=== PATIENT | male | born 1965 | race Caucasian/White ===

== ENCOUNTER 2020-03-10 11:42 | Inpatient (IN) | payer OTHER ==
[2020-03-10] MEDS ORDERED: SODIUM CHLORIDE 0.9% 500 ML 500 ML IV STA (11:45)
[2020-03-10] MEDS ORDERED: DILTIAZEM DRIP BOLUS FROM BAG 1 MG SOLN IV ONE (11:49)
[2020-03-10] MEDS ORDERED: DILTIAZEM 125 MG in SODIUM CHLORIDE 0.9% 100 ML IV SCH (12:00)
[2020-03-10 12:03] LABS: Basophils # (A) 0.1 k/uL (0-0.2); Basophils % (A) 1 %; Eosinophils # (A) 0.2 k/uL (0-0.7); Eosinophils % (A) 3 %; HCT 48.5 % (39.0-53.0); HGB 16.5 gm/dL (13.0-17.5); Lymphocytes # (A) 1.4 k/uL (1.0-4.8); Lymphocytes % (A) 22 %; MCH 33.9 pg (25.0-35.0); MCV 99.9 fL (80.0-100.0); Macrocytosis Slight; Mean Platelet Volume 7.4; Monocytes # (A) 0.5 k/uL (0-1.0); Monocytes % (A) 7 %; Neutrophils % (A) 64 %; Platelet Count 163 k/uL (150-450); RBC 4.85 m/uL (4.30-5.90); RDW 14.1 % (11.5-15.5); WBC 6.3 k/uL (3.8-10.6)
[2020-03-10 12:11] LABS: ALT 93 U/L (4-49); AST 151 U/L (17-59); African American GFR (CKD) >90 (>60 ml/min/1.73 sqM); Albumin 4.1 g/dL (3.5-5.0); Alkaline Phosphatase 85 U/L (38-126); Anion Gap 12 mmol/L; Blood Urea Nitrogen 12 mg/dL (9-20); Calcium 8.6 mg/dL (8.4-10.2); Carbon Dioxide 21 mmol/L (22-30); Chloride 107 mmol/L (98-107); Glucose 98 mg/dL (74-99); Magnesium 1.8 mg/dL (1.6-2.3); Non-African American GFR(CKD) 90 (>60 ml/min/1.73 sqM); Potassium 4.3 mmol/L (3.5-5.1); Sodium 140 mmol/L (137-145)
--- NOTE | 2020-03-10 12:14 | ED ---
Chest Pain HPI - General Chief Complaint: Chest Pain Stated Complaint: AFIB Time Seen by Provider: 03/10/20 11:44 Source: patient, EMS, RN notes reviewed Mode of arrival: EMS Limitations: no limitations - History of Present Illness Initial Comments: This a 54 show male presents emergency Department chief complaint chest pain or shortness of breath. Patient is brought to emergency from via EMS. Patient found to be in A. fib RVR he has meant that he was diagnosed with A. fib approximate 2 months ago in which he is on Eliquis and Procardia. Patient states he's had on and off symptoms over this last week but states today he is having increasing pain and dyspnea. Patient has no leg swelling denies any fevers or chills denies any abdominal pain including nausea vomiting diarrhea constipation patient states he did not take his Procardia today. - Related Data Allergies Allergy/AdvReac Type Severity Reaction Status Date / Time Penicillins Allergy Unknown Verified 03/10/20 11:49 Childhood Review of Systems ROS Statement: Those systems with pertinent positive or pertinent negative responses have been documented in the HPI. ROS Other: All systems not noted in ROS Statement are negative. EKG Findings - EKG Comments: EKG Findings:: EKG performed at 11:46 A. fib RVR rate of 148 QRS 82 QT/QTc to 74/4:30 Past Medical History Past Medical History: Atrial Fibrillation, Hypertension Additional Past Medical History / Comment(s): anxiety History of Any Multi-Drug Resistant Organisms: None Reported Past Surgical History: No Surgical Hx Reported Past Psychological History: Anxiety Smoking Status: Never smoker Past Alcohol Use History: Daily Past Drug Use History: None Reported General Exam Limitations: no limitations General appearance: alert, in no apparent distress Head exam: Present: atraumatic, normocephalic, normal inspection Eye exam: Present: normal appearance, PERRL, EOMI. Absent: scleral icterus, conjunctival injection, periorbital swelling ENT exam: Present: normal exam, normal oropharynx, mucous membranes moist, TM's normal bilaterally Neck exam: Present: normal inspection, full ROM. Absent: tenderness, meningismus, lymphadenopathy Respiratory exam: Present: normal lung sounds bilaterally. Absent: respiratory distress, wheezes, rales, rhonchi, stridor Cardiovascular Exam: Present: tachycardia, irregular rhythm, normal heart sounds. Absent: regular rate, normal rhythm, systolic murmur, diastolic murmur, rubs, gallop, clicks GI/Abdominal exam: Present: soft, normal bowel sounds. Absent: distended, tenderness, guarding, rebound, rigid Neurological exam: Present: alert, oriented X3 Skin exam: Present: warm, dry, intact, normal color. Absent: rash Course Vital Signs 03/10/20 03/10/20 03/10/20 11:44 12:02 12:04 Temperature 98.7 F Pulse Rate 152 H 115 H Respiratory 18 18 18 Rate Blood Pressure 139/100 112/72 O2 Sat by Pulse 94 L 95 Oximetry 03/10/20 12:45 Temperature Pulse Rate 102 H Respiratory 16 Rate Blood Pressure 112/88 O2 Sat by Pulse 97 Oximetry Chest Pain MDM - MDM 54-year-old male presents emergency from for chest pain shortness of breath. Patient underwent A. fib RVR patient was started on Cardizem heart rate is improving mild elevation of his troponin at this time patient will be admitted for repeat serial enzymes, cardiology evaluation. Patient is currently anticoagulant will be continued on anticoagulant. Disposition Clinical Impression: Atrial fibrillation with RVR Disposition: ADMITTED IP TO THIS HOSP Condition: Fair Referrals: Nonstaff,Physician [Primary Care Provider] - 1-2 days
[2020-03-10 12:17] LABS: Partial Thromboplastin Time 22.9 sec (22.0-30.0); Prothrombin Time 10.4 sec (9.0-12.0)
--- NOTE | 2020-03-10 12:30 | XR ---
EXAMINATION TYPE: XR chest 2V DATE OF EXAM: 03/10/2020 COMPARISON: None HISTORY: 54-year-old male with chest pain TECHNIQUE: AP and lateral views FINDINGS: Heart mildly enlarged. Mild interstitial prominence has a chronic appearance. No consolidation, pneum othorax, or pleural effusion. IMPRESSION: Mild cardiomegaly. No acute process seen.
[2020-03-10] MEDS ORDERED: NITROGLYCERIN SL TABS 0.4 MG TAB SUBLINGUAL PRN (13:03)
[2020-03-10] MEDS ORDERED: ASPIRIN 81 MG PO STA (13:03)
[2020-03-10] MEDS ORDERED: APIXABAN 5 MG TAB PO STA (13:40)
[2020-03-10] MEDS ORDERED: THIAMINE 100 MG/ML 2 ML VIAL IM STA (14:15)
[2020-03-10] MEDS ORDERED: LORazepam 2 MG/ML INJ IV PRN ×2 (14:15)
[2020-03-10] MEDS ORDERED: AMIODARONE 360 MG in DEXTROSE 5% IN WATER 200 ML IV ONE ×2 (15:04)
[2020-03-10] MEDS ORDERED: DEXTROSE 5% IN WATER 100 ML with AMIODARONE 150 MG IV ONE (15:04)
--- NOTE | 2020-03-10 16:09 | P.HPIM ---
History of Present Illness Patient is a 54-year-old male came in with the chief complaint of shortness of breath generalized tiredness weakness and the chest pressure radiating to the left arm. Patient was diagnosed with atrial fibrillation because of which patient is on Eliquis, diltiazem, metoprolol. But as per the patient patient also has heart failure because of which patient is on diuretic therapy. Patient's Eliquis was recently discontinued by his gyroscope technician as he was not in A. fib anymore. Patient is also on aspirin. Patient denied any history of carotid disease does have history of alcohol is under is still drinks one fifth of alcohol everyday his last alcohol was last night. Patient will have withdrawals without alcohol. Patient chest pain is pressure-like sensation constant moderate severity associated with the lightheadedness generalized weakness not associated with food nonpleuritic. Patient denied any smoking history. Patient does have sleep apnea and doesn't use any CPAP machine. Patient is found to be in atrial fibrillation and is being admitted for atrial fibrillation. Review of Systems REVIEW OF SYSTEMS: CONSTITUTIONAL: As mentioned in HPI HEENT: No recent visual problems or hearing problems. Denied any sore throat. CARDIOVASCULAR: orthopnea, PND, no palpitations, no syncope. PULMONARYno cough, no hemoptysis. GASTROINTESTINAL: No diarrhea, no nausea, no vomiting, no abdominal pain. NEUROLOGICAL: No headaches, no weakness, no numbness. HEMATOLOGICAL: Denies any bleeding or petechiae. GENITOURINARY: Denies any burning micturition, frequency, or urgency. MUSCULOSKELETAL/RHEUMATOLOGICAL: Denies any joint pain, swelling, or any muscle pain. ENDOCRINE: Denies any polyuria or polydipsia. The rest of the 14-point review of systems is negative. Past Medical History Past Medical History: Atrial Fibrillation, CVA/TIA, Hypertension, Osteoarthritis (OA), Pneumonia, Seizure Disorder Additional Past Medical History / Comment(s): Afib recently diagnosed, lower extremity edema, ETOH abuse with past withdrawal/seizure in 12/2018, chronic generalized pain, pt states he had a TIA in 2019 while in [place] and was intubated. History of Any Multi-Drug Resistant Organisms: None Reported Past Surgical History: Heart Catheterization, Orthopedic Surgery Additional Past Surgical History / Comment(s): R thumb fracture with surgery. Past Anesthesia/Blood Transfusion Reactions: No Reported Reaction Smoking Status: Never smoker - Past Family History Father Family Medical History: Myocardial Infarction ([place]) Additional Family Medical History / Comment(s): Father of a [place] at the age of 57 yrs. Mother Family Medical History: Hyperlipidemia, Hypertension Additional Family Medical History / Comment(s): Mother at the age of 89yrs. Medications and Allergies Home Medications Medication Instructions Recorded Confirmed Type Aspirin 81 mg PO DAILY 03/10/20 03/10/20 History Diltiazem HCl [Cardizem CD] 240 mg PO DAILY 03/10/20 03/10/20 History Folic Acid 1 mg PO DAILY 03/10/20 03/10/20 History Furosemide [Lasix] 40 mg PO DAILY 03/10/20 03/10/20 History Metoprolol Succinate [Toprol XL] 25 mg PO DAILY 03/10/20 03/10/20 History Sertraline [Zoloft] 100 mg PO DAILY 03/10/20 03/10/20 History Spironolactone [Aldactone] 25 mg PO BID 03/10/20 03/10/20 History Allergies Allergy/AdvReac Type Severity Reaction Status Date / Time Penicillins Allergy Unknown Verified 03/10/20 13:09 Childhood Physical Exam Vitals: Vital Signs Temp Pulse Resp BP Pulse Ox 03/10/20 15:35 97.9 F 105 H 18 107/88 96 03/10/20 14:56 101 H 18 100/64 96 03/10/20 14:08 120 H 18 121/81 96 03/10/20 12:45 102 H 16 112/88 97 03/10/20 12:04 18 03/10/20 12:02 115 H 18 112/72 95 03/10/20 11:44 98.7 F 152 H 18 139/100 94 L Intake and Output 03/10/20 03/10/20 03/10/20 06:59 14:59 22:59 Other: Weight 113.398 kg PHYSICAL EXAMINATION: GENERAL: The patient is alert and oriented x3, appears to be in distress because of tightness. Obese is to be really tired HEENT: Pupils are round and equally reacting to light. EOMI. No scleral icterus. No conjunctival pallor. Normocephalic, atraumatic. No pharyngeal erythema. No thyromegaly. CARDIOVASCULAR: S1 and S2 present. No murmurs, rubs, or gallops. Regular rate and regular rhythm no JVD PULMONARY: Chest is clear to auscultation, no wheezing or crackles. ABDOMEN: Soft, nontender, nondistended, normoactive bowel sounds. No palpable organomegaly. MUSCULOSKELETAL: No joint swelling or deformity. EXTREMITIES: No cyanosis, clubbing, mild nonpitting pedal edema most probably secondary to venous stasis NEUROLOGICAL: Gross neurological examination did not reveal any focal deficits. SKIN: No rashes. Results CBC & Chem 7: 03/10/20 11:54 03/10/20 11:54 Labs: Abnormal Lab Results - Last 24 Hours (Table) 03/10/20 03/10/20 Range/Units 11:54 11:54 Carbon Dioxide 21 L (22-30) mmol/L AST 151 H (17-59) U/L ALT 93 H (4-49) U/L Troponin I 0.059 H* (0.000-0.034) ng/mL Thrombosis Risk Factor Assmnt - Choose All That Apply Any of the Below Risk Factors Present?: Yes Each Factor Represents 1 point: Age 41-60 years, Obesity (BMI >25), Swollen legs (current) Other Risk Factors: No Other congenital or acquired thrombophilia - If yes, enter type in comment: No Thrombosis Risk Factor Assessment Total Risk Factor Score: 3 Thrombosis Risk Factor Assessment Level: Moderate Risk Assessment and Plan Plan: -Atrial fibrillation with rapid and regular rate: Patient appears to have paroxysmal A. fib there is a possibility that patient has a decreased ejection fraction LV dysfunction which Cardizem will be discussed in patient will be started back on metoprolol and patient was started on amiodarone cardiology will be consulted patient will be resumed on anticoagulation with Eliquis echocardiogram will be obtained -Congestive heart failure possibly of chronic systolic dysfunction although ejection fraction is not available at this time as per the patient patient last year physical on 40%, patient appears to be fairly euvolemic not in heart failure exacerbation patient will be resumed on his home regimen of Lasix and Aldactone. -Chest pain chest pressure with mildly elevated troponin elevation of troponin and chest pressure is probably secondary to atrial fibrillation, cardiology will evaluate the patient -Alcohol abuse counseling was provided -Alcohol withdrawal patient will be started on Ativan CIWA protocol -Acute alcoholic hepatitis will repeat liver enzymes tomorrow again Generalized tiredness and weakness secondary to alcoholism -Obesity, obstructive sleep apnea possibility of pulmonary hypertension echocardiogram will be obtained counseling regarding use of CPAP machine was provided -Hypertension -History of seizure disorder not in any antiseizure medications at this time -Depression
[2020-03-10] MEDS: LORazepam 2 MG/ML INJ IV PRN ×5 (17:02→23:47)
[2020-03-10] MEDS: SPIRONOLACTONE 25 MG TAB PO SCH (19:52)
[2020-03-10] MEDS: APIXABAN 5 MG TAB PO SCH (19:52)
[2020-03-10] MEDS: AMIODARONE 300 MG in DEXTROSE 5% IN WATER 250 ML IV SCH ×2 (22:47)
[2020-03-11] MEDS: LORazepam 2 MG/ML INJ IV PRN ×10 (00:40→23:36)
[2020-03-11] MEDS: THIAMINE 100 MG TAB PO SCH ×2 (06:12→17:56)
[2020-03-11 06:53] LABS: HCT 48.8 % (39.0-53.0); MCH 33.7 pg (25.0-35.0); MCHC 32.8 g/dL (31.0-37.0); MCV 102.7 fL (80.0-100.0); Macrocytosis Slight; Mean Platelet Volume 7.5; Platelet Count 138 k/uL (150-450); RBC 4.76 m/uL (4.30-5.90)
[2020-03-11 07:02] LABS: ALT 85 U/L (4-49); AST 119 U/L (17-59); African American GFR (CKD) >90 (>60 ml/min/1.73 sqM); Albumin 3.8 g/dL (3.5-5.0); Alkaline Phosphatase 76 U/L (38-126); Anion Gap 8 mmol/L; Blood Urea Nitrogen 11 mg/dL (9-20); Calcium 8.5 mg/dL (8.4-10.2); Carbon Dioxide 23 mmol/L (22-30); Chloride 106 mmol/L (98-107); Cholesterol 155 mg/dL (<200); Glucose 91 mg/dL (74-99); HDL Cholesterol 82 mg/dL (40-60); LDL Cholesterol,Calculated 58 mg/dL (0-99); Non-African American GFR(CKD) >90 (>60 ml/min/1.73 sqM); Potassium 4.7 mmol/L (3.5-5.1); Sodium 137 mmol/L (137-145); Total Bilirubin 2.6 mg/dL (0.2-1.3); Total Protein 6.7 g/dL (6.3-8.2); Triglycerides 75 mg/dL (<150)
[2020-03-11] MEDS: SPIRONOLACTONE 25 MG TAB PO SCH ×2 (08:41→20:38)
[2020-03-11] MEDS: ASPIRIN 325 MG TAB PO SCH (08:42)
[2020-03-11] MEDS: FUROSEMIDE 40 MG TAB PO SCH (08:42)
[2020-03-11] MEDS: SERTRALINE 100 MG TAB PO SCH (08:42)
[2020-03-11] MEDS: APIXABAN 5 MG TAB PO SCH ×2 (08:42→20:39)
[2020-03-11] MEDS: FOLIC ACID 1 MG TAB PO SCH (08:42)
[2020-03-11] MEDS ORDERED: METOPROLOL SUCCINATE (ER) 50 MG TAB.ER.24H PO SCH (09:00)
--- NOTE | 2020-03-11 12:27 | P.PN ---
Subjective Progress Note Date: 03/11/20 This is a 54-year-old male with history of paroxysmal and persistent atrial fibrillation. Patient was treated with anticoagulation therapy, diltiazem and also metoprolol in the past. Apparently he was taken off the anticoagulation therapy recently by his receptionist scheduler. Patient is from out of town. Patient also has history of alcohol abuse. This patient is admitted now with left-sided chest pain and evidence of recurrence of atrial fibrillation with rapid ventricular response. Patient is also having having some withdrawal symptoms. His chest pain is located on the left side of the chest which is well circumscribed and appears to be typical. His cardiac enzymes are mildly elevated but the pattern is not consistent with acute coronary syndrome or non- STEMI. His liver enzymes are mildly elevated. His proBNP is about 1140. His BUN/creatinine are within normal limits. Patient is on IV diltiazem and also on oral anticoagulation therapy. I'm going to increase the dose of beta ramses. Echocardiogram was done and that will be reviewed. Patient is also being treated for alcohol withdrawal. He patient continues to be in atrial fibrillation, may be considered for CHRISTINE cardioversion. Objective - Vital Signs Vital signs: Vital Signs Temp 97.5 F L 03/11/20 11:42 Pulse 129 H 03/11/20 11:42 Resp 22 03/11/20 11:42 BP 161/112 03/11/20 11:42 Pulse Ox 94 L 03/11/20 11:42 Intake & Output 03/10/20 03/11/20 03/11/20 18:59 06:59 18:59 Intake Total 120 Output Total 400 100 Balance -280 -100 Weight 113.398 kg 134.6 kg Intake: Oral 120 Output: Urine 400 100 Other: Voiding Method Urinal # Bowel Movements 1 - Exam GENERAL EXAM: Patient is alert and appears to be anxious and sweaty HEENT: Normocephalic. Normal reaction of pupils, equal size, normal range of extraocular motion. No erythema or exudates in the throat. NECK: No masses, no nuchal rigidity. CHEST: No chest wall deformity. LUNGS: Equal air entry with no crackles or wheeze. HEART: S1 and S2 normal, tachycardic with irregular rhythm ABDOMEN: No hepatosplenomegaly, normal bowel sounds, no guarding or rigidity. SKIN: No rashes CENTRAL NERVOUS SYSTEM: No focal deficits. EXTREMITIES: No cyanosis, clubbing or edema. - Labs CBC & Chem 7: 03/11/20 06:08 03/11/20 06:08 Labs: Abnormal Lab Results - Last 24 Hours (Table) 03/10/20 03/10/20 03/10/20 Range/Units 11:54 14:43 17:21 MCV (80.0-100.0) fL Plt Count (150-450) k/uL Total Bilirubin (0.2-1.3) mg/dL AST (17-59) U/L ALT (4-49) U/L Troponin I 0.059 H* 0.063 H* 0.059 H* (0.000-0.034) ng/mL HDL Cholesterol (40-60) mg/dL 03/11/20 03/11/20 Range/Units 06:08 06:08 MCV 102.7 H (80.0-100.0) fL Plt Count 138 L (150-450) k/uL Total Bilirubin 2.6 H (0.2-1.3) mg/dL AST 119 H (17-59) U/L ALT 85 H (4-49) U/L Troponin I (0.000-0.034) ng/mL HDL Cholesterol 82 H (40-60) mg/dL Assessment and Plan (1) Essential hypertension Current Visit: Yes Status: Acute Code(s): I10 - ESSENTIAL (PRIMARY) HYPERTENSION SNOMED Code(s): 35366520 (2) Atrial fibrillation with RVR Current Visit: Yes Status: Acute Code(s): I48.91 - UNSPECIFIED ATRIAL FIBRILLATION SNOMED Code(s): 706376159788651 (3) Alcohol withdrawal Current Visit: Yes Status: Acute Code(s): F10.239 - ALCOHOL DEPENDENCE WITH WITHDRAWAL, UNSPECIFIED SNOMED Code(s): 201185188 (4) Elevated troponin Current Visit: Yes Status: Acute Code(s): R79.89 - OTHER SPECIFIED ABNORMAL FINDINGS OF BLOOD CHEMISTRY SNOMED Code(s): 136266048 Plan: Continue with anticoagulation, beta ramses and IV Cardizem. If patient doesn't convert spontaneously, may consider CHRISTINE cardioversion. We'll also get an echocardiogram
[2020-03-11] MEDS: LISINOPRIL 5 MG TAB PO SCH (12:49)
[2020-03-11] MEDS: AMIODARONE 300 MG in DEXTROSE 5% IN WATER 250 ML IV SCH ×2 (13:49)
[2020-03-11] MEDS ORDERED: DIGOXIN 125 MCG TAB PO ONE ×2 (15:00→21:00)
[2020-03-11] MEDS ORDERED: DIGOXIN 250 MCG TAB PO ONE (15:00)
[2020-03-11] MEDS ORDERED: HYDROmorphone 0.5 MG/0.5 ML SYRINGE IVP PRN (15:54)
[2020-03-11 16:29] LABS: ALT 73 U/L (4-49); AST 106 U/L (17-59); African American GFR (CKD) >90 (>60 ml/min/1.73 sqM); Albumin 3.9 g/dL (3.5-5.0); Alkaline Phosphatase 77 U/L (38-126); Anion Gap 7 mmol/L; Blood Urea Nitrogen 11 mg/dL (9-20); Calcium 8.8 mg/dL (8.4-10.2); Carbon Dioxide 27 mmol/L (22-30); Chloride 100 mmol/L (98-107); Glucose 97 mg/dL (74-99); Non-African American GFR(CKD) >90 (>60 ml/min/1.73 sqM); Potassium 4.3 mmol/L (3.5-5.1); Sodium 134 mmol/L (137-145); Total Bilirubin 2.7 mg/dL (0.2-1.3); Total Protein 6.7 g/dL (6.3-8.2)
--- NOTE | 2020-03-11 17:15 | PN ---
PROGRESS NOTE DATE OF SERVICE: 03/11/2020 This 54-year-old gentleman was admitted with shortness of breath, also had generalized weakness and tiredness, significant history of noncompliance. Patient was not taking any medications for the last 4 or 5 months. Patient taking alcohol abuse. The patient has left-sided chest pain. The patient had recurrent cardiology following the patient closely with multiple consultants. troponins elevated, indicating acute non ST elevation myocardial infarction with troponin up to 0.063. Past medical history reviewed. REVIEW OF SYSTEMS: Cardiovascular system: As mentioned earlier. Respiratory: As mentioned earlier. GI: As mentioned earlier. : No dysuria or retention. NERVOUS SYSTEM: No numbness or weakness. MEDICATIONS: Reviewed and include: 1. Eliquis 5 mg b.i.d. 2. Aspirin 320. 3. Lanoxin. 4. Folic acid. 5. Lasix. 6. Ativan. 7. Toprol-XL. 8. Nitrostat. 9. Zoloft. 10.Aldactone. 11.Vitamin B1. PHYSICAL EXAM: Patient is alert, oriented x3. Pulse is 120, irregular. Blood pressure ntd. Respirations 20, temperature 97.2, pulse ox 98% on 2 L. HEENT: Conjunctivae normal. NECK: No JVD. CARDIOVASCULAR: S1, S2. RESPIRATIONS: Breath sounds diminished in the bases. A few scattered rhonchi and crackles. ABDOMEN: Soft, nontender. LEGS are no edema, no swelling. NERVOUS SYSTEM: No focal deficits. LABS: MCV 102.7. Troponins are noted. Total bilirubin is 2.6, AST, ALT noted. Strickland negative. ASSESSMENT: 1. Atrial fibrillation with fast ventricular rate, paroxysmal. 2. Change in mental status acute metabolic encephalopathy. 3. Shortness of breath possibly congestive heart failure acute exacerbation with acute on chronic systolic dysfunction. 4. Chest pain and pressure. 5. Alcohol abuse and withdrawal. 6. Acute delirium tremens. 7. Change in mental status, metabolic encephalopathy, secondary to alcohol withdrawal. 8. Mild thrombocytopenia. 9. Troponin 0.059 indeterminate. 10.History of cerebrovascular accident, transient ischemic attack. 11.Hypertension. 12.History of degenerative joint disease. 13.History of pneumonia. 14.Seizure disorder. 15.History of withdrawal seizures. 16.History of transient ischemic attack and intubation in [place]. 17.History of anxiety/depression. 18.History of ETOH. 19.Obesity with body mass index of 46.5. RECOMMENDATIONS AND DISCUSSION: This 54-year-old gentleman who presented with multiple complex medical issues, we will monitor the patient closely, continue the current medications and symptomatic treatment. Otherwise, at this time, I recommend continue with Eliquis. Digoxin has been given. Otherwise Cardizem. Resume the home medications. Prognosis guarded because of multiple complex medical issues. Further recommendations to follow. Seizure precautions and CIWA protocol, alcohol withdrawal precautions. Recommend the patient follow up with primary physician closely after discharge. HILARIA / CHERYL: [id number] / GOLDEND
[2020-03-11 17:41] LABS: Appearance,Urine Clear (Clear); Bilirubin,Urine Negative (Negative); Blood,Urine Negative (Negative); Color,Urine Light Yellow; Glucose,Urine (UA) Negative (Negative); Ketones,Urine Negative (Negative); Leukocyte Esterase,Urine Negative (Negative); Nitrite,Urine Negative (Negative); Protein,Urine Negative (Negative); Specific Gravity,Urine 1.006 (1.001-1.035); Urobilinogen,Urine <2.0 mg/dL (<2.0)
[2020-03-11] MEDS: HYDROcodone/APAP 5-325MG 1 EACH TAB PO PRN (21:35)
[2020-03-12] MEDS: TEMAZEPAM 15 MG CAP PO PRN ×2 (01:52→19:38)
[2020-03-12] MEDS: LORazepam 2 MG/ML INJ IV PRN ×4 (01:52→17:29)
[2020-03-12 06:22] LABS: Basophils % (A) 1 %; Eosinophils # (A) 0.2 k/uL (0-0.7); Eosinophils % (A) 4 %; HCT 46.3 % (39.0-53.0); HGB 15.6 gm/dL (13.0-17.5); Lymphocytes # (A) 0.9 k/uL (1.0-4.8); Lymphocytes % (A) 15 %; MCHC 33.7 g/dL (31.0-37.0); MCV 100.9 fL (80.0-100.0); Macrocytosis Slight; Mean Platelet Volume 7.5; Monocytes # (A) 0.5 k/uL (0-1.0); Monocytes % (A) 9 %; Neutrophils # (A) 3.8 k/uL (1.3-7.7); Neutrophils % (A) 69 %; Platelet Count 139 k/uL (150-450); RBC 4.59 m/uL (4.30-5.90); RDW 14.1 % (11.5-15.5); WBC 5.6 k/uL (3.8-10.6)
[2020-03-12] MEDS: THIAMINE 100 MG TAB PO SCH ×2 (06:29→17:19)
[2020-03-12] MEDS: FOLIC ACID 1 MG TAB PO SCH (09:50)
[2020-03-12] MEDS: METOPROLOL SUCCINATE (ER) 100 MG TAB.ER.24H PO SCH (09:50)
[2020-03-12] MEDS: SPIRONOLACTONE 25 MG TAB PO SCH ×2 (09:51→19:38)
[2020-03-12] MEDS: FUROSEMIDE 40 MG TAB PO SCH (09:51)
[2020-03-12] MEDS: ASPIRIN 325 MG TAB PO SCH (09:51)
[2020-03-12] MEDS: APIXABAN 5 MG TAB PO SCH ×2 (09:51→19:37)
[2020-03-12] MEDS: LISINOPRIL 5 MG TAB PO SCH (09:51)
[2020-03-12] MEDS: SERTRALINE 100 MG TAB PO SCH (09:51)
[2020-03-12] MEDS: DIGOXIN 125 MCG TAB PO SCH (10:27)
--- NOTE | 2020-03-12 11:46 | P.PN ---
Subjective Progress Note Date: 03/12/20 This is a 54-year-old male with history of paroxysmal and persistent atrial fibrillation. Patient was treated with anticoagulation therapy, diltiazem and also metoprolol in the past. Apparently he was taken off the anticoagulation therapy recently by his conduit helper. Patient is from out of town. Patient also has history of alcohol abuse. This patient is admitted now with left-sided chest pain and evidence of recurrence of atrial fibrillation with rapid ventricular response. Patient is also having having some withdrawal symptoms. His chest pain is located on the left side of the chest which is well circumscribed and appears to be typical. His cardiac enzymes are mildly elevated but the pattern is not consistent with acute coronary syndrome or non- STEMI. His liver enzymes are mildly elevated. His proBNP is about 1140. His BUN/creatinine are within normal limits. Patient is on IV diltiazem and also on oral anticoagulation therapy. I'm going to increase the dose of beta ramses. Echocardiogram was done and that will be reviewed. Patient is also being treated for alcohol withdrawal. He patient continues to be in atrial fibrillation, may be considered for CHRISTINE cardioversion. 03/12/2020: This patient is admitted with atypical fibrillation with rapid and corresponds. Patient also had evidence of cardiomyopathy with poor ejection fraction. Patient is a also having symptoms of alcohol withdrawal. 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 His heart rate is well controlled with combination of beta ramses and Lanoxin. Patient is off amiodarone. We'll continue his current medical therapy. I will also add dose diuretics and PANKAJ inhibitor. Further recommendations will depend upon clinical course Objective - Vital Signs Vital signs: Vital Signs Temp 98.1 F 03/12/20 08:45 Pulse 74 03/12/20 08:45 Resp 18 03/12/20 08:45 BP 131/73 03/12/20 08:45 Pulse Ox 94 L 03/12/20 08:45 Intake & Output 03/11/20 03/12/20 03/12/20 18:59 06:59 18:59 Intake Total 287.083 Output Total 1725 Balance -1437.917 Weight 127.4 kg Intake: Intake, IV Titration 287.083 Amount Amiodarone 300 mg In 287.083 Dextrose 5% in Water 250 ml @ 0.5 MG/MIN 25 mls/hr IV .Q10H FOR[facility], 1928–1983 Rx#: [id number] Output: Urine 1725 Other: Voiding Method Urinal Urinal # Voids 2 2 # Bowel Movements 1 - Exam GENERAL EXAM: Patient is alert and appears to be anxious and sweaty HEENT: Normocephalic. Normal reaction of pupils, equal size, normal range of extraocular motion. No erythema or exudates in the throat. NECK: No masses, no nuchal rigidity. CHEST: No chest wall deformity. LUNGS: Equal air entry with no crackles or wheeze. HEART: S1 and S2 normal, tachycardic with irregular rhythm ABDOMEN: No hepatosplenomegaly, normal bowel sounds, no guarding or rigidity. SKIN: No rashes CENTRAL NERVOUS SYSTEM: No focal deficits. EXTREMITIES: No cyanosis, clubbing or edema. - Labs CBC & Chem 7: 03/12/20 05:34 03/11/20 16:04 Labs: Abnormal Lab Results - Last 24 Hours (Table) 03/11/20 03/12/20 Range/Units 16:04 05:34 MCV 100.9 H (80.0-100.0) fL Plt Count 139 L (150-450) k/uL Lymphocytes # 0.9 L (1.0-4.8) k/uL Sodium 134 L (137-145) mmol/L Total Bilirubin 2.7 H (0.2-1.3) mg/dL AST 106 H (17-59) U/L ALT 73 H (4-49) U/L Assessment and Plan (1) Essential hypertension Current Visit: Yes Status: Acute Code(s): I10 - ESSENTIAL (PRIMARY) HYPE RTENSION SNOMED Code(s): 88995810 (2) Atrial fibrillation with RVR Current Visit: Yes Status: Acute Code(s): I48.91 - UNSPECIFIED ATRIAL FIBRILLATION SNOMED Code(s): 127486094314593 (3) Alcohol withdrawal Current Visit: Yes Status: Acute Code(s): F10.239 - ALCOHOL DEPENDENCE WITH WITHDRAWAL, UNSPECIFIED SNOMED Code(s): 873105120 (4) Elevated troponin Current Visit: Yes Status: Acute Code(s): R79.89 - OTHER SPECIFIED ABNORMAL FINDINGS OF BLOOD CHEMISTRY SNOMED Code(s): 597480277 (5) Cardiomyopathy Current Visit: Yes Status: Acute Code(s): I42.9 - CARDIOMYOPATHY, UNSPECIFIED SNOMED Code(s): 29540227 Plan: Patient heart rate is better controlled. We'll continue current medical therapy. We will also add diuretics and PANKAJ inhibitor. Further recommendations depend upon clinical course
[2020-03-12] MEDS: ONDANSETRON 4 MG/2 ML VIAL IVP PRN (13:53)
[2020-03-12] MEDS: PANTOPRAZOLE 40 MG TABLET PO SCH (17:19)
[2020-03-12] MEDS: HYDROcodone/APAP 5-325MG 1 EACH TAB PO PRN (19:38)
--- NOTE | 2020-03-12 23:57 | PN ---
PROGRESS NOTE DATE OF SERVICE: 03/12/2020 This 54-year-old gentleman admitted with shortness of breath also had generalized weakness. Patient also atrial fibrillation with a fast ventricular rate. Patient also had ETOH withdrawals. The patient is slightly confused at this time. Patient being closely monitored. Past medical history reviewed. REVIEW OF SYSTEMS: Cardiovascular as mentioned. RESPIRATORY: As mentioned earlier. GI: As mentioned earlier. : No dysuria or retention. NERVOUS SYSTEM: No numbness or weakness. CURRENT MEDICATIONS: Reviewed and include: [place] 5 mg, Eliquis, aspirin, Lanoxin, folic acid, Lasix, Dilaudid, Zestril, Ativan. Toprol-XL, Nitrostat, Zofran, Protonix, Zoloft, Aldactone, Restoril and vitamin B1. Doses are reviewed. PHYSICAL EXAMINATION: Alert and oriented times three. Pulse 120 and irregular. Blood pressure is 147/81, respirations 18, temperature 98.2, pulse ox 94% on room air. HEENT: Conjunctivae normal. NECK: No JVD. CARDIOVASCULAR: S1, S2 muffled. RESPIRATORY: Breath sounds diminished in the bases. A few scattered rhonchi and crackles. ABDOMEN: Soft, nontender. LEGS are no edema. No swelling. LABS: At this time shows WBC 5.2, hemoglobin 15.2, sodium 134, total bilirubin is 2.7, AST, ALT noted. ASSESSMENT: 1. Atrial fibrillation with fast ventricular rate present, paroxysmal, present on admission. 2. Change in mental status acute metabolic encephalopathy. 3. Shortness of breath, with possible congestive heart failure acute exacerbation, acute on chronic systolic dysfunction. 4. Chest pain and pressure. 5. Alcohol abuse and withdrawal. 6. Acute delirium tremens. 7. Change in mental status, metabolic encephalopathy, secondary to alcohol withdrawal. 8. Mild thrombocytopenia. 9. Troponin 0.05 indeterminate. 10.History of cerebrovascular accident/transient ischemic attack. 11.Hypertension. 12.History of degenerative joint disease. 13.History pneumonia. 14.Seizure disorder. 15.History of withdrawal seizures. 16.History of transient ischemic attack and intubation in [place]. 17.History of anxiety, depression. 18.History of EtOH. 19.Obesity with body mass index 46.5. RECOMMENDATIONS AND DISCUSSION: This 54-year-old gentleman who was admitted to the hospital with multiple complex medical issues, we will monitor the patient closely. Continue with CIWA protocol. Continue with digoxin and beta blockers. Closely with Cardiology. Otherwise, there are no signs of any infection at this time. The chest x-ray done at the time of admission did not show acute abnormality. We will continue to monitor. Guarded prognosis. Further recommendations to follow. Repeat labs will be ordered. MMODL / IJN: [id number] /
[2020-03-13] MEDS: PANTOPRAZOLE 40 MG TABLET PO SCH ×2 (06:29→15:54)
[2020-03-13] MEDS: THIAMINE 100 MG TAB PO SCH ×3 (06:29→20:52)
[2020-03-13 06:33] LABS: Basophils # (A) 0.1 k/uL (0-0.2); Basophils % (A) 1 %; Eosinophils # (A) 0.3 k/uL (0-0.7); Eosinophils % (A) 5 %; HCT 48.4 % (39.0-53.0); HGB 16.3 gm/dL (13.0-17.5); Lymphocytes % (A) 20 %; MCH 33.4 pg (25.0-35.0); MCHC 33.6 g/dL (31.0-37.0); MCV 99.4 fL (80.0-100.0); Mean Platelet Volume 7.5; Monocytes # (A) 0.4 k/uL (0-1.0); Monocytes % (A) 8 %; Neutrophils # (A) 3.3 k/uL (1.3-7.7); Neutrophils % (A) 63 %; Platelet Count 162 k/uL (150-450); RBC 4.87 m/uL (4.30-5.90); RDW 13.8 % (11.5-15.5); WBC 5.2 k/uL (3.8-10.6)
[2020-03-13] MEDS: DIGOXIN 125 MCG TAB PO SCH (08:02)
[2020-03-13] MEDS: FOLIC ACID 1 MG TAB PO SCH (08:02)
[2020-03-13] MEDS: APIXABAN 5 MG TAB PO SCH ×2 (08:02→20:52)
[2020-03-13] MEDS: FUROSEMIDE 40 MG TAB PO SCH (08:02)
[2020-03-13] MEDS: SPIRONOLACTONE 25 MG TAB PO SCH ×2 (08:02→20:52)
[2020-03-13] MEDS: SERTRALINE 100 MG TAB PO SCH (08:02)
[2020-03-13] MEDS: METOPROLOL SUCCINATE (ER) 100 MG TAB.ER.24H PO SCH (08:02)
[2020-03-13] MEDS: LISINOPRIL 5 MG TAB PO SCH (08:02)
[2020-03-13] MEDS: ASPIRIN 325 MG TAB PO SCH (08:02)
[2020-03-13] MEDS: LORazepam 2 MG/ML INJ IV PRN ×2 (08:10→23:05)
--- NOTE | 2020-03-13 11:54 | P.PN ---
Subjective Progress Note Date: 03/13/20 This is a 54-year-old male with history of paroxysmal and persistent atrial fibrillation. Patient was treated with anticoagulation therapy, diltiazem and also metoprolol in the past. Apparently he was taken off the anticoagulation therapy recently by his access clinician. Patient is from out of town. Patient also has history of alcohol abuse. This patient is admitted now with left-sided chest pain and evidence of recurrence of atrial fibrillation with rapid ventricular response. Patient is also having having some withdrawal symptoms. His chest pain is located on the left side of the chest which is well circumscribed and appears to be typical. His cardiac enzymes are mildly elevated but the pattern is not consistent with acute coronary syndrome or non- STEMI. His liver enzymes are mildly elevated. His proBNP is about 1140. His BUN/creatinine are within normal limits. Patient is on IV diltiazem and also on oral anticoagulation therapy. I'm going to increase the dose of beta ramses. Echocardiogram was done and that will be reviewed. Patient is also being treated for alcohol withdrawal. He patient continues to be in atrial fibrillation, may be considered for CHRISTINE cardioversion. 03/12/2020: This patient is admitted with atypical fibrillation with rapid and corresponds. Patient also had evidence of cardiomyopathy with poor ejection fraction. Patient is a also having symptoms of alcohol withdrawal. 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 His heart rate is well controlled with combination of beta ramses and Lanoxin. Patient is off amiodarone. We'll continue his current medical therapy. I will also add dose diuretics and PANKAJ inhibitor. Further recommendations will depend upon clinical course. 03/13/2020: This patient is a still complaining of shortness of breath and not feeling well. His urine output is excellent. His lungs appeared to be clear. Heart is irregular. Still mildly tachycardic is also being treated for alcohol withdrawal. We'll continue with current medical therapy and follow his vital signs are urinary output Objective - Vital Signs Vital signs: Vital Signs Temp 98.1 F 03/13/20 08:00 Pulse 130 H 03/13/20 08:00 Resp 18 03/13/20 08:00 BP 156/85 03/13/20 08:00 Pulse Ox 92 L 03/13/20 08:00 Intake & Output 03/12/20 03/13/20 03/13/20 18:59 06:59 18:59 Intake Total 522 Output Total 2650 300 Balance -2127 -300 Weight 127.732 kg Intake: Oral 522 Output: Urine 2650 300 Other: Voiding Method Urinal Urinal # Voids 1 - Exam GENERAL EXAM: Patient is alert and appears to be anxious and sweaty HEENT: Normocephalic. Normal reaction of pupils, equal size, normal range of extraocular motion. No erythema or exudates in the throat. NECK: No masses, no nuchal rigidity. CHEST: No chest wall deformity. LUNGS: Equal air entry with no crackles or wheeze. HEART: S1 and S2 normal, tachycardic with irregular rhythm ABDOMEN: No hepatosplenomegaly, normal bowel sounds, no guarding or rigidity. SKIN: No rashes CENTRAL NERVOUS SYSTEM: No focal deficits. EXTREMITIES: No cyanosis, clubbing . Mild edema - Labs CBC & Chem 7: 03/13/20 05:55 03/11/20 16:04 Assessment and Plan (1) Essential hypertension Current Visit: Yes Status: Acute Code(s): I10 - ESSENTIAL (PRIMARY) HYPERTENSION SNOMED Code(s): 81909020 (2) Atrial fibrillation with RVR Current Visit: Yes Status: Acute Code(s): I48.91 - UNSPECIFIED ATRIAL FIBRILLATION SNOMED Code(s): 687401737854749 (3) Alcohol withdrawal Current Visit: Yes Status: Acute Code(s): F10.239 - ALCOHOL DEPENDENCE WITH WITHDRAWAL, UNSPECIFIED SNOMED Code(s): 328924832 (4) Elevated troponin Current Visit: Yes Status: Acute Code(s): R79.89 - OTHER SPECIFIED ABNORMAL FINDINGS OF BLOOD CHEMISTRY SNOMED Code(s): 101663386 (5) Cardiomyopathy Current Visit: Yes Status: Acute Code(s): I42.9 - CARDIOMYOPATHY, UNSPECIFIED SNOMED Code(s): 58292810 Plan: Continue current medical therapy. Follow elect lites closely. Increase activity as tolerated
[2020-03-13] MEDS: TEMAZEPAM 15 MG CAP PO PRN (20:51)
[2020-03-13] MEDS: HYDROcodone/APAP 5-325MG 1 EACH TAB PO PRN (20:52)
--- NOTE | 2020-03-14 05:30 | PN ---
PROGRESS NOTE DATE OF SERVICE: 03/13/2020 This 54-year-old gentleman who was admitted with shortness of breath also had atrial fibrillation. The patient also had significant EtOH withdrawal also. No chest pain. No palpitations. No fever. PHYSICAL EXAMINATION: On exam, alert and oriented x3. Pulse is 80, blood pressure 128/92, respirations 16, temperature 98.3, pulse ox 92% on room air. HEENT: Conjunctivae normal. NECK: No jugular venous distention. CARDIOVASCULAR: S1, S2 muffled. RESPIRATORY: Breath sounds diminished at the bases. A few scattered rhonchi. ABDOMEN: Soft. NERVOUS SYSTEM: No focal deficits. LABS: CBC within normal limits. CMP noted. AST, ALT still elevated. ASSESSMENT: 1. Atrial fibrillation with fast ventricular rate, paroxysmal, present on admission. 2. Change in mental status, acute metabolic encephalopathy. 3. Shortness of breath, possible congestive heart failure acute exacerbation, acute on chronic systolic dysfunction. 4. Chest pain and pressure, improved. 5. Alcohol abuse and withdrawal. 6. Acute delirium tremens. 7. Acute alcoholic hepatitis. 8. Change in mental status acute metabolic encephalopathy secondary to alcohol withdrawal. 9. Mild thrombocytopenia. 10.Troponin 0.05 indeterminate. 11.History of cerebrovascular accident, transient ischemic attack. 12.Hypertension. 13.History of degenerative joint disease. 14.History of pneumonia. 15.History of seizure disorder. 16.History of withdrawal seizures. 17.History of transient ischemic attack and intubation in [place]. 18.History of anxiety, depression. 19.History EtOH. 20.Obesity with body mass index of 46.5. RECOMMENDATIONS AND DISCUSSION: This 54-year-old gentleman who presented with multiple complex medical issues, will monitor the patient closely. Continue the CIWA protocol. Continue the rest of medications. Continue the digoxin. Closely follow with Cardiology. Guarded prognosis. Further recommendations to follow. MMODL / IJN: [id number] /
[2020-03-14] MEDS: PANTOPRAZOLE 40 MG TABLET PO SCH ×2 (06:25→17:54)
[2020-03-14 07:13] LABS: Basophils # (A) 0.1 k/uL (0-0.2); Basophils % (A) 1 %; Eosinophils # (A) 0.4 k/uL (0-0.7); Eosinophils % (A) 6 %; HCT 49.6 % (39.0-53.0); HGB 17.3 gm/dL (13.0-17.5); Lymphocytes # (A) 1.3 k/uL (1.0-4.8); Lymphocytes % (A) 21 %; MCH 34.7 pg (25.0-35.0); MCHC 34.9 g/dL (31.0-37.0); MCV 99.3 fL (80.0-100.0); Mean Platelet Volume 7.5; Monocytes # (A) 0.7 k/uL (0-1.0); Monocytes % (A) 12 %; Neutrophils # (A) 3.5 k/uL (1.3-7.7); Neutrophils % (A) 57 %; Platelet Count 169 k/uL (150-450); WBC 6.1 k/uL (3.8-10.6)
[2020-03-14] MEDS: LORazepam 2 MG/ML INJ IV PRN ×3 (09:25→21:17)
[2020-03-14] MEDS: DIGOXIN 125 MCG TAB PO SCH (09:25)
[2020-03-14] MEDS: FUROSEMIDE 40 MG TAB PO SCH (09:26)
[2020-03-14] MEDS: SERTRALINE 100 MG TAB PO SCH (09:26)
[2020-03-14] MEDS: ASPIRIN 325 MG TAB PO SCH (09:26)
[2020-03-14] MEDS: APIXABAN 5 MG TAB PO SCH ×2 (09:26→21:17)
[2020-03-14] MEDS: SPIRONOLACTONE 25 MG TAB PO SCH ×2 (09:26→21:17)
[2020-03-14] MEDS: LISINOPRIL 5 MG TAB PO SCH (09:26)
[2020-03-14] MEDS: METOPROLOL SUCCINATE (ER) 100 MG TAB.ER.24H PO SCH (09:26)
[2020-03-14] MEDS: FOLIC ACID 1 MG TAB PO SCH (09:26)
[2020-03-14 15:52] LABS: ALT 55 U/L (4-49); AST 80 U/L (17-59); African American GFR (CKD) >90 (>60 ml/min/1.73 sqM); Albumin 3.6 g/dL (3.5-5.0); Alkaline Phosphatase 69 U/L (38-126); Anion Gap 9 mmol/L; Blood Urea Nitrogen 16 mg/dL (9-20); Calcium 8.9 mg/dL (8.4-10.2); Carbon Dioxide 26 mmol/L (22-30); Chloride 98 mmol/L (98-107); Glucose 78 mg/dL (74-99); Non-African American GFR(CKD) >90 (>60 ml/min/1.73 sqM); Potassium 4.1 mmol/L (3.5-5.1); Sodium 133 mmol/L (137-145); Total Bilirubin 1.3 mg/dL (0.2-1.3); Total Protein 6.3 g/dL (6.3-8.2)
--- NOTE | 2020-03-14 17:01 | P.PN ---
Subjective Progress Note Date: 03/14/20 This is a 54-year-old male with history of paroxysmal and persistent atrial fibrillation. Patient was treated with anticoagulation therapy, diltiazem and also metoprolol in the past. Apparently he was taken off the anticoagulation therapy recently by his director child abuse therapy. Patient is from out of town. Patient also has history of alcohol abuse. This patient is admitted now with left-sided chest pain and evidence of recurrence of atrial fibrillation with rapid ventricular response. Patient is also having having some withdrawal symptoms. His chest pain is located on the left side of the chest which is well circumscribed and appears to be typical. His cardiac enzymes are mildly elevated but the pattern is not consistent with acute coronary syndrome or non- STEMI. His liver enzymes are mildly elevated. His proBNP is about 1140. His BUN/creatinine are within normal limits. Patient is on IV diltiazem and also on oral anticoagulation therapy. I'm going to increase the dose of beta ramses. Echocardiogram was done and that will be reviewed. Patient is also being treated for alcohol withdrawal. He patient continues to be in atrial fibrillation, may be considered for CHRISTINE cardioversion. 03/12/2020: This patient is admitted with atypical fibrillation with rapid and corresponds. Patient also had evidence of cardiomyopathy with poor ejection fraction. Patient is a also having symptoms of alcohol withdrawal. 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 His heart rate is well controlled with combination of beta ramses and Lanoxin. Patient is off amiodarone. We'll continue his current medical therapy. I will also add dose diuretics and PANKAJ inhibitor. Further recommendations will depend upon clinical course. 03/13/2020: This patient is a still complaining of shortness of breath and not feeling well. His urine output is excellent. His lungs appeared to be clear. Heart is irregular. Still mildly tachycardic is also being treated for alcohol withdrawal. We'll continue with current medical therapy and follow his vital signs are urinary output. 03/14/2020: This patient is admitted with persistent atrial fibrillation and evidence of cardiomyopathy and congestive heart failure. His heart rate is well controlled. His blood pressure is well controlled. He still complaining some weakness and shortness of breath. He is also being treated for alcohol wi thdrawal. However increase the patient's activities to be increased. Continue current medical therapy. Hopefully his LV function will improve with time and also if he stays off alcohol. Objective - Vital Signs Vital signs: Vital Signs Temp 97.8 F 03/14/20 08:00 Pulse 97 03/14/20 12:00 Resp 20 03/14/20 12:00 BP 147/86 03/14/20 12:00 Pulse Ox 96 03/14/20 12:00 Intake & Output 03/13/20 03/14/20 03/14/20 18:59 06:59 18:59 Intake Total 222 240 Output Total 1350 495 120 Balance -1128 -495 120 Weight 129.6 kg Intake: Oral 222 240 Output: Urine 1350 495 120 Other: Voiding Method Urinal Urinal Urinal # Voids 1 1 0 - Exam GENERAL EXAM: Patient is alert and appears to be anxious and sweaty HEENT: Normocephalic. Normal reaction of pupils, equal size, normal range of extraocular motion. No erythema or exudates in the throat. NECK: No masses, no nuchal rigidity. CHEST: No chest wall deformity. LUNGS: Equal air entry with no crackles or wheeze. HEART: S1 and S2 normal, tachycardic with irregular rhythm ABDOMEN: No hepatosplenomegaly, normal bowel sounds, no guarding or rigidity. SKIN: No rashes CENTRAL NERVOUS SYSTEM: No focal deficits. EXTREMITIES: No cyanosis, clubbing . Mild edema - Labs CBC & Chem 7: 03/14/20 06:14 03/14/20 06:14 Labs: Abnormal Lab Results - Last 24 Hours (Table) 03/14/20 Range/Units 06:14 Sodium 133 L (137-145) mmol/L AST 80 H (17-59) U/L ALT 55 H (4-49) U/L Assessment and Plan (1) Essential hypertension Current Visit: Yes Status: Acute Code(s): I10 - ESSENTIAL (PRIMARY) HYPERTENSION SNOMED Code(s): 06529863 (2) Atrial fibrillation with RVR Current Visit: Yes Status: Acute Code(s): I48.91 - UNSPECIFIED ATRIAL FIBRILLATION SNOMED Code(s): 466559311341744 (3) Alcohol withdrawal Current Visit: Yes Status: Acute Code(s): F10.239 - ALCOHOL DEPENDENCE WITH WITHDRAWAL, UNSPECIFIED SNOMED Code(s): 451056270 (4) Elevated troponin Current Visit: Yes Status: Acute Code(s): R79.89 - OTHER SPECIFIED ABNORMAL FINDINGS OF BLOOD CHEMISTRY SNOMED Code(s): 150068295 (5) Cardiomyopathy Current Visit: Yes Status: Acute Code(s): I42.9 - CARDIOMYOPATHY, UNSPECIFIED SNOMED Code(s): 63996486 Plan: Continue current medical therapy. Bedside physical therapy. Increase activity as tolerated
[2020-03-14] MEDS: THIAMINE 100 MG TAB PO SCH (17:54)
--- NOTE | 2020-03-14 18:25 | PN ---
PROGRESS NOTE DATE OF SERVICE: 03/14/2020 This 54-year-old gentleman who was admitted with shortness of breath also had atrial fibrillation. Patient was also going through delirium tremens. No chest pain. No palpitations. No fever. PHYSICAL EXAMINATION: Alert and oriented x3. Pulse 97, blood pressure 147/83, respiration 20, temperature 97.8, pulse ox 96% on room air. HEENT: Conjunctivae normal. NAUSEA NECK: No jugular venous distention. CARDIOVASCULAR SYSTEM: S1, S2 muffled. RESPIRATORY SYSTEM: Breath sounds diminished at the bases. No rhonchi. No crackles. ABDOMEN: Soft, non-tender. NERVOUS SYSTEM: No focal deficit. LABS: CBC within normal limits. Other labs are noted. ASSESSMENT: 1. Atrial fibrillation with fast ventricular rate, paroxysmal, present on admission. 2. Change in mental status, acute metabolic encephalopathy. 3. Shortness of breath, possible congestive heart failure, acute exacerbation, with acute on chronic systolic dysfunction. 4. Chest pain and pressure, improved. 5. Alcohol abuse and withdrawal. 6. Acute delirium tremens. 7. Acute alcoholic hepatitis. 8. Change in mental status with acute metabolic encephalopathy secondary to alcohol withdrawal. 9. Mild thrombocytopenia. 10.Troponin 0.05, indeterminate. 11.History of cerebrovascular accident, transient ischemic attack. 12.Hypertension. 13.History of degenerative joint disease. 14.History of pneumonia. 15.History of seizure disorder. 16.History of withdrawal seizures. 17.History of transient ischemic attack and intubation in [place]. 18.History of anxiety, depression. 19.History of EtOH. 20.Obesity with body mass index of 46.5. RECOMMENDATIONS AND DISCUSSION: I recommend to continue current medications, continue with the monitoring, symptomatic treatment. Will repeat the labs and continue the rest of the medications. Closely follow with Cardiology. Increase ambulation. [facility]. Guarded prognosis. Further recommendations to follow. MMODL / IJN: [id number] /
[2020-03-14] MEDS: HYDROcodone/APAP 5-325MG 1 EACH TAB PO PRN (21:17)
[2020-03-14] MEDS: TEMAZEPAM 15 MG CAP PO PRN (21:17)
[2020-03-15 06:17] LABS: Basophils # (A) 0.1 k/uL (0-0.2); Basophils % (A) 1 %; Eosinophils # (A) 0.3 k/uL (0-0.7); Eosinophils % (A) 5 %; HCT 53.5 % (39.0-53.0); HGB 17.8 gm/dL (13.0-17.5); Lymphocytes # (A) 1.5 k/uL (1.0-4.8); Lymphocytes % (A) 23 %; MCH 33.2 pg (25.0-35.0); MCHC 33.3 g/dL (31.0-37.0); MCV 99.5 fL (80.0-100.0); Mean Platelet Volume 7.3; Monocytes # (A) 0.7 k/uL (0-1.0); Monocytes % (A) 11 %; Neutrophils # (A) 3.7 k/uL (1.3-7.7); Neutrophils % (A) 56 %; Platelet Count 189 k/uL (150-450); RBC 5.38 m/uL (4.30-5.90); WBC 6.5 k/uL (3.8-10.6)
[2020-03-15] MEDS: THIAMINE 100 MG TAB PO SCH ×2 (06:26→15:29)
[2020-03-15] MEDS: PANTOPRAZOLE 40 MG TABLET PO SCH ×2 (06:27→15:29)
[2020-03-15] MEDS: SERTRALINE 100 MG TAB PO SCH (08:06)
[2020-03-15] MEDS: SPIRONOLACTONE 25 MG TAB PO SCH (08:06)
[2020-03-15] MEDS: FOLIC ACID 1 MG TAB PO SCH (08:06)
[2020-03-15] MEDS: METOPROLOL SUCCINATE (ER) 100 MG TAB.ER.24H PO SCH (08:06)
[2020-03-15] MEDS: DIGOXIN 125 MCG TAB PO SCH (08:06)
[2020-03-15] MEDS: APIXABAN 5 MG TAB PO SCH (08:06)
[2020-03-15] MEDS: FUROSEMIDE 40 MG TAB PO SCH (08:06)
[2020-03-15] MEDS: LISINOPRIL 5 MG TAB PO SCH (08:07)
[2020-03-15] MEDS: LORazepam 2 MG/ML INJ IV PRN ×2 (08:07→12:56)
[2020-03-15] MEDS: ASPIRIN 325 MG TAB PO SCH (08:07)
[2020-03-15 12:47] VITALS: BP 136/86; PULSE 63; RESP 18; TEMP 97.7
[2020-03-15] MEDS: ONDANSETRON 4 MG/2 ML VIAL IVP PRN (12:55)
--- NOTE | 2020-03-15 16:23 | P.PN ---
Subjective Progress Note Date: 03/15/20 This is a 54-year-old gentleman with history of paroxysmal atrial fibrillation, treated with anticoagulation therapy, he was taken recently off anticoagulation by his chief medical physicist because of his alcohol abuse. Patient presented to the hospital initially with symptoms of chest discomfort and evidence of atrial fibrillation with rapid ventricular response, he was also going through some withdrawal symptoms from his alcohol. His cardiac enzymes are mildly elevated but the pattern was not consistent with acute coronary syndrome and STEMI. The patient has not been up out of the bed much, he walked to the bathroom and goes back to bed. Dr. Doyle recommended the patient to be up ambulating more. Physical therapy consultation has been requested as well. Blood pressure today 136/80 with a heart rate in the 60s, 94% on room air. Objective - Vital Signs Vital signs: Vital Signs Temp 97.7 F 03/15/20 12:00 Pulse 63 03/15/20 12:00 Resp 18 03/15/20 12:00 BP 136/86 03/15/20 12:00 Pulse Ox 94 L 03/15/20 12:00 Intake & Output 03/14/20 03/15/20 03/15/20 18:59 06:59 18:59 Intake Total 360 Output Total 120 560 Balance 240 -560 Weight 130.1 kg Intake: Oral 360 Output: Urine 120 560 Other: Voiding Method Urinal Urinal Urinal # Voids 0 1 - Exam GENERAL EXAM: Patient is alert, in no acute distress HEENT: Normocephalic. Normal reaction of pupils, equal size, normal range of extraocular motion. No erythema or exudates in the throat. NECK: No masses, no nuchal rigidity. CHEST: No chest wall deformity. LUNGS: Equal air entry with no crackles or wheeze. HEART: S1 and S2 normal, tachycardic with irregular rhythm ABDOMEN: No hepatosplenomegaly, normal bowel sounds, no guarding or rigidity. SKIN: No rashes CENTRAL NERVOUS SYSTEM: No focal deficits. EXTREMITIES: No cyanosis, clubbing or edema. - Labs CBC & Chem 7: 03/15/20 05:28 03/14/20 06:14 Labs: Abnormal Lab Results - Last 24 Hours (Table) 03/15/20 Range/Units 05:28 Hgb 17.8 H (13.0-17.5) gm/dL Hct 53.5 H (39.0-53.0) % Assessment and Plan Plan: Assessment and plan #1 atrial fibrillation with RVR, history of paroxysmal A. fib #2 alcohol withdrawal #3 abnormal troponin, not consistent with acute coronary syndrome #4 essential hypertension #5 nonischemic cardiomyopathy Plan From cardiology's perspective, we will continue current therapy. Physical therapy has been requested to see the patient. DNP note has been reviewed, I agree with a documented findings and plan of care. Patient was seen and examined.
--- NOTE | 2020-03-15 16:26 | P.DS ---
Providers Date of admission: 03/10/20 12:58 Attending physician: Dl Dunaway MD Consults: 03/10/20 13:03 Consult Physician Urgent Consulting Provider: Elie Davis Consult Reason/Comments: afib rvr Do you want consulting provider notified?: Yes Primary care physician: Physician Nonstaff Hospital Course: patient is a 54-year-old male admitted foratrial fibrillation with rapid ventricular rate patient patient is presently rate controlled patient appears to paroxysmal A. fib patient had cardiomyopathy poor ejection fraction endocrine cannot see any echocardiogram available patient appears to alcohol cardiomyopathy. Patient was also treated for alcohol withdrawals presently doesn't have any withdrawals. tail board worker evaluated the patient because of his homeless numbness situation appropriate information was provided to the patient and patient is being discharged today. PHYSICAL EXAMINATION: GENERAL: The patient is alert and oriented x3, not in any acute distress. Well developed, well nourished. minimal tremor HEENT: Pupils are round and equally reacting to light. EOMI. No scleral icterus. No conjunctival pallor. Normocephalic, atraumatic. No pharyngeal erythema. No thyromegaly. CARDIOVASCULAR: S1 and S2 present. No murmurs, rubs, or gallops. PULMONARY: Chest is clear to auscultation, no wheezing or crackles. ABDOMEN: Soft, nontender, nondistended, normoactive bowel sounds. No palpable organomegaly. MUSCULOSKELETAL: No joint swelling or deformity. EXTREMITIES: No cyanosis, clubbing, or pedal edema. NEUROLOGICAL: Gross neurological examination did not reveal any focal deficits. SKIN: No rashes. for other medical problems hospital physician course please refer to documentation in progress note from Dr. Mejias from yesterday Patient Condition at Discharge: Fair Plan - Discharge Summary Discharge Rx Participant: No New Discharge Prescriptions: New Apixaban [Eliquis] 5 mg PO BID #60 tab Digoxin [Lanoxin] 125 mcg PO DAILY #30 tab Nitroglycerin Sl Tabs [Nitrostat] 0.4 mg SUBLINGUAL Q5M PRN #30 tab PRN Reason: Chest Pain Metoprolol Succinate (ER) [Toprol XL] 100 mg PO DAILY #30 tab.er.24h Lisinopril [Zestril] 5 mg PO DAILY #30 tab Continue Sertraline [Zoloft] 100 mg PO DAILY Folic Acid 1 mg PO DAILY Aspirin 81 mg PO DAILY Spironolactone [Aldactone] 25 mg PO BID #0 Furosemide [Lasix] 40 mg PO DAILY #0 Discontinued Metoprolol Succinate [Toprol XL] 25 mg PO DAILY Diltiazem HCl [Cardizem CD] 240 mg PO DAILY Discharge Medication List Aspirin 81 mg PO DAILY 03/10/20 [History] Folic Acid 1 mg PO DAILY 03/10/20 [History] Sertraline [Zoloft] 100 mg PO DAILY 03/10/20 [History] Apixaban [Eliquis] 5 mg PO BID #60 tab 03/15/20 [Rx] Digoxin [Lanoxin] 125 mcg PO DAILY #30 tab 03/15/20 [Rx] Furosemide [Lasix] 40 mg PO DAILY #0 03/15/20 [Rx] Lisinopril [Zestril] 5 mg PO DAILY #30 tab 03/15/20 [Rx] Metoprolol Succinate (ER) [Toprol XL] 100 mg PO DAILY #30 tab.er.24h 03/15/20 [Rx] Nitroglycerin Sl Tabs [Nitrostat] 0.4 mg SUBLINGUAL Q5M PRN #30 tab 03/15/20 [Rx] Spironolactone [Aldactone] 25 mg PO BID #0 03/15/20 [Rx] Follow up Appointment(s)/Referral(s): [facility] [NON-STAFF] - 1 Week (Please make a follow up appointment with a PCP.) Helen Doyle MD [STAFF PHYSICIAN] - 1 Week (Please call to make a follow up appointment when availalbe.) Patient Instructions/Handouts: Atrial Flutter (DC), Alcohol Withdrawal (DC) Discharge Disposition: HOME SELF-CARE
--- NOTE | 2020-03-16 16:01 | ECHOF ---
Referral Reason:afib MEASUREMENTS -------- HEIGHT: 170.2 cm WEIGHT: 113.4 kg BP: 148/78 RVIDd: 3.5 cm (< 3.3) IVSd: 1.4 cm (0.6 - 1.1) LVIDd: 5.2 cm (3.9 - 5.3) LVPWd: 1.4 cm (0.6 - 1.1) IVSs: 1.7 cm LVIDs: 4.5 cm LVPWs: 1.5 cm LA Diam: 4.2 cm (2.7 - 3.8) LAESV Index (A-L): 37.68 ml/m Ao Diam: 3.1 cm (2.0 - 3.7) AV Cusp: 2.1 cm (1.5 - 2.6) MV EXCURSION: 16.399 mm (> 18.000) MV EF SLOPE: 148 mm/s (70 - 150) EPSS: 2.4 cm AR PHT: 665 ms RAP: 15.00 mmHg RVSP: 42.38 mmHg FINDINGS -------- Atrial fibrillation. This was a technically difficult study with suboptimal views. The left ventricular size is normal. There is moderate concentric left ventricular hypertrophy. O verall left ventricular systolic function is severely impaired with, an EF between 25 - 30 %. The right ventricle is mildly enlarged. LA is moderately dilated 34-39 ml/m2 The right atrium is normal in size. 4 ml of Lumason was utilized for enhancement of images. The aortic valve was not well visualized. Mild mitral regurgitation is present. Mild tricuspid regurgitation present. There is mild pulmonary hypertension. The right ventricular systolic pressure, as measured by Doppler, is 42.38mmHg. Trace/mild (physiologic) pulmonic regurgitation. The aortic root size is normal. The inferior vena cava is dilated with poor inspiratory collapse which is consistent with estimated r ight atrial pressure of 15 mmHg. There is no pericardial effusion. CONCLUSIONS -------- 1. Atrial fibrillation. 2. This was a technically difficult study with suboptimal views. 3. The left ventricular size is normal. 4. There is moderate concentric left ventricular hypertrophy. 5. Overall left ventricular systolic function is severely impaired with, an EF between 25 - 30 %. 6. The right ventricle is mildly enlarged. 7. LA is moderately dilated 34-39 ml/m2 8. The right atrium is normal in size. 9. 4 ml of Lumason was utilized for enhancement of images. 10. The aortic valve was not well visualized. 11. Mild mitral regurgitation is present. 12. Mild tricuspid regurgitation present. 13. There is mild pulmonary hypertension. 14. The right ventricular systolic pressure, as measured by Doppler, is 42.38mmHg. 15. Trace/mild (physiologic) pulmonic regurgitation. 16. The aortic root size is normal. 17. The inferior vena cava is dilated with poor inspiratory collapse which is consistent with estimat ed right atrial pressure of 15 mmHg. 18. There is no pericardial effusion. LENS DOTTER: Oumou Campoverde RDCS
--- NOTE | 2020-03-17 12:19 | CDI ---
Documentation Clarification Form Date: 03/17/20 From: Lexis Pina Phone: If you have a question about this query, please contact Rosa Lemus, Food Service Associate at [phone] between 8am and 5pm. Admit Date: 03/10/20 Discharge Date:03/15/20 Patient Name: Evaristo Matthews Visit Number: [id number] ATTENTION: The Clinical Documentation Specialists (CDI) and [facility] Coding Staff appreciate your assistance in clarifying documentation. Please respond to the clarification below the line at the bottom and electronically sign. The CDI & [facility] Coding staff will review the response and follow-up if needed. Please note: Queries are made part of the Legal Health Record. If you have any questions, please contact the author of this message via ITS. Dear Dr. Andujar Alcohol abuse and withdrawal is documented in Dr. Mejias's progress notes. Acute delirium tremens is also documented in Dr. Mejias's progress notes. History/Risk Factors: History of alcohol abuse, alcohol cardiomyopathy, acute alcoholic hepatitis, a-fib, systolic CHF exacerbation. Clinical Indicators: Acute delirium tremens Labs: Alcohol level not tested, platelets - 138 on 03/11 and 139 on 03/12, AST 141, ALT 93 Treatment: IV Ativan, CIWA protocol In your professional opinion, can you please clarify what the above clinical indicators and treatment signify? Alcohol Abuse Alcohol dependence Other, please specify Unable to determine Alcohol dependence MTDD
== END 2020-03-15 17:34 | disposition home or self-care (01) | DRG 308 ==
LOC: EC 11:42 → 3SCARD 12:58
PROVIDERS: ADMIT Internal Medicine; ATTEND Internal Medicine
DX: I48.0 Paroxysmal atrial fibrillation (principal); G93.41 Metabolic encephalopathy; I50.23 Acute on chronic systolic (congestive) heart failure; Z68.42 Body mass index [BMI] 45.0-49.9, adult; F10.231 Alcohol dependence with withdrawal delirium; D69.6 Thrombocytopenia, unspecified; I27.20 Pulmonary hypertension, unspecified; I42.6 Alcoholic cardiomyopathy; I11.0 Hypertensive heart disease with heart failure; K70.10 Alcoholic hepatitis without ascites; G40.909 Epilepsy, unspecified, not intractable, without status epilepticus; Z20.828 Contact with and (suspected) exposure to other viral communicable diseases; E66.9 Obesity, unspecified; F32.9 Major depressive disorder, single episode, unspecified; G47.33 Obstructive sleep apnea (adult) (pediatric); F41.9 Anxiety disorder, unspecified; G89.29 Other chronic pain; M19.90 Unspecified osteoarthritis, unspecified site; R79.89 Other specified abnormal findings of blood chemistry; Z59.0 Homelessness; Z79.82 Long term (current) use of aspirin; Z79.899 Other long term (current) drug therapy; Z86.73 Personal history of transient ischemic attack (TIA), and cerebral infarction without residual deficits; Z87.01 Personal history of pneumonia (recurrent); Z91.19 Patient's noncompliance with other medical treatment and regimen; Z88.0 Allergy status to penicillin; Z71.41 Alcohol abuse counseling and surveillance of alcoholic; Z82.49 Family history of ischemic heart disease and other diseases of the circulatory system
CPT/HCPCS: 36415; 71046; 80053; 80061; 81003; 83690; 83735; 83880; 84484; 85025; 85027; 85610; 85730; 87324; 93005; 93306; 96365; 96366; 96372; 96376; 99285

== ENCOUNTER 2020-03-22 20:05 | Emergency (ER) | payer OTHER ==
[2020-03-22] MEDS ORDERED: predniSONE 20 MG TAB PO STA (20:30)
[2020-03-22] MEDS ORDERED: HYDROcodone/APAP 5-325MG 1 EACH TAB PO STA (20:30)
--- NOTE | 2020-03-22 20:33 | ED ---
General Adult HPI - General Chief complaint: Arrhythmia/Palpitations Stated complaint: Dizziness Time Seen by Provider: 03/22/20 20:10 Source: EMS Mode of arrival: EMS Limitations: no limitations - History of Present Illness Initial comments: Dictation was produced using [employer] dictation software. please excuse any grammatical, word or spelling errors. This patient was cared for during a federal and state declared state of emergency secondary to Covid 19 Chief Complaint: 54-year-old male presents with dizziness and right MTP pain History of Present Illness: She is 54-year-old male who has past medical history fibrillation. Patient takes multiple cardiac medications. Patient was recently admitted and discharged for A. fib. Patient states that he was drinking last night. He was on his way back to the homeless long term when he felt dizzy. Patient reports she fell catching himself with his bilateral hands. Patient's not sure if he lost consciousness. He does not complain of any headache at this point. No neck pain. Patient states that since this morning he's been having left MTP pain. Patient has any history of gout but he was drinking alcohol last night. Tonsils warm and painful with movement. The ROS documented in this emergency department record has been reviewed and confirmed by me. Those systems with pertinent positive or negative responses have been documented in the HPI. All other systems are other negative and/or noncontributory. PHYSICAL EXAM: General Impression: Alert and oriented x3, not in acute distress HEENT: Normocephalic atraumatic, extra-ocular movements intact, pupils equal and reactive to light bilaterally, mucous membranes moist. Cardiovascular: Heart regular rate and rhythm Chest: Able to complete full sentences, no retractions, no tachypnea Abdomen: abdomen soft, non-tender, non-distended, no organomegaly Musculoskeletal: Pulses present and equal in all extremities, no peripheral edema Motor: no focal deficits noted Neurological: CN II-XII grossly intact, no focal motor or sensory deficits noted Skin: Intact with no visualized rashes Psych: Normal affect and mood Left foot: Tenderness and warmth to the left MTP joint ED course: 54-year-old male with multiple comorbidities presents with dizziness, fall and left MTP pain. Vital signs upon arrival shows heart rate of 111, rest of vital signs within acceptable limits. Patient's left foot pain appears to be secondary to gout. Patient given a Crocker and given a dose of prednisone.Laboratory evaluation obtained. CBC, coag panel unremarkable. Metabolic panel is negative. No anion gap acidosis. There is mild acidosis. Initial lactic acid 2.2. Urinalysis labs unremarkable. Patient given fluids with repeat lactic stable at 2.1. Patient reevaluated bedside he is resting comfortably. His vital signs are stable and improved. Patient is homeless. He is given homeless long term resources. Patient clear for discharge. He is advised follow-up with his primary care physician. Prescription for for Medrol Dosepak. EKG interpretation: Ventricular rate 110, A. fib, QRS 82, QTc 443. No [place] prolongation, no QTC prolongation, no ST or T-wave changes noted. EKG compared to 03/10/2020 showing no changes. Overall, this EKG is unremarkable - Related Data Home Medications Medication Instructions Recorded Confirmed Aspirin 81 mg PO DAILY 03/10/20 03/22/20 Folic Acid 1 mg PO DAILY 03/10/20 03/22/20 Sertraline [Zoloft] 100 mg PO DAILY 03/10/20 03/22/20 Rivaroxaban [Xarelto] 20 mg PO DAILY 03/22/20 03/22/20 Previous Rx's Medication Instructions Recorded Apixaban [Eliquis] 5 mg PO BID #60 tab 03/15/20 Digoxin [Lanoxin] 125 mcg PO DAILY #30 tab 03/15/20 Furosemide [Lasix] 40 mg PO DAILY #0 03/15/20 Lisinopril [Zestril] 5 mg PO DAILY #30 tab 03/15/20 Metoprolol Succinate (ER) [Toprol 100 mg PO DAILY #30 tab.er.24h 03/15/20 XL] Nitroglycerin Sl Tabs [Nitrostat] 0.4 mg SUBLINGUAL Q5M PRN #30 tab 03/15/20 Spironolactone [Aldactone] 25 mg PO BID #0 03/15/20 methylPREDNISolone [Medrol Dose 4 mg PO DIRECTED #1 pack 03/22/20 Pack] Allergies Allergy/AdvReac Type Severity Reaction Status Date / Time Penicillins Allergy Unknown Verified 03/22/20 20:14 Childhood Review of Systems ROS Statement: Those systems with pertinent positive or pertinent negative responses have been documented in the HPI. ROS Other: All systems not noted in ROS Statement are negative. Past Medical History Past Medical History: Atrial Fibrillation, CVA/TIA, Hypertension, Osteoarthritis (OA), Pneumonia, Seizure Disorder Additional Past Medical History / Comment(s): Afib recently diagnosed, lower extremity edema, ETOH abuse with past withdrawal/seizure in 12/2018, chronic generalized pain, pt states he had a TIA in 2019 while in [place] and was intubated. History of Any Multi-Drug Resistant Organisms: None Reported Past Surgical History: Heart Catheterization, Orthopedic Surgery Additional Past Surgical History / Comment(s): R thumb fracture with surgery. Past Anesthesia/Blood Transfusion Reactions: No Reported Reaction Past Psychological History: Anxiety, Depression Smoking Status: Former smoker Past Alcohol Use History: Daily Past Drug Use History: None Reported - Past Family History Father Family Medical History: Myocardial Infarction ([place]) Additional Family Medical History / Comment(s): Father of a [place] at the age of 57 yrs. Mother Family Medical History: Hyperlipidemia, Hypertension Additional Family Medical History / Comment(s): Mother at the age of 89yrs. General Exam Limitations: no limitations Course Vital Signs 03/22/20 03/22/20 03/22/20 20:12 20:59 21:34 Temperature 98.2 F Pulse Rate 111 H 102 H 92 Respiratory 22 20 18 Rate Blood Pressure 106/64 102/63 110/64 O2 Sat by Pulse 95 96 96 Oximetry Medical Decision Making - Lab Data Result diagrams: 03/22/20 20:27 03/22/20 20:27 Lab Results 03/22/20 03/22/20 03/22/20 Range/Units 20:27 20:27 20:27 WBC 10.0 (3.8-10.6) k/uL RBC 4.99 (4.30-5.90) m/uL Hgb 16.9 (13.0-17.5) gm/dL Hct 49.8 (39.0-53.0) % MCV 99.9 (80.0-100.0) fL MCH 34.0 (25.0-35.0) pg MCHC 34.0 (31.0-37.0) g/dL RDW 13.7 (11.5-15.5) % Plt Count 309 (150-450) k/uL Neutrophils % 64 % Lymphocytes % 20 % Monocytes % 10 % Eosinophils % 2 % Basophils % 1 % Neutrophils # 6.4 (1.3-7.7) k/uL Lymphocytes # 2.0 (1.0-4.8) k/uL Monocytes # 1.0 (0-1.0) k/uL Eosinophils # 0.2 (0-0.7) k/uL Basophils # 0.1 (0-0.2) k/uL PT 10.5 (9.0-12.0) sec INR 1.0 (<1.2) APTT 23.9 (22.0-30.0) sec Sodium 135 L (137-145) mmol/L Potassium 4.7 (3.5-5.1) mmol/L Chloride 103 (98-107) mmol/L Carbon Dioxide 21 L (22-30) mmol/L Anion Gap 11 mmol/L BUN 18 (9-20) mg/dL Creatinine 1.16 (0.66-1.25) mg/dL Est GFR (CKD-EPI)AfAm 82 (>60 ml/min/1.73 sqM) Est GFR (CKD-EPI)NonAf 71 (>60 ml/min/1.73 sqM) Glucose 90 (74-99) mg/dL POC Glucose (mg/dL) (75-99) mg/dL POC Glu [place] Layup Line Core Layer ID Plasma Lactic Acid Dick (0.7-2.0) mmol/L Calcium 9.9 (8.4-10.2) mg/dL Magnesium 1.8 (1.6-2.3) mg/dL Troponin I (0.000-0.034) ng/mL 03/22/20 03/22/20 03/22/20 Range/Units 20:27 20:27 20:53 WBC (3.8-10.6) k/uL RBC (4.30-5.90) m/uL Hgb (13.0-17.5) gm/dL Hct (39.0-53.0) % MCV (80.0-100.0) fL MCH (25.0-35.0) pg MCHC (31.0-37.0) g/dL RDW (11.5-15.5) % Plt Count (150-450) k/uL Neutrophils % % Lymphocytes % % Monocytes % % Eosinophils % % Basophils % % Neutrophils # (1.3-7.7) k/uL Lymphocytes # (1.0-4.8) k/uL Monocytes # (0-1.0) k/uL Eosinophils # (0-0.7) k/uL Basophils # (0-0.2) k/uL PT (9.0-12.0) sec INR (<1.2) APTT (22.0-30.0) sec Sodium (137-145) mmol/L Potassium (3.5-5.1) mmol/L Chloride (98-107) mmol/L Carbon Dioxide (22-30) mmol/L Anion Gap mmol/L BUN (9-20) mg/dL Creatinine (0.66-1.25) mg/dL Est GFR (CKD-EPI)AfAm (>60 ml/min/1.73 sqM) Est GFR (CKD-EPI)NonAf (>60 ml/min/1.73 sqM) Glucose (74-99) mg/dL POC Glucose (mg/dL) 83 (75-99) mg/dL POC Glu [place] Layup Line Core Layer ID Sana Singh Plasma Lactic Acid Dick 2.2 H* (0.7-2.0) mmol/L Calcium (8.4-10.2) mg/dL Magnesium (1.6-2.3) mg/dL Troponin I <0.012 (0.000-0.034) ng/mL 03/22/20 Range/Units 22:20 WBC (3.8-10.6) k/uL RBC (4.30-5.90) m/uL Hgb (13.0-17.5) gm/dL Hct (39.0-53.0) % MCV (80.0-100.0) fL MCH (25.0-35.0) pg MCHC (31.0-37.0) g/dL RDW (11.5-15.5) % Plt Count (150-450) k/uL Neutrophils % % Lymphocytes % % Monocytes % % Eosinophils % % Basophils % % Neutrophils # (1.3-7.7) k/uL Lymphocytes # (1.0-4.8) k/uL Monocytes # (0-1.0) k/uL Eosinophils # (0-0.7) k/uL Basophils # (0-0.2) k/uL PT (9.0-12.0) sec INR (<1.2) APTT (22.0-30.0) sec Sodium (137-145) mmol/L Potassium (3.5-5.1) mmol/L Chloride (98-107) mmol/L Carbon Dioxide (22-30) mmol/L Anion Gap mmol/L BUN (9-20) mg/dL Creatinine (0.66-1.25) mg/dL Est GFR (CKD-EPI)AfAm (>60 ml/min/1.73 sqM) Est GFR (CKD-EPI)NonAf (>60 ml/min/1.73 sqM) Glucose (74-99) mg/dL POC Glucose (mg/dL) (75-99) mg/dL POC Glu [place] Layup Line Core Layer ID Plasma Lactic Acid Dick 2.1 H* (0.7-2.0) mmol/L Calcium (8.4-10.2) mg/dL Magnesium (1.6-2.3) mg/dL Troponin I (0.000-0.034) ng/mL Disposition Clinical Impression: Gout, Dizziness Disposition: HOME SELF-CARE Condition: Good Instructions (If sedation given, give patient instructions): Gout (ED) Prescriptions: methylPREDNISolone [Medrol Dose Pack] 4 mg PO DIRECTED #1 pack Is patient prescribed a controlled substance at d/c from ED?: No Referrals: None,Stated [Primary Care Provider] - 1-2 days Time of Disposition: 22:57
[2020-03-22] MEDS ORDERED: METOCLOPRAMIDE 5 MG/ML 2 ML VIAL IVP STA (20:36)
[2020-03-22 20:41] LABS: Basophils # (A) 0.1 k/uL (0-0.2); Basophils % (A) 1 %; Eosinophils # (A) 0.2 k/uL (0-0.7); Eosinophils % (A) 2 %; HCT 49.8 % (39.0-53.0); HGB 16.9 gm/dL (13.0-17.5); Lymphocytes % (A) 20 %; MCV 99.9 fL (80.0-100.0); Mean Platelet Volume 7.8; Monocytes % (A) 10 %; Neutrophils # (A) 6.4 k/uL (1.3-7.7); Neutrophils % (A) 64 %; Platelet Count 309 k/uL (150-450); RBC 4.99 m/uL (4.30-5.90); RDW 13.7 % (11.5-15.5)
[2020-03-22 20:48] LABS: Partial Thromboplastin Time 23.9 sec (22.0-30.0); Prothrombin Time 10.5 sec (9.0-12.0)
[2020-03-22 20:53] LABS: Calcium 9.9 mg/dL (8.4-10.2); Magnesium 1.8 mg/dL (1.6-2.3); Potassium 4.7 mmol/L (3.5-5.1)
[2020-03-22 20:56] LABS: Glucose,Whole Blood 83 mg/dL (75-99)
--- NOTE | 2020-03-22 20:56 | XR ---
EXAMINATION TYPE: XR chest 1V portable DATE OF EXAM: 03/22/2020 COMPARISON: 03/10/2020 INDICATION: A. Fib TECHNIQUE: Single frontal view of the chest is obtained. FINDINGS: The heart size is normal. The pulmonary vasculature is normal. The lungs are clear. IMPRESSION: 1. No acute pulmonary process.
--- NOTE | 2020-03-22 21:10 | CT ---
EXAMINATION TYPE: CT brain [place] wo con DATE OF EXAM: 03/22/2020 COMPARISON: None HISTORY: Fall. CT DLP: 1835.8 mGycm, Automated exposure control for dose reduction was used. CONTRAST: Patient injected with 0 mL of Isovue 370. CT of the brain is performed utilizing 3 mm thick sections through the posterior fossa and 3 mm thick sections through the remaining calvarium. Study is performed within 24 hours of arrival to the hospital. No abnormal hyperdensity is present to suggest an acute intracranial hemorrhage. No mass lesion is evident. No acute infarcts are evident. Ventricles and sulci are appropriate for the patient age. Paranasal sinuses and mastoid air cells within the [id number] are clear. IMPRESSIONS: 1. Normal CT brain. CT cervical spine. COMPARISON: None CT of the cervical spine is performed in the axial plane at 2 mm thick sections. Reconstructed image s in the coronal, and sagittal plane are reviewed on the computer. No acute fractures are evident. There is exaggeration of cervical kyphosis. This could be related to patient positioning or muscle sp asm. There is loss of disc height throughout the cervical spine greater in the lower cervical spine. Vertebral body heights are preserved. No spinal canal stenosis is evident. No neural foraminal stenosis is evident. IMPRESSIONS: 1. No acute osseous abnormality. 2. Cervical kyphosis. 3. Degenerative disc changes
[2020-03-22] MEDS ORDERED: SODIUM CHLORIDE 0.9% 500 ML 500 ML IV STA (21:17)
[2020-03-22 21:35] VITALS: RESP 18
[2020-03-22 23:54] VITALS: BP 101/72; PULSE 90; TEMP 98.1
== END 2020-03-22 23:58 | disposition home or self-care (01) ==
LOC: EC 20:05
DX: M10.9 Gout, unspecified (principal); R42 Dizziness and giddiness; I48.91 Unspecified atrial fibrillation; I10 Essential (primary) hypertension; F41.9 Anxiety disorder, unspecified; F32.9 Major depressive disorder, single episode, unspecified; Z79.82 Long term (current) use of aspirin; Z79.01 Long term (current) use of anticoagulants; Z79.899 Other long term (current) drug therapy; Z88.0 Allergy status to penicillin; Z86.73 Personal history of transient ischemic attack (TIA), and cerebral infarction without residual deficits; Z87.891 Personal history of nicotine dependence; Z59.0 Homelessness
CPT/HCPCS: 36415; 93005; 80048; 83605; 83735; 84484; 85025; 85610; 85730; 71045; 72125; 70450; 99285; 96374; J2765; J7512

== ENCOUNTER 2020-03-25 15:41 | Inpatient (IN) | payer OTHER ==
[2020-03-25] MEDS ORDERED: SODIUM CHLORIDE 0.9% 1,000 ML IV STA ×2 (15:53→17:12)
--- NOTE | 2020-03-25 16:12 | ED ---
General Adult HPI - General Chief complaint: Arrhythmia/Palpitations Stated complaint: chest pain Time Seen by Provider: 03/25/20 15:44 Source: EMS Mode of arrival: EMS Limitations: no limitations - History of Present Illness Initial comments: Dictation was produced using [employer] dictation software. please excuse any grammatical, word or spelling errors. This patient was cared for during a federal and state declared state of emergency secondary to Covid 19 Chief Complaint: 54-year-old homeless male presents with atrial fibrillation and suicidal ideation History of Present Illness: 54-year-old male he presents today via EMS. Patient is homeless. He was picked up at one of the nearby [place]. Patient has still has medical history of atrial fibrillation. Reports that he is on multiple medications for rate control. He states that he also has some chest pain to the left anterior chest. He reports that it feels like a squeezing pain. Denies any radiation. No associated diaphoresis. Patient is also suicidal. He does not have a plan. Patient reports that everyone in his family . He states that he moved here from [place] to go camping and fishing. He reports her when his family is except for once on the living [place] that he does not talk to. Patient reports that he's been taking his medications like he should. EMS reports that patient was in A. fib with rapid ventricular rate ranging anywhere between 110s to the 170s. The ROS documented in this emergency department record has been reviewed and confirmed by me. Those systems with pertinent positive or negative responses have been documented in the HPI. All other systems are other negative and/or noncontributory. PHYSICAL EXAM: General Impression: Alert and oriented x3, not in acute distress HEENT: Normocephalic atraumatic, extra-ocular movements intact, pupils equal and reactive to light bilaterally, mucous membranes moist. Cardiovascular: Irregular, tachycardic Chest: Able to complete full sentences, no retractions, no tachypnea Abdomen: abdomen soft, non-tender, non-distended, no organomegaly Musculoskeletal: Pulses present and equal in all extremities, no peripheral edema Motor: no focal deficits noted Neurological: CN II-XII grossly intact, no focal motor or sensory deficits noted Skin: Intact with no visualized rashes Psych: Normal affect and mood ED course: 54-year-old male presents with A. fib RVR and suicidal ideation. She also reports having some chest pain. Patient is well-known to me I saw him 3 days ago for A. fib. Patient was recently admitted to the hospital for A. fib as well. Patient is homeless Laboratory evaluation obtained. CBC, coag panel unremarkable. Metabolic panel shows mild anion gap acidosis. Alcohol level is 233. Rest of labs are grossly unremarkable. Patient likely in some degree of alcoholic ketoacidosis. Patient given intravenous fluids with improvement of heart rate. The patient's A. fib RVR is secondary to medication noncompliance and acute EtOH intoxication. Discussed patient case with Dr. Carver who is willing to accept patients care on behalf of of [facility] hospitalist group. Psychiatry consultation for suicidal ideation. EKG interpretation: Ventricular rate 133, A. fib with RVR, QRS 80, QTC 479. No [place] prolongation, no QTC prolongation, no ST or T-wave changes noted. EKG compared to 03/22/2020 showing no changes. Overall, this EKG is unremarkable - Related Data Home Medications Medication Instructions Recorded Confirmed Aspirin 81 mg PO DAILY 03/10/20 03/25/20 Folic Acid 1 mg PO DAILY 03/10/20 03/25/20 Sertraline [Zoloft] 100 mg PO DAILY 03/10/20 03/25/20 Rivaroxaban [Xarelto] 20 mg PO DAILY 03/22/20 03/25/20 methylPREDNISolone [Medrol Dose See Taper PO DIRECTED 03/25/20 03/25/20 Pack] Previous Rx's Medication Instructions Recorded Digoxin [Lanoxin] 125 mcg PO DAILY #30 tab 03/15/20 Furosemide [Lasix] 40 mg PO DAILY #0 03/15/20 Lisinopril [Zestril] 5 mg PO DAILY #30 tab 03/15/20 Metoprolol Succinate (ER) [Toprol 100 mg PO DAILY #30 tab.er.24h 03/15/20 XL] Nitroglycerin Sl Tabs [Nitrostat] 0.4 mg SUBLINGUAL Q5M PRN #30 tab 03/15/20 Spironolactone [Aldactone] 25 mg PO BID #0 03/15/20 Allergies Allergy/AdvReac Type Severity Reaction Status Date / Time Penicillins Allergy Rash/Hives Verified 03/25/20 16:32 Review of Systems ROS Statement: Those systems with pertinent positive or pertinent negative responses have been documented in the HPI. ROS Other: All systems not noted in ROS Statement are negative. Past Medical History Past Medical History: Atrial Fibrillation, CVA/TIA, Hypertension, Osteoarthritis (OA), Pneumonia, Seizure Disorder Additional Past Medical History / Comment(s): Afib recently diagnosed, lower extremity edema, ETOH abuse with past withdrawal/seizure in 12/2018, chronic generalized pain, pt states he had a TIA in 2019 while in [place] and was intubated. History of Any Multi-Drug Resistant Organisms: None Reported Past Surgical History: Orthopedic Surgery Additional Past Surgical History / Comment(s): R thumb fracture with surgery. Past Anesthesia/Blood Transfusion Reactions: No Reported Reaction Past Psychological History: Anxiety, Depression Smoking Status: Former smoker Past Alcohol Use History: Daily Past Drug Use History: None Reported - Past Family History Father Family Medical History: Myocardial Infarction ([place]) Additional Family Medical History / Comment(s): Father of a [place] at the age of 57 yrs. Mother Family Medical History: Hyperlipidemia, Hypertension Additional Family Medical History / Comment(s): Mother at the age of 89yrs. General Exam Limitations: no limitations Course Vital Signs 03/25/20 03/25/20 03/25/20 15:44 15:56 16:00 Temperature 98.5 F Pulse Rate 125 H 148 H 120 H Respiratory 20 17 Rate Blood Pressure 86/70 97/71 97/71 O2 Sat by Pulse 98 98 Oximetry 03/25/20 03/25/20 16:30 17:00 Temperature Pulse Rate 117 H 112 H Respiratory 18 21 Rate Blood Pressure 104/52 97/87 O2 Sat by Pulse 97 96 Oximetry Medical Decision Making - Lab Data Result diagrams: 03/25/20 15:54 03/25/20 15:54 Lab Results 03/25/20 03/25/20 03/25/20 Range/Units 15:54 15:54 15:54 WBC 8.7 (3.8-10.6) k/uL RBC 5.11 (4.30-5.90) m/uL Hgb 16.4 (13.0-17.5) gm/dL Hct 50.5 (39.0-53.0) % MCV 98.8 (80.0-100.0) fL MCH 32.1 (25.0-35.0) pg MCHC 32.5 (31.0-37.0) g/dL RDW 13.6 (11.5-15.5) % Plt Count 367 (150-450) k/uL Neutrophils % 57 % Lymphocytes % 28 % Monocytes % 8 % Eosinophils % 3 % Basophils % 1 % Neutrophils # 5.0 (1.3-7.7) k/uL Lymphocytes # 2.4 (1.0-4.8) k/uL Monocytes # 0.7 (0-1.0) k/uL Eosinophils # 0.2 (0-0.7) k/uL Basophils # 0.1 (0-0.2) k/uL PT 10.3 (9.0-12.0) sec INR 1.0 (<1.2) APTT 23.6 (22.0-30.0) sec Sodium 138 (137-145) mmol/L Potassium 4.5 (3.5-5.1) mmol/L Chloride 105 (98-107) mmol/L Carbon Dioxide 19 L (22-30) mmol/L Anion Gap 14 mmol/L BUN 13 (9-20) mg/dL Creatinine 0.97 (0.66-1.25) mg/dL Est GFR (CKD-EPI)AfAm >90 (>60 ml/min/1.73 sqM) Est GFR (CKD-EPI)NonAf 88 (>60 ml/min/1.73 sqM) Glucose 80 (74-99) mg/dL Calcium 9.1 (8.4-10.2) mg/dL Magnesium 1.7 (1.6-2.3) mg/dL Total Bilirubin 0.6 (0.2-1.3) mg/dL AST 80 H (17-59) U/L ALT 66 H (4-49) U/L Alkaline Phosphatase 67 (38-126) U/L Troponin I (0.000-0.034) ng/mL Total Protein 6.6 (6.3-8.2) g/dL Albumin 4.0 (3.5-5.0) g/dL Serum Alcohol mg/dL 03/25/20 03/25/20 Range/Units 15:54 15:57 WBC (3.8-10.6) k/uL RBC (4.30-5.90) m/uL Hgb (13.0-17.5) gm/dL Hct (39.0-53.0) % MCV (80.0-100.0) fL MCH (25.0-35.0) pg MCHC (31.0-37.0) g/dL RDW (11.5-15.5) % Plt Count (150-450) k/uL Neutrophils % % Lymphocytes % % Monocytes % % Eosinophils % % Basophils % % Neutrophils # (1.3-7.7) k/uL Lymphocytes # (1.0-4.8) k/uL Monocytes # (0-1.0) k/uL Eosinophils # (0-0.7) k/uL Basophils # (0-0.2) k/uL PT (9.0-12.0) sec INR (<1.2) APTT (22.0-30.0) sec Sodium (137-145) mmol/L Potassium (3.5-5.1) mmol/L Chloride (98-107) mmol/L Carbon Dioxide (22-30) mmol/L Anion Gap mmol/L BUN (9-20) mg/dL Creatinine (0.66-1.25) mg/dL Est GFR (CKD-EPI)AfAm (>60 ml/min/1.73 sqM) Est GFR (CKD-EPI)NonAf (>60 ml/min/1.73 sqM) Glucose (74-99) mg/dL Calcium (8.4-10.2) mg/dL Magnesium (1.6-2.3) mg/dL Total Bilirubin (0.2-1.3) mg/dL AST (17-59) U/L ALT (4-49) U/L Alkaline Phosphatase (38-126) U/L Troponin I <0.012 (0.000-0.034) ng/mL Total Protein (6.3-8.2) g/dL Albumin (3.5-5.0) g/dL Serum Alcohol 233 H* mg/dL Disposition Clinical Impression: Atrial fibrillation, Alcohol intoxication Disposition: ADMITTED IP TO THIS [facility] Condition: Fair Referrals: None,Stated [Primary Care Provider] - 1-2 days Decision Time: 17:21
[2020-03-25 16:29] LABS: Basophils # (A) 0.1 k/uL (0-0.2); Basophils % (A) 1 %; Eosinophils # (A) 0.2 k/uL (0-0.7); Eosinophils % (A) 3 %; HCT 50.5 % (39.0-53.0); HGB 16.4 gm/dL (13.0-17.5); Lymphocytes # (A) 2.4 k/uL (1.0-4.8); Lymphocytes % (A) 28 %; MCH 32.1 pg (25.0-35.0); MCHC 32.5 g/dL (31.0-37.0); MCV 98.8 fL (80.0-100.0); Mean Platelet Volume 7.4; Monocytes # (A) 0.7 k/uL (0-1.0); Monocytes % (A) 8 %; Neutrophils % (A) 57 %; Platelet Count 367 k/uL (150-450); RBC 5.11 m/uL (4.30-5.90); RDW 13.6 % (11.5-15.5); WBC 8.7 k/uL (3.8-10.6)
--- NOTE | 2020-03-25 16:34 | XR ---
EXAMINATION TYPE: XR chest 2V DATE OF EXAM: 03/25/2020 COMPARISON: 03/22/2020 HISTORY: Shortness of breath TECHNIQUE: Frontal and lateral views of the chest are obtained. FINDINGS: Scattered senescent parenchymal changes noted. Hyperinflation compatible with COPD. No evidence for infiltrate. No evidence for atelectasis. Heart size is stable. Mediastinal structures are stable and grossly unremarkable. No evidence for hilar prominence. Degenerative changes dorsal spine. IMPRESSION: 1. No evidence for acute pulmonary disease.
[2020-03-25 16:47] LABS: ALT 66 U/L (4-49); AST 80 U/L (17-59); African American GFR (CKD) >90 (>60 ml/min/1.73 sqM); Alkaline Phosphatase 67 U/L (38-126); Anion Gap 14 mmol/L; Blood Urea Nitrogen 13 mg/dL (9-20); Calcium 9.1 mg/dL (8.4-10.2); Carbon Dioxide 19 mmol/L (22-30); Chloride 105 mmol/L (98-107); Glucose 80 mg/dL (74-99); Magnesium 1.7 mg/dL (1.6-2.3); Non-African American GFR(CKD) 88 (>60 ml/min/1.73 sqM); Potassium 4.5 mmol/L (3.5-5.1); Sodium 138 mmol/L (137-145); Total Bilirubin 0.6 mg/dL (0.2-1.3); Total Protein 6.6 g/dL (6.3-8.2)
[2020-03-25 16:50] LABS: Partial Thromboplastin Time 23.6 sec (22.0-30.0); Prothrombin Time 10.3 sec (9.0-12.0)
[2020-03-25] MEDS ORDERED: ONDANSETRON 4 MG/2 ML VIAL IVP PRN (17:16)
[2020-03-25] MEDS ORDERED: NALOXONE 0.4 MG/ML 1 ML VIAL IV PRN (17:16)
[2020-03-25] MEDS: METOPROLOL SUCCINATE (ER) 100 MG TAB.ER.24H PO SCH (18:00)
[2020-03-25] MEDS: RIVAROXABAN 20 MG TAB PO SCH (19:20)
[2020-03-25] MEDS: SODIUM CHLORIDE 0.9% 1,000 ML IV SCH ×2 (20:50→21:34)
[2020-03-25] MEDS ORDERED: LORazepam 2 MG/ML INJ IV PRN (21:14)
[2020-03-25] MEDS: DILTIAZEM 125 MG in SODIUM CHLORIDE 0.9% 100 ML IV SCH (21:32)
[2020-03-25] MEDS: LORazepam 2 MG/ML INJ IV PRN (21:38)
[2020-03-26] MEDS: LORazepam 2 MG/ML INJ IV PRN ×8 (00:20→23:55)
[2020-03-26] MEDS: DILTIAZEM 125 MG in SODIUM CHLORIDE 0.9% 100 ML IV SCH ×2 (05:11→22:02)
[2020-03-26] MEDS: THIAMINE 100 MG TAB PO SCH ×2 (06:36→17:08)
[2020-03-26] MEDS: SODIUM CHLORIDE 0.9% 1,000 ML IV SCH ×2 (08:37→22:55)
[2020-03-26] MEDS ORDERED: ASPIRIN 81 MG PO SCH (09:00)
[2020-03-26] MEDS: METOPROLOL SUCCINATE (ER) 100 MG TAB.ER.24H PO SCH (09:16)
[2020-03-26] MEDS: RIVAROXABAN 20 MG TAB PO SCH (09:16)
[2020-03-26] MEDS: SERTRALINE 100 MG TAB PO SCH (12:49)
[2020-03-26] MEDS: FOLIC ACID 1 MG TAB PO SCH (12:49)
[2020-03-26] MEDS ORDERED: METOPROLOL TARTRATE 50 MG TAB PO STA (14:12)
--- NOTE | 2020-03-26 14:36 | CONS ---
CONSULTATION Evaristo Matthews is a 54-year-old gentleman with a known diagnosis that was done recently of atrial fibrillation and also has alcoholism. I am asked to see him regarding his atrial fibrillation with moderately rapid ventricular rate. This patient apparently was recently diagnosed and discharged to home on digoxin, lisinopril metoprolol succinate, aspirin, and Xarelto 20 mg daily. However, he came into the hospital through EMS. He apparently was homeless, was picked up for nearby one of the [employer]. He complained of some squeezing chest pain on arrival but also complained of some suicidal ideation and he now has a sitter watching him. He does not have any pain in the chest. He is resting comfortably without symptoms. He was in atrial fibrillation on arrival with a rapid ventricular rate. The rate has improved significantly. He is resting comfortably without symptoms at the time of my evaluation. The patient has history of alcoholism and apparently recently was discharged from the hospital. MEDICATIONS: At home he was supposed to take aspirin, Xarelto 20 mg daily, digoxin 125 mcg daily, Lasix 40 mg daily, Zestril 5 mg daily and metoprolol succinate 100 mg daily. ALLERGIES: PENICILLIN. PHYSICAL EXAMINATION: On examination, blood pressure is 120/70, pulse rate is about 100, irregular. HEENT unremarkable. Fundus was not examined by me. NECK: Supple. I cannot appreciate JVD. There is no carotid bruit. HEART: Reveals S1, S2 with tachycardia, short systolic murmur, irregular rhythm noted. LUNGS: Reveal diminished air entry. ABDOMEN: Distended. LOWER EXTREMITIES: Reveal diminished pulses. CENTRAL NERVOUS SYSTEM: Normal. EKG revealed atrial fib, rapid rate, nonspecific ST and T-wave changes. Recent echocardiogram from 03/11/2020 revealed LV to be of normal size with ejection fraction of 25-30% with moderate pulmonary hypertension. IMPRESSION: 1. Atrial fibrillation, rapid rate, improved at this time with some Cardizem. 2. History of alcoholism. 3. Cardiomyopathy. RECOMMENDATIONS: I am recommending that we continue to hydrate him cautiously at 75 mL/hour normal saline. I will leave him on metoprolol succinate 100 mg daily and also Xarelto 20 mg daily. We will try to see if he can achieve a decent rate control with this. Hopefully we can discontinue IV Cardizem and control the rate with oral agents. I will add digoxin if necessary. It is quite possible patient was not taking any medications when he left the hospital two weeks ago. Prognosis remains poor with his noncompliance. HILARIA / AVRILN: [id number] /
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
[2020-03-26] MEDS: METOPROLOL TARTRATE 50 MG TAB PO SCH (21:03)
--- NOTE | 2020-03-26 23:53 | P.PN ---
Subjective Progress Note Date: 03/26/20 Principal diagnosis: Acute alcohol intoxication Atrial fibrillation with rapid regular rate. Patient is a 54-year-old male with a known history of atrial fibrillation, hypertension, seizure disorder and alcohol abuse presents to ER with the complaints of chest pain and dizziness and shortness of breath. Patient says that he developed chest pain mainly anterior retrosternal, squeezing pain associated with dizziness and shortness of breath.. Patient felt like a running a marathon. Patient is currently homeless and was picked up at the nearby [facility]. Patient says that he has been drinking since after noon. He does drink an daily basis. Currently patient is intoxicated. Patient says that everyone in his family . He moved here from [facility] to go camping and fishing. Patient has not been taking his medications as he should. Patient was found have atrial fibrillation with rapid regular rate and when he picked up by EMS. Patient was recently admitted to the hospital. Echocardiogram showed ejection fraction 25-30%. Chest x-ray showed no acute cardiopulmonary disease. EKG showed atrial fibrillation with rapid regular rate. Alcohol level 233 Mildly elevated liver enzymes Troponin 1 negative 03/26/2020 Patient is currently resting in the bed comfortably. No complaints of chest pain or shortness of breath. No dizziness today. Heart rate is better controlled. Cardizem drip has been discontinued and patient was started on metoprolol. Cardiology is following. Patient is also on anticoagulation unremarkable exam. Patient will be continued on alcohol withdrawal protocol. Patient was seen by psychiatry and recommended to continue Zoloft at this time. Continue with bedside sitter and follow-up closely. Follow-up repeat CBC and BMP tomorrow. No fever no chills. No nausea vomiting or abdominal pain or diarrhea. No dysuria or hematuria. Current medications reviewed. Objective - Vital Signs Vital signs: Vital Signs Temp 98.0 F 03/26/20 14:54 Pulse 91 03/26/20 14:54 Resp 16 03/26/20 14:54 BP 112/74 03/26/20 14:54 Pulse Ox 96 03/26/20 14:54 Intake & Output 03/25/20 03/26/20 03/26/20 18:59 06:59 18:59 Intake Total 656.5 1035 Output Total 600 750 Balance 56.5 285 Weight 113.398 kg 134 kg Intake: IV 20 0 Invasive Line 1 10 Invasive Line 2 10 0 Intake, IV Titration 636.5 375 Amount Diltiazem 125 mg In 156.5 Sodium Chloride 0.9% 100 ml @ 10 MG/HR 10 mls/hr IV .[id number] [facility]ACY Rx#: [id number] Sodium Chloride 0.9% 1, 480 000 ml @ 20 mls/hr IV . Q24H [facility]ACY Rx#:[id number] Sodium Chloride 0.9% 1, 375 000 ml @ 75 mls/hr IV . [id number] [facility]ACY Rx#:[id number] Oral 660 Output: Urine 600 750 Other: Voiding Method Urinal # Voids 2 2 - Exam PHYSICAL EXAMINATION: Patient is currently lying in the bed awake alert and oriented. no distress. HEENT: Normocephalic. Neck is supple. Pupils reactive. Nostrils clear. Oral cavity is moist. Ears reveal no drainage. Neck reveals no JVD, carotid bruits, or thyromegaly. CHEST EXAMINATION: Trachea is central. Symmetrical expansion. Bibasilar diminished air entry. Lung zamora clear to auscultation and percussion. CARDIAC: Normal S1, S2 with no gallops. No murmurs . Irregularly irregular rhythm. ABDOMEN: Soft. Bowel sounds normal. No organomegaly. No abdominal bruits. Extremities: reveal no edema. No clubbing or cyanosis Neurologically awake, alert, oriented x3 with well-coordinated movements. No focal deficits noted Skin: No rash or skin lesions. Psychiatric: Coperative. Nonsuicidal Musculoskeletal: No joint swelling or deformity. Normal range of motion. - Labs CBC & Chem 7: 03/25/20 15:54 03/25/20 15:54 Labs: Abnormal Lab Results - Last 24 Hours (Table) 03/25/20 03/25/20 Range/Units 15:54 15:57 Carbon Dioxide 19 L (22-30) mmol/L AST 80 H (17-59) U/L ALT 66 H (4-49) U/L Serum Alcohol 233 H* mg/dL Assessment and Plan Assessment: Acute alcohol intoxication on admission Atrial fibrillation with rapid ventricular rate Paroxysmal atrial fibrillation recently diagnosed currently on AC with xarelto Nonischemic cardiomyopathy Depression with Suicidal ideation on admission. Noncompliance with medications Hypertension History of CVA/TIA Severe alcohol abuse History of EtOH withdrawal seizures Osteoarthritis Morbid obesity BMI 41.2 Plan: Patient will be continued on IV hydration. Was given a dose of metoprolol in the ER. Cardizem drip is off. Patient was started on metoprolol.. Patient is on anticoagulation with xarelto will be continued. Continue with home medications and monitor for alcohol withdrawal symptoms. Cardiology was consulted. Further recommendations based on the clinical course. Alcohol Cessation has been counseled extensively. Time with Patient: Greater than 30
[2020-03-27] MEDS: LORazepam 2 MG/ML INJ IV PRN ×6 (03:18→23:41)
[2020-03-27] MEDS: THIAMINE 100 MG TAB PO SCH ×2 (06:31→16:30)
[2020-03-27 07:42] LABS: Basophils # (A) 0.1 k/uL (0-0.2); Basophils % (A) 1 %; Eosinophils # (A) 0.3 k/uL (0-0.7); Eosinophils % (A) 6 %; HCT 45.2 % (39.0-53.0); Lymphocytes # (A) 1.7 k/uL (1.0-4.8); Lymphocytes % (A) 28 %; MCH 33.1 pg (25.0-35.0); MCHC 33.2 g/dL (31.0-37.0); MCV 99.8 fL (80.0-100.0); Mean Platelet Volume 7.4; Monocytes # (A) 0.6 k/uL (0-1.0); Monocytes % (A) 9 %; Neutrophils # (A) 3.4 k/uL (1.3-7.7); Neutrophils % (A) 55 %; Platelet Count 248 k/uL (150-450); RBC 4.54 m/uL (4.30-5.90); RDW 13.5 % (11.5-15.5); WBC 6.2 k/uL (3.8-10.6)
[2020-03-27 07:51] LABS: ALT 45 U/L (4-49); AST 41 U/L (17-59); African American GFR (CKD) >90 (>60 ml/min/1.73 sqM); Albumin 3.5 g/dL (3.5-5.0); Alkaline Phosphatase 62 U/L (38-126); Anion Gap 6 mmol/L; Blood Urea Nitrogen 13 mg/dL (9-20); Calcium 8.8 mg/dL (8.4-10.2); Carbon Dioxide 25 mmol/L (22-30); Chloride 104 mmol/L (98-107); Glucose 94 mg/dL (74-99); Non-African American GFR(CKD) >90 (>60 ml/min/1.73 sqM); Potassium 4.6 mmol/L (3.5-5.1); Sodium 135 mmol/L (137-145); Total Bilirubin 0.6 mg/dL (0.2-1.3); Total Protein 5.9 g/dL (6.3-8.2)
[2020-03-27] MEDS: RIVAROXABAN 20 MG TAB PO SCH (07:51)
[2020-03-27] MEDS: METOPROLOL TARTRATE 50 MG TAB PO SCH ×2 (07:51→20:14)
[2020-03-27] MEDS: FOLIC ACID 1 MG TAB PO SCH (07:52)
[2020-03-27] MEDS: SERTRALINE 100 MG TAB PO SCH (07:52)
[2020-03-27] MEDS: DILTIAZEM 125 MG in SODIUM CHLORIDE 0.9% 100 ML IV SCH (07:52)
[2020-03-27] MEDS: DIGOXIN 125 MCG TAB PO SCH (11:07)
--- NOTE | 2020-03-27 13:23 | PN ---
PROGRESS NOTE Mr. Matthews is in atrial fib. Rate is much better controlled. I am adding digoxin 0.125 mg daily. He has history of alcoholism, noncompliance with medication, but seems to be doing better. Vital signs stable. JVD is evident. S1-S2 heard normally, regular rhythm noted. Rate is controlled. Lungs reveal improved air entry. Abdomen and lower extremity exam unchanged. Plan are to continue current medical regimen and add digoxin. MMODL / IJN: [id number] /
[2020-03-27] MEDS: SODIUM CHLORIDE 0.9% 1,000 ML IV SCH ×2 (16:31→23:44)
--- NOTE | 2020-03-27 19:30 | P.PN ---
Progress Note - Text Progress Note Date: 03/27/20 Interval history: Patient seen in psychiatric follow-up in [facility] today. He reports feeling tired today. He does describe some ongoing depression and still some thoughts of suicide, relays he feels safe here in the hospital. We again talked about recommendation for inpatient psychiatric hospitalization after medical stabilization which he is agreeable to. We also talked about him looking at the option of inpatient rehab treatment after psychiatric stabilization. Mental status exam: He is alert and cooperative with the interview. Her speech is fluent, not rapid or pressured. His mood is depressed. He admits to some ongoing thoughts of suicide, relays he feels safe here in the hospital. He does not voice any thoughts of harm to others. No evidence of active psychosis or agitation. Plan: We will recommend inpatient psychiatric hospitalization after medical stabilization. He is currently on Zoloft 100 mg daily. We'll monitor for any medication side effects and monitor his ongoing response to treatment. He is also receiving Ativan when necessary for any alcohol withdrawals. Psychiatry can follow up.
[2020-03-28] MEDS: THIAMINE 100 MG TAB PO SCH ×2 (05:59→18:45)
[2020-03-28] MEDS: LORazepam 2 MG/ML INJ IV PRN ×3 (06:40→21:35)
[2020-03-28] MEDS: FOLIC ACID 1 MG TAB PO SCH (08:22)
[2020-03-28] MEDS: SERTRALINE 100 MG TAB PO SCH (08:22)
[2020-03-28] MEDS: DIGOXIN 125 MCG TAB PO SCH (08:22)
[2020-03-28] MEDS: RIVAROXABAN 20 MG TAB PO SCH (08:23)
[2020-03-28] MEDS: METOPROLOL TARTRATE 50 MG TAB PO SCH ×2 (08:23→21:26)
[2020-03-28] MEDS: ACETAMINOPHEN TAB 325 MG TAB PO PRN (13:05)
--- NOTE | 2020-03-28 13:06 | P.PN ---
Subjective Progress Note Date: 03/28/20 This is a 54-year-old gentleman with recent diagnosis of atrial fibrillation, patient also has history of alcohol abuse. Cardiology consultation was initially requested because of atrial fibrillation with a rapid ventricular response. Medication adjustments were made, patient was seen and examined this morning, continues to be in atrial fibrillation but his heart rate is under much better control. Patient had an echocardiogram with Doppler study performed on March 11 which revealed an ejection fraction of 25-30%. We will repeat an echo to reassess the LV function. Overall the patient is going through some DVTs today, denies any chest discomfort. No palpitations. Blood pressure 136/80 with a heart rate in the 80s, 94% on room air. Objective - Vital Signs Vital signs: Vital Signs Temp 97.7 F 03/28/20 08:00 Pulse 85 03/28/20 08:00 Resp 20 03/28/20 08:00 BP 137/85 03/28/20 08:00 Pulse Ox 94 L 03/28/20 08:00 Intake & Output 03/27/20 03/28/20 03/28/20 18:59 06:59 18:59 Intake Total 1080 10 118 Output Total 1300 1550 525 Balance -220 -1540 -407 Weight 136 kg Intake: IV 10 Invasive Line 1 10 Oral 1080 118 Output: Urine 1300 1550 525 Other: Voiding Method Urinal Urinal # Voids 1 1 # Bowel Movements 1 - Exam PHYSICAL EXAMINATION: GENERAL: 54-year-old gentleman in no acute distress at the time of my examination HEENT: Head is atraumatic, normocephalic. Pupils equal, round. Sclera anicteric. Conjunctiva are clear. Mucous membranes of the mouth are moist. Neck is supple. There is no elevated jugular venous pressure. No carotid bruit is heard. HEART EXAMINATION: Heart S1 and S2 irregularly irregular CHEST EXAMINATION: Lungs are clear to auscultation and precussion. No chest wall tenderness is noted on palpation or with deep breathing. ABDOMEN: Soft, nontender. Bowel sounds are heard. No organomegaly noted. EXTREMITIES: 2+ peripheral pulses with no evidence of peripheral edema and no calf tenderness noted. NEUROLOGIC patient is awake, alert and oriented 3 . . - Labs CBC & Chem 7: 03/27/20 07:14 03/27/20 07:14 Labs: Abnormal Lab Results - Last 24 Hours (Table) 07/20/20 Range/Units 07:14 TSH 7.820 H (0.465-4.680) mIU/L Assessment and Plan Plan: Assessment and plan #1 acute alcohol intoxication #2 persistent atrial fibrillation #3 nonischemic cardiomyopathy with documented ejection fraction of 35% #4 depression with suicidal ideation on admission #5 hypertension #6 history of prior CVA/TIA #7 obesity Plan We will repeat a limited echocardiogram with Doppler study to assess the patient's LV function. We will continue with his current medications including the Xarelto, Lanoxin, and metoprolol. From cardiology's perspective, patient may be transferred to the psych unit. DNP note has been reviewed, I agree with a documented findings and plan of care. Patient was seen and examined.
--- NOTE | 2020-03-28 13:08 | P.PN ---
Subjective Progress Note Date: 03/27/20 Principal diagnosis: Acute alcohol intoxication Atrial fibrillation with rapid regular rate. Patient is a 54-year-old male with a known history of atrial fibrillation, hypertension, seizure disorder and alcohol abuse presents to ER with the complaints of chest pain and dizziness and shortness of breath. Patient says that he developed chest pain mainly anterior retrosternal, squeezing pain associated with dizziness and shortness of breath.. Patient felt like a running a marathon. Patient is currently homeless and was picked up at the [place]. Patient says that he has been drinking since after noon. He does drink an daily basis. Currently patient is intoxicated. Patient says that everyone in his family . He moved here from [facility] to go camping and fishing. Patient has not been taking his medications as he should. Patient was found have atrial fibrillation with rapid regular rate and when he picked up by EMS. Patient was recently admitted to the hospital. Echocardiogram showed ejection fraction 25-30%. Chest x-ray showed no acute cardiopulmonary disease. EKG showed atrial fibrillation with rapid regular rate. Alcohol level 233 Mildly elevated liver enzymes Troponin 1 negative 03/26/2020 Patient is currently resting in the bed comfortably. No complaints of chest pain or shortness of breath. No dizziness today. Heart rate is better controlled. Cardizem drip has been discontinued and patient was started on metoprolol. Cardiology is following. Patient is also on anticoagulation unremarkable exam. Patient will be continued on alcohol withdrawal protocol. Patient was seen by psychiatry and recommended to continue Zoloft at this time. Continue with bedside sitter and follow-up closely. Follow-up repeat CBC and BMP tomorrow. No fever no chills. No nausea vomiting or abdominal pain or diarrhea. No dysuria or hematuria. 11/26/2019 Patient is currently resting in the bed comfortably. Still having alcohol withdrawal symptoms and requiring Ativan protocol. Continued on bedside sitter. Patient was seen by psychiatric and recommended inpatient psychiatric unit due to suicidal ideation. Heart rate is better controlled. Continued on metoprolol and digoxin was restarted. Cardiology is following. Patient is tolerating oral diet. No nausea vomiting or diarrhea. No fever no chills. No chest pain or shortness of breath. Current medications reviewed. Objective - Vital Signs Vital signs: Vital Signs Temp 98.2 F 03/27/20 20:00 Pulse 85 03/27/20 20:00 Resp 20 03/27/20 20:00 BP 134/93 03/27/20 20:00 Pulse Ox 97 03/27/20 20:00 Intake & Output 03/27/20 03/27/20 03/28/20 06:59 18:59 06:59 Intake Total 620 1080 Output Total 200 1300 Balance 420 -220 Weight 136 kg Intake: IV 20 Invasive Line 1 20 Intake, IV Titration 600 Amount Sodium Chloride 0.9% 1, 600 000 ml @ 75 mls/hr IV . [id number] [facility] Rx#:[id number] Oral 1080 Output: Urine 200 1300 Other: Voiding Method Urinal Urinal - Exam PHYSICAL EXAMINATION: Patient is currently lying in the bed awake alert and oriented. no distress. HEENT: Normocephalic. Neck is supple. Pupils reactive. Nostrils clear. Oral cavity is moist. Ears reveal no drainage. Neck reveals no JVD, carotid bruits, or thyromegaly. CHEST EXAMINATION: Trachea is central. Symmetrical expansion. Bibasilar diminished air entry. Lung zamora clear to auscultation and percussion. CARDIAC: Normal S1, S2 with no gallops. No murmurs . Irregularly irregular rhythm. ABDOMEN: Soft. Bowel sounds normal. No organomegaly. No abdominal bruits. Extremities: reveal no edema. No clubbing or cyanosis Neurologically awake, alert, oriented x3 with well-coordinated movements. No focal deficits noted Skin: No rash or skin lesions. Psychiatric: Coperative. Nonsuicidal Musculoskeletal: No joint swelling or deformity. Normal range of motion. - Labs CBC & Chem 7: 03/27/20 07:14 03/27/20 07:14 Labs: Abnormal Lab Results - Last 24 Hours (Table) 03/27/20 Range/Units 07:14 Sodium 135 L (137-145) mmol/L Total Protein 5.9 L (6.3-8.2) g/dL Assessment and Plan Assessment: Acute alcohol intoxication on admission Atrial fibrillation with rapid ventricular rate Paroxysmal atrial fibrillation recently diagnosed currently on AC with xarelto Nonischemic cardiomyopathy Depression with Suicidal ideation on admission. Noncompliance with medications Hypertension History of CVA/TIA Severe alcohol abuse History of EtOH withdrawal seizures Osteoarthritis Morbid obesity BMI 41.2 Plan: Patient will be continued on IV hydration. Was given a dose of metoprolol in the ER. Cardizem drip is off. Patient was started on metoprolol. Added his oxygen.. Patient is on anticoagulation with xarelto will be continued. Continue with home medications and monitor for alcohol withdrawal symptoms. Cardiology is following. Further recommendations based on the clinical course. Alcohol Cessation has been counseled extensively. Inpatient psychiatric unit transfer as per psychiatric recommendations. Time with Patient: Greater than 30
[2020-03-28] MEDS: SODIUM CHLORIDE 0.9% 1,000 ML IV SCH (17:11)
--- NOTE | 2020-03-29 01:43 | P.PN ---
Subjective Progress Note Date: 03/28/20 Principal diagnosis: Acute alcohol intoxication Atrial fibrillation with rapid regular rate. Patient is a 54-year-old male with a known history of atrial fibrillation, hypertension, seizure disorder and alcohol abuse presents to ER with the complaints of chest pain and dizziness and shortness of breath. Patient says that he developed chest pain mainly anterior retrosternal, squeezing pain associated with dizziness and shortness of breath.. Patient felt like a running a marathon. Patient is currently homeless and was picked up at the [place]. Patient says that he has been drinking since after noon. He does drink an daily basis. Currently patient is intoxicated. Patient says that everyone in his family . He moved here from [facility] to go camping and fishing. Patient has not been taking his medications as he should. Patient was found have atrial fibrillation with rapid regular rate and when he picked up by EMS. Patient was recently admitted to the hospital. Echocardiogram showed ejection fraction 25-30%. Chest x-ray showed no acute cardiopulmonary disease. EKG showed atrial fibrillation with rapid regular rate. Alcohol level 233 Mildly elevated liver enzymes Troponin 1 negative 03/26/2020 Patient is currently resting in the bed comfortably. No complaints of chest pain or shortness of breath. No dizziness today. Heart rate is better controlled. Cardizem drip has been discontinued and patient was started on metoprolol. Cardiology is following. Patient is also on anticoagulation unremarkable exam. Patient will be continued on alcohol withdrawal protocol. Patient was seen by psychiatry and recommended to continue Zoloft at this time. Continue with bedside sitter and follow-up closely. Follow-up repeat CBC and BMP tomorrow. No fever no chills. No nausea vomiting or abdominal pain or diarrhea. No dysuria or hematuria. 03/27/2020 Patient is currently resting in the bed comfortably. Still having alcohol withdrawal symptoms and requiring Ativan protocol. Continued on bedside sitter. Patient was seen by psychiatric and recommended inpatient psychiatric unit due to suicidal ideation. Heart rate is better controlled. Continued on metoprolol and digoxin was restarted. Cardiology is following. Patient is tolerating oral diet. No nausea vomiting or diarrhea. No fever no chills. No chest pain or shortness of breath. 03/28/2020 Patient is currently lying in bed comfortably. Sleepy and drowsy. Requiring Ativan doses due to alcohol withdrawal. Otherwise patient is hemodynamically stable. Heart rate is better controlled. Continue on metoprolol and Lanoxin. Cardiology is on board. Metoprolol dose was adjusted. No further intervention at this time. Psychiatry recommends inpatient psychiatric unit transfer. Patient is medically stable to be transferred. Current medications reviewed. Objective - Vital Signs Vital signs: Vital Signs Temp 97.7 F 03/28/20 08:00 Pulse 98 03/28/20 21:23 Resp 18 03/28/20 21:23 BP 150/87 03/28/20 21:23 Pulse Ox 94 L 03/28/20 21:23 Intake & Output 03/28/20 03/28/20 03/29/20 06:59 18:59 06:59 Intake Total 10 236 240 Output Total 1550 1150 Balance -1540 -914 240 Weight 136 kg Intake: IV 10 Invasive Line 1 10 Oral 236 240 Output: Urine 1550 1150 Other: Voiding Method Urinal Urinal # Voids 1 2 # Bowel Movements 1 - Exam PHYSICAL EXAMINATION: Patient is currently lying in the bed awake alert and oriented. no distress. HEENT: Normocephalic. Neck is supple. Pupils reactive. Nostrils clear. Oral cavity is moist. Ears reveal no drainage. Neck reveals no JVD, carotid bruits, or thyromegaly. CHEST EXAMINATION: Trachea is central. Symmetrical expansion. Bibasilar diminished air entry. Lung zamora clear to auscultation and percussion. CARDIAC: Normal S1, S2 with no gallops. No murmurs . Irregularly irregular rhythm. ABDOMEN: Soft. Bowel sounds normal. No organomegaly. No abdominal bruits. Extremities: reveal no edema. No clubbing or cyanosis Neurologically awake, alert, oriented x3 with well-coordinated movements. No focal deficits noted Skin: No rash or skin lesions. Psychiatric: Coperative. Nonsuicidal Musculoskeletal: No joint swelling or deformity. Normal range of motion. - Labs CBC & Chem 7: 03/27/20 07:14 03/27/20 07:14 Labs: Abnormal Lab Results - Last 24 Hours (Table) 03/28/20 Range/Units 07:14 TSH 7.820 H (0.465-4.680) mIU/L Assessment and Plan Assessment: Acute alcohol withdrawal symptoms Acute alcohol intoxication on admission Atrial fibrillation with rapid ventricular rate Paroxysmal atrial fibrillation recently diagnosed currently on AC with xarelto Nonischemic cardiomyopathy Depression with Suicidal ideation on admission. Noncompliance with medications Hypertension History of CVA/TIA Severe alcohol abuse History of EtOH withdrawal seizures Osteoarthritis Morbid obesity BMI 41.2 Plan: Patient will be continued on IV hydration. Was given a dose of metoprolol in the ER. Cardizem drip is off. Patient was started on metoprolol. Added his digoxin.. Patient is on anticoagulation with xarelto will be continued. Continue with home medications and monitor for alcohol withdrawal symptoms. Cardiology is following. Further recommendations based on the clinical course. Alcohol Cessation has been counseled extensively. Inpatient psychiatric unit transfer as per psychiatric recommendations. Time with Patient: Greater than 30
[2020-03-29] MEDS: LORazepam 2 MG/ML INJ IV PRN ×4 (02:21→20:36)
[2020-03-29] MEDS: THIAMINE 100 MG TAB PO SCH ×2 (06:59→17:16)
[2020-03-29] MEDS: FOLIC ACID 1 MG TAB PO SCH (09:13)
[2020-03-29] MEDS: RIVAROXABAN 20 MG TAB PO SCH (09:13)
[2020-03-29] MEDS: DIGOXIN 125 MCG TAB PO SCH (09:13)
[2020-03-29] MEDS: SERTRALINE 100 MG TAB PO SCH (09:13)
[2020-03-29] MEDS: METOPROLOL TARTRATE 50 MG TAB PO SCH ×2 (09:13→20:36)
--- NOTE | 2020-03-29 10:00 | ECHOF ---
Referral Reason:afib rvr MEASUREMENTS -------- HEIGHT: 180.3 cm WEIGHT: 135.6 kg BP: 137/85 IVSd: 1.1 cm (0.6 - 1.1) LVIDd: 4.8 cm (3.9 - 5.3) LVPWd: 1.6 cm (0.6 - 1.1) IVSs: 1.5 cm LVIDs: 4.3 cm LVPWs: 2.1 cm IVSd: 1.0 cm (0.6 - 1.1) LVIDd: 6.2 cm (3.9 - 5.3) LVPWd: 1.3 cm (0.6 - 1.1) IVSs: 1.3 cm LVIDs: 5.4 cm LVPWs: 2.0 cm EDV(Teich): 192 ml ESV(Teich): 143 ml EF(Teich): 25 % %FS: 12 % SV(Teich): 49 ml FINDINGS -------- This was a technically difficult study with suboptimal views. Limited Study There is mild concentric left ventricular hypertrophy. There is severe global hypokinesis of LV . Overall left ventricular systolic function is severely impaired with, an EF between 20 - 25 %. 5.0mg of Lumason was utilized for enhancement of images CONCLUSIONS -------- 1. This was a technically difficult study with suboptimal views. 2. There is mild concentric left ventricular hypertrophy. 3. There is severe global hypokinesis of LV . 4. Overall left ventricular systolic function is severely impaired with, an EF between 20 - 25 %. 5. 5.0mg of Lumason was utilized for enhancement of images SOCIAL SERVICES DESIGNEE: Aida Dickson, [facility]
--- NOTE | 2020-03-29 11:01 | P.PN ---
Subjective Progress Note Date: 03/29/20 This is a 54-year-old gentleman with recent diagnosis of atrial fibrillation, patient also has history of alcohol abuse. Cardiology consultation was initially requested because of atrial fibrillation with a rapid ventricular response. Medication adjustments were made, patient was seen and examined this morning, continues to be in atrial fibrillation but his heart rate is under much better control. Patient had an echocardiogram with Doppler study performed on March 11 which revealed an ejection fraction of 25-30%. We will repeat an echo to reassess the LV function. Overall the patient is going through some DVTs today, denies any chest discomfort. No palpitations. Blood pressure 136/80 with a heart rate in the 80s, 94% on room air. 03/29/2020 Patient seen and examined this morning, continues to be in atrial fibrillation with controlled ventricular response. A repeat echo was performed to assess patient's LV function which continues low, 20-25%. We will add a small dose of PANKAJ inhibitor and Aldactone to the patient's medication regime. Discontinue Lanoxin. Objective - Vital Signs Vital signs: Vital Signs Temp 98.0 F 03/29/20 07:00 Pulse 98 03/29/20 08:00 Resp 18 03/29/20 08:00 BP 130/93 03/29/20 07:00 Pulse Ox 94 L 03/29/20 07:00 Intake & Output 03/28/20 03/29/20 03/29/20 18:59 06:59 18:59 Intake Total 236 690 120 Output Total 1150 2525 Balance -914 -1835 120 Intake: Oral 236 690 120 Output: Urine 1150 2525 Other: Voiding Method Urinal Urinal Urinal # Voids 2 # Bowel Movements 1 - Exam PHYSICAL EXAMINATION: GENERAL: 54-year-old gentleman in no acute distress at the time of my examination HEENT: Head is atraumatic, normocephalic. Pupils equal, round. Sclera anicteric. Conjunctiva are clear. Mucous membranes of the mouth are moist. Neck is supple. There is no elevated jugular venous pressure. No carotid bruit is heard. HEART EXAMINATION: Heart S1 and S2 irregularly irregular CHEST EXAMINATION: Lungs are clear to auscultation and precussion. No chest wall tenderness is noted on palpation or with deep breathing. ABDOMEN: Soft, nontender. Bowel sounds are heard. No organomegaly noted. EXTREMITIES: 2+ peripheral pulses with no evidence of peripheral edema and no calf tenderness noted. NEUROLOGIC patient is awake, alert and oriented 3 . . - Labs CBC & Chem 7: 03/27/20 07:14 03/27/20 07:14 Assessment and Plan Plan: Assessment and plan #1 acute alcohol intoxication #2 persistent atrial fibrillation #3 nonischemic cardiomyopathy with documented ejection fraction of 35% #4 depression with suicidal ideation on admission #5 hypertension #6 history of prior CVA/TIA #7 obesity Plan We will add a small dose of PANKAJ inhibitor and Aldactone to the patient's medic ation regime. Continue current dose of beta ramses. Patient may be transferred to medical surgical unit or psychiatry from cardiology's perspective. DNP note has been reviewed, I agree with a documented findings and plan of care. Patient was seen and examined.
[2020-03-29] MEDS: SPIRONOLACTONE 25 MG TAB PO SCH (11:57)
--- NOTE | 2020-03-29 13:13 | XR ---
EXAMINATION TYPE: XR chest 1V DATE OF EXAM: 03/29/2020 COMPARISON: Chest radiograph 03/25/2020 HISTORY: Difficulty in breathing. Shortness of breath. History of A. fib. TECHNIQUE: Single frontal semiupright portable view of the chest is obtained. FINDINGS: There is no focal air space opacity, pleural effusion, or pneumothorax seen. The cardiome diastinal silhouette is unchanged. The osseous structures are intact. IMPRESSION: No acute process.
--- NOTE | 2020-03-29 16:46 | PN ---
PROGRESS NOTE DATE OF SERVICE: 03/29/2020 This 54-year-old gentleman admitted with acute alcohol intoxication also had acute delirium tremens. The patient also had atrial fibrillation with a fast ventricular rate. Patient is on multiple medications. Patient also complains of cough at this time. Cardiology is following the patient closely. A 2D echo showed ejection fraction about 20% to 25%, possibly indicating cardiomyopathy, most likely alcoholic in origin. The chest x-ray which was done today which was evaluated personally by me showed no acute process. Past medical history reviewed. REVIEW OF SYSTEMS: CARDIOVASCULAR SYSTEM: As mentioned earlier. RESPIRATORY SYSTEM: As mentioned earlier. GI: No nausea, vomiting. : No dysuria or retention. NERVOUS SYSTEM: As mentioned earlier. CURRENT MEDICATIONS: Reviewed. They include Tylenol, folic acid, Zestril, Ativan, Lopressor, Narcan, Zofran, Xarelto, Zoloft, aldactone, vitamin B1. PHYSICAL EXAMINATION: Patient is alert, oriented x2. Pulse is 98, blood pressure 130/93, respiration 18, temperature 98 degrees, pulse ox 94% on room air. HEENT: Conjunctivae normal. Oral mucosa moist. NECK: No jugular venous distention. No carotid bruit. No lymph node enlargement. CARDIOVASCULAR SYSTEM: S1, S2 muffled. RESPIRATORY SYSTEM: Breath sounds diminished at the bases. A few scattered rhonchi. No crackles. ABDOMEN: Soft, non-tender. LEGS: No edema. No swelling. NERVOUS SYSTEM: Diffusely weak. Diffuse tremors also present. LABS: CBC within normal limits. Sodium 135. TSH is 7.820 and free T4 is 0.86. Alcohol noted. ASSESSMENT: 1. Atrial fibrillation with a fast ventricular rate, present on admission. 2. Acute alcohol intoxication. 3. Acute alcohol withdrawal and acute delirium tremens. 4. Change in mental status, metabolic encephalopathy, multifactorial. 5. Paroxysmal atrial fibrillation. 6. Nonischemic cardiomyopathy, ejection fraction 20% to 25%, with congestive heart failure with chronic systolic dysfunction. 7. Depression with suicidal ideation on admission. 8. Noncompliance with medication. 9. Hypertension. 10.History of cerebrovascular accident, transient ischemic attack. 11.History of severe alcohol abuse. 12.Degenerative joint disease. 13.Morbid obesity with body mass index of 41.2. 14.Mild hyponatremia. 15.Possible sick euthyroid syndrome. 16.FULL CODE. RECOMMENDATIONS AND DISCUSSION: In this 54-year-old gentleman who presented with multiple complex medical issues, we will monitor the patient closely, continue the current medications, continue with symptomatic treatment. Continue with Xarelto. Continue the rest of the medications. Supplement vitamins. Increase ambulation. Continue with DT precautions. Resume the home medications. Guarded prognosis because of multiple complex medical issues. Further recommendations to follow. MMJHOANA / AVRILN: [id number] /
[2020-03-30] MEDS: LORazepam 2 MG/ML INJ IV PRN ×2 (01:41→09:53)
[2020-03-30] MEDS: THIAMINE 100 MG TAB PO SCH ×2 (06:38→17:07)
[2020-03-30] MEDS: FOLIC ACID 1 MG TAB PO SCH (09:54)
[2020-03-30] MEDS: RIVAROXABAN 20 MG TAB PO SCH (09:54)
[2020-03-30] MEDS: SPIRONOLACTONE 25 MG TAB PO SCH (09:54)
[2020-03-30] MEDS: METOPROLOL TARTRATE 50 MG TAB PO SCH ×2 (09:54→22:09)
[2020-03-30] MEDS: SERTRALINE 100 MG TAB PO SCH (09:54)
[2020-03-30] MEDS: ACETAMINOPHEN TAB 325 MG TAB PO PRN (09:54)
[2020-03-30] MEDS ORDERED: MULTIVITAMINS, THERA 1 EACH TAB PO SCH (12:00)
--- NOTE | 2020-03-30 13:22 | P.DS ---
Providers Date of admission: 03/25/20 17:17 Expected date of discharge: 03/30/20 Attending physician: Easton Carver Consults: 03/25/20 15:53 Consult Physician Routine Consulting Provider: Rogelio Waite Consult Reason/Comments: suicidal Do you want consulting provider notified?: Yes 03/25/20 21:13 Consult Physician Routine Consulting Provider: Lisa Rogers Consult Reason/Comments: afib rvr Do you want consulting provider notified?: Yes, Notify in am Primary care physician: Stated None Hospital Course: Final diagnosis Atrial fibrillation with a fast ventricular rate, present on admission Acute alcohol intoxication Acute alcohol withdrawal and acute delirium tremens Change in mental status, metabolic encephalopathy, multifactorial Paroxysmal atrial fibrillation Nonischemic cardiomyopathy, ejection fraction 20-25% with congestive heart failure with chronic systolic dysfunction Depression with suicidal ideation on admission Noncompliance with medications Hypertension History of CVA, TIA History of severe alcohol abuse degenerative joint disease Morbid obesity with a BMI of 41.2 Mild hyponatremia Possible sick euthyroid syndrome Full code Discharge disposition Patient is being Transferred in a stable condition with guarded prognosis to [facility] psychiatric facility. Total time taken is greater than 35 minutes. History of present illness This is an 54-year-old male who was recently admitted with Acute alcohol intoxication also had acute delirium tremens and was being closely monitored. Patient was maintained on CIWA protocol. Cardiology as well as psychiatry were following the patient closely. Patient had a 2-D echo done showing an EF of 20- 25% possibly indicating cardiomyopathy most likely alcoholic in origin. Medication adjustments have been made. Yesterday patient underwent a chest x-ray showing no acute process with no pleural effusions or pneumothorax seen as he was having some cough. Patient also evaluated by psychiatry recommending inpatient psychiatry once medically stable. Patient is medically stable and able to be transferred to inpatient psychiatric unit once a bed becomes available. Patient states he feels better today and is aware he will be transferred to the psychiatric facility once a bed becomes available. Currently no reports of chest pain, worsening shortness of breath, or palpitations. Pat ient is afebrile. No reports of nausea or vomiting and patient is tolerating diet. Patient will be going to [facility] today. On exam vital signs are stable. Temp is 97.9F, pulse is 90, respirations are 18, blood pressure is 131/92, oxygen saturation is 92-94% on Room air. Cardio S1, S2 are muffled. Respiratory shows diminished breath sounds at the bases with a few scattered rhonchi noted. Abdomen is soft, Obese, and nontender. Nervous system shows No focal deficit. Please refer to medication reconciliation sheet for a list of medications. Patient Condition at Discharge: Fair Plan - Discharge Summary Discharge Rx Participant: No New Discharge Prescriptions: New Metoprolol Tartrate [Lopressor] 100 mg PO DAILY #60 tab Metoprolol Tartrate [Lopressor] 50 mg PO HS #30 tab Thiamine [Vitamin B-1] 100 mg PO BID-W/MEALS #30 tab lisinopriL [Zestril] 2.5 mg PO DAILY #30 tab Spironolactone [Aldactone] 25 mg PO DAILY tab Multivitamins, Thera [Multivitamin (formulary)] 1 each PO DAILY@1200 tab Continue Sertraline [Zoloft] 100 mg PO DAILY Folic Acid 1 mg PO DAILY Aspirin 81 mg PO DAILY Digoxin [Lanoxin] 125 mcg PO DAILY #30 tab Nitroglycerin Sl Tabs [Nitrostat] 0.4 mg SUBLINGUAL Q5M PRN #30 tab PRN Reason: Chest Pain Rivaroxaban [Xarelto] 20 mg PO DAILY Discontinued Metoprolol Succinate (ER) [Toprol XL] 100 mg PO DAILY #30 tab.er.24h lisinopriL [Zestril] 5 mg PO DAILY #30 tab Spironolactone [Aldactone] 25 mg PO BID #0 Furosemide [Lasix] 40 mg PO DAILY #0 methylPREDNISolone [Medrol Dose Pack] See Taper PO DIRECTED Discharge Medication List Aspirin 81 mg PO DAILY 03/10/20 [History] Folic Acid 1 mg PO DAILY 03/10/20 [History] Sertraline [Zoloft] 100 mg PO DAILY 03/10/20 [History] Digoxin [Lanoxin] 125 mcg PO DAILY #30 tab 03/15/20 [Rx] Nitroglycerin Sl Tabs [Nitrostat] 0.4 mg SUBLINGUAL Q5M PRN #30 tab 03/15/20 [Rx] Rivaroxaban [Xarelto] 20 mg PO DAILY 03/22/20 [History] Metoprolol Tartrate [Lopressor] 50 mg PO HS #30 tab 03/28/20 [Rx] Metoprolol Tartrate [Lopressor] 100 mg PO DAILY #60 tab 03/28/20 [Rx] Thiamine [Vitamin B-1] 100 mg PO BID-W/MEALS #30 tab 03/28/20 [Rx] lisinopriL [Zestril] 2.5 mg PO DAILY #30 tab 03/28/20 [Rx] Multivitamins, Thera [Multivitamin (formulary)] 1 each PO DAILY@1200 tab 03/30/20 [Rx] Spironolactone [Aldactone] 25 mg PO DAILY tab 03/30/20 [Rx] Follow up Appointment(s)/Referral(s): None,Stated [Primary Care Provider] - 1-2 days Activity/Diet/Wound Care/Special Instructions: Patient is being transferred to inpatient [facility] psychiatric unit activity as tolerated continue current diet NURSE Patient has warrant and there is a police slip in front of chart that needs to be called when released from hospital Discharge Disposition: TRANSFER TO PSYCH HOSP/UNIT
[2020-03-30 18:58] LABS: Amphetamine Screen,Urine Not Detected (NotDetected); Barbiturate Screen,Urine Not Detected (NotDetected); Benzodiazepines Screen,Urine Detected (NotDetected); Cocaine Screen,Urine Not Detected (NotDetected); Methadone Screen, Urine Not Detected (NotDetected); Opiate Screen,Urine Not Detected (NotDetected); Oxycodone Screen, Urine Not Detected (NotDetected); Phencyclidine Screen,Urine Not Detected (NotDetected); Tricyclic Antidepressant,Urine Not Detected (NotDetected); Urn Cannabinoid Scrn Not Detected (NotDetected)
[2020-03-30 19:53] VITALS: BP 126/89; PULSE 96; TEMP 97.9
[2020-03-30 22:56] VITALS: RESP 18
== END 2020-03-30 22:35 | DRG 308 ==
LOC: EC 15:41 → 3SCARD 17:17 → 4SSUR 03-30 13:00
PROVIDERS: ADMIT Internal Medicine; ATTEND Internal Medicine
DX: I48.0 Paroxysmal atrial fibrillation (principal); G93.41 Metabolic encephalopathy; E87.1 Hypo-osmolality and hyponatremia; E87.2 Acidosis; I50.22 Chronic systolic (congestive) heart failure; R45.851 Suicidal ideations; Z68.41 Body mass index [BMI] 40.0-44.9, adult; F10.231 Alcohol dependence with withdrawal delirium; F10.229 Alcohol dependence with intoxication, unspecified; I42.6 Alcoholic cardiomyopathy; I11.0 Hypertensive heart disease with heart failure; F32.9 Major depressive disorder, single episode, unspecified; E66.01 Morbid (severe) obesity due to excess calories; F41.9 Anxiety disorder, unspecified; G40.909 Epilepsy, unspecified, not intractable, without status epilepticus; Z20.828 Contact with and (suspected) exposure to other viral communicable diseases; M19.90 Unspecified osteoarthritis, unspecified site; G89.29 Other chronic pain; E07.81 Sick-euthyroid syndrome; R07.9 Chest pain, unspecified; T50.916A Underdosing of multiple unspecified drugs, medicaments and biological substances, initial encounter; Z91.128 Patient's intentional underdosing of medication regimen for other reason; Z59.0 Homelessness; Z79.01 Long term (current) use of anticoagulants; Z79.82 Long term (current) use of aspirin; Z79.899 Other long term (current) drug therapy; Z87.891 Personal history of nicotine dependence; Z83.49 Family history of other endocrine, nutritional and metabolic diseases; Z86.73 Personal history of transient ischemic attack (TIA), and cerebral infarction without residual deficits; Z87.01 Personal history of pneumonia (recurrent); Z82.49 Family history of ischemic heart disease and other diseases of the circulatory system; Z88.0 Allergy status to penicillin; Y90.7 Blood alcohol level of 200-239 mg/100 ml
CPT/HCPCS: 36415; 71045; 71046; 80053; 80306; 80320; 83735; 84439; 84443; 84484; 85025; 85610; 85730; 93005; 93308; 96360; 96361; 99285

== ENCOUNTER 2020-04-18 09:03 | Inpatient (IN) | payer OTHER ==
[2020-04-18] MEDS: RIVAROXABAN 20 MG TAB PO SCH (17:52)
[2020-04-18] MEDS: ALPRAZolam 0.5 MG TAB PO PRN (21:40)
[2020-04-18] MEDS: ACETAMINOPHEN TAB 325 MG TAB PO PRN (21:40)
[2020-04-18] MEDS: METOPROLOL TARTRATE 50 MG TAB PO SCH (22:46)
--- NOTE | 2020-04-19 09:30 | XR ---
EXAMINATION TYPE: XR chest 2V DATE OF EXAM: 04/19/2020 COMPARISON: Prior chest x-ray 03/29/2020 and 04/08/2020 HISTORY: Dyspnea TECHNIQUE: Frontal and lateral views of the chest are obtained. FINDINGS: There is no focal air space opacity, pleural effusion, or pneumothorax seen. The cardiac silhouette size is within normal limits. Suspect coronary artery calcifications, possible stent are present. The osseous structures are intact, there is a spinal curvature. IMPRESSION: No acute cardiopulmonary process. Coronary artery disease.
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
[2020-04-19] MEDS: ALPRAZolam 0.5 MG TAB PO PRN ×2 (09:43→23:53)
[2020-04-19] MEDS: SPIRONOLACTONE 25 MG TAB PO SCH (09:43)
[2020-04-19] MEDS: METOPROLOL TARTRATE 50 MG TAB PO SCH ×2 (09:43→23:21)
[2020-04-19] MEDS: SERTRALINE 100 MG TAB PO SCH (09:43)
[2020-04-19] MEDS: lisinopriL 5 MG TAB PO SCH (09:43)
[2020-04-19] MEDS: ACETAMINOPHEN TAB 325 MG TAB PO PRN (09:44)
[2020-04-19] MEDS: ARIPiprazole 2 MG TAB PO SCH (09:44)
[2020-04-19 10:01] LABS: Basophils # (A) 0.1 k/uL (0-0.2); Basophils % (A) 1 %; Eosinophils # (A) 0.5 k/uL (0-0.7); Eosinophils % (A) 5 %; Lymphocytes # (A) 2.2 k/uL (1.0-4.8); Lymphocytes % (A) 24 %; MCH 31.5 pg (25.0-35.0); MCHC 32.9 g/dL (31.0-37.0); MCV 95.8 fL (80.0-100.0); Mean Platelet Volume 7.8; Monocytes # (A) 0.6 k/uL (0-1.0); Monocytes % (A) 7 %; Neutrophils # (A) 5.5 k/uL (1.3-7.7); Neutrophils % (A) 61 %; Platelet Count 251 k/uL (150-450); RBC 5.77 m/uL (4.30-5.90)
[2020-04-19 10:07] LABS: HCT 55.2 % (39.0-53.0)
[2020-04-19 10:08] LABS: HGB 18.2 gm/dL (13.0-17.5)
[2020-04-19 10:16] LABS: ALT 42 U/L (4-49); AST 36 U/L (17-59); African American GFR (CKD) >90 (>60 ml/min/1.73 sqM); Albumin 3.8 g/dL (3.5-5.0); Alkaline Phosphatase 70 U/L (38-126); Anion Gap 7 mmol/L; Blood Urea Nitrogen 19 mg/dL (9-20); Calcium 9.2 mg/dL (8.4-10.2); Carbon Dioxide 27 mmol/L (22-30); Chloride 103 mmol/L (98-107); Glucose 93 mg/dL (74-99); Non-African American GFR(CKD) >90 (>60 ml/min/1.73 sqM); Potassium 4.7 mmol/L (3.5-5.1); Sodium 137 mmol/L (137-145); Total Bilirubin 0.7 mg/dL (0.2-1.3); Total Protein 6.6 g/dL (6.3-8.2)
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
[2020-04-19 11:22] LABS: Appearance,Urine Clear (Clear); Bilirubin,Urine Negative (Negative); Blood,Urine Negative (Negative); Color,Urine Yellow; Glucose,Urine (UA) Negative (Negative); Ketones,Urine Negative (Negative); Leukocyte Esterase,Urine Negative (Negative); Nitrite,Urine Negative (Negative); Protein,Urine Negative (Negative); Specific Gravity,Urine 1.021 (1.001-1.035); Urobilinogen,Urine <2.0 mg/dL (<2.0)
[2020-04-19] MEDS: RIVAROXABAN 20 MG TAB PO SCH (18:10)
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
[2020-04-20 07:05] LABS: Basophils # (A) 0.1 k/uL (0-0.2); Basophils % (A) 1 %; Eosinophils # (A) 0.6 k/uL (0-0.7); Eosinophils % (A) 6 %; HGB 18.4 gm/dL (13.0-17.5); Lymphocytes # (A) 2.3 k/uL (1.0-4.8); Lymphocytes % (A) 24 %; MCH 31.5 pg (25.0-35.0); MCHC 32.9 g/dL (31.0-37.0); MCV 95.6 fL (80.0-100.0); Mean Platelet Volume 7.7; Monocytes # (A) 0.6 k/uL (0-1.0); Monocytes % (A) 7 %; Neutrophils # (A) 5.8 k/uL (1.3-7.7); Neutrophils % (A) 61 %; Platelet Count 234 k/uL (150-450); RBC 5.83 m/uL (4.30-5.90); RDW 12.7 % (11.5-15.5); WBC 9.5 k/uL (3.8-10.6)
[2020-04-20 07:13] LABS: HCT 55.8 % (39.0-53.0)
[2020-04-20 07:28] LABS: ALT 45 U/L (4-49); AST 35 U/L (17-59); African American GFR (CKD) >90 (>60 ml/min/1.73 sqM); Albumin 3.6 g/dL (3.5-5.0); Alkaline Phosphatase 75 U/L (38-126); Anion Gap 8 mmol/L; Blood Urea Nitrogen 19 mg/dL (9-20); Calcium 9.1 mg/dL (8.4-10.2); Carbon Dioxide 23 mmol/L (22-30); Chloride 105 mmol/L (98-107); Glucose 71 mg/dL (74-99); Non-African American GFR(CKD) >90 (>60 ml/min/1.73 sqM); Potassium 4.8 mmol/L (3.5-5.1); Sodium 136 mmol/L (137-145); Total Bilirubin 0.7 mg/dL (0.2-1.3); Total Protein 6.4 g/dL (6.3-8.2)
[2020-04-20] MEDS: ACETAMINOPHEN TAB 325 MG TAB PO PRN (10:16)
[2020-04-20] MEDS: ALPRAZolam 0.5 MG TAB PO PRN (10:16)
[2020-04-20] MEDS: SERTRALINE 100 MG TAB PO SCH (10:16)
[2020-04-20] MEDS: ARIPiprazole 2 MG TAB PO SCH (10:17)
[2020-04-20] MEDS: lisinopriL 5 MG TAB PO SCH (10:17)
[2020-04-20] MEDS: SPIRONOLACTONE 25 MG TAB PO SCH (10:17)
[2020-04-20] MEDS: METOPROLOL TARTRATE 50 MG TAB PO SCH (10:17)
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
[2020-04-20 12:47] VITALS: PULSE 83; RESP 16
[2020-04-20 17:26] VITALS: BP 101/62; TEMP 97.4
[2020-04-20] MEDS: RIVAROXABAN 20 MG TAB PO SCH (17:37)
--- NOTE | 2020-04-20 18:14 | DS ---
DISCHARGE SUMMARY DISCHARGE MEDICINES: 1. Xanax 0.5 t.i.d. 2. Abilify 10 mg daily. 3. Zestril 5 mg daily. 4. Lopressor 100 b.i.d. 5. Xarelto 20 mg daily. 6. Zoloft 100 mg daily. 7. Aldactone 25 mg daily. CONDITION: Stable. PROGNOSIS: Guarded. Ambulate as tolerated. DISCHARGE DIAGNOSIS: 1. Atrial fibrillation. 2. Depression. 3. Suicidal ideations. Seen by Cardiology. He is cleared for discharge. He will follow up with psychiatrist on the psych jolley as he is suicidal. MMODL / IJN: [id number] /
== END 2020-04-20 17:44 | DRG 309 ==
LOC: 3SCARD 14:40
PROVIDERS: ADMIT Family Medicine; ATTEND Family Medicine
DX: I48.11 Longstanding persistent atrial fibrillation (principal); F32.2 Major depressive disorder, single episode, severe without psychotic features; R45.851 Suicidal ideations; I42.9 Cardiomyopathy, unspecified; E78.5 Hyperlipidemia, unspecified; I10 Essential (primary) hypertension; G47.30 Sleep apnea, unspecified; G40.909 Epilepsy, unspecified, not intractable, without status epilepticus; F41.9 Anxiety disorder, unspecified; E66.9 Obesity, unspecified; M19.90 Unspecified osteoarthritis, unspecified site; F10.20 Alcohol dependence, uncomplicated; Z56.0 Unemployment, unspecified; Z59.0 Homelessness; Z79.899 Other long term (current) drug therapy; Z79.01 Long term (current) use of anticoagulants; Z86.73 Personal history of transient ischemic attack (TIA), and cerebral infarction without residual deficits; Z82.49 Family history of ischemic heart disease and other diseases of the circulatory system; Z87.01 Personal history of pneumonia (recurrent); Z98.890 Other specified postprocedural states; Z88.0 Allergy status to penicillin; Z68.36 Body mass index [BMI] 36.0-36.9, adult
CPT/HCPCS: 71046; 80053; 81003; 84484; 85025

== ENCOUNTER 2020-04-20 18:31 | Inpatient (IN) | payer MEDICAID, OTHER ==
[2020-04-20] MEDS ORDERED: MAG HYDROX/AL HYDROX/SIMETH 30 ML CUP PO PRN (18:43)
[2020-04-20] MEDS ORDERED: MAGNESIUM HYDROXIDE 2,400 MG/10 ML CUP PO PRN (18:43)
[2020-04-20] MEDS ORDERED: LORazepam 1 MG TAB PO PRN (18:43)
[2020-04-20] MEDS: METOPROLOL TARTRATE 50 MG TAB PO SCH (22:19)
[2020-04-21] MEDS ORDERED: SERTRALINE 100 MG TAB PO SCH (09:00)
[2020-04-21] MEDS ORDERED: ARIPiprazole 5 MG TAB PO SCH (09:00)
[2020-04-21] MEDS: NICOTINE 14MG/24HR PATCH TRANSDERM SCH (09:07)
[2020-04-21] MEDS: RIVAROXABAN 20 MG TAB PO SCH ×2 (09:07→15:44)
[2020-04-21] MEDS: ACETAMINOPHEN TAB 325 MG TAB PO PRN (12:06)
[2020-04-21] MEDS ORDERED: METOPROLOL TARTRATE 50 MG TAB PO STA (12:15)
[2020-04-21] MEDS: METOPROLOL TARTRATE 50 MG TAB PO SCH ×2 (12:15→21:00)
[2020-04-21] MEDS: SPIRONOLACTONE 25 MG TAB PO SCH (12:19)
[2020-04-21] MEDS: lisinopriL 5 MG TAB PO SCH (12:19)
[2020-04-21 13:32] LABS: Hemoglobin A1C 5.4 % (4.0-6.0)
--- NOTE | 2020-04-21 14:07 | HP ---
HISTORY AND PHYSICAL DATE OF ADMISSION: 04/20/2020 The patient is known to me as I saw him in consultation on the medical floor on April 19, 2020. IDENTIFYING DATA: The patient is 54, , male, unemployed and homeless, who has history of depression and alcoholism. CHIEF C/O:"I do not have reason to live" HISTORY OF PRESENT ILLNESS: The patient endorses high anxiety and depression. He did a rate both 8/10, 10 being the worst. Patient reports feeling hopeless, helpless, overwhelmed with a lot of guilt about "I had lot of bad choice all my life. I lost everything because of my drinking." Patient stated that he was neglecting himself even his medical issue as he was diagnosed with atrial fibrillation 2 years ago, but he was not compliant with his cardiac medication. The patient was recently in [place] and he moved back after 3 years to [place] as he lost his job. He stated that since he moved back to [place], he has been feeling more overwhelmed and has imagination that he would hang himself. He said "I had a couple of friends were drinking with me, they committed suicide by hanging 20 years ago." The patient reported that the drinking has been out of control over the last year since he lost his mother, sister and brother in the same year. Patient denied any psychotic feature, but he did have high anxiety due to his cardiac condition, especially he said "my heart is failing because of my drinking." Regarding past psychiatric history, there is no previous outpatient treatment. [facility] by [facility] and he was sent to [facility] on March 30 for inpatient hospitalization. He stated that after he lost 3 people from his family, his family doctor put him on Prozac, then he changed it to Zoloft as Prozac did not help. SUBSTANCE ABUSE HISTORY: Alcohol, he started drinking at age 16, but it has been out of control according to him over the last year as he was drinking between 1 to 2 fifths a day of hard liquor. He denied any residential treatment or outpatient treatment for substance abuse. MEDICAL HISTORY: Atrial fibrillation, cardiomyopathy, hypertension, hyperlipidemia. ALLERGY: PENICILLIN. CURRENT PSYCHOTROPIC MEDICATION: Zoloft 100 mg daily, Xanax 0.5 three times a day and Abilify 2.5 mg daily. CURRENT MEDICATION: For his medical condition, please refer to the MAR. FAMILY HISTORY PSYCHIATRIC ILLNESS: Patient's father was alcoholic. Also brother and sister were alcoholic. His older son is on Prozac for depression. SOCIAL HISTORY: The patient was born and raised in [place]. He had 1 sister and 1 brother and he lost both of them last year. His parents are . He was in [place] for 6 years, ended by divorce because of his drinking and he has 2 grown-up sons. 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 However, he lost his job due to the pandemic. When he came back to [place], he lost his car and he has been homeless since then. He denied any legal problems. MENTAL STATUS EXAMINATION: Patient presented as an overweight, middle aged, male who is pleasant and cooperative. Speech is spontaneous, normal in rate and volume. Stated mood is anxious and depressed and affect is appropriate to thought content. He stated that he is still feeling suicidal with a plan to hang himself if he is out of the hospital. He denied any hallucination. He denied any idea of reference. He is alert and oriented x3. His memory is grossly intact. Insight and judgment are limited. IMPRESSION: Major depression, severe, without psychotic feature, unspecified anxiety disorder, alcohol use disorder, severe. PLAN: Patient is admitted under voluntary status as he did sign a voluntary admission for stabilization and safety. The patient did sign medication consent. Medication, I will increase the Zoloft to 150 mg daily. I would discontinue the Abilify and we will change Xanax to p.r.n. to avoid cross addiction. I did discuss with the patient to start him on naltrexone. However, he stated that he has been clean for 4 weeks and he is willing to go to residential treatment when he is less depressed. Continue Ativan and Geodon p.r.n. for anxiety and agitation. The patient was informed of the risks, benefits, and side effects of the medication and he verbally consented to take the medication. Internal Medicine to follow up with the patient here. The patient will participate in group therapy. section gang worker onboard for discharge planning and arrange referral to chemical dependency inpatient when the patient is ready to be discharged from here. MMODL / IJN: [id number] / MTDD
[2020-04-22] MEDS: NICOTINE 14MG/24HR PATCH TRANSDERM SCH (08:36)
[2020-04-22] MEDS: SERTRALINE 50 MG TAB PO SCH (08:37)
[2020-04-22] MEDS: lisinopriL 5 MG TAB PO SCH (08:37)
[2020-04-22] MEDS: ACETAMINOPHEN TAB 325 MG TAB PO PRN ×2 (08:38→20:17)
[2020-04-22] MEDS: SPIRONOLACTONE 25 MG TAB PO SCH (08:38)
[2020-04-22] MEDS: METOPROLOL TARTRATE 50 MG TAB PO SCH ×2 (08:38→20:18)
--- NOTE | 2020-04-22 12:53 | P.PN ---
Progress Note - Text Progress Note Date: 04/22/20 I reviewed medical records ,did interview patient and case was discussed in treatment team Today Vitals:Pulse:61,R:16,BP:112/61 Slept 6 hours,participating in groups Interval history:Patient was wearing hospital gown ,was in group and did follow me to office,he stated that he was able to call [facility] for rehab and they will contact SW,he does feel that he is on right track,rates anxiety and depression ,both 5/10,10 being the worst,no interaction with peers ,seems withdrawn, ruminating about his drinking and lot of guilt about this saying "I did spend half of my life drinking ,I made lot of mistakes,I lost everyone because of my drinking" Mental status exam: He was withdrawn but cooperative. He was pleasant on approach and made eye contact. His speech was non spontaneous but coherent ,normal in tone and rythm. he stated that that he is feeling worthless and struggling with lot of guilt He did not express any active suicidal ideation, wishes or homicidal ideation. He denies any hallucinations or delusional thinking . His insight and judgment are improving ASSESSMENT: Major depressive disorder, severe with psychotic features Alcohol use disorder PLAN: continue Zoloft 150 mg daily , Patient continues to meet criteria for inpatient psychiatric admission for symptom stabilization and safety. Monitor for medication compliance and for any psychotropic medication side effects. Will continue to monitor ongoing response to treatment. Continue participation in milieu.
[2020-04-22] MEDS: RIVAROXABAN 20 MG TAB PO SCH (18:07)
[2020-04-23] MEDS: NICOTINE 14MG/24HR PATCH TRANSDERM SCH (08:01)
[2020-04-23] MEDS: SERTRALINE 50 MG TAB PO SCH (08:01)
[2020-04-23] MEDS: METOPROLOL TARTRATE 50 MG TAB PO SCH ×2 (08:01→20:05)
[2020-04-23] MEDS: lisinopriL 5 MG TAB PO SCH (08:01)
[2020-04-23] MEDS: SPIRONOLACTONE 25 MG TAB PO SCH (08:02)
--- NOTE | 2020-04-23 16:40 | PN ---
PROGRESS NOTE DATE OF SERVICE: 04/23/2020 CHIEF COMPLAINT: The patient had high anxiety and depression. He had significant alcohol use issues and stated "I lost everything because of my drinking." INTERVAL HISTORY: Patient has been doing fairly well. He had a quiet evening last night. He comes out in the day area. He will interact with others. He has been attending groups. He said that he slept "good" last night. Today he has been up. He continues to attend groups. He has a better outlook. He says overall he thinks he is a little better. He feels significantly improved anxiety-inman since his cardiac medicines have changed so that he is not having tachycardia. He says that makes him feel quite a bit better. He notes that he has been drinking seriously up until March 15, which was his last use. He notes that since then he was on Xanax for about a week to 10 days. He recognizes that benzodiazepines are essentially the same as alcohol and he is glad to be off that. He states that he still has some thoughts about self-harm though is clear that he does not have any impulse in that direction or any plans. He says he is very focused on the plans he has for the future which includes probably going into [facility] for a 30 day treatment program and from there going to a long-term residential house where he could get more support around staying off alcohol and any other abusive substances. He says he has a much better outlook as he is thinking about his plans for the future. He tolerates his psychotropic medications. MENTAL STATUS: Patient was somewhat restless. He gave good eye contact. He answered questions with direct responses. His thoughts were clear. He was spontaneous and interactive. His affect was somewhat anxious though he had a friendly manner and talked quite openly about his drinking issues and the direction he wants to take. His mood was dysphoric though he had appropriately concerned manner about his life situation. He was somewhat distressed though that seemed to be in an appropriate way. There was no indication of psychotic symptoms. He voiced only some very vague thoughts about self-harm without any intent or plan. He was oriented and alert. ASSESSMENT: I will continue the current diagnosis and treatment plan. I will continue psychotropic medications the same, namely Zoloft 150 mg a day. We discussed his not using Ativan and as such I will discontinue the Ativan. The patient is in agreement with that. I had an extensive discussion with the patient regarding withdrawal issues. He likely is around the three week art in terms of withdrawal from the combination of alcohol plus the added use of Xanax. We discussed that I would anticipate he may not see clear improvement in terms of long-term anxiety and mood issues until he gets into June. I gave the patient my support in regard to his plans towards discharge. We will focus on stabilization and discharge planning. HILARIA / CHERYL: [id number] /
[2020-04-23] MEDS: RIVAROXABAN 20 MG TAB PO SCH (17:33)
[2020-04-23] MEDS: ACETAMINOPHEN TAB 325 MG TAB PO PRN (20:05)
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
[2020-04-24 05:39] LABS: T4, Free (Free Thyroxine) 1.46 ng/dL (0.78-2.19)
[2020-04-24] MEDS: NICOTINE 14MG/24HR PATCH TRANSDERM SCH (08:31)
[2020-04-24] MEDS: SPIRONOLACTONE 25 MG TAB PO SCH (08:32)
[2020-04-24] MEDS: SERTRALINE 50 MG TAB PO SCH (08:32)
[2020-04-24] MEDS: METOPROLOL TARTRATE 50 MG TAB PO SCH ×2 (08:32→20:20)
[2020-04-24] MEDS: lisinopriL 5 MG TAB PO SCH (08:32)
[2020-04-24] MEDS: ACETAMINOPHEN TAB 325 MG TAB PO PRN (12:16)
[2020-04-24] MEDS: RIVAROXABAN 20 MG TAB PO SCH (16:43)
--- NOTE | 2020-04-24 17:43 | PN ---
PROGRESS NOTE DATE OF SERVICE: 04/24/2020. CHIEF COMPLAINT: The patient had high anxiety and depression. He had significant alcohol use issues and stated "I lost everything because of my drinking." INTERVAL HISTORY: The patient has been doing fair. He had a quiet evening last night. He tends to keep to himself. He will spend a fair amount of time in his room. He attended one group yesterday. He will come out in the day area, though does not interact too much with others. He slept well last night. Today he has been up. He has not attended groups today. He said that overall he is feeling better. He notes improvement in his mood and better outlook. He says he has not had any issues with stopping Ativan. He does feel that the Zoloft has probably been helpful for him. He acknowledges the struggles he has had with alcohol complicated by recent use of benzodiazepines. He continues to stay mostly to himself. He seemed to show some better insight into issues he has been struggling with. He tolerates his psychotropic medications. MENTAL STATUS: Patient gave fair eye contact. Psychomotor activity was somewhat slowed. He answered questions with appropriate responses. He did not say a lot. His thoughts were clear. His affect was blunted. His mood was quiet though not clearly down or depressed. He did not appear to be significantly distressed. There was no indication of thought disorder. He voiced no thoughts of harm. Cognition was clear. ASSESSMENT: I will continue the current diagnosis and treatment plan. I will continue psychotropic medications the same, namely that the patient continues on Zoloft 150 mg a day as his only psychotropic medication. Vital signs remained stable with vital signs this morning at 8:39 am, including BP 134/80, pulse 76 and regular, respirations 18, oxygen saturation 98. I again reviewed withdrawal issues with the patient including time course and expectations. We discussed some possible followup options and I encouraged him to discuss further with the family welfare social work professor and Dr. Rogers. We will continue to focus on stabilization and discharge planning. MMODL / IJN: [id number] /
[2020-04-25] MEDS: NICOTINE 14MG/24HR PATCH TRANSDERM SCH (07:39)
[2020-04-25] MEDS: SERTRALINE 50 MG TAB PO SCH (07:42)
[2020-04-25] MEDS: METOPROLOL TARTRATE 50 MG TAB PO SCH ×2 (07:42→20:09)
[2020-04-25] MEDS: SPIRONOLACTONE 25 MG TAB PO SCH (07:42)
[2020-04-25] MEDS: lisinopriL 5 MG TAB PO SCH (07:42)
[2020-04-25] MEDS: ACETAMINOPHEN TAB 325 MG TAB PO PRN ×3 (07:43→20:09)
--- NOTE | 2020-04-25 14:16 | P.PN ---
Progress Note - Text Progress Note Date: 04/25/20 I reviewed medical records ,did interview patient and case was discussed in treatment team Slept 6 hours,participating in groups Interval history:Patient was wearing street clothing ,was in group and did follow me to office,he stated that he was waiting to hear from [facility] rehab in [place] ,he does feel that he is on right track,rates anxiety and depression ,both 4/10,10 being the worst,no interaction with peers ,seems withdrawn, ruminating about effect of his drinking on his heart and how much he did neglect his physical health Mental status exam: He was withdrawn but cooperative. He was pleasant on approach and made eye contact. His speech was non spontaneous but coherent ,normal in tone and rythm. he stated that that he is feeling better ,reports some anxiety regarding discharge plan He did not express any active suicidal ideation, wishes or homicidal ideation. He denies any hallucinations or delusional thinking . His insight and judgment are improving ASSESSMENT: Major depressive disorder, moderate with psychotic features Alcohol use disorder PLAN: continue Zoloft 150 mg daily , Patient continues to meet criteria for inpatient psychiatric admission for symptom stabilization and safety. Monitor for medication compliance and for any psychotropic medication side effects. Will continue to monitor ongoing response to treatment. Continue participation in milieu. waiting to be accepted at rehab facility
[2020-04-25] MEDS: RIVAROXABAN 20 MG TAB PO SCH (17:11)
[2020-04-26] MEDS: NICOTINE 14MG/24HR PATCH TRANSDERM SCH (08:59)
[2020-04-26] MEDS: SERTRALINE 50 MG TAB PO SCH (08:59)
[2020-04-26] MEDS: METOPROLOL TARTRATE 50 MG TAB PO SCH ×2 (08:59→20:15)
[2020-04-26] MEDS: SPIRONOLACTONE 25 MG TAB PO SCH (08:59)
[2020-04-26] MEDS: lisinopriL 5 MG TAB PO SCH (08:59)
[2020-04-26] MEDS: ACETAMINOPHEN TAB 325 MG TAB PO PRN ×2 (09:00→20:14)
--- NOTE | 2020-04-26 09:31 | P.PN ---
Progress Note - Text Progress Note Date: 04/26/20 I reviewed medical records ,did interview patient and case was discussed in treatment team Slept 6 hours,participating in groups Interval history:Patient was wearing street clothing ,was in group and did follow me to office,he stated that he was waiting to hear from [facility] rehab in [place] ,he does feel that he is on right track,rates anxiety and depression ,both 4/10,10 being the worst,no interaction with peers ,seems less depressed ,able to smile at time,still ruminating about effect of his drinking on his heart and how much he did neglect his physical health Mental status exam: He was withdrawn but cooperative. He was pleasant on approach and made eye contact. His speech was non spontaneous but coherent ,normal in tone and rythm. he stated that that he is feeling better ,reports some anxiety regarding discharge plan He did not express any active suicidal ideation, wishes or homicidal ideation. He denies any hallucinations or delusional thinking . His insight and judgment are improving ASSESSMENT: Major depressive disorder, moderate without psychotic features Anxiety disorder unspecified Alcohol use disorder PLAN: continue Zoloft 150 mg daily , Patient continues to meet criteria for inpatient psychiatric admission for symptom stabilization and safety. Monitor for medication compliance and for any psychotropic medication side effects. Will continue to monitor ongoing response to treatment. Continue participation in milieu. waiting to be accepted at rehab facility
[2020-04-26] MEDS: RIVAROXABAN 20 MG TAB PO SCH (16:41)
[2020-04-27] MEDS: METOPROLOL TARTRATE 50 MG TAB PO SCH ×2 (08:16→20:09)
[2020-04-27] MEDS: SERTRALINE 50 MG TAB PO SCH (08:16)
[2020-04-27] MEDS: NICOTINE 14MG/24HR PATCH TRANSDERM SCH (08:16)
[2020-04-27] MEDS: lisinopriL 5 MG TAB PO SCH (08:16)
[2020-04-27] MEDS: SPIRONOLACTONE 25 MG TAB PO SCH (08:17)
[2020-04-27] MEDS: ACETAMINOPHEN TAB 325 MG TAB PO PRN ×2 (08:17→17:24)
--- NOTE | 2020-04-27 09:26 | P.PN ---
Progress Note - Text Progress Note Date: 04/27/20 I reviewed medical records ,did interview patient and case was discussed in treatment team Slept 6 hours,participating in groups TODAY VITALS:Temp:98,P:75,R:16,BP:124/82 Interval history:Patient was wearing street clothing ,was in rodrigez and agreed to follow me to office,he stated that he was waiting to hear from [facility] rehab in [place] ,he does feel that he is on right track,rates anxiety and depression ,both 4/10,10 being the worst,no interaction with peers ,seems less depressed ,able to smile at time,still ruminating about effect of his drinking on his heart and how much he did neglect his physical health Mental status exam: He was withdrawn but cooperative. He was pleasant on appro ach and made eye contact. His speech was non spontaneous but coherent ,normal in tone and rythm. he stated that that he is feeling better ,reports some anxiety regarding discharge plan He did not express any active suicidal ideation, wishes or homicidal ideation. He denies any hallucinations or delusional thinking . His insight and judgment are improving ASSESSMENT: Major depressive disorder, moderate without psychotic features Anxiety disorder unspecified Alcohol use disorder PLAN: continue Zoloft 150 mg daily , Patient continues to meet criteria for inpatient psychiatric admission for symptom stabilization and safety. Monitor for medication compliance and for any psychotropic medication side effects. Will continue to monitor ongoing response to treatment. Continue participation in milieu. waiting to be accepted at rehab facility
[2020-04-27 11:16] VITALS: BMI 37.0
[2020-04-27] MEDS: RIVAROXABAN 20 MG TAB PO SCH (17:24)
[2020-04-28 07:00] VITALS: BP 115/81; PULSE 77; RESP 16; TEMP 97.8
[2020-04-28] MEDS: METOPROLOL TARTRATE 50 MG TAB PO SCH (08:23)
[2020-04-28] MEDS: SERTRALINE 50 MG TAB PO SCH (08:23)
[2020-04-28] MEDS: ACETAMINOPHEN TAB 325 MG TAB PO PRN (08:23)
[2020-04-28] MEDS: NICOTINE 14MG/24HR PATCH TRANSDERM SCH (08:23)
[2020-04-28] MEDS: lisinopriL 5 MG TAB PO SCH (08:23)
[2020-04-28] MEDS: SPIRONOLACTONE 25 MG TAB PO SCH (08:23)
--- NOTE | 2020-04-28 12:56 | DS ---
DISCHARGE SUMMARY He was admitted to our mental health unit on April 21 and discharged April 28. COSTUMER ASSISTANT: Dr. Casey Feliz for H and P and medical management. HISTORY AND PHYSICAL EXAM/REASON FOR HOSPITALIZATION: The patient is a 54 -year-old , male, currently unemployed and homeless. The patient was transferred to our unit from the medical floor as he was on the medical unit for atrial fibrillation. The patient presented with severe anxiety and depression and suicidal ideation with a plan to hang himself. The patient stated that he lost everything in life because of his drinking including his physical health. For complete history and physical examination, please refer to my initial evaluation on April 21. HOSPITAL COURSE: The patient was transferred from the medical unit to our facility and I did continue him on his medical medication for hypertension, hyperlipidemia, atrial fibrillation, also recent echocardiogram showed cardiomyopathy. The patient was on Zoloft 100 mg. I did increase it to 150 mg and gradually discontinued Xanax as I did discuss with him that there is cross addiction between the alcohol and the benzodiazepine and he verbalized understanding. The patient was participating in every group. Very active in the group and he was seen in one-to-one and seems that he started feeling hopeful that "I am so happy that I am on the right track." He stated that he has many goals for his future including living in a residential substance abuse treatment and trying to find a job. During his stay here he did not require any p.r.n. He did not have any behavior issue or aggressive behavior. MENTAL STATUS EXAMINATION: At the time of his discharge, the patient presented as overweight male who is pleasant and cooperative. Speech is spontaneous, normal in rate and rhythm stated mood "much better. Affect is appropriate to thought content. He denied any suicidal ideation. He denied any homicidal ideation. He denied any hallucination. He denied any idea of reference or delusional thinking. He is alert and oriented x3. His memory is grossly intact. His insight and judgment improved. DISCHARGE DIAGNOSIS: 1. Major depression, without psychotic features, in partial remission. 2. Anxiety disorder, unspecified. 3. Alcohol use disorder, severe. PLAN: The patient will be transported today to [facility] for alcohol rehab. The patient will be given one month supply of Zoloft 150 mg daily for mood and depression. The patient to continue on his medication for his medical condition. The patient did verbalize understanding regarding the plan of the discharge and he is willing to pursue long-term chemical dependency. MMLASHONDAL / AVRILN: [id number] /
== END 2020-04-28 13:17 | disposition home or self-care (01) | DRG 885 ==
LOC: 3MHU 18:31
PROVIDERS: ADMIT Psychiatry & Neurology Psychiatry; ATTEND Psychiatry & Neurology Psychiatry
DX: F32.3 Major depressive disorder, single episode, severe with psychotic features (principal); I42.9 Cardiomyopathy, unspecified; R45.851 Suicidal ideations; F10.20 Alcohol dependence, uncomplicated; I48.91 Unspecified atrial fibrillation; E66.3 Overweight; E78.5 Hyperlipidemia, unspecified; F06.4 Anxiety disorder due to known physiological condition; I10 Essential (primary) hypertension; Z56.0 Unemployment, unspecified; Z59.0 Homelessness; Z88.0 Allergy status to penicillin; Z79.899 Other long term (current) drug therapy; Z91.14 Patient's other noncompliance with medication regimen; Z81.1 Family history of alcohol abuse and dependence; Z81.8 Family history of other mental and behavioral disorders
CPT/HCPCS: 80061; 83036; 84439; 84443; 84481; 84550

== ENCOUNTER 2020-05-25 20:07 | Observation (INO) | payer OTHER ==
[2020-05-25] MEDS ORDERED: ASPIRIN 81 MG PO STA (20:39)
--- NOTE | 2020-05-25 20:42 | ED ---
General Adult HPI - General Chief complaint: Chest Pain Stated complaint: Chest Pain,Usp Clearance Time Seen by Provider: 05/25/20 20:17 Source: patient, police, RN notes reviewed Mode of arrival: ambulatory Limitations: no limitations - History of Present Illness Initial comments: Patient is a pleasant 55-year-old male presenting to the emergency department with chest discomfort. Patient was released from mental health unit today and went to a homeless retirement. Patient was not allowed in there and called police. Patient did have multiple arrests warrants and was placed under arrest. Patient then started getting chest discomfort. Patient states he still has some chest discomfort however not severe and is mild at this time. Patient also fe els a little bit short of breath. Patient feels fatigued. Patient does have history of atrial fibrillation and is on anticoagulation for this. No leg pain or leg swelling. - Related Data Home Medications Medication Instructions Recorded Confirmed Rivaroxaban [Xarelto] 20 mg PO AC-SUPPER 05/25/20 05/25/20 Previous Rx's Medication Instructions Recorded Acetaminophen Tab [Tylenol] 650 mg PO Q4HR PRN tab 05/25/20 Metoprolol Tartrate [Lopressor] 100 mg PO BID 30 Days tab 05/25/20 Sertraline [Zoloft] 100 mg PO DAILY 30 Days tab 05/25/20 Spironolactone [Aldactone] 25 mg PO DAILY 30 Days tab 05/25/20 lisinopriL [Zestril] 5 mg PO DAILY 30 Days tab 05/25/20 Allergies Allergy/AdvReac Type Severity Reaction Status Date / Time Penicillins Allergy Rash/Hives Verified 05/25/20 21:54 Review of Systems ROS Statement: Those systems with pertinent positive or pertinent negative responses have been documented in the HPI. ROS Other: All systems not noted in ROS Statement are negative. Constitutional: Denies: fever Eyes: Denies: eye pain ENT: Denies: ear pain Respiratory: Reports: as per HPI, dyspnea. Denies: cough Cardiovascular: Reports: as per HPI, chest pain, palpitations Endocrine: Reports: fatigue Gastrointestinal: Denies: abdominal pain Genitourinary: Denies: dysuria Musculoskeletal: Denies: back pain Skin: Denies: rash Neurological: Denies: weakness Past Medical History Past Medical History: Atrial Fibrillation, CVA/TIA, Hypertension, Osteoarthritis (OA), Pneumonia, Seizure Disorder Additional Past Medical History / Comment(s): Afib recently diagnosed, lower extremity edema, ETOH abuse with past withdrawal/seizure in 12/2018, chronic generalized pain, pt states he had a TIA in 2019 while in [place] and was intubated. History of Any Multi-Drug Resistant Organisms: None Reported Past Surgical History: Orthopedic Surgery Additional Past Surgical History / Comment(s): R thumb fracture with surgery. Past Anesthesia/Blood Transfusion Reactions: No Reported Reaction Past Psychological History: Anxiety, Depression Smoking Status: Never smoker Past Alcohol Use History: Abuse, Daily Past Drug Use History: None Reported - Past Family History Father Family Medical History: Myocardial Infarction ([place]) Additional Family Medical History / Comment(s): Father of a [place] at the age of 57 yrs. Mother Family Medical History: Hyperlipidemia, Hypertension Additional Family Medical History / Comment(s): Mother at the age of 89yrs. General Exam Limitations: no limitations General appearance: alert, in no apparent distress Head exam: Present: normocephalic Eye exam: Present: normal appearance Neck exam: Present: normal inspection Respiratory exam: Present: normal lung sounds bilaterally Cardiovascular Exam: Present: irregular rhythm Expanded Peripheral pulses: 2+: Radial (R), Radial (L), Dorsalis Pedis (R), Dorsalis Pedis (L) GI/Abdominal exam: Present: soft. Absent: distended, tenderness Extremities exam: Present: normal inspection. Absent: pedal edema, calf tenderness Neurological exam: Present: alert Psychiatric exam: Present: normal affect, normal mood Skin exam: Present: normal color Course Vital Signs 05/25/20 05/25/20 05/25/20 20:10 20:38 21:37 Temperature 98.0 F Pulse Rate 60 100 100 Respiratory 20 20 18 Rate Blood Pressure 90/63 106/69 O2 Sat by Pulse 100 95 99 Oximetry EKG Findings - EKG Comments: EKG Findings:: A. fib with rate of 107. QRS 76. QT 352. QTC 469. Normal axis. Normal QRS. No acute ST change. Medical Decision Making - Medical Decision Making Patient reevaluated and resting comfortably in bed, symptom-free now. Patient updated on results and plan. Case was discussed in detail with Dr. Kauffman who will admit his patient for cardiac observation. Patient was also stating he is having suicidal thoughts and mental health will be consult. - Lab Data Result diagrams: 05/25/20 20:55 05/25/20 20:55 Lab Results 05/25/20 05/25/20 05/25/20 Range/Units 20:55 20:55 20:55 WBC 8.7 (3.8-10.6) k/uL RBC 5.12 (4.30-5.90) m/uL Hgb 16.1 (13.0-17.5) gm/dL Hct 47.8 (39.0-53.0) % MCV 93.4 (80.0-100.0) fL MCH 31.5 (25.0-35.0) pg MCHC 33.7 (31.0-37.0) g/dL RDW 13.0 (11.5-15.5) % Plt Count 271 (150-450) k/uL Neutrophils % 59 % Lymphocytes % 30 % Monocytes % 7 % Eosinophils % 2 % Basophils % 1 % Neutrophils # 5.1 (1.3-7.7) k/uL Lymphocytes # 2.6 (1.0-4.8) k/uL Monocytes # 0.6 (0-1.0) k/uL Eosinophils # 0.2 (0-0.7) k/uL Basophils # 0.1 (0-0.2) k/uL PT 9.7 (9.0-12.0) sec INR 0.9 (<1.2) APTT 21.9 L (22.0-30.0) sec Sodium 137 (137-145) mmol/L Potassium 5.4 H (3.5-5.1) mmol/L Chloride 106 (98-107) mmol/L Carbon Dioxide 20 L (22-30) mmol/L Anion Gap 11 mmol/L BUN 22 H (9-20) mg/dL Creatinine 1.47 H (0.66-1.25) mg/dL Est GFR (CKD-EPI)AfAm 61 (>60 ml/min/1.73 sqM) Est GFR (CKD-EPI)NonAf 52 (>60 ml/min/1.73 sqM) Glucose 79 (74-99) mg/dL Calcium 9.3 (8.4-10.2) mg/dL Magnesium 2.3 (1.6-2.3) mg/dL Total Bilirubin 1.1 (0.2-1.3) mg/dL AST 46 (17-59) U/L ALT 25 (4-49) U/L Alkaline Phosphatase 91 (38-126) U/L Troponin I (0.000-0.034) ng/mL NT-Pro-B Natriuret Pep pg/mL Total Protein 7.4 (6.3-8.2) g/dL Albumin 4.4 (3.5-5.0) g/dL 05/25/20 05/25/20 Range/Units 20:55 20:55 WBC (3.8-10.6) k/uL RBC (4.30-5.90) m/uL Hgb (13.0-17.5) gm/dL Hct (39.0-53.0) % MCV (80.0-100.0) fL MCH (25.0-35.0) pg MCHC (31.0-37.0) g/dL RDW (11.5-15.5) % Plt Count (150-450) k/uL Neutrophils % % Lymphocytes % % Monocytes % % Eosinophils % % Basophils % % Neutrophils # (1.3-7.7) k/uL Lymphocytes # (1.0-4.8) k/uL Monocytes # (0-1.0) k/uL Eosinophils # (0-0.7) k/uL Basophils # (0-0.2) k/uL PT (9.0-12.0) sec INR (<1.2) APTT (22.0-30.0) sec Sodium (137-145) mmol/L Potassium (3.5-5.1) mmol/L Chloride (98-107) mmol/L Carbon Dioxide (22-30) mmol/L Anion Gap mmol/L BUN (9-20) mg/dL Creatinine (0.66-1.25) mg/dL Est GFR (CKD-EPI)AfAm (>60 ml/min/1.73 sqM) Est GFR (CKD-EPI)NonAf (>60 ml/min/1.73 sqM) Glucose (74-99) mg/dL Calcium (8.4-10.2) mg/dL Magnesium (1.6-2.3) mg/dL Total Bilirubin (0.2-1.3) mg/dL AST (17-59) U/L ALT (4-49) U/L Alkaline Phosphatase (38-126) U/L Troponin I <0.012 (0.000-0.034) ng/mL NT-Pro-B Natriuret Pep 2430 pg/mL Total Protein (6.3-8.2) g/dL Albumin (3.5-5.0) g/dL Disposition Clinical Impression: Chest pain, Depression Disposition: ADMITTED IP TO THIS HOSP Is patient prescribed a controlled substance at d/c from ED?: No Referrals: Casey Feliz MD [Primary Care Provider] - 1-2 days Decision Time: 22:12
[2020-05-25 21:04] LABS: Basophils # (A) 0.1 k/uL (0-0.2); Basophils % (A) 1 %; Eosinophils # (A) 0.2 k/uL (0-0.7); Eosinophils % (A) 2 %; HCT 47.8 % (39.0-53.0); HGB 16.1 gm/dL (13.0-17.5); Lymphocytes # (A) 2.6 k/uL (1.0-4.8); Lymphocytes % (A) 30 %; MCH 31.5 pg (25.0-35.0); MCHC 33.7 g/dL (31.0-37.0); MCV 93.4 fL (80.0-100.0); Mean Platelet Volume 7.5; Monocytes # (A) 0.6 k/uL (0-1.0); Monocytes % (A) 7 %; Neutrophils # (A) 5.1 k/uL (1.3-7.7); Neutrophils % (A) 59 %; Platelet Count 271 k/uL (150-450); RBC 5.12 m/uL (4.30-5.90); WBC 8.7 k/uL (3.8-10.6)
[2020-05-25 21:12] LABS: Albumin 4.4 g/dL (3.5-5.0); Calcium 9.3 mg/dL (8.4-10.2); Magnesium 2.3 mg/dL (1.6-2.3); Total Bilirubin 1.1 mg/dL (0.2-1.3); Total Protein 7.4 g/dL (6.3-8.2)
[2020-05-25 21:13] LABS: Potassium 5.4 mmol/L (3.5-5.1)
--- NOTE | 2020-05-25 21:21 | XR ---
EXAMINATION TYPE: XR chest 2V DATE OF EXAM: 05/25/2020 COMPARISON: 04/19/2020 HISTORY: Chest pain TECHNIQUE: FINDINGS: Heart and mediastinum are normal. Lungs are clear. Diaphragm is normal. Bony thorax appears normal. IMPRESSION: Normal chest. No change.
[2020-05-25 21:55] LABS: INR 0.9 (<1.2); Partial Thromboplastin Time 21.9 sec (22.0-30.0); Prothrombin Time 9.7 sec (9.0-12.0)
[2020-05-25] MEDS ORDERED: NITROGLYCERIN SL TABS 0.4 MG TAB SUBLINGUAL PRN (22:14)
[2020-05-26] MEDS: NITROGLYCERIN OINT 1 INCH/GM PACKET TOPICAL SCH ×2 (01:12→06:15)
[2020-05-26 04:03] LABS: Cholesterol 184 mg/dL (<200); HDL Cholesterol 38 mg/dL (40-60); LDL Cholesterol,Calculated 96 mg/dL (0-99); Triglycerides 250 mg/dL (<150)
[2020-05-26] MEDS ORDERED: ASPIRIN 325 MG TAB PO SCH (09:00)
--- NOTE | 2020-05-26 11:30 | P.CRDCN ---
History of Present Illness Consult date: 05/26/20 Consult reason: atrial fibrillation Chief complaint: Heart racing History of present illness: This is a 55-year-old gentleman with documented history of persistent atrial fibrillation, EtOH abuse, anxiety and depression, nonischemic cardiomyopathy, hypertension who was just discharged from the mental health it. Apparently the patient is trying to get into [place] [facility] rehab facility. He was discharged here from the hospital with the intention to go to a homeless fpc here in town. Patient found out that there were no beds available and he became extremely anxious and agitated, he states that he felt his heart racing extremely fast and he felt tight in his chest. Patient also had suicidal ideation. His blood pressure on arrival here 104/60 heart rate in the 90s respirations 1695% on room air. His EKG on arrival here showed atrial fibrillation with moderately rapid ventricular response chest x-ray did not reveal any acute findings. CAT scan of the brain was performed which did not reveal any acute abnormality as well as a CT of the spine which did not reveal any acute changes. His white blood cell count on admission was 8.7, hemoglobin 16.1, platelet count 271. Sodium 137, potassium 5.2, BUN 19 and creatinine 0.7. This mornings BUN is 22 with a creatinine of 1.4 and potassium of 5.4. Troponins were negative 3. BNP level [id number], TSH level II.2. Patient had a recent echocardiogram with Doppler study performed in March which revealed an ejection fraction of 25-30%, we will order a repeat echocardiogram with Doppler study. We will also resume the patient's xarelto, discontinue the aspirin and Nitropaste, resume the patient's beta ramses. We will hold the tam and Aldactone and recheck her labs in the morning. Past Medical History Past Medical History: Atrial Fibrillation, CVA/TIA, Hypertension, Osteoarthritis (OA), Pneumonia, Seizure Disorder Additional Past Medical History / Comment(s): Afib recently diagnosed, lower extremity edema, ETOH abuse with past withdrawal/seizure in 12/2018, chronic generalized pain, pt states he had a TIA in 2018 while in [place] and was intubated. History of Any Multi-Drug Resistant Organisms: None Reported Past Surgical History: Orthopedic Surgery Additional Past Surgical History / Comment(s): R thumb fracture with surgery. Past Anesthesia/Blood Transfusion Reactions: No Reported Reaction Past Psychological History: Anxiety, Depression Additional Psychological History / Comment(s): Pt is currently homeless and when asked if he has thoughts of suicide he reports "yes" Smoking Status: Never smoker Past Alcohol Use History: Abuse, Daily Additional Past Alcohol Use History / Comment(s): Pt states he quit drinking March 15 2020 He used to drink a fifth of liqour a day. Past Drug Use History: None Reported - Past Family History Father Family Medical History: Myocardial Infarction ([place]) Additional Family Medical History / Comment(s): Father of a [place] at the age of 57 yrs. Mother Family Medical History: Hyperlipidemia, Hypertension Additional Family Medical History / Comment(s): Mother at the age of 89yrs. Medications and Allergies Home Medications Medication Instructions Recorded Confirmed Type Acetaminophen Tab [Tylenol] 650 mg PO Q4HR PRN tab 05/25/20 05/25/20 Rx Metoprolol Tartrate [Lopressor] 100 mg PO BID 30 Days tab 05/25/20 05/25/20 Rx Rivaroxaban [Xarelto] 20 mg PO AC-SUPPER 05/25/20 05/25/20 History Sertraline [Zoloft] 100 mg PO DAILY 30 Days tab 05/25/20 05/25/20 Rx Spironolactone [Aldactone] 25 mg PO DAILY 30 Days tab 05/25/20 05/25/20 Rx lisinopriL [Zestril] 5 mg PO DAILY 30 Days tab 05/25/20 05/25/20 Rx Allergies Allergy/AdvReac Type Severity Reaction Status Date / Time Penicillins Allergy Rash/Hives Verified 05/25/20 21:54 Physical Exam Vitals: Vital Signs Temp Pulse Pulse Pulse Resp BP BP 05/26/20 08:50 97.4 F L 98 16 122/91 05/26/20 04:12 98.2 F 90 16 104/65 05/26/20 00:41 87 05/25/20 23:41 97.8 F 89 18 101/63 05/25/20 21:37 100 18 106/69 05/25/20 20:38 100 20 90/63 05/25/20 20:10 98.0 F 60 20 Pulse Ox 05/26/20 08:50 96 05/26/20 04:12 95 05/26/20 00:41 94 L 05/25/20 23:41 94 L 05/25/20 21:37 99 05/25/20 20:38 95 05/25/20 20:10 100 Intake and Output 05/25/20 05/26/20 05/26/20 22:59 06:59 14:59 Other: # Voids 1 0 Weight 113.398 kg 122.3 kg PHYSICAL EXAMINATION: GENERAL: 55-year-old gentleman in no acute distress at the time of my examination HEENT: Head is atraumatic, normocephalic. Pupils equal, round. Sclera anicteric. Conjunctiva are clear. Mucous membranes of the mouth are moist. Neck is supple. There is no elevated jugular venous pressure. No carotid bruit is heard. HEART EXAMINATION: R S1 and S2 irregularly irregular CHEST EXAMINATION: Lungs are clear to auscultation and precussion. No chest wall tenderness is noted on palpation or with deep breathing. ABDOMEN: Soft, nontender. Bowel sounds are heard. No organomegaly noted. EXTREMITIES: 2+ peripheral pulses with no evidence of peripheral edema and no calf tenderness noted. NEUROLOGIC patient is awake, alert and oriented 3 . . Results 05/25/20 20:55 05/25/20 20:55 Cardiac Enzymes 05/25/20 05/25/20 05/26/20 Range/Units 20:55 20:55 00:04 AST 46 (17-59) U/L Troponin I <0.012 <0.012 (0.000-0.034) ng/mL 05/26/20 Range/Units 03:02 AST (17-59) U/L Troponin I <0.012 (0.000-0.034) ng/mL Coagulation 05/25/20 Range/Units 20:55 PT 9.7 (9.0-12.0) sec APTT 21.9 L (22.0-30.0) sec Lipids 05/26/20 Range/Units 03:02 Triglycerides 250 H (<150) mg/dL Cholesterol 184 (<200) mg/dL HDL Cholesterol 38 L (40-60) mg/dL CBC 05/25/20 Range/Units 20:55 WBC 8.7 (3.8-10.6) k/uL RBC 5.12 (4.30-5.90) m/uL Hgb 16.1 (13.0-17.5) gm/dL Hct 47.8 (39.0-53.0) % Plt Count 271 (150-450) k/uL Comprehensive Metabolic Panel 05/25/20 Range/Units 20:55 Sodium 137 (137-145) mmol/L Potassium 5.4 H (3.5-5.1) mmol/L Chloride 106 (98-107) mmol/L Carbon Dioxide 20 L (22-30) mmol/L BUN 22 H (9-20) mg/dL Creatinine 1.47 H (0.66-1.25) mg/dL Glucose 79 (74-99) mg/dL Calcium 9.3 (8.4-10.2) mg/dL AST 46 (17-59) U/L ALT 25 (4-49) U/L Alkaline Phosphatase 91 (38-126) U/L Total Protein 7.4 (6.3-8.2) g/dL Albumin 4.4 (3.5-5.0) g/dL Current Medications Generic Name Dose Route Start Last Admin Trade Name Freq PRN Reason Stop Dose Admin Metoprolol Tartrate 100 mg 05/26/20 09:00 Metoprolol Tartrate 50 Mg Tab PO BID TRACY Nitroglycerin 0.4 mg 05/25/20 22:14 Nitroglycerin Sl Tabs 0.4 Mg Tab SUBLINGUAL Q5M PRN Chest Pain Rivaroxaban 20 mg 05/26/20 17:30 Rivaroxaban 20 Mg Tab PO AC-SUPPER TRACY Sertraline HCl 100 mg 05/26/20 09:00 Sertraline 100 Mg Tab PO DAILY TRACY Intake and Output 05/25/20 05/26/20 05/26/20 22:59 06:59 14:59 Other: # Voids 1 0 Weight 113.398 kg 122.3 kg 05/25/20 20:55 05/25/20 20:55 EKG Interpretations (text) EKG shows atrial fibrillation with moderately rapid ventricular response. Assessment and Plan Plan: Assessment and plan #1 persistent atrial fibrillation, on Xarelto for anticoagulation #2 EtOH abuse #3 nonischemic cardiomyopathy with documented ejection fraction of 25-30% #4 hypertension #5 anxiety and depression #6 suicidal ideation Plan We will obtain an echocardiogram with Doppler study. Put the patient back on his Xarelto and beta ramses 100 mg twice a day. Discontinue Nitropaste and aspirin. Recheck labs in the morning. Hold tam and Aldactone at this time, recheck potassium BUN and creatinine in the morning. Further recommendations to follow. DNP note has been reviewed, I agree with a documented findings and plan of care. Patient was seen and examined.
--- NOTE | 2020-05-26 14:18 | P.CN ---
Psychiatric Consult - . Consult date: 05/26/20 Consult:: 05/26/20 14:06 IDENTIFYING DATA: Patient is a 54 year old male who is currently homeless is unemployed, was previously living at [facility] house, has a history of depression and alcohol abuse, and has one son. HPI: Patient is a history of anxiety/depression and alcohol use disorder and was recently discharged from the mental health unit on 05/25/2020. Patient was discharged to prison after he was not able to find a ride to [facility] in [place], [place]. Patient was discharged on Zoloft 100 mg daily for anxiety and mood. He apparently went to the prison to check in and stated that there was no beds available and he claims that he called the ambulance afterwards as he started having anxiety and was worried and began having chest pain and came to the hospital. Psychiatry was consulted for continuation of care. Nurse taking care of patient states that she had no complaints about him and his behavior and was doing well. Patient appeared to be cooperative and directable during conversation with internal communications writer. He states that he is not feeling depressed or anxious at this time. He claims that he is feeling frustrated as he feels that the psychosocial rehabilitation counselor did not help him enough and did not check if there is beds at the prison. He remained focused on going to [facility] and [place] however claims that he does not have a ride there. He claims that he did not relapse on alcohol and has been taking his medications. He denied any changes in his sleep. Patient denies any suicidal or homicidal ideations intent or plan. At this time patient denies any auditory or visual hallucinations. Patient denies any flight of ideas racing thoughts and increased in goal directed behavior. Patient admits to using alcohol in the past and claims that he has been sober since 03/15/2020. He states that he does have 1 DUI related to his alcohol use 30 years ago. He denies using either out of many other recreational drugs including cigarettes. PAST PSYCHIATRIC HISTORY: Patient states that he has a history of depression and anxiety. Patient was on Zoloft 100 mg daily for his mood. She was last hospitalized on the mental health unit and discharged yesterday to the prison. Patient denies any psychiatric outpatient follow-up. Patient denies any history of suicide attempts in the past. PMH: Hypertension, A. fib, CVA/TIA, osteoarthritis, seizure disorder. ALLERGIES: as per EMR CHEMICAL DEPENDENCY HISTORY: as per HPI FAMILY PSYCHIATRIC/SUBSTANCE USE HISTORY: He claims that his father was an alcoholic and his brother and sister were alcoholics. He states that his son is on Prozac for depression. SOCIAL HISTORY: Patient was born and raised in [place] [facility] [place] and states that he has one sister and one brother. He claims that his parents are currently . He states that he is currently and is homeless and is unemployed however has a job lined up. 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 MENTAL STATUS EXAM: General Appearance: Patient appears to be overweight, stated age is alert, pleasant, and cooperative. Patient appears to have fair hygiene and grooming wearing hospital gown with fair eye contact. Behavior: Patient is calmly lying in bed without any agitated behavior. Cooperative. Speech: Patient's speech is fluent and nonpressured. Mood/Affect: Patient reports their mood is "ok", affect is congruent and constricted. Suicidality/Homicidality: Patient denies having any suicidal or homicidal ideation intent or plan. Perceptions: Patient denies any visual hallucinations and denies any auditory hallucinations Though content/process: There is no evidence of any delusional thought content and thought process is linear and goal-directed. Preoccupied with discharge and going to sober living community. Memory and concentration: AOX3, grossly intact for the purposes of this session. Can spell "WORLD" backwards Judgment and insight: Fair IMPRESSIONS: Major depressive disorder, recurrent, severe without psychotic features Anxiety disorder unspecified Alcohol use disorder PLAN: -At this time patient DOES NOT meet criteria for inpatient psychiatric admission. -Would recommend the following medication changes/additions: can continue with his home medications of Zoloft 100 mg daily for mood/anxiety. -One-to-one sitter was discontinued as patient is not suicidal or an immediate threat to himself and/or others. -Spoke with psychosocial rehabilitation counselor Svetlana over the phone to give update on patient's condition and speak about discharge planning. Apparently patient was not able t o qualify for a ride from the insurance company to [place]. Patient has no other ride to [facility]. Attempted to offer patient inpatient rehab or other living options however patient declined. dairy farmworker to speak more with patient at the bedside about other treatment programs versus prison. dairy farmworker to also call prison to ensure that there are beds available prior to patient being discharged. -Patient to follow up with outpatient psychiatrist after discharge -Psychiatry will sign off at this point, please contact with any questions.
[2020-05-26] MEDS: SERTRALINE 100 MG TAB PO SCH (17:15)
[2020-05-26] MEDS: RIVAROXABAN 20 MG TAB PO SCH (17:15)
[2020-05-26] MEDS: METOPROLOL TARTRATE 50 MG TAB PO SCH ×2 (17:15→22:42)
--- NOTE | 2020-05-26 22:12 | HP ---
HISTORY AND PHYSICAL This patient is a 55-year-old white male with history of atrial fibrillation, alcohol abuse, anxiety, depression, nonischemic cardiomyopathy, hypertension, just discharged from the mental health unit. He is going to a custodial house in [place]. He was discharged with no ride to go there. Tried to go to a homeless snf in [facility], which was full, at which time the patient called the police because he became anxious, agitated, heart racing fast, tightness in his chest and suicidal ideation. He came back to the ER. He was in atrial fibrillation with moderately rapid ventricular response. Chest x-ray was negative. CT of the brain was negative. CT of spine was negative. White count was 8.7, hemoglobin 16.1, sodium 137, potassium 5.2, BUN 19, creatinine 0.7. TSH 0.2. Echo showed ejection fraction 25% to 30%. Continued his home medications. We will recheck labs in the morning. Cardiology held his PANKAJ inhibitor and Aldactone. He has a history of thumb fracture surgery, anxiety, depression, homelessness, suicidal thoughts. He does not smoke. He had alcohol abuse but has been dry for 60 days. No drinking for 60 days. FAMILY HISTORY: Father with myocardial infarction and mother with hypertension. HOME MEDICINES: Lopressor 100 b.i.d., Xarelto 20 mg daily, acetaminophen 650 q.4, Xarelto 20 mg daily, Zoloft 100 mg daily, Aldactone 25 mg daily, Zestril 5 mg daily. ALLERGIES: PENICILLIN. PHYSICAL EXAMINATION: VITAL SIGNS: Temperature 97 to 98, pulse 80s to 90s, respiratory rate 16 to 20, blood pressure 90 to 106 over 60s. CARDIOVASCULAR: Irregularly irregular rhythm. Lungs show clear. PSYCH: Sitting up in the chair giving appropriate answer. NEUROLOGIC: Alert and oriented x3. GI is distended, obesity. HEMATOLOGY: Negative Homans. ASSESSMENT: 1. Persistent atrial fibrillation. 2. Alcohol abuse. 3. Nonischemic cardiomyopathy. 4. Hypertension. 5. Anxiety. 6. Depression. 7. Suicidal ideations. He is back on his beta ramses 100 b.i.d., aspirin, nitroglycerin paste, Xarelto. Cardiology held his PANKAJ and Aldactone. Check his electrolytes, BUN and creatinine in the morning. Monitor his blood pressure overnight. Psychiatrist to clear for discharge to go to the custodial [facility] tomorrow if he has a ride arranged by public health social worker. MMODL / IJN: [id number] /
[2020-05-27] MEDS: SERTRALINE 100 MG TAB PO SCH (08:59)
[2020-05-27] MEDS: METOPROLOL TARTRATE 50 MG TAB PO SCH ×2 (08:59→20:42)
[2020-05-27 09:54] LABS: Basophils # (A) 0.1 k/uL (0-0.2); Basophils % (A) 1 %; Eosinophils # (A) 0.6 k/uL (0-0.7); Eosinophils % (A) 8 %; HCT 52.1 % (39.0-53.0); Lymphocytes # (A) 2.1 k/uL (1.0-4.8); Lymphocytes % (A) 29 %; MCH 30.8 pg (25.0-35.0); MCHC 32.6 g/dL (31.0-37.0); MCV 94.5 fL (80.0-100.0); Mean Platelet Volume 7.7; Monocytes # (A) 0.4 k/uL (0-1.0); Monocytes % (A) 6 %; Neutrophils # (A) 3.9 k/uL (1.3-7.7); Neutrophils % (A) 55 %; Platelet Count 239 k/uL (150-450); RBC 5.52 m/uL (4.30-5.90); RDW 13.1 % (11.5-15.5); WBC 7.1 k/uL (3.8-10.6)
[2020-05-27 10:09] LABS: ALT 21 U/L (4-49); AST 24 U/L (17-59); African American GFR (CKD) >90 (>60 ml/min/1.73 sqM); Albumin 4.1 g/dL (3.5-5.0); Alkaline Phosphatase 75 U/L (38-126); Anion Gap 9 mmol/L; Blood Urea Nitrogen 23 mg/dL (9-20); Calcium 9.4 mg/dL (8.4-10.2); Carbon Dioxide 25 mmol/L (22-30); Chloride 104 mmol/L (98-107); Glucose 153 mg/dL (74-99); Non-African American GFR(CKD) >90 (>60 ml/min/1.73 sqM); Potassium 4.3 mmol/L (3.5-5.1); Sodium 138 mmol/L (137-145); Total Bilirubin 0.8 mg/dL (0.2-1.3); Total Protein 6.9 g/dL (6.3-8.2)
--- NOTE | 2020-05-27 12:04 | P.PN ---
Subjective Progress Note Date: 05/27/20 This is a 55-year-old gentleman with documented history of persistent atrial fibrillation, EtOH abuse, anxiety and depression, nonischemic cardiomyopathy, hypertension who was just discharged from the mental health unit. Apparently the patient is trying to get into [place] to a half-way house/EtOH rehab facility. He was discharged here from the hospital with the intention to go to a homeless custodial here in town. Patient found out that there were no beds available and he became extremely anxious and agitated, he states that he felt his heart racing extremely fast and he felt tight in his chest. Patient also had suicidal ideation. His blood pressure on arrival here 104/60 heart rate in the 90s respirations 1695% on room air. His EKG on arrival here showed atrial fibrillation with moderately rapid ventricular response chest x-ray did not reveal any acute findings. CAT scan of the brain was performed which did not reveal any acute abnormality as well as a CT of the spine which d id not reveal any acute changes. His white blood cell count on admission was 8.7, hemoglobin 16.1, platelet count 271. Sodium 137, potassium 5.2, BUN 19 and creatinine 0.7. This mornings BUN is 22 with a creatinine of 1.4 and potassium of 5.4. Troponins were negative 3. BNP level [id number], TSH level II.2. Patient had a recent echocardiogram with Doppler study performed in March which revealed an ejection fraction of 25-30%, we will order a repeat echocardiogram with Doppler study. We will also resume the patient's xarelto, discontinue the aspirin and Nitropaste, resume the patient's beta ramses. We will hold the pankaj and Aldactone and recheck her labs in the morning. 05/27/2020 Patient seen and examined this morning, denies any chest discomfort. Echocardiogram with Doppler study remains pending. Blood pressure 144/103, heart rate in the 70s, 98% on room air. Sodium 138, potassium 4.3, BUN 23, creatinine 0.8. We'll resume the patient's PANKAJ inhibitor and Aldactone today. Review the echocardiogram with Doppler study. Objective - Vital Signs Vital signs: Vital Signs Temp 98.2 F 05/27/20 08:01 Pulse 73 05/27/20 08:01 Resp 18 05/27/20 08:01 BP 144/103 05/27/20 08:01 Pulse Ox 98 05/27/20 04:17 Intake & Output 05/26/20 05/27/20 05/27/20 18:59 06:59 18:59 Intake Total 240 236 Balance 240 236 Weight 122 kg Intake: Oral 240 236 Other: # Voids 1 1 1 # Bowel Movements 0 - Exam PHYSICAL EXAMINATION: GENERAL: 55-year-old gentleman in no acute distress at the time of my examination HEENT: Head is atraumatic, normocephalic. Pupils equal, round. Sclera anicteric. Conjunctiva are clear. Mucous membranes of the mouth are moist. Neck is supple. There is no elevated jugular venous pressure. No carotid bruit is heard. HEART EXAMINATION: R S1 and S2 irregularly irregular CHEST EXAMINATION: Lungs are clear to auscultation and precussion. No chest wall tenderness is noted on palpation or with deep breathing. ABDOMEN: Soft, nontender. Bowel sounds are heard. No organomegaly noted. EXTREMITIES: 2+ peripheral pulses with no evidence of peripheral edema and no calf tenderness noted. NEUROLOGIC patient is awake, alert and oriented 3 . - Labs CBC & Chem 7: 05/27/20 09:35 05/27/20 09:39 Labs: Abnormal Lab Results - Last 24 Hours (Table) 05/27/20 Range/Units 09:39 BUN 23 H (9-20) mg/dL Glucose 153 H (74-99) mg/dL Assessment and Plan Plan: Assessment and plan #1 persistent atrial fibrillation, on Xarelto for anticoagulation #2 EtOH abuse #3 nonischemic cardiomyopathy with documented ejection fraction of 25-30% #4 hypertension #5 anxiety and depression #6 suicidal ideation Plan We will resume the patient's lisinopril and Aldactone. Review the echocardiogram with Doppler study. From cardiology's perspective the patient may be able to be discharged home once cleared by primary. DNP note has been reviewed, I agree with a documented findings and plan of care. Patient was seen and examined.
[2020-05-27 13:18] VITALS: RESP 16
[2020-05-27] MEDS: RIVAROXABAN 20 MG TAB PO SCH (17:13)
--- NOTE | 2020-05-27 19:18 | ECHOF ---
Referral Reason:limited, assess lvf MEASUREMENTS -------- HEIGHT: 180.3 cm WEIGHT: 122.0 kg BP: 122/91 IVSd: 1.0 cm (0.6 - 1.1) LVIDd: 5.3 cm (3.9 - 5.3) LVPWd: 1.6 cm (0.6 - 1.1) EDV(Teich): 134 ml IVSs: 1.5 cm LVIDs: 4.4 cm LVPWs: 1.5 cm %IVS Thck: 41 % ESV(Teich): 89 ml EF(Teich): 34 % %FS: 16 % SV(Teich): 46 ml FINDINGS -------- This was a technically difficult study with suboptimal views. Limited Study Left ventricular wall thickness is normal. There is moderate global hypokinesis of LV . Overall l eft ventricular systolic function is moderately impaired with, an EF between 35 - 40 %. CONCLUSIONS -------- 1. Left ventricular wall thickness is normal. 2. There is moderate global hypokinesis of LV . 3. Overall left ventricular systolic function is moderately impaired with, an EF between 35 - 40 %. FIELD ASSOCIATE: Aida Dickson RDCS
[2020-05-28] MEDS: SERTRALINE 100 MG TAB PO SCH (09:42)
[2020-05-28] MEDS: METOPROLOL TARTRATE 50 MG TAB PO SCH (09:42)
[2020-05-28 10:04] VITALS: TEMP 97.5
[2020-05-28 11:26] VITALS: BP 143/89; PULSE 89
--- NOTE | 2020-05-28 11:52 | P.PN ---
Subjective This is a pleasant 55-year-old male past medical history significant for chronic persistent atrial fibrillation, alcohol abuse, anxiety, depression, nonischemic cardiomyopathy and hypertension. He is seen and examined resting comfortably in no acute distress. He denies symptoms of chest pain, shortness of breath, dizziness or palpitations. Limited echocardiogram reveals impaired LV systolic function with ejection fraction 35-40%. Blood pressure 132/74 heart rate 78 afebrile maintaining oxygen saturations on room air. Currently maintained on Lopressor, Xarelto, lisinopril and Aldactone. GENERAL: Well-appearing, well-nourished and in no acute distress. NECK: Supple without JVD or thyromegaly. LUNGS: Breath sounds clear to auscultation bilaterally. Respiration equal and unlabored. No wheezes, rales or rhonchi. HEART: Irregular rate and rhythm without murmurs, rubs or gallops. S1 and S2 heard. EXTREMITIES: Normal range of motion, no edema. No clubbing or cyanosis. Peripheral pulses intact. ASSESSMENT Chronic persistent atrial fibrillation on long-term anticoagulation Nonischemic cardiomyopathy, ejection fraction 35-40% Hypertension Suicidal ideation PLAN Stable from a cardiac perspective on current medical regimen. We will follow along as needed. Nurse Practitioner note has been reviewed, I agree with a documented findings and plan of care. Patient was seen and examined. Objective - Vital Signs Vital signs: Vital Signs Temp 97.5 F L 05/28/20 09:15 Pulse 89 05/28/20 11:24 Resp 16 05/28/20 11:24 BP 143/89 05/28/20 11:24 Pulse Ox 98 05/28/20 11:24 Intake & Output 05/27/20 05/28/20 05/28/20 18:59 06:59 18:59 Intake Total 872 237 236 Balance 872 237 236 Weight 123.5 kg Intake: Oral 872 237 236 Other: # Voids 1 2 1 # Bowel Movements 0 - Labs CBC & Chem 7: 05/27/20 09:35 05/27/20 09:39
--- NOTE | 2020-05-28 15:28 | PN ---
PROGRESS NOTE DATE OF SERVICE: 05/27/2020 55-year-old white male, chronic persistent atrial fibrillation, alcohol abuse, anxiety, depression, nonischemic cardiomyopathy, hypertension. We started back on his spironolactone. He is doing well. Cardiovascular S1-S2. Lungs clear. GI soft. Sitting up in chair. ASSESSMENT: 1. Chronic persistent atrial fibrillation. 2. Depression, cleared by Psychiatry. 3. Nonischemic cardiomyopathy. 4. Hypertension. Medications restarted by Cardiology. Discharge home tomorrow. MMODL / IJN: [id number] /
--- NOTE | 2020-05-28 17:43 | DS ---
DISCHARGE SUMMARY 55-year-old white male who is admitted to the hospital for atypical chest pain for which he has had in the past and cardiology cleared him for discharge after evaluating him for few days and altering his medications. Psychiatrist cleared from a depression standpoint, suicidal point to go home. Questionable whether he has to go to the [facility] for an old warrant or to [facility] in [place] who accepted him as a patient. He will be going home on Tylenol p.r.n., Zoloft 100 daily, Lopressor 100 b.i.d., Xarelto 20 mg daily. CONDITION: Stable. PROGNOSIS: Guarded. Ambulate as tolerated. Please see further orders. MMODL / IJN: [id number] /
== END 2020-05-28 15:31 ==
LOC: EC 20:07 → 3SCARD 22:15
PROVIDERS: ADMIT Family Medicine; ATTEND Family Medicine
DX: I48.19 Other persistent atrial fibrillation (principal); F10.10 Alcohol abuse, uncomplicated; I42.8 Other cardiomyopathies; F41.9 Anxiety disorder, unspecified; F33.9 Major depressive disorder, recurrent, unspecified; I10 Essential (primary) hypertension; Z59.0 Homelessness; M19.90 Unspecified osteoarthritis, unspecified site; R45.851 Suicidal ideations; G40.909 Epilepsy, unspecified, not intractable, without status epilepticus; Z86.73 Personal history of transient ischemic attack (TIA), and cerebral infarction without residual deficits; Z88.0 Allergy status to penicillin; Z79.01 Long term (current) use of anticoagulants; Z79.899 Other long term (current) drug therapy; Z81.1 Family history of alcohol abuse and dependence; Z81.8 Family history of other mental and behavioral disorders; Z82.49 Family history of ischemic heart disease and other diseases of the circulatory system
CPT/HCPCS: 93005 ×2; 82075; 99285; 36415; 83880; 80061; 80053 ×2; 83735; 84484 ×2; 85025 ×2; 85610; 85730; 71046; G0378 ×4; C8924; Q9950; 93308

== ENCOUNTER 2020-05-28 21:22 | Emergency (ER) | payer OTHER ==
--- NOTE | 2020-05-28 21:34 | ED ---
General Adult HPI - General Stated complaint: Penitentiary Clearance Time Seen by Provider: 05/28/20 21:24 - History of Present Illness Initial comments: Dictation was produced using [employer] dictation software. please excuse any grammatical, word or spelling errors. This patient was cared for during a federal and state declared state of emergency secondary to Covid 19 Chief Complaint: 55-year-old male brought in for correction clearance. History of Present Illness: 55-year-old male he was apprehended by law enforcement today. Allegedly there were multiple warrants out for patient's arrest. Patient was just admitted discharge from the hospital. Patient is discharged earlier today. Allegedly patient was supposed to go to correction however for law enforcement could get him. He left. He was found walking the streets. Apparently law enforcement discovered him he began running. He complained to enforcement that he was having chest pain. he is uncooperative at this time. He states he has chest pain. The ROS documented in this emergency department record has been reviewed and confirmed by me. Those systems with pertinent positive or negative responses have been documented in the HPI. All other systems are other negative and/or noncontributory. PHYSICAL EXAM: General Impression: Alert and oriented x3, not in acute distress, uncooperative HEENT: Normocephalic atraumatic, extra-ocular movements intact, pupils equal and reactive to light bilaterally, mucous membranes moist. Cardiovascular: Heart regular rate and rhythm Chest: Able to complete full sentences, no retractions, no tachypnea Abdomen: abdomen soft, non-tender, non-distended, no organomegaly Musculoskeletal: Pulses present and equal in all extremities, no peripheral edema Motor: no focal deficits noted Neurological: CN II-XII grossly intact, no focal motor or sensory deficits noted Skin: Intact with no visualized rashes Psych: Normal affect and mood ED course: 55-year-old presents with correction clearance. He complained to law enforcement that he is having chest pain. EMR was reviewed. Patient was just discharged from the hospital earlier today. He was advised by cardiology cleared for discharge to days ago. Patient does have a history of atrial fibril lation. He is prescribed Rivaroxaban. EKG appears to be baseline. There is no RVR.Patient wanted to sign out AMA. However, law enforcement will take over custody of patient. He is well-appearing at bedside. Pending troponin. Vital signs are normal. His concern that perhaps patient is trying to evade going to correction considering his behavior. EKG interpretation: Ventricular rate 90, A. fib, QRS 80, QTC 474. No MN prolongation, no QTC prolongation, no ST or T-wave changes noted. EKG compared to 05/25/2020 showing no changes. Overall, this EKG is unremarkable - Related Data Home Medications Medication Instructions Recorded Confirmed Rivaroxaban [Xarelto] 20 mg PO AC-SUPPER 05/25/20 05/28/20 Previous Rx's Medication Instructions Recorded Acetaminophen Tab [Tylenol] 650 mg PO Q4HR PRN tab 05/25/20 Metoprolol Tartrate [Lopressor] 100 mg PO BID 30 Days tab 05/25/20 Sertraline [Zoloft] 100 mg PO DAILY 30 Days tab 05/25/20 Allergies Allergy/AdvReac Type Severity Reaction Status Date / Time Penicillins Allergy Rash/Hives Verified 05/28/20 21:48 Review of Systems ROS Statement: Those systems with pertinent positive or pertinent negative responses have been documented in the HPI. ROS Other: All systems not noted in ROS Statement are negative. Past Medical History Past Medical History: Atrial Fibrillation, CVA/TIA, Hypertension, Osteoarthritis (OA), Pneumonia, Seizure Disorder Additional Past Medical History / Comment(s): Afib recently diagnosed, lower extremity edema, ETOH abuse with past withdrawal/seizure in 12/2018, chronic generalized pain, pt states he had a TIA in 2018 while in [place] and was intubated. History of Any Multi-Drug Resistant Organisms: None Reported Past Surgical History: Orthopedic Surgery Additional Past Surgical History / Comment(s): R thumb fracture with surgery. Past Anesthesia/Blood Transfusion Reactions: No Reported Reaction Past Psychological History: Anxiety, Depression Additional Psychological History / Comment(s): Pt is currently homeless and when asked if he has thoughts of suicide he reports "yes" Smoking Status: Never smoker Past Alcohol Use History: Abuse, Daily Additional Past Alcohol Use History / Comment(s): Pt states he quit drinking J walker 2019 He used to drink a fifth of liqour a day. Past Drug Use History: None Reported - Past Family History Father Family Medical History: Myocardial Infarction ([place]) Additional Family Medical History / Comment(s): Father of a [place] at the age of 57 yrs. Mother Family Medical History: Hyperlipidemia, Hypertension Additional Family Medical History / Comment(s): Mother at the age of 89yrs. Course Vital Signs 05/28/20 21:44 Temperature 98.8 F Pulse Rate 90 Respiratory 18 Rate Blood Pressure 113/100 O2 Sat by Pulse 99 Oximetry Medical Decision Making - Lab Data Result diagrams: 05/28/20 21:44 05/28/20 21:44 Lab Results 05/28/20 05/28/20 Range/Units 21:44 21:44 WBC 8.8 (3.8-10.6) k/uL RBC 5.25 (4.30-5.90) m/uL Hgb 16.2 (13.0-17.5) gm/dL Hct 49.1 (39.0-53.0) % MCV 93.5 (80.0-100.0) fL MCH 30.8 (25.0-35.0) pg MCHC 32.9 (31.0-37.0) g/dL RDW 13.0 (11.5-15.5) % Plt Count 237 (150-450) k/uL Neutrophils % 62 % Lymphocytes % 27 % Monocytes % 6 % Eosinophils % 3 % Basophils % 1 % Neutrophils # 5.4 (1.3-7.7) k/uL Lymphocytes # 2.3 (1.0-4.8) k/uL Monocytes # 0.5 (0-1.0) k/uL Eosinophils # 0.2 (0-0.7) k/uL Basophils # 0.1 (0-0.2) k/uL Sodium 139 (137-145) mmol/L Potassium 4.4 (3.5-5.1) mmol/L Chloride 108 H (98-107) mmol/L Carbon Dioxide 18 L (22-30) mmol/L Anion Gap 13 mmol/L BUN 20 (9-20) mg/dL Creatinine 0.99 (0.66-1.25) mg/dL Est GFR (CKD-EPI)AfAm >90 (>60 ml/min/1.73 sqM) Est GFR (CKD-EPI)NonAf 84 (>60 ml/min/1.73 sqM) Glucose 92 (74-99) mg/dL Calcium 9.1 (8.4-10.2) mg/dL Disposition Clinical Impression: Health examination of prisoner Disposition: OTHER INSTITUTION NOT DEFINED Condition: Good Instructions (If sedation given, give patient instructions): Chest Pain (ED) Is patient prescribed a controlled substance at d/c from ED?: No Referrals: Casey Feliz MD [Primary Care Provider] - 1-2 days Time of Disposition: 22:22 - Out of Hospital Transfer - Req. Specs Out of Hospital Transfer - Requested Specifics: Other Non-Acute (assisted)
[2020-05-28 21:48] VITALS: PULSE 90; RESP 18; TEMP 98.8
[2020-05-28 22:02] LABS: Basophils # (A) 0.1 k/uL (0-0.2); Basophils % (A) 1 %; Eosinophils # (A) 0.2 k/uL (0-0.7); Eosinophils % (A) 3 %; HCT 49.1 % (39.0-53.0); HGB 16.2 gm/dL (13.0-17.5); Lymphocytes # (A) 2.3 k/uL (1.0-4.8); Lymphocytes % (A) 27 %; MCH 30.8 pg (25.0-35.0); MCHC 32.9 g/dL (31.0-37.0); MCV 93.5 fL (80.0-100.0); Mean Platelet Volume 7.7; Monocytes # (A) 0.5 k/uL (0-1.0); Monocytes % (A) 6 %; Neutrophils # (A) 5.4 k/uL (1.3-7.7); Neutrophils % (A) 62 %; Platelet Count 237 k/uL (150-450); RBC 5.25 m/uL (4.30-5.90); WBC 8.8 k/uL (3.8-10.6)
[2020-05-28 22:15] LABS: African American GFR (CKD) >90 (>60 ml/min/1.73 sqM); Anion Gap 13 mmol/L; Blood Urea Nitrogen 20 mg/dL (9-20); Calcium 9.1 mg/dL (8.4-10.2); Carbon Dioxide 18 mmol/L (22-30); Chloride 108 mmol/L (98-107); Glucose 92 mg/dL (74-99); Non-African American GFR(CKD) 84 (>60 ml/min/1.73 sqM); Potassium 4.4 mmol/L (3.5-5.1); Sodium 139 mmol/L (137-145)
[2020-05-28 22:25] LABS: Partial Thromboplastin Time 24.7 sec (22.0-30.0); Prothrombin Time 10.3 sec (9.0-12.0)
[2020-05-28 22:43] VITALS: BP 120/88
== END 2020-05-28 22:43 | disposition other institution (70) ==
LOC: EC 21:22
DX: Z02.89 Encounter for other administrative examinations (principal); R07.9 Chest pain, unspecified; I48.91 Unspecified atrial fibrillation; Z79.01 Long term (current) use of anticoagulants; Z88.0 Allergy status to penicillin; Z86.73 Personal history of transient ischemic attack (TIA), and cerebral infarction without residual deficits; Z59.0 Homelessness
CPT/HCPCS: 36415; 80048; 84484; 85025; 85610; 85730; 93005; 99285

== ENCOUNTER 2020-05-29 00:33 | Inpatient (IN) | payer MEDICAID, OTHER ==
--- NOTE | 2020-05-29 01:03 | ED ---
Psych HPI - General Source: patient, EMS, RN notes reviewed, old records reviewed Mode of arrival: ambulatory - History of Present Illness MD Complaint: suicidal ideation, feels depressed -: unknown Associated Psychiatric Symptoms: depression, suicidal ideation History of same: Yes Quality: constant, intermittent Improves With: none Worsens With: none Context: recent alcohol abuse, recent drug abuse Associated Symptoms: confusion Treatments Prior to Arrival: placed on mental health hold If Self Harm: admits thoughts of self harm <Alvarado Klein - Last Filed: 05/29/20 01:01> <Tony Bee - Last Filed: 05/29/20 09:49> - General Chief Complaint: Psychiatric Symptoms Stated Complaint: Mental health Time Seen by Provider: 05/29/20 00:50 - History of Present Illness Initial Comments: This is a 55-year-old male DF for evaluation patient resents today for evaluation regards to suicidal thoughts. Patient has multiple ER visits recently on between being taken in alf for warrants of arrests progressed for suicidal thoughts and depression tonight (Alvarado Klein) - Related Data Home Medications Medication Instructions Recorded Confirmed Rivaroxaban [Xarelto] 20 mg PO AC-SUPPER 05/25/20 05/28/20 Previous Rx's Medication Instructions Recorded Acetaminophen Tab [Tylenol] 650 mg PO Q4HR PRN tab 05/25/20 Metoprolol Tartrate [Lopressor] 100 mg PO BID 30 Days tab 05/25/20 Sertraline [Zoloft] 100 mg PO DAILY 30 Days tab 05/25/20 Allergies Allergy/AdvReac Type Severity Reaction Status Date / Time Penicillins Allergy Rash/Hives Verified 05/29/20 00:58 Review of Systems ROS Other: All systems not noted in ROS Statement are negative. <Alvarado Klein - Last Filed: 05/29/20 01:01> ROS Other: All systems not noted in ROS Statement are negative. <Tony Bee - Last Filed: 05/29/20 09:49> ROS Statement: Those systems with pertinent positive or pertinent negative responses have been documented in the HPI. Past Medical History Past Medical History: Atrial Fibrillation, CVA/TIA, Hypertension, Osteoarthritis (OA), Pneumonia, Seizure Disorder Additional Past Medical History / Comment(s): Afib recently diagnosed, lower extremity edema, ETOH abuse with past withdrawal/seizure in 12/2018, chronic generalized pain, pt states he had a TIA in 2019 while in [place] and was intubated. History of Any Multi-Drug Resistant Organisms: None Reported Past Surgical History: Orthopedic Surgery Additional Past Surgical History / Comment(s): R thumb fracture with surgery. Past Anesthesia/Blood Transfusion Reactions: No Reported Reaction Past Psychological History: Anxiety, Depression Smoking Status: Never smoker Past Alcohol Use History: Abuse, Daily Past Drug Use History: None Reported - Past Family History Father Family Medical History: Myocardial Infarction ([place]) Additional Family Medical History / Comment(s): Father of a [place] at the age of 57 yrs. Mother Family Medical History: Hyperlipidemia, Hypertension Additional Family Medical History / Comment(s): Mother at the age of 89yrs. <Alvarado Klein - Last Filed: 05/29/20 01:01> General Exam Limitations: no limitations General appearance: alert, in no apparent distress Head exam: Present: atraumatic, normocephalic, normal inspection Eye exam: Present: normal appearance, PERRL, EOMI. Absent: scleral icterus, conjunctival injection, periorbital swelling ENT exam: Present: normal exam, mucous membranes moist Neck exam: Present: normal inspection. Absent: tenderness, meningismus, lymphadenopathy Respiratory exam: Present: normal lung sounds bilaterally. Absent: respiratory distress, wheezes, rales, rhonchi, stridor Cardiovascular Exam: Present: regular rate, normal rhythm, normal heart sounds. Absent: systolic murmur, diastolic murmur, rubs, gallop, clicks GI/Abdominal exam: Present: soft, normal bowel sounds. Absent: distended, tenderness, guarding, rebound, rigid Extremities exam: Present: normal inspection, full ROM, normal capillary refill. Absent: tenderness, pedal edema, joint swelling, calf tenderness Back exam: Present: normal inspection Neurological exam: Present: alert, oriented X3, CN II-XII intact Psychiatric exam: Present: normal affect, normal mood Skin exam: Present: warm, dry, intact, normal color. Absent: rash <Alvarado Klein - Last Filed: 05/29/20 01:01> Course <Alvarado Klein - Last Filed: 05/29/20 01:01> Vital Signs 05/29/20 05/29/20 00:54 06:00 Temperature 98.1 F 98.1 F Pulse Rate 68 69 Respiratory 16 16 Rate Blood Pressure 101/69 101/67 O2 Sat by Pulse 98 97 Oximetry - Reevaluation(s) Reevaluation #1: 05/29/20 01:02 Medical records reviewed 05/29/20 01:02 Multiple recent ER visits this month are all reviewed 05/29/20 01:02 Medical clear for psychiatric evaluation (Alvarado Klein) Medical Decision Making <Tony Bee - Last Filed: 05/29/20 09:49> - Medical Decision Making Patient seen by mental health services, who will admit. (Tony Bee) Disposition <Alvarado Klein - Last Filed: 05/29/20 01:01> Is patient prescribed a controlled substance at d/c from ED?: No Decision Time: 09:49 <Tony Bee - Last Filed: 05/29/20 09:49> Clinical Impression: Depression Disposition: TRANSFER TO PSYCH HOSP/UNIT Referrals: Casey Feliz MD [Primary Care Provider] - 1-2 days
[2020-05-29] MEDS ORDERED: ZIPRASIDONE 20 MG VIAL IM PRN (10:53)
[2020-05-29] MEDS ORDERED: LORazepam 1 MG TAB PO PRN (10:53)
[2020-05-29] MEDS ORDERED: MAGNESIUM HYDROXIDE 2,400 MG/10 ML CUP PO PRN (10:53)
[2020-05-29] MEDS ORDERED: MAG HYDROX/AL HYDROX/SIMETH 30 ML CUP PO PRN (10:53)
[2020-05-29] MEDS: ACETAMINOPHEN TAB 325 MG TAB PO PRN ×2 (11:56→17:07)
--- NOTE | 2020-05-29 13:17 | P.HP ---
Psychiatric H&P - . H&P Date: 05/29/20 History & Physical: IDENTIFYING Data: Evaristo Matthews is a 55-year-old divorce male who is currently homeless, and unemployed, has psychiatric history of depression, alcohol use disorder, and medical history of cardiomyopathy, A. fib, and hypertension. The patient has been admitted to our inpatient psychiatric services after been transferred from [facility]. Patient was initially brought in by police to ED for suicidal ideation. The patient has been admitted on voluntary basis to our service. CHIEF COMPLAINT: "Everything messed up." HISTORY OF PRESENT ILLNESS: The patient was recently discharged from [facility] on 05/25 with a plan to go to sober living and intensive outpatient program, but the day of discharge he was sent to alf where he cannot find a bed as per his report. He reports had severe panic attacks same day, and returning back to the hospital for cardiac arrhythmia so he was admitted to cardiac unit at this hospital same day until yesterday. Patient was discharged from cardiac unit yesterday back to be homeless, and there was a police warrant to arrest him for an old discharges, so he became overwhelmed and is started to drink alcohol again after was discharged yesterday. Patient reports he couldn't remember much about what happened since at 3 PM yesterday as he blacked out, and he remembers drunk about 1 pint of vodka and 6 beers yesterday. Patient was arrested and taken to [facility] and after cleared from the warrant which was related to shoplifting that happened years ago, he felt very hopeless, and suicidal with a plan to overdose on his cardiac medications and alcohol so he was brought back to the ED at 1 AM today. No labs obtained in the ER when patient came back this morning and no alcohol level available. Patient reports he lost all of his belongings and ID yesterday when he blacked out due to his alcohol drinking. He denies any current withdrawal symptoms including tremors, sweating, GI upset, or seizures; however, he reports history of alcohol withdrawal seizure. Patient reports yesterday was the first time he drinks after 60 days of abstinence. He was talking about guilt, and shame related to his relapse and feeling very depressed and hopeless. He was able to understand the need to get back on track and continue working on his recovery, and he is willing to get help to maintain his abstinence and sobriety. Patient continues to feel depressed, hopeless, and not feeling safe outside the hospital especially with no support that he is homeless, unemployed, and has no social or psychological support. Reportedly, patient has a history of depressive episodes with times feeling very depressed, loss of motivation, diminished pleasure, hopeless, and suicidal ideation. Reports his previous depressive episodes could last for a few weeks or months, and reports previous hospitalization due to suicidal thoughts. Reports anxiety which is related to his depression and alcohol drinking, and he denies constant severe anxiety, but reports panic attacks. Denies social anxiety or PTSD symptoms including nightmares or flashbacks. Denies any current or previous manic symptoms including elevated mood, absence need to sleep due to unusual increase in activities, grandiosity, or impulsive behavior related to elevated mood. Denies any current or previous psychosis including hallucinations, paranoid ideation, or delusions. Denies any current or previous symptoms of self-injurious behavior, severe mood swings, or outbursts of anger/rage. Patient reports history of severe alcohol drinking that started when he was 16 and escalated over time to the point for the last 2 years he was drinking half gallon of alcohol daily. Reports was able to stop drinking for the last 60 days prior to his relapse yesterday. Reports history of legal problems-DUI-, relationship problems, financial problems, and health problems related to alcohol drinking. Patient most recent echocardiogram showed cardiomyopathy with ejection fraction 35-40 % and most probably that related to alcohol drinking. Discussed with the patient recovery work and he is willing to get help but he is feeling lack of support and not able to achieve any progress as he is homeless and has no psychological/social support PAST PSYCHIATRIC HISTORY: Previous diagnoses: Depression, anxiety, alcohol use disorder Previous psychiatric hospitalizations: About 4 times related to suicidal thoughts. Chart review showed that was hospitalized to this unit twice in the last 2 month, and reports previous hospitalization at [place]. Previous suicide attempts: Denies any attempts, but reports previous suicidal ideation and plan. Previous outpatient psychiatric treatment: Patient has no connection with outpatient treatment. Current psychiatric medications: Zoloft 100 mg daily for depression symptoms which was his medications when discharged few days ago. Previous medication trials: None reported. SUBSTANCE ABUSE HISTORY: Nicotine: He is using any tobacco products. Alcohol: Guarded to drink at age 16 with occasional/parties drinking, and he was able to maintain drinking for most of his life "functional drinker" with average 6-8 beers daily after finishing work and up to 12-16 beers on the weekends. 2 years ago and after loss of multiple family members, he became more depressed and is started to drink hard liquor and rapidly progressed to about half gallon daily. Reports history of relationship problem, previous DUI, and health related problems due to alcohol drinking. Last drink was yesterday for about 1 pint of port And 6 beers and that was after 60 days of abstinence. Denies using marijuana or other illicit drugs. Reports previous inpatient treatment for alcohol use at [facility] but was not helpful "it was nightmare". Social History: Patient was born in [place] and raised up by both parents until they when he was 10. Housing: Currently is homeless, , unemployed, has 2 children but no connection with them. Education: Patient reports attaining an educational level of high school. There was a warrant to rest of the patient but eventually he was released from the [facility] because nothing was against him as per his report. History of psychological trauma: Denies FAMILY HISTORY: Denies any family history of suicide. Reports his father was heavy drinker. His sister has depression. Medical History: Hypertension, A. fib, cardiomyopathy, history of seizure but most probably related to other call use MENTAL STATUS EVALUATION: Appearance: Appears stated age, fairly groomed, above average body built, and no specific features. Gait/ posture: Steady gait, normal arm swinging, no abnormal movements, with relaxed posture. Attitude and Behavior: cooperative, related to the interviewer in socially accepted manner, fair eye contact during course of interview. Motor Activity: normal psychomotor activity. Speech: spontaneous, normal rate, rhythm, and articulation. normal volume. not pressured. Language: Articulating, naming objects and repeat phrases. Mood: Depressed Affect: Constricted. Thought process: Linear, goal-directed. Association: Intact. Thought content: NO delusions, Reports suicidal thoughts and plan, denies homic idal thoughts, Denies intentions. Perception: Denies any hallucinations Alertness: No impairment. Concentration: Impaired Orientation: Fully oriented to time, place, person, and situation Insight regarding psychiatric condition: fair Judgment regarding daily activities and social situation: fair Impulse control: fair Strengths: Having good insight about his psychiatric and addiction problems and motivation to receive treatment. Stable general medical condition Challenges: Poor coping skills. Poor social and psychological support. Homeless, unemployed. Review of Lab results: Reviewed from previous admissions. Allergies Allergy/AdvReac Type Severity Reaction Status Date / Time Penicillins Allergy Rash/Hives Verified 05/29/20 12:11 Vital Signs Temp 97 F L 05/29/20 12:15 Pulse 64 05/29/20 12:15 Resp 20 05/29/20 12:15 BP 130/88 05/29/20 12:15 Pulse Ox 97 05/29/20 06:00 Intake & Output 05/28/20 05/29/20 05/29/20 18:59 06:59 18:59 Weight 122.47 kg 122.47 kg Assessment: Major depressive disorder, recurrent, severe, without psychotic features. Alcohol use disorder, severe. TREATMENT PLAN/RECOMMENDATIONS: Medical Decision making: The patient presented with suicidal thoughts and plan to overdose on his cardiac medications. The patient at high risk to hurt himself if he is not in the inpatient setting. The patient's psychiatric symptoms are not stable and he needs further management of psychiatric medications and further planning for discharge. Therefore, inpatient level of care is needed. Continue the patient inpatient for safety. Continue the patient under 15 minutes safe check for safety. Continue treatment of depression and alcohol use disorder. Psych education regarding his diagnosis, and treatment option. The patient will also be provided with individual therapy, group therapy, substance abuse counseling, gain insight, and coping skills. Consider medical consultation if any acute medical issue arise. Patient is at high risk for relapse and possibly return of suicidal thoughts if he wasn't discharged to well-structured social and psychological support to maintain his recovery treatment. Medications: Continue monitoring alcohol withdrawal symptoms, and to consider when necessary Ativan for withdrawal symptoms. Continue Zoloft 100 mg daily for depression and anxiety. Multivitamin, thiamine, and folate supplement. Labs: RAHEEL Prognosis is guarded, contingent on patient has been compliant with his medications and has been followed up closely with outpatient mental health provider after discharge. The patient will be assessed on daily basis, and will be discharged back to his outpatient mental health provider upon stabilization. EXPECTED LENGTH OF STAY: 5-7 days. 05/29/20 12:49 05/29/20 12:56
[2020-05-29] MEDS: MULTIVITAMINS, THERA 1 EACH TAB PO SCH (13:28)
[2020-05-29] MEDS: FOLIC ACID 1 MG TAB PO SCH (13:28)
[2020-05-29] MEDS: THIAMINE 100 MG TAB PO SCH (13:28)
[2020-05-29] MEDS: RIVAROXABAN 20 MG TAB PO SCH (17:07)
[2020-05-29] MEDS: METOPROLOL TARTRATE 50 MG TAB PO SCH (18:48)
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
[2020-05-30] MEDS: METOPROLOL TARTRATE 50 MG TAB PO SCH ×2 (08:08→20:23)
[2020-05-30] MEDS: SERTRALINE 100 MG TAB PO SCH (08:08)
[2020-05-30] MEDS: SPIRONOLACTONE 25 MG TAB PO SCH (11:18)
--- NOTE | 2020-05-30 11:40 | P.PN ---
Progress Note - Text Progress Note Date: 05/30/20 Interval History: Patient was seen standing in bed and was directable and agreeable to speak with freelance writer in the office. Patient reports that he is feeling "okay." He reports that he is desiring to continue with the plan to move to the sober living community in [place]. He expresses that prior to this admission, he did engage in alcohol use, consuming a pint of hard liquor. We discussed possible rehab placement or introduction of medications to curb alcohol use, patient reports that he is uninterested at this time and would prefer to continue with his plan to go to [place]. Patient reports prior trials as naltrexone, but stated that it caused him nausea and upset stomach. At this time patient denies any suicidal or homicidal ideations, intent or plan. Patient denies any auditory, visual hallucinations and denies any paranoia or delusions. Patient denies any side effects from the medications and has been compliant with meds. Mental Status Exam: General Appearance: Patient appears to be stated age is alert, directable, and cooperative. Behavior: Patient is calmly seated without any agitated behavior. Speech: Patient's speech is fluent and nonpressured. Mood/Affect: Mood is improving mildly, affect is congruent and constricted. Suicidality/Homicidality: Patient denies having any suicidal or homicidal ideation intent or plan. Perceptions: Patient denies any visual hallucinations and denies any auditory hallucinations Though content/process: There is no evidence of any delusional thought content and thought process is linear and goal-directed. Memory and concentration: AOX3, grossly intact for the purposes of this session Judgment and insight: Improving mildly Assessment Major depressive disorder, recurrent, severe, without psychotic features Alcohol use disorder, severe Plan: -Patient continues to meet criteria for inpatient psychiatric admission for symptom stabilization and safety. Patient has signed adult voluntary form and medication consent and was placed in patient's chart. -Medications: Continue Zoloft 100 mg by mouth daily for depression and anxiety Continue multivitamin, thiamine, and folate supplement to address alcohol use complications Consider introduction acamprosate. -When necessary Ativan and Geodon for agitation/aggression. -Discussed at length addressing substance use. Provided psychoeducation on the role of substances and how they may exacerbate mood disorder. -SW on board for discharge planning. Encouraged the patient to participate in milieu.
[2020-05-30] MEDS: THIAMINE 100 MG TAB PO SCH (13:54)
[2020-05-30] MEDS: MULTIVITAMINS, THERA 1 EACH TAB PO SCH (13:54)
[2020-05-30] MEDS: FOLIC ACID 1 MG TAB PO SCH (13:54)
[2020-05-30] MEDS: ACETAMINOPHEN TAB 325 MG TAB PO PRN ×2 (13:56→20:23)
[2020-05-30] MEDS: RIVAROXABAN 20 MG TAB PO SCH (19:16)
--- NOTE | 2020-05-30 22:28 | CONS ---
CONSULTATION This patient is a 55-year-old white male who is re-admitted to the hospital for depression and suicidal ideations after getting drunk after leaving the hospital 24 hours prior. He needs to be sent back to [facility] in [place], [place], where he can get back on his feet after being stabilized by psychiatrist. He has a history of atrial fibrillation, hypertension, diastolic heart failure. VITAL SIGNS: Stable. CARDIOVASCULAR: S1, S2. LUNGS: Clear. GI: Soft. PSYCH: Fair mood and affect. ASSESSMENT: 1. Atrial fibrillation. 2. Hypertension. Continue with current treatments. Stable medically at this point. MMODL / IJN: [id number] /
[2020-05-31 07:15] VITALS: RESP 16
[2020-05-31] MEDS: METOPROLOL TARTRATE 50 MG TAB PO SCH ×2 (09:03→20:12)
[2020-05-31] MEDS: SPIRONOLACTONE 25 MG TAB PO SCH (09:03)
[2020-05-31] MEDS: SERTRALINE 100 MG TAB PO SCH (09:04)
[2020-05-31] MEDS: ACETAMINOPHEN TAB 325 MG TAB PO PRN ×2 (09:04→20:12)
--- NOTE | 2020-05-31 09:39 | P.PN ---
Progress Note - Text Progress Note Date: 05/31/20 Interval History: Patient was seen wandering the hallways and was directable and agreeable to speak with resume writer in the office. Patient reports that he feels "all right. At this time patient denies any suicidal or homical ideations, intent or plan. He continues to express a strong desire for discharge to the [facility]. This resume writer discussed with the patient whether there are other options available. Patient states that this is something that he will discuss with the social media sr strategy manager. He is not reporting any significant symptoms of jovita or hypomania. Mood continues to be low but he is not reporting any issues with sleep or appetite. Expresses no issues with alcohol withdrawal at this time. Patient denies any auditory, visual hallucinations and denies any paranoia or delusions. Patient denies any side effects from the medications and has been compliant with meds. Mental Status Exam: General Appearance: Patient appears to be stated age is alert, directable, and cooperative. Obese body habitus. Behavior: Patient is calmly seated without any agitated behavior. Speech: Patient's speech is fluent and nonpressured. Mood/Affect: Mood is improving mildly, affect is congruent and constricted. Suicidality/Homicidality: Patient denies having any suicidal or homicidal ideation intent or plan. Perceptions: Patient denies any visual hallucinations and denies any auditory hallucinations Though content/process: There is no evidence of any delusional thought content and thought process is linear and goal-directed. Memory and concentration: AOX3, grossly intact for the purposes of this session Judgment and insight: Improving mildly Assessment Major depressive disorder, recurrent, severe, without psychotic features Alcohol use disorder, severe Plan: -Patient continues to meet criteria for inpatient psychiatric admission for symptom stabilization and safety. Patient has signed adult voluntary form and medication consent and was placed in patient's chart. -Medications: Continue Zoloft 100 mg by mouth daily for depression and anxiety Continue multivitamin, thiamine, and folate supplements address alcohol use consultations -When necessary Ativan and Geodon for agitation/aggression. -Discussed at length addressing substance use. Provided psychoeducation on the role of substances and how they may exacerbate mood disorder. -SW on board for discharge planning. Encouraged the patient to participate in milieu.
[2020-05-31] MEDS: FOLIC ACID 1 MG TAB PO SCH (12:04)
[2020-05-31] MEDS: MULTIVITAMINS, THERA 1 EACH TAB PO SCH (12:04)
[2020-05-31] MEDS: THIAMINE 100 MG TAB PO SCH (12:04)
[2020-05-31] MEDS: RIVAROXABAN 20 MG TAB PO SCH (17:30)
[2020-06-01 06:46] VITALS: TEMP 97.9
[2020-06-01] MEDS: ACETAMINOPHEN TAB 325 MG TAB PO PRN (08:19)
[2020-06-01] MEDS: SERTRALINE 100 MG TAB PO SCH (09:16)
[2020-06-01] MEDS: SPIRONOLACTONE 25 MG TAB PO SCH (09:16)
[2020-06-01] MEDS: METOPROLOL TARTRATE 50 MG TAB PO SCH (09:16)
[2020-06-01 09:19] VITALS: BP 124/78; PULSE 72
--- NOTE | 2020-06-01 11:36 | P.DS ---
Providers Date of admission: 05/29/20 10:46 Expected date of discharge: 06/01/20 Attending physician: Herman Keane MD Consults: 05/29/20 10:53 Consult Physician Routine Consulting Provider: Casey Feliz Consult Reason/Comments: H and P Do you want consulting provider notified?: Yes Primary care physician: Casey Feliz - Discharge Diagnosis(es) (1) Major depressive disorder, recurrent Current Visit: No Status: Acute Priority: High (2) Alcohol use disorder Current Visit: No Status: Acute Priority: Medium Hospital Course: Admission HPI: Initial psychiatric evaluation was completed by Dr. Mcfadden who wrote: "Evaristo Matthews is a 55-year-old divorce male who is currently homeless, and unemployed, has psychiatric history of depression, alcohol use disorder, and medical history of cardiomyopathy, A. fib, and hypertension. The patient has been admitted to our inpatient psychiatric services after been transferred from [facility]. Patient was initially brought in by police to ED for suicidal ideation. The patient has been admitted on voluntary basis to our service. The patient was recently discharged from [facility] on 05/25 with a plan to go to sober living and intensive outpatient program, but the day of discharge he was sent to correction where he cannot find a bed as per his report. He reports had severe panic attacks same day, and returning back to the hospital for cardiac arrhythmia so he was admitted to cardiac unit at this hospital same day until yesterday. Patient was discharged from cardiac unit yesterday back to be homeless, and there was a police warrant to arrest him for an old discharges, so he became overwhelmed and is started to drink alcohol again after was discharged yesterday. Patient reports he couldn't remember much about what happened since at 3 PM yesterday as he blacked out, and he remembers drunk about 1 pint of vodka and 6 beers yesterday. Patient was arrested and taken to penitentiary and after cleared from the warrant which was related to shoplifting that happened years ago, he felt very hopeless, and suicidal with a plan to overdose on his cardiac medications and alcohol so he was brought back to the ED at 1 AM today. No labs obtained in the ER when patient came back this morning and no alcohol level available. Patient reports he lost all of his belongings and ID yesterday when he blacked out due to his alcohol drinking. He denies any current withdrawal symptoms including tremors, sweating, GI upset, or seizures; however, he reports history of alcohol withdrawal seizure. Patient reports yesterday was the first time he drinks after 60 days of abstinence. He was talking about guilt, and shame related to his relapse and feeling very depressed and hopeless. He was able to understand the need to get back on track and continue working on his recovery, and he is willing to get help to maintain his abstinence and sobriety. Patient continues to feel depressed, hopeless, and not feeling safe outside the hospital especially with no support that he is homeless, unemployed, and has no social or psychological support. Reportedly, patient has a history of depressive episodes with times feeling very depressed, loss of motivation, diminished pleasure, hopeless, and suicidal ideation. Reports his previous depressive episodes could last for a few weeks or months, and reports previous hospitalization due to suicidal thoughts. Reports anxiety which is related to his depression and alcohol drinking, and he denies constant severe anxiety, but reports panic attacks. Denies social anxiety or PTSD symptoms including nightmares or flashbacks. Denies any current or previous manic symptoms including elevated mood, absence need to sleep due to unusual increase in activities, grandiosity, or impulsive behavior related to elevated mood. Denies any current or previous psychosis including hallucinations, paranoid ideation, or delusions. Denies any current or previous symptoms of self-injurious behavior, severe mood swings, or outbursts of anger/rage. Patient reports history of severe alcohol drinking that started when he was 16 and escalated over time to the point for the last 2 years he was drinking half gallon of alcohol daily. Reports was able to stop drinking for the last 60 days prior to his relapse yesterday. Reports history of legal problems-DUI-, rela tionship problems, financial problems, and health problems related to alcohol drinking. Patient most recent echocardiogram showed cardiomyopathy with ejection fraction 35-40 % and most probably that related to alcohol drinking. Discussed with the patient recovery work and he is willing to get help but he is feeling lack of support and not able to achieve any progress as he is homeless and has no psychological/social support" Hospital course: Upon admission to the unit patient was initially depressed after relapsing into alcohol use. Patient was however directable and agreeable to commence treatment. Patient got along well with other patients on the unit and followed unit protocol. Patient was compliant with the medications and denied any side effects throughout hospital course. Patient was started on his previously discharge medications of Zoloft 100 mg by mouth daily. Patient spoke of his stressors and engaged in therapy both group and individual. Patient was also seen by medical team for history and physical exam. Patient reported that the only thing that would help him is to move to the [facility] in [place].Throughout the course of the hospitalization patient gradually improved with regards to mood, anxiety, sleep and became future oriented with improved insight and judgment. Patient completed an intake for the [facility] in [place] scheduled for July 29. In the meantime, the plan is for the patient to be discharged to a correction and continue with his normal outpatient follow-up. On the day of discharge patient denied any suicidal or homicidal ideations intent or plan denied any auditory or visual hallucinations. Patient endorsed wanting to live for his health and family. The patient denied any access to guns or weapons. Patient denied any paranoia and did not endorse any delusions. Patient does have a significant history of substance abuse however was counseled on abstaining from all substances including alcohol and marijuana. P atient was offered however declined inpatient substance-abuse rehab and instead is opting for the placement at the [facility]. Patient was offered alcohol curbing medications such as naltrexone and acamprosate but the patient refused. Patient was also counseled on the medications and need for regular compliance and was encouraged to follow-up with their outpatient appointment for mental health and also for primary care. Mental status exam: General Appearance: Patient appears to be stated age is alert, pleasant, and cooperative. Patient is in no acute distress and has fair hygiene and grooming Behavior: Patient is calmly seated without any agitated behavior. Speech: Patient's speech is fluent and nonpressured. Mood/Affect: Patient reports their mood is "much better", affect is congruent and euthymic. Suicidality/Homicidality: Patient denies having any suicidal or homicidal ideation intent or plan. Perceptions: Patient denies any auditory or visual hallucinations. Though content/process: There is no evidence of any delusional thought content and thought process is linear and goal-directed. more future oriented Memory and concentration: AOX3, grossly intact for the purposes of this session. Can spell "WORLD" backwards correctly. Judgment and insight: Improved with guarded prognosis Impression: Major depressive disorder, recurrent, severe Alcohol use disorder Plan: -Continue with discharge today as patient has improved and stabilized psychiatrically and is not currently an imminent threat to himself and/or others. Patient will remain at chronically elevated risk for harm to self and/or others due to his impulsivity and alcohol abuse. -Continue medications: Zoloft 100 mg by mouth daily to address depressive symptoms -Patient was counseled on the need for medication compliance and appropriate follow-up at mental health and also primary care for medical issues. Patient verbalized understanding and agreed. -Social work also to arrange for patients follow up appointments with [facility] for psychiatric care along with follow up with primary care provider. -Patient counseled on abstaining from recreational drugs and marijuana and alcohol. Was informed/educated on the adverse effects on their physical and mental health. Patient verbally agreed and understood. Patient was offered substance abuse treatment including inpatient rehab and alcohol use medications however declined at this time. -Patient was instructed to return to the hospital or seek immediate medical care if their psychiatric or medical symptoms do worsen or reoccur. Allergies Vital Signs Last 24 Hours 05/31/20 06/01/20 06/01/20 15:18 06:19 08:11 Temperature 98.6 F 97.9 F Pulse Rate [ 75 50 L Right] Respiratory 16 Rate Blood Pressure 109/70 113/69 [Right Arm] 06/01/20 09:18 Temperature Pulse Rate [ 72 Right] Respiratory Rate Blood Pressure 124/78 [Right Arm] Allergy/AdvReac Type Severity Reaction Status Date / Time Penicillins Allergy Rash/Hives Verified 05/29/20 12:11 Patient Condition at Discharge: Stable Plan - Discharge Summary Discharge Rx Participant: Yes New Discharge Prescriptions: New Spironolactone [Aldactone] 25 mg PO DAILY tab Metoprolol Tartrate [Lopressor] 100 mg PO BID #30 tab Rivaroxaban [Xarelto] 20 mg PO AC-SUPPER 30 Days tab Sertraline [Zoloft] 100 mg PO DAILY 30 Days tab Discontinued Acetaminophen Tab [Tylenol] 650 mg PO Q4HR PRN tab PRN Reason: Pain/Discomfort Sertraline [Zoloft] 100 mg PO DAILY 30 Days tab Metoprolol Tartrate [Lopressor] 100 mg PO BID 30 Days tab Rivaroxaban [Xarelto] 20 mg PO AC-SUPPER Discharge Medication List Metoprolol Tartrate [Lopressor] 100 mg PO BID #30 tab 06/01/20 [Rx] Rivaroxaban [Xarelto] 20 mg PO AC-SUPPER 30 Days tab 06/01/20 [Rx] Sertraline [Zoloft] 100 mg PO DAILY 30 Days tab 06/01/20 [Rx] Spironolactone [Aldactone] 25 mg PO DAILY tab 06/01/20 [Rx] Follow up Appointment(s)/Referral(s): [facility] [Outside] - 06/03/20 12:00 pm (Intake 06-03-20 @ 12:00 with Yuly face to face at [facility] office) Casey Feliz MD [Primary Care Provider] - 1-2 days Patient Instructions/Handouts: Depression (DC), Suicide Prevention (DC) Activity/Diet/Wound Care/Special Instructions: Activity and diet as tolerated. Avoid the use of street drugs and alcohol. Take all medications as prescribed. When you are in need of refills on your medications please contact your medical provider and/or outpatient psychiatrist to have this done. Please go to scheduled outpatient appointment for aftercare. If symptoms return or become worse call the crisis line at and/or go to the nearest emergency room for an evaluation. Discharge Disposition: OTHER INSTITUTION NOT DEFINED
== END 2020-06-01 12:00 | disposition home or self-care (01) | DRG 885 ==
LOC: EC 00:33 → 3MHU 10:46
PROVIDERS: ADMIT Psychiatry & Neurology Psychiatry; ATTEND Psychiatry & Neurology Psychiatry
DX: F33.2 Major depressive disorder, recurrent severe without psychotic features (principal); I42.6 Alcoholic cardiomyopathy; R45.851 Suicidal ideations; I50.32 Chronic diastolic (congestive) heart failure; I11.0 Hypertensive heart disease with heart failure; F10.20 Alcohol dependence, uncomplicated; I48.91 Unspecified atrial fibrillation; F41.0 Panic disorder [episodic paroxysmal anxiety]; G89.29 Other chronic pain; M19.90 Unspecified osteoarthritis, unspecified site; Z79.01 Long term (current) use of anticoagulants; Z79.899 Other long term (current) drug therapy; Z71.41 Alcohol abuse counseling and surveillance of alcoholic; Z91.5 Personal history of self-harm; Z59.0 Homelessness; Z56.0 Unemployment, unspecified; Z59.9 Problem related to housing and economic circumstances, unspecified; Z65.3 Problems related to other legal circumstances; Z86.73 Personal history of transient ischemic attack (TIA), and cerebral infarction without residual deficits; Z87.01 Personal history of pneumonia (recurrent); Z86.69 Personal history of other diseases of the nervous system and sense organs; Z87.81 Personal history of (healed) traumatic fracture; Z98.890 Other specified postprocedural states; Z88.0 Allergy status to penicillin; Z82.49 Family history of ischemic heart disease and other diseases of the circulatory system; Z83.49 Family history of other endocrine, nutritional and metabolic diseases; Z81.8 Family history of other mental and behavioral disorders
CPT/HCPCS: 82075; 99285

== ENCOUNTER 2020-06-02 19:03 | Inpatient (IN) | payer OTHER ==
[2020-06-02] MEDS ORDERED: NITROGLYCERIN OINT 1 INCH/GM PACKET TOPICAL STA (19:24)
[2020-06-02] MEDS ORDERED: ASPIRIN 81 MG PO STA (19:24)
--- NOTE | 2020-06-02 19:30 | ED ---
General Adult HPI - General Chief complaint: Chest Pain Stated complaint: Group Home clearance Time Seen by Provider: 06/02/20 19:05 Source: patient, police, RN notes reviewed, old records reviewed Mode of arrival: ambulatory - History of Present Illness Initial comments: This is a 55-year-old male who presents to the emergency department complaining of chest pain. Patient earlier today was arrested for stealing a car and while he was being handcuffed he told the police after he had chest pain so he went to [facility] where they discharged him and said he was cleared for residential. He showed up at the residential still continued chest pain and the residential sent him to [facility]. Patient continues to complain about chest pain. He states he has a history of atrial fibrillation - Related Data Previous Rx's Medication Instructions Recorded Metoprolol Tartrate [Lopressor] 100 mg PO BID #30 tab 06/01/20 Rivaroxaban [Xarelto] 20 mg PO AC-SUPPER 30 Days tab 06/01/20 Sertraline [Zoloft] 100 mg PO DAILY 30 Days tab 06/01/20 Spironolactone [Aldactone] 25 mg PO DAILY tab 06/01/20 Allergies Allergy/AdvReac Type Severity Reaction Status Date / Time Penicillins Allergy Rash/Hives Verified 06/02/20 19:10 Review of Systems ROS Statement: Those systems with pertinent positive or pertinent negative responses have been documented in the HPI. ROS Other: All systems not noted in ROS Statement are negative. Past Medical History Past Medical History: Atrial Fibrillation, CVA/TIA, Hypertension, Osteoarthritis (OA), Pneumonia, Seizure Disorder Additional Past Medical History / Comment(s): Afib recently diagnosed, lower extremity edema, ETOH abuse with past withdrawal/seizure in 12/2018, chronic generalized pain, pt states he had a TIA in 2019 while in [place] and was intubated. History of Any Multi-Drug Resistant Organisms: None Reported Past Surgical History: Orthopedic Surgery Additional Past Surgical History / Comment(s): R thumb fracture with surgery. Past Anesthesia/Blood Transfusion Reactions: No Reported Reaction Past Psychological History: Anxiety, Depression Smoking Status: Never smoker Past Alcohol Use History: Abuse, Daily Past Drug Use History: None Reported - Past Family History Father Family Medical History: Myocardial Infarction (CA) Additional Family Medical History / Comment(s): Father of a CA at the age of 57 yrs. Mother Family Medical History: Hyperlipidemia, Hypertension Additional Family Medical History / Comment(s): Mother at the age of 89yrs. General Exam - General Exam Comments Initial Comments: GENERAL: Patient is well-developed and well-nourished. Patient is nontoxic and well-hydrated and is in no acute distress. Patient was very rude and obnoxious when I spoke with him and he seemed angry when I talked to him. ENT: Neck is soft and supple. No significant lymphadenopathy is noted. Oropharynx is clear. Moist mucous membranes. Neck has full range of motion without eliciting any pain. EYES: The sclera were anicteric and conjunctiva were pink and moist. Extraocular mov ements were intact and pupils were equal round and reactive to light. Eyelids were unremarkable. PULMONARY: Unlabored respirations. Good breath sounds bilaterally. No audible rales rhonchi or wheezing was noted. CARDIOVASCULAR: There is a regular rate and rhythm without any murmurs gallops or rubs. ABDOMEN: Soft and nontender with normal bowel sounds. SKIN: Skin is clear with no lesions or rashes and otherwise unremarkable. NEUROLOGIC: Patient is alert and oriented x3. Cranial nerves II through XII are grossly intact. Motor and sensory are also intact. Normal speech, volume and content. Symmetrical smile. MUSCULOSKELETAL: Normal extremities with adequate strength and full range of motion. No lower extremity swelling or edema. No calf tenderness. LYMPHATICS: No significant lymphadenopathy is noted PSYCHIATRIC: Normal psychiatric evaluation Course Vital Signs 06/02/20 19:06 Temperature 97.7 F Pulse Rate 84 Respiratory 22 Rate Blood Pressure 125/78 O2 Sat by Pulse 97 Oximetry Medical Decision Making - Medical Decision Making EKG shows atrial fibrillation at 92 bpm QRS is 76 QT intervals 366 QTC is 452. Patient's EKG shows no ST segment elevation or depression. Chest x-ray shows no acute abnormality. Troponin is negative. Patient continues to complain of chest pain. I spoke with Dr. Feliz he agreed to admit the patient admitted the patient wrote admitting orders. - Lab Data Result diagrams: 06/02/20 19:44 Lab Results 06/02/20 06/02/20 06/02/20 Range/Units 19:44 19:44 19:44 WBC 10.2 (3.8-10.6) k/uL RBC 4.76 (4.30-5.90) m/uL Hgb 15.2 (13.0-17.5) gm/dL Hct 44.5 (39.0-53.0) % MCV 93.4 (80.0-100.0) fL MCH 31.8 (25.0-35.0) pg MCHC 34.1 (31.0-37.0) g/dL RDW 13.6 (11.5-15.5) % Plt Count 237 (150-450) k/uL Neutrophils % 63 % Lymphocytes % 27 % Monocytes % 5 % Eosinophils % 3 % Basophils % 0 % Neutrophils # 6.4 (1.3-7.7) k/uL Lymphocytes # 2.8 (1.0-4.8) k/uL Monocytes # 0.5 (0-1.0) k/uL Eosinophils # 0.3 (0-0.7) k/uL Basophils # 0.0 (0-0.2) k/uL PT 10.6 (9.0-12.0) sec INR 1.0 (<1.2) APTT 25.5 (22.0-30.0) sec Troponin I <0.012 (0.000-0.034) ng/mL Disposition Clinical Impression: Chest pain, Alcohol intoxication, Atrial fibrillation Disposition: ADMITTED IP TO THIS HOSP Referrals: Casey Feliz MD [Primary Care Provider] - 1-2 days Time of Disposition: 20:21
[2020-06-02 19:51] LABS: Basophils % (A) 0 %; Eosinophils # (A) 0.3 k/uL (0-0.7); Eosinophils % (A) 3 %; HCT 44.5 % (39.0-53.0); HGB 15.2 gm/dL (13.0-17.5); Lymphocytes # (A) 2.8 k/uL (1.0-4.8); Lymphocytes % (A) 27 %; MCH 31.8 pg (25.0-35.0); MCHC 34.1 g/dL (31.0-37.0); MCV 93.4 fL (80.0-100.0); Mean Platelet Volume 7.6; Monocytes # (A) 0.5 k/uL (0-1.0); Monocytes % (A) 5 %; Neutrophils # (A) 6.4 k/uL (1.3-7.7); Neutrophils % (A) 63 %; Platelet Count 237 k/uL (150-450); RBC 4.76 m/uL (4.30-5.90); RDW 13.6 % (11.5-15.5); WBC 10.2 k/uL (3.8-10.6)
[2020-06-02 20:00] LABS: Partial Thromboplastin Time 25.5 sec (22.0-30.0); Prothrombin Time 10.6 sec (9.0-12.0)
[2020-06-02 20:05] LABS: ALT 21 U/L (4-49); AST 28 U/L (17-59); African American GFR (CKD) >90 (>60 ml/min/1.73 sqM); Albumin 4.1 g/dL (3.5-5.0); Alkaline Phosphatase 90 U/L (38-126); Anion Gap 12 mmol/L; Blood Urea Nitrogen 17 mg/dL (9-20); Calcium 8.9 mg/dL (8.4-10.2); Carbon Dioxide 16 mmol/L (22-30); Chloride 109 mmol/L (98-107); Glucose 81 mg/dL (74-99); Magnesium 1.7 mg/dL (1.6-2.3); Non-African American GFR(CKD) >90 (>60 ml/min/1.73 sqM); Potassium 4.3 mmol/L (3.5-5.1); Sodium 137 mmol/L (137-145); Total Bilirubin 0.4 mg/dL (0.2-1.3); Total Protein 6.8 g/dL (6.3-8.2)
[2020-06-02] MEDS ORDERED: LORazepam 2 MG/ML INJ IV STA (20:21)
[2020-06-02] MEDS ORDERED: NITROGLYCERIN SL TABS 0.4 MG TAB SUBLINGUAL PRN (20:21)
[2020-06-02 20:32] LABS: Alcohol 130 mg/dL
--- NOTE | 2020-06-02 20:54 | XR ---
EXAMINATION: XR chest 2V DATE AND TIME: 06/02/2020 8:05 PM CLINICAL INDICATION: PHH; Chest Pain TECHNIQUE: Departmental protocol COMPARISON: 05/25/2020 FINDINGS: The overlying soft tissues are prominent. The lungs are predominantly clear and well expanded. However, on the lateral view there is added opac ity over the lower thoracic spine, more prominent than the prior study of 05/25/2020. This can correla te with a clinical diagnosis of developing bronchopneumonia left lower lobe. The pleural spaces are negative. The cardiac silhouette is not enlarged. The remainder of the mediastinal silhouette is unremarkable. The skeletal structures and soft tissues are negative for acute findings. IMPRESSION: Suspect developing left lower lobe bronchopneumonia.
[2020-06-02] MEDS: RIVAROXABAN 20 MG TAB PO SCH (23:57)
[2020-06-03] MEDS: NITROGLYCERIN OINT 1 INCH/GM PACKET TOPICAL SCH ×2 (01:40→06:21)
[2020-06-03 02:50] LABS: Cholesterol 215 mg/dL (<200); HDL Cholesterol 50 mg/dL (40-60); LDL Cholesterol,Calculated 118 mg/dL (0-99); Triglycerides 236 mg/dL (<150)
[2020-06-03] MEDS: ATORVASTATIN 40 MG TAB PO SCH (08:53)
[2020-06-03] MEDS: lisinopriL 5 MG TAB PO SCH (08:54)
[2020-06-03] MEDS: SERTRALINE 100 MG TAB PO SCH (08:54)
[2020-06-03] MEDS: SPIRONOLACTONE 25 MG TAB PO SCH (08:54)
[2020-06-03] MEDS ORDERED: ASPIRIN 325 MG TAB PO SCH (09:00)
[2020-06-03] MEDS ORDERED: METOPROLOL TARTRATE 50 MG TAB PO SCH (09:00)
--- NOTE | 2020-06-03 09:39 | HP ---
HISTORY AND PHYSICAL A 55-year-old white male recently left our hospital, apparently he was just caught by the police for breaking into a car. On the way to residential, said he had chest pains, taken to [facility]. Apparently he ran out of [facility] ER when he knew he was going to go to residential. Took off, police found his down thee road and he continued to have chest pain. They sent him to [facility]. He has a history of atrial fibrillation, diastolic CHF. Cardiology will see him. He is on Xarelto 20 mg daily, Lopressor 100 b.i.d., Zoloft 100 mg daily, Aldactone 25 mg daily. Allergies are to PENICILLIN. 14-POINT REVIEW OF SYSTEMS: Otherwise negative, except for social history is homeless. No car. He was supposed to go to [facility] [address] [facility] in [place], but apparently he got in trouble with the police. He has also some trouble with maybe discharge planning, getting him. there as it is a long drive to [place]. PAST MEDICAL HISTORY: Atrial fibrillation, CVA, TIA, hypertension, osteoarthritis, seizure disorder. SURGERY: Orthopedic surgery, right thumb surgery. SOCIAL HISTORY: No smoke, daily alcohol abuse. Father myocardial infarction, mother had dyslipidemia, hypertension. PHYSICAL EXAMINATION: Well developed, well nourished, nontoxic, well hydrated, in no acute distress. He is was very rude, obnoxious in the ER. HEENT: Normal. Pupils equal, round, reactive. LUNGS: Clear. CARDIOVASCULAR: Irregular rate and rhythm. ABDOMEN: Soft. SKIN: No rashes. ENDOCRINE: BMI is over 40. PSYCH: Fair mood, affect, very agitated. Temperature 97.7, pulse 80-84, respiratory rate 18 to 22, blood pressure over 70s O2 97. EKG atrial fibrillation. Chest x-ray negative. Troponin was negative. ASSESSMENT: Atypical chest pain, alcohol intoxication, atrial fibrillation. Psych and Cardiology will see the patient. Will monitor him. Possible discharge back to residential today. MMODL / IJN: [id number] /
--- NOTE | 2020-06-03 10:38 | P.CRDCN ---
History of Present Illness Consult date: 06/03/20 History of present illness: CHIEF COMPLAINT: Chest pain HISTORY OF PRESENT ILLNESS: This is a 55-year old male with a past medical history significant for atrial fibrillation, alcohol abuse, depression, hypertension, and nonischemic cardiomyopathy. Patient states he does not follow with a water inspector regularly. We have been asked to see the patient in consultation for chest pain. Patient examined this morning at the bedside. According to the ER note, patient stole a car yesterday and when he was in police custody he started having chest pain. However, when interviewing patient this morning he states he was just sitting down doing nothing when he began having palpitations. He denies any chest pain or pressure. Denies shortness of breath. He states he takes his medications a majority of the time, but has been missing a few doses here and there. DIAGNOSTICS: EKG reveals atrial fibrillation with controlled ventricular rate. Chest xray suspect developing left lower lobe bronchopneumonia. Laboratory data: WBC 10.2. Hemoglobin 15.2. Platelet count 237. Sodium 137. Potassium 4.3. BUN 17. Creatinine 0.76. Magnesium 1.7. Troponin negative 3. LDL 118. Serum alcohol 130. Current home cardiac medications include Aldactone 25 mg daily, Xarelto 20 mg daily, and metoprolol 100 mg twice a day. REVIEW OF SYSTEMS: At the time of my exam: CONSTITUTIONAL: Denies fever or chills. HEENT: Denies blurred vision, vision changes, or eye pain. Denies hemoptysis CARDIOVASCULAR: Denies chest pain, orthopnea, PND or palpitations RESPIRATORY: No shortness of breath. GASTROINTESTINAL: Denies abdominal pain. Denies nausea or vomiting. HEMATOLOGIC: Denies bleeding disorders. GENITOURINARY: Denies any blood in urine. SKIN: Denies pruitis. Denies rash. PHYSICAL EXAM: VITAL SIGNS: Reviewed. GENERAL: Well-developed in no acute distress. HEENT: Head is normocephalic. Pupils are equal, round. Sclerae anicteric. Mucous membranes of the mouth are moist. Neck supple. No JVD or thyromegaly LUNGS: Respirations even and unlabored. Lungs essentially clear to auscultation bilaterally. HEART: Irregular rate and rhythm. S1 and S2 heard. ABDOMEN: Soft. Nondistended. Nontender. EXTREMITIES: Normal range of motion. No clubbing or cyanosis. Peripheral pulses intact. No lower extremity edema NEUROLOGIC: Awake and alert. Oriented x 3. ASSESSMENT: Chronic persistent atrial fibrillation with RVR History of nonischemic cardiomyopathy, EF 35-40% Hyperlipidemia Hypertension Alcohol abuse Acute alcohol intoxication History of anxiety and depression PLAN: Telemetry reviewed with a few episodes of RVR noted. Increase metoprolol to 75mg TID Continue Xarelto for anticoagulation Begin lisinopril 5 mg daily Begin atorvastatin 40 mg daily No need to repeat echocardiogram as this was performed during recent hospitalization Nurse practitioner note has been reviewed by physician. Signing provider agrees with the documented findings, assessment, and plan of care. Past Medical History Past Medical History: Atrial Fibrillation, CVA/TIA, Hypertension, Osteoarthritis (OA), Pneumonia, Seizure Disorder Additional Past Medical History / Comment(s): Afib recently diagnosed, lower extremity edema, ETOH abuse with past withdrawal/seizure in 12/2018, chronic generalized pain, pt states he had a TIA in 2018 while in [place] and was intubated. History of Any Multi-Drug Resistant Organisms: None Reported Past Surgical History: Orthopedic Surgery Additional Past Surgical History / Comment(s): R thumb fracture with surgery. Past Anesthesia/Blood Transfusion Reactions: No Reported Reaction Past Psychological History: Anxiety, Depression Additional Psychological History / Comment(s): Pt is currently homeless and when asked if he has thoughts of suicide he reports "yes" Smoking Status: Never smoker Past Alcohol Use History: Abuse, Daily Additional Past Alcohol Use History / Comment(s): Pt states he quit drinking March 15 2020 He used to drink a fifth of liqour a day. Past Drug Use History: None Reported - Past Family History Father Family Medical History: Myocardial Infarction (NE) Additional Family Medical History / Comment(s): Father of a NE at the age of 57 yrs. Mother Family Medical History: Hyperlipidemia, Hypertension Additional Family Medical History / Comment(s): Mother at the age of 89yrs. Medications and Allergies Home Medications Medication Instructions Recorded Confirmed Type Metoprolol Tartrate [Lopressor] 100 mg PO BID #30 tab 06/01/20 06/02/20 Rx Rivaroxaban [Xarelto] 20 mg PO AC-SUPPER 30 Days tab 06/01/20 06/02/20 Rx Sertraline [Zoloft] 100 mg PO DAILY 30 Days tab 06/01/20 06/02/20 Rx Spironolactone [Aldactone] 25 mg PO DAILY tab 06/01/20 06/02/20 Rx Atorvastatin [Lipitor] 40 mg PO DAILY #30 tab 06/03/20 Rx lisinopriL [Zestril] 5 mg PO DAILY #30 tab 06/03/20 Rx Allergies Allergy/AdvReac Type Severity Reaction Status Date / Time Penicillins Allergy Rash/Hives Verified 06/02/20 19:10 Physical Exam Vitals: Vital Signs Temp Pulse Pulse Resp BP BP BP 06/03/20 09:15 06/03/20 08:12 97.4 F L 76 16 138/80 06/03/20 03:00 97.6 F 86 18 139/91 06/02/20 22:18 98.4 F 63 18 06/02/20 20:26 102 H 19 103/67 06/02/20 19:06 97.7 F 84 22 125/78 Pulse Ox 06/03/20 09:15 97 06/03/20 08:12 97 06/03/20 03:00 97 06/02/20 22:18 96 06/02/20 20:26 98 06/02/20 19:06 97 Intake and Output 06/02/20 06/03/20 06/03/20 22:59 06:59 14:59 Other: # Voids 1 2 Weight 113.398 kg Results 06/02/20 19:44 06/02/20 19:44 Cardiac Enzymes 06/02/20 06/02/20 06/02/20 Range/Units 19:44 19:44 22:24 AST 28 (17-59) U/L Troponin I <0.012 <0.012 (0.000-0.034) ng/mL 06/03/20 Range/Units 02:14 AST (17-59) U/L Troponin I <0.012 (0.000-0.034) ng/mL Coagulation 06/02/20 Range/Units 19:44 PT 10.6 (9.0-12.0) sec APTT 25.5 (22.0-30.0) sec Lipids 06/03/20 Range/Units 02:14 Triglycerides 236 H (<150) mg/dL Cholesterol 215 H (<200) mg/dL HDL Cholesterol 50 (40-60) mg/dL CBC 06/02/20 Range/Units 19:44 WBC 10.2 (3.8-10.6) k/uL RBC 4.76 (4.30-5.90) m/uL Hgb 15.2 (13.0-17.5) gm/dL Hct 44.5 (39.0-53.0) % Plt Count 237 (150-450) k/uL Comprehensive Metabolic Panel 06/02/20 Range/Units 19:44 Sodium 137 (137-145) mmol/L Potassium 4.3 (3.5-5.1) mmol/L Chloride 109 H (98-107) mmol/L Carbon Dioxide 16 L (22-30) mmol/L BUN 17 (9-20) mg/dL Creatinine 0.76 (0.66-1.25) mg/dL Glucose 81 (74-99) mg/dL Calcium 8.9 (8.4-10.2) mg/dL AST 28 (17-59) U/L ALT 21 (4-49) U/L Alkaline Phosphatase 90 (38-126) U/L Total Protein 6.8 (6.3-8.2) g/dL Albumin 4.1 (3.5-5.0) g/dL Current Medications Generic Name Dose Route Start Last Admin Trade Name Freq PRN Reason Stop Dose Admin Atorvastatin Calcium 40 mg 06/03/20 09:00 06/03/20 08:53 Atorvastatin 40 Mg Tab PO 40 mg DAILY TRACY Administration Lisinopril 5 mg 06/03/20 09:00 06/03/20 08:54 Lisinopril 5 Mg Tab PO 5 mg DAILY TRACY Administration Metoprolol Tartrate 100 mg 06/03/20 09:00 06/03/20 05:25 Metoprolol Tartrate 50 Mg Tab PO 100 mg BID TRACY Administration Nitroglycerin 0.4 mg 06/02/20 20:21 Nitroglycerin Sl Tabs 0.4 Mg Tab SUBLINGUAL Q5M PRN Chest Pain Rivaroxaban 20 mg 06/02/20 23:44 06/02/20 23:57 Rivaroxaban 20 Mg Tab PO 20 mg AC-SUPPER TRACY Administration Sertraline HCl 100 mg 06/03/20 09:00 06/03/20 08:54 Sertraline 100 Mg Tab PO 100 mg DAILY TRACY Administration Spironolactone 25 mg 06/03/20 09:00 06/03/20 08:54 Spironolactone 25 Mg Tab PO 25 mg DAILY TARCY Administration Intake and Output 06/02/20 06/03/20 06/03/20 22:59 06:59 14:59 Other: # Voids 1 2 Weight 113.398 kg 06/02/20 19:44 06/02/20 19:44
[2020-06-03] MEDS ORDERED: DILTIAZEM DRIP BOLUS FROM BAG 1 MG SOLN IV ONE (11:56)
[2020-06-03] MEDS ORDERED: DILTIAZEM 125 MG in SODIUM CHLORIDE 0.9% 100 ML IV SCH (12:00)
--- NOTE | 2020-06-03 13:22 | P.CN ---
Psychiatric Consult - . Consult date: 06/03/20 Consult:: 06/03/20 13:14 IDENTIFYING DATA: Patient is a 54 year old male who is currently homeless is unemployed, has a history of depression and alcohol abuse, and has one son. HPI: Patient is a history of anxiety/depression and alcohol use disorder and was recently discharged from the mental health unit on 06/02/2020 after repeated hospitalizations. Patient was discharged to alf after he was not able to find a ride to [facility] [place], [place]. Patient was discharged on Zoloft 100 mg daily for anxiety and mood. He apparently went to the alf after discharge and apparently had attempted to steal a car and after being caught by the police patient complained of chest pain and was brought into the hospital for clearance. Psychiatry was consulted for continuation of care. Nurse taking care of patient states that she had no complaints about him and patient denied any suicidal thoughts and patient was on a custodial hold. Nurse also claims that patient started having elevation in his heart rate and was going to be placed on a Cardizem drip by cardiology. Patient appeared to be cooperative and directable during conversation with bond writer. He states that he is not feeling depressed or anxious at this time. He claims that after he was discharged from the hospital yesterday he went to the alf and claims that he was attempting to fill his medications however did not have a dollars to pay for his medications however states that he was able to go to the [employer] afterwards and asked someone therefore "a couple of dollars" and purchased alcohol and started drinking. He claims that after that "I don't remember what happened by the finish carpenter said that I try to steal a car". He denied trying to do this and was superficial and vague about the history. Patient understands that he is on a custodial hold at this time. He denies any depression today. He denied any changes in his sleep. Patient denies any suicidal or homicidal ideations intent or plan. At this time patient denies any auditory or visual hallucinations. Patient denies any flight of ideas racing thoughts and increased in goal directed behavior. Patient admits to using alcohol in the past and claims that he has been sober since 03/15/2020. He states that he does have 1 DUI related to his alcohol use 30 years ago. He denies using either out of many other recreational drugs including cigarettes. PAST PSYCHIATRIC HISTORY: Patient states that he has a history of depression and anxiety. Patient was on Zoloft 100 mg daily for his mood. She was last hospitalized on the mental health unit and discharged yesterday to the alf. Patient denies any psychiatric outpatient follow-up. Patient denies any history of suicide attempts in the past. PMH: Hypertension, A. fib, CVA/TIA, osteoarthritis, seizure disorder. ALLERGIES: as per EMR CHEMICAL DEPENDENCY HISTORY: as per HPI FAMILY PSYCHIATRIC/SUBSTANCE USE HISTORY: He claims that his father was an alcoholic and his brother and sister were alcoholics. He states that his son is on Prozac for depression. SOCIAL HISTORY: Patient was born and raised in [facility] and states that he has one sister and one brother. He claims that his parents are currently . He states that he is currently and is homeless and is unemployed however has a job lined up. 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 MENTAL STATUS EXAM: General Appearance: Patient appears to be overweight, stated age is alert, pleasant, and superficially cooperative, hearted/evasive. Patient appears to have fair hygiene and grooming wearing hospital gown with fair eye contact. Behavior: Patient is calmly lying in bed without any agitated behavior. Guarded/evasive. Speech: Patient's speech is fluent and nonpressured. Mood/Affect: Patient reports their mood is "okay", affect is congruent and constricted. Suicidality/Homicidality: Patient denies having any suicidal or homicidal ideation intent or plan. Perceptions: Patient denies any visual hallucinations and denies any auditory hallucinations Though content/process: There is no evidence of any delusional thought content and thought process is linear and goal-directed. Memory and concentration: AOX3, grossly intact for the purposes of this session. Can spell "WORLD" backwards Judgment and insight: Poor/impulsive. IMPRESSIONS: Major depressive disorder, recurrent, severe without psychotic features Personality disorder unspecified, rule out antisocial personality traits Anxiety disorder unspecified Alcohol use disorder PLAN: -At this time patient DOES NOT meet criteria for inpatient psychiatric admission. Patient is manipulative and using mental health and the hospital as an escape from any social stressors or problems in the community and trying to evade responsibility and custodial. -Would recommend the following medication changes/additions: can continue with his home medications of Zoloft 100 mg daily for mood/anxiety. -One-to-one sitter to be initiated as patient may act out or attempt a elopement as he is waiting for a custodial hold as patient is impulsive and manipulative. He indicated this to patient's nurse. -Patient is a custodial hold, child protective services social worker to arrange for police pickling grader once he is medically discharged. -Patient to follow up with outpatient psychiatrist after discharge -Psychiatry will sign off at this point, please contact with any questions. 06/03/20 13:20
[2020-06-03] MEDS: METOPROLOL TARTRATE 25 MG TAB PO SCH ×2 (16:07→21:04)
[2020-06-03] MEDS: RIVAROXABAN 20 MG TAB PO SCH (17:35)
[2020-06-04] MEDS: METOPROLOL TARTRATE 25 MG TAB PO SCH ×3 (08:59→21:50)
[2020-06-04] MEDS: ATORVASTATIN 40 MG TAB PO SCH (09:00)
[2020-06-04] MEDS: lisinopriL 5 MG TAB PO SCH (09:00)
[2020-06-04] MEDS: SERTRALINE 100 MG TAB PO SCH (09:00)
--- NOTE | 2020-06-04 10:48 | P.PN ---
Subjective On-call hospitalist covering for Dr. Rodriguez. This is a pleasant 55 years old male with past medical history of CVA/TIA, atrial fibrillation on oral to, hypertension, osteoarthritis, seizure disorder, pneumonia. Severe depression. Patient was recommended to the, as per his PCP note and he told the correction officer reformatory he has chest pain so he was brought to [facility] and from there he'll WHEN he knew that he may go to custodial. He got caught by the police and brought to [facility] Today he remains on Cardizem drip at 5. Physical complain from little difficulty breathing and palpitation, I still have some numbness in his left arm. And occasional stabbing chest pain. He denies cough and phlegm Discussed with staff and bedside nurse jairon Barrera sitter at bedside. Patient is on a low blood precautions He denies smoking, alcohol or illicit drugs to me Objective - Vital Signs Vital signs: Vital Signs Temp 97.6 F 06/04/20 08:00 Pulse 76 06/04/20 08:00 Resp 17 06/04/20 08:00 BP 134/83 06/04/20 08:00 Pulse Ox 99 06/04/20 08:00 Intake & Output 06/03/20 06/04/20 06/04/20 18:59 06:59 18:59 Intake Total 480 100 Balance 480 100 Weight 121.1 kg Intake: Oral 480 100 Other: Voiding Method Toilet # Voids 3 1 - Labs CBC & Chem 7: 06/02/20 19:44 06/02/20 19:44 Assessment and Plan Assessment: A. fib with RVR, chronic. On Xarelto Severe depression, no need for inpatient psychiatric admission Possible developing pneumonia Hypertension Osteoarthritis Seizure disorder Plan: This is a pleasant 55 years old male who presents with A. fib and possible pneumonia. Cardiology input is appreciated continue with metoprolol and Xarelto. We will repeat chest x-ray. Suspicion for pneumonia as low as patient is afebrile no leukocytosis Psychiatric input is appreciated, continue his Zoloft, no need for inpatient psychiatric admission Sitter at bedside for risk of development as patient has legal problems Labs and medication were reviewed.. Continue same treatment. Continue with symptomatic treatment. Resume home medication. Monitor lytes and vitals. DVT and GI prophylaxis. Further recommendationsas per clinical course of the patient DVT prophylaxis: Xarelto GI Prophylaxis: Pepcid
--- NOTE | 2020-06-04 11:10 | P.PN ---
Subjective Progress Note Date: 06/04/20 HISTORY OF PRESENT ILLNESS: This is a 55-year old male with a past medical history significant for atrial fibrillation, alcohol abuse, depression, hypertension, and nonischemic ca rdiomyopathy. Patient states he does not follow with a kitchen aide regularly. We have been asked to see the patient in consultation for chest pain. Patient examined this morning at the bedside. According to the ER note, patient stole a car yesterday and when he was in police custody he started having chest pain. However, when interviewing patient this morning he states he was just sitting down doing nothing when he began having palpitations. He denies any chest pain or pressure. Denies shortness of breath. He states he takes his medications a majority of the time, but has been missing a few doses here and there. EKG reveals atrial fibrillation with controlled ventricular rate. Chest xray suspect developing left lower lobe bronchopneumonia. Laboratory data: WBC 10.2. Hemoglobin 15.2. Platelet count 237. Sodium 137. Potassium 4.3. BUN 17. Creatinine 0.76. Magnesium 1.7. Troponin negative 3. LDL 118. Serum alcohol 130. Current home cardiac medications include Aldactone 25 mg daily, Xarelto 20 mg daily, and metoprolol 100 mg twice a day. 06/04: Patient has vague complaints of chest pain that is stabbing type and coming going, left arm discomfort. He complaints of palpitations that he can feel are irregular.. He denies any worsening with deep breathing. He states he has some shortness of breath on and off. He has not ambulated very much but denies any lightheadedness or dizziness. 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 Blood pressure 134/83, pulse ox 99% on room air. He is currently on Cardizem drip at 5 mg per hour. This will be discontinued today. Patient is on Xarelto. PHYSICAL EXAM: VITAL SIGNS: Reviewed. GENERAL: Well-developed in no acute distress. HEENT: Head is normocephalic. Pupils are equal, round. Sclerae anicteric. Mucous membranes of the mouth are moist. Neck supple. No JVD or thyromegaly LUNGS: Respirations even and unlabored. Lungs essentially clear to auscultation bilaterally. HEART: Irregular rate and rhythm. S1 and S2 heard. Rate is controlled. ABDOMEN: Soft. Nondistended. Nontender. EXTREMITIES: Normal range of motion. No clubbing or cyanosis. Peripheral pul ses intact. No lower extremity edema NEUROLOGIC: Awake and alert. Oriented x 3. ASSESSMENT: Chronic persistent atrial fibrillation with RVR, currently rate controlled History of nonischemic cardiomyopathy, EF 35-40% Hyperlipidemia Hypertension Alcohol abuse Acute alcohol intoxication History of anxiety and depression PLAN: Cardizem drip will be discontinued Continue Lopressor at higher dose of 75 mg 3 times daily Continue Xarelto for anticoagulation Continue lisinopril 5 mg daily and atorvastatin 40 mg daily No need to repeat echocardiogram as this was performed during recent hospitalization Nurse practitioner note has been reviewed by physician. Signing provider agrees with the documented findings, assessment, and plan of care. Objective - Vital Signs Vital signs: Vital Signs Temp 97.6 F 06/04/20 08:00 Pulse 76 06/04/20 08:00 Resp 17 06/04/20 08:00 BP 134/83 06/04/20 08:00 Pulse Ox 99 06/04/20 08:00 Intake & Output 06/03/20 06/04/20 06/04/20 18:59 06:59 18:59 Intake Total 480 100 Balance 480 100 Weight 121.1 kg Intake: Oral 480 100 Other: Voiding Method Toilet # Voids 3 1 - Labs CBC & Chem 7: 06/02/20 19:44 06/02/20 19:44
[2020-06-04] MEDS: SPIRONOLACTONE 25 MG TAB PO SCH (11:49)
[2020-06-04] MEDS: ACETAMINOPHEN TAB 325 MG TAB PO PRN (11:50)
[2020-06-04] MEDS ORDERED: LORazepam 2 MG/ML INJ IV PRN ×3 (16:35)
--- NOTE | 2020-06-04 16:44 | XR ---
EXAMINATION TYPE: XR chest 2V DATE OF EXAM: 06/04/2020 COMPARISON: 06/02/2020 HISTORY: Chest pain. Short of breath TECHNIQUE: FINDINGS: Heart and mediastinum are normal. Lungs are clear of infiltrate. There is no heart failure. There are chest leads. There are no hilar masses. Bony thorax is intact. IMPRESSION: No active cardiopulmonary disease. Normal heart. No adverse change.
[2020-06-04] MEDS ORDERED: THIAMINE 100 MG TAB PO ONE (17:00)
[2020-06-04] MEDS: RIVAROXABAN 20 MG TAB PO SCH (17:35)
[2020-06-04] MEDS: FAMOTIDINE 20 MG/2 ML VIAL IV SCH (21:51)
[2020-06-05 08:40] LABS: African American GFR (CKD) >90 (>60 ml/min/1.73 sqM); Anion Gap 7 mmol/L; Blood Urea Nitrogen 19 mg/dL (9-20); Calcium 9.1 mg/dL (8.4-10.2); Carbon Dioxide 25 mmol/L (22-30); Chloride 106 mmol/L (98-107); Glucose 92 mg/dL (74-99); Magnesium 1.8 mg/dL (1.6-2.3); Non-African American GFR(CKD) >90 (>60 ml/min/1.73 sqM); Potassium 4.3 mmol/L (3.5-5.1); Sodium 138 mmol/L (137-145)
[2020-06-05] MEDS ORDERED: THIAMINE 100 MG TAB PO SCH (09:00)
[2020-06-05] MEDS: FAMOTIDINE 20 MG/2 ML VIAL IV SCH ×2 (09:36→20:13)
[2020-06-05] MEDS: SERTRALINE 100 MG TAB PO SCH (09:37)
[2020-06-05] MEDS: ATORVASTATIN 40 MG TAB PO SCH (09:37)
[2020-06-05] MEDS: lisinopriL 5 MG TAB PO SCH (09:37)
[2020-06-05] MEDS: METOPROLOL TARTRATE 25 MG TAB PO SCH ×3 (09:37→21:09)
--- NOTE | 2020-06-05 11:56 | P.PN ---
Subjective Progress Note Date: 06/05/20 HISTORY OF PRESENT ILLNESS: This is a 55-year old male with a past medical history significant for atrial fibrillation, alcohol abuse, depression, hypertension, and nonischemic ca rdiomyopathy. Patient states he does not follow with a slide forming machine operator regularly. We have been asked to see the patient in consultation for chest pain. Patient examined this morning at the bedside. According to the ER note, patient stole a car yesterday and when he was in police custody he started having chest pain. However, when interviewing patient this morning he states he was just sitting down doing nothing when he began having palpitations. He denies any chest pain or pressure. Denies shortness of breath. He states he takes his medications a majority of the time, but has been missing a few doses here and there. EKG reveals atrial fibrillation with controlled ventricular rate. Chest xray suspect developing left lower lobe bronchopneumonia. Laboratory data: WBC 10.2. Hemoglobin 15.2. Platelet count 237. Sodium 137. Potassium 4.3. BUN 17. Creatinine 0.76. Magnesium 1.7. Troponin negative 3. LDL 118. Serum alcohol 130. Current home cardiac medications include Aldactone 25 mg daily, Xarelto 20 mg daily, and metoprolol 100 mg twice a day. 06/04: Patient has vague complaints of chest pain that is stabbing type and coming going, left arm discomfort. He complaints of palpitations that he can feel are irregular.. He denies any worsening with deep breathing. He states he has some shortness of breath on and off. He has not ambulated very much but denies any lightheadedness or dizziness. telemetry monitor his atrial fibrillation rate controlled in the 60s and 70s. Blood pressure 134/83, pulse ox 99% on room air. He is currently on Cardizem drip at 5 mg per hour. This will be discontinued today. Patient is on Xarelto. 06/05: Patient has elevation of his heart rate up to 150 with activity. He did walk a lap on the unit and heart rate jumped up to 150 atrial fibrillation. At rest, heart rate is controlled. Patient has a known ejection fraction of 25- 30%. Patient continues to complain of tightness all over his chest. He is currently on Lopressor 75 mg 3 times daily. At this point, heart rate is controlled at rest and we'll plan to continue the Lopressor at 75 mg 3 times daily and will follow up in the outpatient setting for any additional medications for rate control. PHYSICAL EXAM: VITAL SIGNS: Afebrile, heart rate 90, blood pressure 128/79, pulse ox 95% on room air GENERAL: Well-developed in no acute distress. HEENT: Head is normocephalic. Pupils are equal, round. Sclerae anicteric. Mucous membranes of the mouth are moist. Neck supple. No JVD or thyromegaly LUNGS: Respirations even and unlabored. Lungs essentially clear to auscultation bilaterally. HEART: Irregular rate and rhythm. S1 and S2 heard. Rate is controlled. ABDOMEN: Soft. Nondistended. Nontender. EXTREMITIES: Normal range of motion. No clubbing or cyanosis. Peripheral pulses intact. No lower extremity edema NEUROLOGIC: Awake and alert. Oriented x 3. ASSESSMENT: Chronic persistent atrial fibrillation with episodes of RVR with activity, currently rate controlled History of nonischemic cardiomyopathy, EF 35-40% Hyperlipidemia Hypertension Alcohol abuse Acute alcohol intoxication History of anxiety and depression PLAN: Continue Lopressor 75 mg 3 times daily Continue Xarelto for anticoagulation Continue lisinopril 5 mg daily and atorvastatin 40 mg daily No need to repeat echocardiogram as this was performed during recent hospitalization The patient is cleared for discharge with outpatient follow-up. Nurse practitioner note has been reviewed by physician. Signing provider agrees with the documented findings, assessment, and plan of care. Objective - Vital Signs Vital signs: Vital Signs Temp 98.2 F 06/05/20 08:00 Pulse 90 06/05/20 08:00 Resp 15 06/05/20 08:00 BP 128/79 06/05/20 08:00 Pulse Ox 95 06/05/20 08:00 Intake & Output 06/04/20 06/05/20 06/05/20 18:59 06:59 18:59 Intake Total 1130 240 Output Total 400 Balance 730 240 Weight 121.3 kg Intake: IV 60 0.9 60 Intake, IV Titration 20 Amount Diltiazem 125 mg In 20 Sodium Chloride 0.9% 100 ml @ 5 MG/HR 5 mls/hr IV .Q24H TRACY Rx#:[id number] Oral 1050 240 Output: Urine 400 Other: Voiding Method Toilet Toilet Toilet # Voids 4 2 1 - Labs CBC & Chem 7: 06/02/20 19:44 06/05/20 08:03
[2020-06-05 12:34] VITALS: RESP 16
--- NOTE | 2020-06-05 13:09 | P.PN ---
Subjective On-call hospitalist covering for Dr. Feliz This is a pleasant 55 years old male with past medical history of CVA/TIA, atrial fibrillation on oral to, hypertension, osteoarthritis, seizure disorder, pneumonia. Severe depression. 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 He got caught by the police and brought to [facility] Today he remains on Cardizem drip at 5. Physical complain from little difficulty breathing and palpitation, I still have some numbness in his left arm. And occasional stabbing chest pain. He denies cough and phlegm Discussed with staff and bedside nurse jairon Barrera sitter at bedside. Patient is on a low blood precautions He denies smoking, alcohol or illicit drugs to ut 06/05/2020 Patient is awake, he still have some chest heaviness and tightness. No dyspnea or numbness in his arm. He is on room air. His Cardizem drip was stopped and switched to metoprolol 75 mg 3 times a day. Also he is on Xarelto Continue with CIWA protocol, continue with same. Vitals are stable. Labs reviewed Cardiology team of the case Dr. Feliz will resume the care of the patient tomorrow Objective - Vital Signs Vital signs: Vital Signs Temp 98.0 F 06/05/20 12:00 Pulse 84 06/05/20 12:00 Resp 16 06/05/20 12:00 BP 125/85 06/05/20 12:00 Pulse Ox 98 06/05/20 12:00 Intake & Output 06/04/20 06/05/20 06/05/20 18:59 06:59 18:59 Intake Total 1130 240 Output Total 400 Balance 730 240 Weight 121.3 kg Intake: IV 60 0.9 60 Intake, IV Titration 20 Amount Diltiazem 125 mg In 20 Sodium Chloride 0.9% 100 ml @ 5 MG/HR 5 mls/hr IV .Q24H [facility] Rx#:[id number] Oral 1050 240 Output: Urine 400 Other: Voiding Method Toilet Toilet Toilet # Voids 4 2 2 - Exam -GENERAL: The patient is alert and oriented x3, not in any acute distress. Obese HEENT: Pupils are round and equally reacting to light. EOMI. No scleral icterus. No conjunctival pallor. Normocephalic, atraumatic. No pharyngeal erythema. No thyromegaly. CARDIOVASCULAR: S1 and S2 present. No murmurs, rubs, or gallops. PULMONARY: Chest is clear to auscultation, no wheezing or crackles. ABDOMEN: Soft, nontender, nondistended, normoactive bowel sounds. No palpable organomegaly. MUSCULOSKELETAL: No joint swelling or deformity. EXTREMITIES: No cyanosis, clubbing, or pedal edema. NEUROLOGICAL: Gross neurological examination did not reveal any focal deficits. SKIN: No rashes. no petechiae. - Labs CBC & Chem 7: 06/02/20 19:44 06/05/20 08:03 Assessment and Plan Assessment: A. fib with RVR, chronic. On Xarelto Severe depression, no need for inpatient psychiatric admission Possible developing pneumonia Hypertension Osteoarthritis Seizure disorder Plan: This is a pleasant 55 years old male who presents with A. fib and possible pneumonia. Cardiology input is appreciated continue with metoprolol and Xarelto. Repeat chest x-ray is normal, Suspicion for pneumonia as low as patient is afebrile no leukocytosis Psychiatric input is appreciated, continue his Zoloft, no need for inpatient psychiatric admission. Sitter at bedside for risk of development as patient has legal problems Labs and medication were reviewed.. Continue same treatment. Continue with s ymptomatic treatment. Resume home medication. Monitor lytes and vitals. DVT and GI prophylaxis. Further recommendationsas per clinical course of the patient DVT prophylaxis: Xarelto GI Prophylaxis: Pepcid Dr. Feliz will resume the care of the patient from later on tonight after 10 PM and tomorrow
[2020-06-05] MEDS: SPIRONOLACTONE 25 MG TAB PO SCH (17:05)
[2020-06-05] MEDS: RIVAROXABAN 20 MG TAB PO SCH (17:46)
[2020-06-05] MEDS: ACETAMINOPHEN TAB 325 MG TAB PO PRN (20:13)
[2020-06-05 23:07] VITALS: TEMP 98.7
[2020-06-06 03:52] VITALS: BP 112/72; PULSE 81
[2020-06-06] MEDS: METOPROLOL TARTRATE 25 MG TAB PO SCH (06:59)
--- NOTE | 2020-06-26 13:33 | DS ---
DISCHARGE SUMMARY DATE OF ADMISSION: 06/03/2020 DATE OF DISCHARGE: 06/06/2020 MEDICATIONS: 1. Aldactone 25 mg daily. 2. Metoprolol 100 b.i.d. 3. Xarelto 20 mg daily. 4. Zoloft 100 mg daily. 5. Lipitor 40 mg daily. 6. Lisinopril 5 mg daily. CONDITION: Stable. PROGNOSIS: Guarded. Ambulate as tolerated. HISTORY: This is a white male who was admitted to the hospital with atypical chest pain, CVA, TIA, atrial fibrillation, hypertension, osteoarthritis, seizure disorder, pneumonia, severe depression. He was cleared by Cardiology to be discharged after a Cardizem drip was given for atrial fibrillation. Switch him to metoprolol 75 t.i.d. He was on [facility] protocol for alcohol cessation. Stabilized and discharged home. I think the nurse called the police to see if he had to go to detention. Otherwise, he has plans to go to some [facility] in [place]. Condition stable. Prognosis guarded. Diet regular. MMLASHONDAL / AVRILN: [id number] /
== END 2020-06-06 07:35 | disposition left against medical advice (07) | DRG 309 ==
LOC: EC 19:03 → 3NCARDOBS 20:21 → OBSVTOIN 06-03 12:25 → 3SCARD 06-03 18:27
PROVIDERS: ADMIT Family Medicine; ATTEND Family Medicine
DX: I48.19 Other persistent atrial fibrillation (principal); I50.32 Chronic diastolic (congestive) heart failure; R45.851 Suicidal ideations; I42.8 Other cardiomyopathies; I11.0 Hypertensive heart disease with heart failure; G40.909 Epilepsy, unspecified, not intractable, without status epilepticus; F10.120 Alcohol abuse with intoxication, uncomplicated; M19.90 Unspecified osteoarthritis, unspecified site; G89.29 Other chronic pain; F32.9 Major depressive disorder, single episode, unspecified; F41.9 Anxiety disorder, unspecified; E78.5 Hyperlipidemia, unspecified; E66.9 Obesity, unspecified; Y90.6 Blood alcohol level of 120-199 mg/100 ml; Z68.39 Body mass index [BMI] 39.0-39.9, adult; Z79.899 Other long term (current) drug therapy; Z79.01 Long term (current) use of anticoagulants; Z86.73 Personal history of transient ischemic attack (TIA), and cerebral infarction without residual deficits; Z59.0 Homelessness; Z87.81 Personal history of (healed) traumatic fracture; Z87.01 Personal history of pneumonia (recurrent); Z88.0 Allergy status to penicillin; Z82.49 Family history of ischemic heart disease and other diseases of the circulatory system; Z83.438 Family history of other disorder of lipoprotein metabolism and other lipidemia
CPT/HCPCS: 36415; 71046; 80048; 80053; 80061; 80320; 83735; 84484; 85025; 85610; 85730; 93005; 94760; 96374; 99285

== ENCOUNTER 2022-07-20 16:08 | Inpatient (IN) | payer MEDICAID, OTHER ==
--- NOTE | 2022-07-20 18:10 | ED ---
General Adult HPI - General Chief complaint: Psychiatric Symptoms Stated complaint: Mental Health Time Seen by Provider: 07/20/22 17:52 Source: patient Mode of arrival: ambulatory Limitations: no limitations - History of Present Illness Initial comments: Dictation was produced using [employer]ise[employer] dictation software. please excuse any grammatical, word or spelling errors. Chief Complaint: 57-year-old male multiple comorbidities presents emergency department for depression and suicidal ideation History of Present Illness: Patient is a 57-year-old male is here to the emergency department today for suicidal ideation. He is been depressed and believes that he is depressed and suicidal because of medications he was prescribed to treat kidney stones. Patient denies any plan. Not homicidal. No visual auditory hallucinations. Patient like to be evaluated by psychiatry. The ROS documented in this emergency department record has been reviewed and confirmed by me. Those systems with pertinent positive or negative responses have been documented in the HPI. All other systems are other negative and/or noncontributory. PHYSICAL EXAM: General Impression: Alert and oriented x3, not in acute distress HEENT: Normocephalic atraumatic, extra-ocular movements intact, pupils equal and reactive to light bilaterally, mucous membranes moist. Cardiovascular: Heart regular rate and rhythm Chest: Able to complete full sentences, no retractions, no tachypnea Abdomen: abdomen soft, non-tender, non-distended, no organomegaly Musculoskeletal: Pulses present and equal in all extremities, no peripheral edema Motor: no focal deficits noted Neurological: CN II-XII grossly intact, no focal motor or sensory deficits noted Skin: Intact with no visualized rashes Psych: Normal affect and mood ED course: 57-year-old male presents emergency department for psychiatric evaluation. Vital signs upon arrival are within acceptable limits. Patient has any medical complaints. Patient medically cleared for EPS evaluation. Patient evaluated by EPS. Patient will be admitted to mental health unit. - Related Data Home Medications Medication Instructions Recorded Confirmed Amiodarone [Cordarone] 200 mg PO BID 07/20/22 07/20/22 Atorvastatin [Lipitor] 40 mg PO HS 07/20/22 07/20/22 Ciprofloxacin HCl [Cipro] 500 mg PO BID 07/20/22 07/20/22 Edoxaban Tosylate [Savaysa] 60 mg PO DAILY 07/20/22 07/20/22 Ketorolac [Toradol] 10 mg PO Q6H PRN 07/20/22 07/20/22 Levothyroxine Sodium 125 mcg PO DAILY 07/20/22 07/20/22 Metoprolol Tartrate [Lopressor] 50 mg PO BID 07/20/22 07/20/22 Ondansetron Odt [Zofran Odt] 4 mg PO Q6H PRN 07/20/22 07/20/22 Tamsulosin HCl [Flomax] 0.4 mg PO HS 07/20/22 07/20/22 Previous Rx's Medication Instructions Recorded lisinopriL [Zestril] 5 mg PO DAILY #30 tab 06/03/20 Allergies Allergy/AdvReac Type Severity Reaction Status Date / Time Penicillins Allergy Rash/Hives Verified 07/20/22 17:00 Review of Systems ROS Statement: Those systems with pertinent positive or pertinent negative responses have been documented in the HPI. ROS Other: All systems not noted in ROS Statement are negative. Past Medical History Past Medical History: Atrial Fibrillation, CVA/TIA, Hypertension, Osteoarthritis (OA), Pneumonia, Seizure Disorder Additional Past Medical History / Comment(s): Afib recently diagnosed, lower extremity edema, ETOH abuse with past withdrawal/seizure in 12/2018, chronic generalized pain, pt states he had a TIA in 2018 while in [place] and was intubated. History of Any Multi-Drug Resistant Organisms: None Reported Past Surgical History: Orthopedic Surgery Additional Past Surgical History / Comment(s): R thumb fracture with surgery. Past Anesthesia/Blood Transfusion Reactions: No Reported Reaction Past Psychological History: Anxiety, Depression Smoking Status: Never smoker Past Alcohol Use History: Abuse, Daily Past Drug Use History: None Reported - Past Family History Father Family Medical History: Myocardial Infarction ([place]) Additional Family Medical History / Comment(s): Father of a [place] at the age of 57 yrs. Mother Family Medical History: Hyperlipidemia, Hypertension Additional Family Medical History / Comment(s): Mother at the age of 89yrs. General Exam Limitations: no limitations Course Vital Signs 07/20/22 16:58 Temperature 98 F Pulse Rate 63 Respiratory 20 Rate Blood Pressure 138/84 O2 Sat by Pulse 99 Oximetry Disposition Clinical Impression: Suicidal ideation Disposition: ADMITTED IP TO THIS HOSP Condition: Fair Referrals: None,Stated [REFERRING] - 1-2 days Decision Time: 20:19
[2022-07-20] MEDS ORDERED: HALOPERIDOL LACTATE 5 MG/ML 1 ML VIAL IM PRN (21:05)
[2022-07-20] MEDS ORDERED: LORazepam 1 MG TAB PO PRN (21:05)
[2022-07-20] MEDS ORDERED: haloperidoL 5 MG TAB PO PRN (21:09)
[2022-07-20] MEDS ORDERED: LORazepam 1 MG/0.5 ML VIAL IM PRN (21:09)
[2022-07-21] MEDS: LEVOTHYROXINE 125 MCG TAB PO SCH (06:12)
[2022-07-21] MEDS: METOPROLOL TARTRATE 50 MG TAB PO SCH ×2 (08:01→20:12)
[2022-07-21] MEDS: CIPROFLOXACIN HCL 500 MG TAB PO SCH ×2 (08:01→20:13)
[2022-07-21] MEDS: AMIODARONE 200 MG TAB PO SCH ×2 (08:01→20:13)
[2022-07-21] MEDS: NICOTINE 14MG/24HR PATCH TRANSDERM SCH (08:02)
[2022-07-21] MEDS: lisinopriL 5 MG TAB PO SCH (08:52)
[2022-07-21] MEDS: EDOXABAN TOSYLATE 60 MG TABLET PO SCH (08:52)
[2022-07-21] MEDS: ACETAMINOPHEN TAB 325 MG TAB PO PRN ×2 (08:55→20:14)
[2022-07-21 11:45] LABS: Basophils % (A) 1 %; Eosinophils # (A) 0.3 k/uL (0-0.7); Eosinophils % (A) 4 %; HCT 42.4 % (39.0-53.0); HGB 14.9 gm/dL (13.0-17.5); Lymphocytes # (A) 1.6 k/uL (1.0-4.8); Lymphocytes % (A) 22 %; MCHC 35.1 g/dL (31.0-37.0); MCV 91.1 fL (80.0-100.0); Mean Platelet Volume 8.7; Monocytes # (A) 0.6 k/uL (0-1.0); Monocytes % (A) 8 %; Neutrophils # (A) 4.4 k/uL (1.3-7.7); Neutrophils % (A) 63 %; Platelet Count 222 k/uL (150-450); RBC 4.66 m/uL (4.30-5.90); RDW 12.8 % (11.5-15.5)
[2022-07-21 12:20] LABS: ALT 74 U/L (4-49); AST 61 U/L (17-59); African American GFR (CKD) >90 (>60 ml/min/1.73 sqM); Albumin 4.3 g/dL (3.5-5.0); Alkaline Phosphatase 108 U/L (38-126); Anion Gap 11 mmol/L; Blood Urea Nitrogen 16 mg/dL (9-20); Calcium 8.9 mg/dL (8.4-10.2); Carbon Dioxide 25 mmol/L (22-30); Chloride 105 mmol/L (98-107); Glucose 77 mg/dL (74-99); Non-African American GFR(CKD) 83 (>60 ml/min/1.73 sqM); Potassium 4.2 mmol/L (3.5-5.1); Sodium 141 mmol/L (137-145); Total Bilirubin 0.7 mg/dL (0.2-1.3); Total Protein 6.7 g/dL (6.3-8.2)
[2022-07-21 13:48] LABS: Appearance,Urine Clear (Clear); Bilirubin,Urine Negative (Negative); Blood,Urine Negative (Negative); Color,Urine Yellow; Glucose,Urine (UA) Negative (Negative); Ketones,Urine Negative (Negative); Leukocyte Esterase,Urine Negative (Negative); Nitrite,Urine Negative (Negative); PH, Urine 5.5 (5.0-8.0); Protein,Urine Trace (Negative)
--- NOTE | 2022-07-21 14:47 | P.CONS ---
History of Present Illness - Reason for Consult Consult date: 07/21/22 - Chief Complaint Suicidal ideation - History of Present Illness 57-year-old male is here to the emergency department today for suicidal ideation. He is been depressed and believes that he is depressed and suicidal because of medications he was prescribed to treat kidney stones. Patient denies any plan. Not homicidal. No visual auditory hallucinations. Patient like to be evaluated by psychiatry. Patient is medical history of hypertension, hypothyroidism, atrial fibrillation, seizure disorder and history of CVA/TIA Patient reports recently being diagnosed with renal stones and a UTI and has been placed on Cipro 500 mg twice a day; does report left flank pain and requesting maybe Tylenol or Motrin for pain control Review of Systems REVIEW OF SYSTEMS: CONSTITUTIONAL: No fever, no malaise, no fatigue. HEENT: No recent visual problems or hearing problems. Denied any sore throat. CARDIOVASCULAR: No chest pain, orthopnea, PND, no palpitations, no syncope. PULMONARY: No shortness of breath, no cough, no hemoptysis. GASTROINTESTINAL: No diarrhea, no nausea, no vomiting, no abdominal pain. NEUROLOGICAL: No headaches, no weakness, no numbness. HEMATOLOGICAL: Denies any bleeding or petechiae. GENITOURINARY: Denies any burning micturition, frequency, or urgency. MUSCULOSKELETAL/RHEUMATOLOGICAL: Denies any joint pain, swelling, or any muscle pain. ENDOCRINE: Denies any polyuria or polydipsia. The rest of the 14-point review of systems is negative. Past Medical History Past Medical History: Atrial Fibrillation, CVA/TIA, Hypertension, Osteoarthritis (OA), Pneumonia, Seizure Disorder Additional Past Medical History / Comment(s): Afib recently diagnosed, lower extremity edema, ETOH abuse with past withdrawal/seizure in 12/2018, chronic generalized pain, pt states he had a TIA in 2019 while in [place] and was intubated. Reports had a kidney stone in another a few days ago. History of Any Multi-Drug Resistant Organisms: None Reported Past Surgical History: Orthopedic Surgery Additional Past Surgical History / Comment(s): R thumb fracture with surgery. Past Anesthesia/Blood Transfusion Reactions: No Reported Reaction Past Psychological History: Anxiety, Depression Additional Psychological History / Comment(s): Pt is currently homeless and when asked if he has thoughts of suicide he reports "yes" Smoking Status: Never smoker Past Alcohol Use History: Abuse, Daily Additional Past Alcohol Use History / Comment(s): Pt states he quit drinking March 15 2020 He used to drink a fifth of liqour a day. Past Drug Use History: None Reported - Past Family History Father Family Medical History: Myocardial Infarction ([place]) Additional Family Medical History / Comment(s): Father of a [place] at the age of 57 yrs. Mother Family Medical History: Hyperlipidemia, Hypertension Additional Family Medical History / Comment(s): Mother at the age of 89yrs. Medications and Allergies Home Medications Medication Instructions Recorded Confirmed Type lisinopriL [Zestril] 5 mg PO DAILY #30 tab 06/03/20 07/20/22 Rx Amiodarone [Cordarone] 200 mg PO BID 07/20/22 07/20/22 History Atorvastatin [Lipitor] 40 mg PO HS 07/20/22 07/20/22 History Ciprofloxacin HCl [Cipro] 500 mg PO BID 07/20/22 07/20/22 History Edoxaban Tosylate [Savaysa] 60 mg PO DAILY 07/20/22 07/20/22 History Ketorolac [Toradol] 10 mg PO Q6H PRN 07/20/22 07/20/22 History Levothyroxine Sodium 125 mcg PO DAILY 07/20/22 07/20/22 History Metoprolol Tartrate [Lopressor] 50 mg PO BID 07/20/22 07/20/22 History Ondansetron Odt [Zofran Odt] 4 mg PO Q6H PRN 07/20/22 07/20/22 History Tamsulosin HCl [Flomax] 0.4 mg PO HS 07/20/22 07/20/22 History Allergies Allergy/AdvReac Type Severity Reaction Status Date / Time Penicillins Allergy Rash/Hives Verified 07/21/22 03:21 Physical Exam Vitals: Vital Signs Temp Pulse Pulse Resp BP BP Pulse Ox 07/21/22 08:00 66 142/76 07/21/22 06:12 97.8 F 75 16 112/67 96 07/20/22 21:54 97.1 F L 55 L 16 143/78 98 07/20/22 16:58 98 F 63 20 138/84 99 Intake and Output 07/20/22 07/21/22 07/21/22 22:59 06:59 14:59 Other: Weight 113.398 kg General Impression: Alert and oriented x3, not in acute distress HEENT: Normocephalic atraumatic, extra-ocular movements intact, pupils equal and reactive to light bilaterally, mucous membranes moist. Cardiovascular: Heart regular rate and rhythm Chest: Able to complete full sentences, no retractions, no tachypnea Abdomen: abdomen soft, non-tender, non-distended, no organomegaly Musculoskeletal: Pulses present and equal in all extremities, no peripheral edema Motor: no focal deficits noted Neurological: CN II-XII grossly intact, no focal motor or sensory deficits noted Skin: Intact with no visualized rashes Psych: Normal affect and mood Results CBC & Chem 7: 07/21/22 10:18 07/21/22 10:18 Assessment and Plan Assessment: 1. Suicidal ideation; your management 2. Hypertension; lisinopril 5 mg daily; metoprolol 50 mg by mouth twice a day 3. Hyperlipidemia; Lipitor 40 mg by mouth daily at bedtime 4. Hypothyroidism; levothyroxine 125 MCG daily 5. Atrial fibrillation; rate controlled on metoprolol 50 mg twice a day and amiodarone 200 mg twice a day; not currently on anticoagulation 6. History of CVA/TIA; remains on statin therapy; not on any aspirin 7. UTI/renal calculus; patient remains on Cipro 500 mg twice a day; patient will follow-up with urology as outpatient 8. BPH; Flomax 0.4 mg daily at bedtime DVT prophylaxis; ambulation CODE STATUS; full code
[2022-07-21 18:16] LABS: Urine Alcohol Negative (Negative); Urine Barbiturate Negative (Negative); Urine Cocaine Negative (Negative); Urine Methadone Negative (Negative); Urine Opiates Negative (Negative); Urine Phencyclidine Negative (Negative)
[2022-07-21 19:36] LABS: Chol/HDL Ratio 2.21 Ratio; LDL Cholesterol,Calculated 46.6 mg/dL (0.0-131.0); VLDL Calculation 10.76 mg/dL (5.00-40.00)
[2022-07-21] MEDS: TAMSULOSIN 0.4 MG CAP.ER.24H PO SCH (20:13)
[2022-07-21] MEDS: ATORVASTATIN 40 MG TAB PO SCH (20:13)
[2022-07-21] MEDS: ESCITALOPRAM 10 MG TAB PO SCH (22:10)
[2022-07-21] MEDS: MAGNESIUM HYDROXIDE 2,400 MG/10 ML CUP PO PRN (22:12)
[2022-07-21] MEDS: MAG HYDROX/AL HYDROX/SIMETH 30 ML CUP PO PRN (22:12)
--- NOTE | 2022-07-21 22:13 | P.HP ---
Psychiatric H&P - . H&P Date: 07/21/22 History & Physical: IDENTIFYING DATA: Patient is a 57 year old male with history of MDD and alcohol use disorder, recently released from correction and living a [facility]. HPI: Patient presented to the hospital from [email or web address] after testing positive for opiate. 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 He said he has not drank in the two years he was in [facility]. He is on parole currently and was accepted at [facility] and then on to [email or web address] today. Pt had a kidney stone and was given pain medication for it along with other medications. He was happy about going to [facility], but he tested positive for Oxycodone which is what he was given for the stone. He said they can not take him until his urine comes back clean. He said I cant catch a break. I have no where to go I afraid I will start drinking again. I might as well kill himself. [place] but then I thought about how hard I am trying to straighten out my life, so I came to the hospital for help. I am from a alcoholic family. I want to do better but every time I try I fail." On my assessment, he admits he was having suicidal thoughts yesterday in the ER because he was overwhelmed, but denies denies any suicidal or homicidal ideation intent or plan currently. He denies any auditory or visual hallucinations. He denies any flight of ideas, racing thoughts, and increased in goal directed beh avior. Patient admits to history of heavy alcohol use, but has not used in 2 years since he was in correction, but he does admit that his untreated depression and anxiety caused him to drink heavily in the past. He denies any other drug or alcohol use. His UDS in here was negative for illicit substances. 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 Reports appetite is good. He reports he tends to worry nonstop, easily fatigued, muscle tension, on edge. He endorses panic attacks about daily with shortness of breath, chest tightness, sweating, rapid heart rate, dizzy/lightheaded. He reports poor sleep with snoring, gasping for air and has a crowded airway, history of Afib, CVA and HTN. We discussed he will need a referral for a sleep study from his PCP after discharge and he agrees. PAST PSYCHIATRIC HISTORY: Patient states that he has a history alcoholism, depression and anxiety Past psychiatric medications: Zoloft Past psychiatric hospitalizations: [facility] x 2 in 2019 Psychiatric outpatient follow-up: No Patient denies any history of suicide attempts in the past. PMH: Past Medical History: Atrial Fibrillation, CVA/TIA, Hypertension, Osteoarthritis (OA), Pneumonia, Seizure Disorder Additional Past Medical History / Comment(s): Afib recently diagnosed, lower extremity edema, ETOH abuse with past withdrawal/seizure in 12/2018, chronic generalized pain, pt states he had a TIA in 2018 while in [place] and was intubated. Reports had a kidney stone in another a few days ago. History of Any Multi-Drug Resistant Organisms: None Reported Past Surgical History: Orthopedic Surgery Additional Past Surgical History / Comment(s): R thumb fracture with surgery. Past Anesthesia/Blood Transfusion Reactions: No Reported Reaction Past Psychological History: Anxiety, Depression Additional Psychological History / Comment(s): Pt is currently homeless and when asked if he has thoughts of suicide he reports "yes" Smoking Status: Never smoker Past Alcohol Use History: Abuse, Daily Additional Past Alcohol Use History / Comment(s): Pt states he quit drinking March 15 2020 He used to drink a fifth of liqour a day. Past Drug Use History: None Reported ALLERGIES: as per EMR CHEMICAL DEPENDENCY HISTORY: as per HPI FAMILY PSYCHIATRIC/SUBSTANCE USE HISTORY: Father was an alcoholic. SOCIAL HISTORY: Was in correction for 2 years, and released on June 26, 2022. He is from [facility] where his support system is. He is here in [place] because this is where he was pulled over for drunk driving 2 years ago. MENTAL STATUS EXAM: General Appearance: Patient appears to be obese male, with fair hygiene and grooming. Behavior: Patient is seated without any agitated behavior. Speech: Patient's speech is fluent and non-pressured. Mood/Affect: Patient reports their mood is depressed, affect is congruent and constricted. Suicidality/Homicidality: Patient denies having any homicidal ideation intent or plan. Denies any suicidal ideation, intent or plan. Perceptions: Patient denies any visual hallucinations and denies any auditory hallucinations. Though content/process: There is no evidence of any delusional thought content and thought process is linear and goal-directed. Memory and concentration: AOX3, grossly intact for the purposes of this session. Can spell "WORLD" backwards Judgment and insight: Fair STRENGTHS/WEAKNESSES: Strength is that patient is resilient. Weakness is that patient has history of alcoholism. INTELLECT: Average IMPRESSIONS: Major depressive disorder, recurrent, severe without psychotic features Generalized anxiety disorder with panic attacks Alcohol use disorder, severe, in remission PLAN: -Patient is admitted under voluntary status to [facility] for stabilization of psychiatric symptoms and safety. Patient has signed adult voluntary form and medication consent and is placed in patient's chart. -Medications: Will start patient on Lexapro 10 mg QHS for depression/anxiety/panic attacks. He will need to follow-up with his PCP after discharge for a referral to a sleep study due to elevated risk of sleep apnea: obesity, male gender, snores, gasps for air, crowded airway, HTN, CVA and Afib. -Ativan and Haldol PRN for agitation/aggression -Patient plans to return to [facility] after discharge. His support system is in [place] and he would like to transfer services to that area if possible. -Patient was informed of the risks, benefits and side effects of the medication and patient verbally consented to taking the medications. Patient signed med consent form and was placed in chart. -Internal Medicine consult to perform medical evaluation and physical. -NRT - not needed since he is a never smoker. -SW on board for discharge planning. Encourage patient to participate in groups to work on coping skills. Allergies Allergy/AdvReac Type Severity Reaction Status Date / Time Penicillins Allergy Rash/Hives Verified 07/21/22 03:21 Vital Signs Temp 97.8 F 07/21/22 06:12 Pulse 66 07/21/22 08:00 Resp 16 07/21/22 06:12 BP 142/76 07/21/22 08:00 Pulse Ox 96 07/21/22 06:12 FiO2 Intake & Output 07/20/22 07/21/22 07/21/22 18:59 06:59 18:59 Weight 113.398 kg 113.398 kg Laboratory Last Values WBC 7.0 k/uL (3.8-10.6) 07/21/22 10:18 RBC 4.66 m/uL (4.30-5.90) 07/21/22 10:18 Hgb 14.9 gm/dL (13.0-17.5) 07/21/22 10:18 Hct 42.4 % (39.0-53.0) 07/21/22 10:18 MCV 91.1 fL (80.0-100.0) 07/21/22 10:18 MCH 32.0 pg (25.0-35.0) 07/21/22 10:18 MCHC 35.1 g/dL (31.0-37.0) 07/21/22 10:18 RDW 12.8 % (11.5-15.5) 07/21/22 10:18 Plt Count 222 k/uL (150-450) 07/21/22 10:18 MPV 8.7 07/21/22 10:18 Neutrophils % 63 % 07/21/22 10:18 Lymphocytes % 22 % 07/21/22 10:18 Monocytes % 8 % 07/21/22 10:18 Eosinophils % 4 % 07/21/22 10:18 Basophils % 1 % 07/21/22 10:18 Neutrophils # 4.4 k/uL (1.3-7.7) 07/21/22 10:18 Lymphocytes # 1.6 k/uL (1.0-4.8) 07/21/22 10:18 Monocytes # 0.6 k/uL (0-1.0) 07/21/22 10:18 Eosinophils # 0.3 k/uL (0-0.7) 07/21/22 10:18 Basophils # 0.0 k/uL (0-0.2) 07/21/22 10:18 Sodium 141 mmol/L (137-145) 07/21/22 10:18 Potassium 4.2 mmol/L (3.5-5.1) 07/21/22 10:18 Chloride 105 mmol/L (98-107) 07/21/22 10:18 Carbon Dioxide 25 mmol/L (22-30) 07/21/22 10:18 Anion Gap 11 mmol/L 07/21/22 10:18 BUN 16 mg/dL (9-20) 07/21/22 10:18 Creatinine 0.99 mg/dL (0.66-1.25) 07/21/22 10:18 Est GFR (CKD-EPI)AfAm >90 (>60 ml/min/1.73 sqM) 07/21/22 10:18 Est GFR (CKD-EPI)NonAf 83 (>60 ml/min/1.73 sqM) 07/21/22 10:18 Glucose 77 mg/dL (74-99) 07/21/22 10:18 Calcium 8.9 mg/dL (8.4-10.2) 07/21/22 10:18 Total Bilirubin 0.7 mg/dL (0.2-1.3) 07/21/22 10:18 AST 61 U/L (17-59) H 07/21/22 10:18 ALT 74 U/L (4-49) H 07/21/22 10:18 Alkaline Phosphatase 108 U/L (38-126) 07/21/22 10:18 Total Protein 6.7 g/dL (6.3-8.2) 07/21/22 10:18 Albumin 4.3 g/dL (3.5-5.0) 07/21/22 10:18 TSH 2.640 mIU/L (0.465-4.680) 07/21/22 10:18 Coronavirus (PCR) Not Detected (Not Detectd) 07/20/22 19:58 07/21/22 13:16 07/21/22 21:06 07/21/22 21:57
[2022-07-22] MEDS: LEVOTHYROXINE 125 MCG TAB PO SCH (07:08)
[2022-07-22] MEDS ORDERED: INFLUENZA VACC (6 MOS-64 YRS) 60 MCG/0.5 ML SYRINGE IM ONE (09:00)
[2022-07-22] MEDS: METOPROLOL TARTRATE 50 MG TAB PO SCH ×2 (09:11→20:07)
[2022-07-22] MEDS: AMIODARONE 200 MG TAB PO SCH ×2 (09:12→20:06)
[2022-07-22] MEDS: EDOXABAN TOSYLATE 60 MG TABLET PO SCH (09:12)
[2022-07-22] MEDS: lisinopriL 5 MG TAB PO SCH (09:12)
[2022-07-22] MEDS: CIPROFLOXACIN HCL 500 MG TAB PO SCH ×2 (09:13→20:06)
[2022-07-22] MEDS: NICOTINE 14MG/24HR PATCH TRANSDERM SCH (09:14)
[2022-07-22] MEDS: MAGNESIUM HYDROXIDE 2,400 MG/10 ML CUP PO PRN (16:19)
[2022-07-22] MEDS: MAG HYDROX/AL HYDROX/SIMETH 30 ML CUP PO PRN (16:20)
[2022-07-22] MEDS: ACETAMINOPHEN TAB 325 MG TAB PO PRN (16:20)
[2022-07-22] MEDS: ATORVASTATIN 40 MG TAB PO SCH (20:06)
[2022-07-22] MEDS: ESCITALOPRAM 10 MG TAB PO SCH (20:06)
[2022-07-22] MEDS: TAMSULOSIN 0.4 MG CAP.ER.24H PO SCH (20:07)
--- NOTE | 2022-07-22 22:47 | P.PN ---
Progress Note - Text Progress Note Date: 07/22/22 Interval history: Patient was seen wandering the hallways and was directable and agreeable to speak with resume writer. He reports improved mood but also feels tired and slept most of the day. At this time patient denies any suicidal or homicidal ideation, intent or plan. Denies any auditory or visual hallucinations. Patient denies any side effects from the medications and has been compliant with meds. He is looking forward to discharge. Mental status exam: General Appearance: Patient appears to be obese male, with improved hygiene and grooming. Behavior: Patient is without any agitated behavior. Speech: Patient's speech is fluent and non-pressured. Mood/Affect: Patient reports mood is "ok" improving today, affect is congruent and constricted. Suicidality/Homicidality: Patient denies having any homicidal ideation intent or plan. Denies any suicidal ideation, intent or plan. Perceptions: Patient denies any visual hallucinations and denies any auditory hallucinations. Though content/process: There is no evidence of any delusional thought content and thought process is linear and goal-directed. Memory and concentration: AOX3, grossly intact for the purposes of this session. Judgment and insight: improving mildly Assessment/Plan: Continue with current diagnosis. Patient continues to meet criteria for inpatient psychiatric admission for symptom stabilization and safety. Patient will be maintained on current psychotropic medication regimen. Monitor for medication compliance and for any psychotropic medication side effects. Will continue to monitor ongoing response to treatment. Encouraged participation in milieu.
[2022-07-23] MEDS: LEVOTHYROXINE 125 MCG TAB PO SCH (06:22)
[2022-07-23] MEDS: CIPROFLOXACIN HCL 500 MG TAB PO SCH ×2 (08:29→20:01)
[2022-07-23] MEDS: NICOTINE 14MG/24HR PATCH TRANSDERM SCH (08:29)
[2022-07-23] MEDS: AMIODARONE 200 MG TAB PO SCH ×2 (08:29→20:01)
[2022-07-23] MEDS: METOPROLOL TARTRATE 50 MG TAB PO SCH ×2 (08:30→20:02)
[2022-07-23] MEDS: lisinopriL 5 MG TAB PO SCH (08:30)
--- NOTE | 2022-07-23 10:12 | P.PN ---
Progress Note - Text Progress Note Date: 07/23/22 Interval History: Patient was seen wandering the hallways and was directable and agreeable to speak with physician underwriter in the office. Currently, the patient is not reporting any suicidal or homicidal ideation, intention, and/or plan. He reports no auditory or visual hallucinations. He expresses future and goal orientation. He maintains that he was only brought to the hospital in desperation as he had no place to go after testing positive for opiates while at [facility]. He has been adherent with his medications and is not reporting any significant side effects at this time. Mental Status Exam: General Appearance: Patient appears to be stated age is alert, directable, and cooperative. Behavior: Patient is calmly seated without any agitated behavior. Speech: Patient's speech is fluent and nonpressured. Mood/Affect: Mood is improving mildly, affect is congruent and constricted. Suicidality/Homicidality: Patient denies having any suicidal or homicidal ideation intent or plan. Perceptions: Patient denies any visual hallucinations and denies any auditory hallucinations Though content/process: There is no evidence of any delusional thought content and thought process is linear and goal-directed. Memory and concentration: AOX3, grossly intact for the purposes of this session Judgment and insight: Improving mildly Vital Signs Temp 97.9 F 07/23/22 06:20 Pulse 64 07/23/22 06:20 Resp 16 07/23/22 08:30 BP 116/69 07/23/22 08:30 Pulse Ox 97 07/23/22 06:20 FiO2 Intake & Output 07/22/22 07/23/22 07/23/22 18:59 06:59 18:59 Weight 119.9 kg Assessment Major depressive disorder, recurrent, severe without psychotic features Generalized anxiety disorder with panic attacks Alcohol use disorder, severe, in remission Plan: -Patient continues to meet criteria for inpatient psychiatric admission for symptom stabilization and safety. Patient has signed adult voluntary form and medication consent and was placed in patient's chart. -Medications: Lexapro 10 mg by mouth at bedtime for depression -When necessary Ativan and Haldol for agitation/aggression. -NRT - nicotine patch -SW on board for discharge planning. Encouraged the patient to participate in milieu.
[2022-07-23] MEDS: EDOXABAN TOSYLATE 60 MG TABLET PO SCH (10:20)
[2022-07-23] MEDS: ACETAMINOPHEN TAB 325 MG TAB PO PRN ×2 (10:20→20:01)
[2022-07-23] MEDS: ESCITALOPRAM 10 MG TAB PO SCH (20:01)
[2022-07-23] MEDS: ATORVASTATIN 40 MG TAB PO SCH (20:01)
[2022-07-23] MEDS: TAMSULOSIN 0.4 MG CAP.ER.24H PO SCH (20:01)
[2022-07-24] MEDS: LEVOTHYROXINE 125 MCG TAB PO SCH (05:53)
[2022-07-24 06:21] VITALS: RESP 18; TEMP 96.5
[2022-07-24 08:10] VITALS: BP 138/66; PULSE 60
[2022-07-24] MEDS: AMIODARONE 200 MG TAB PO SCH (08:10)
[2022-07-24] MEDS: lisinopriL 5 MG TAB PO SCH (08:10)
[2022-07-24] MEDS: CIPROFLOXACIN HCL 500 MG TAB PO SCH (08:10)
[2022-07-24] MEDS: EDOXABAN TOSYLATE 60 MG TABLET PO SCH (08:10)
[2022-07-24] MEDS: METOPROLOL TARTRATE 50 MG TAB PO SCH (08:10)
--- NOTE | 2022-07-24 11:10 | P.DS ---
Providers Date of admission: 07/20/22 20:56 Expected date of discharge: 07/24/22 Attending physician: Herman Keane MD Consults: 07/20/22 21:05 Consult Physician Routine Consulting Provider: Carlos Mejias Consult Reason/Comments: medical management Do you want consulting provider notified?: Yes Primary care physician: Kamryn Alvarez - Discharge Diagnosis(es) (1) Major depressive disorder, recurrent Current Visit: Yes Status: Acute Priority: High (2) Generalized anxiety disorder with panic attacks Current Visit: Yes Status: Chronic Priority: Medium (3) Alcohol use disorder, severe, in sustained remission Current Visit: Yes Status: Chronic Priority: Medium Hospital Course: Admission HPI: Initial psychiatric evaluation was complete by Dr. Perez who wrote: "Patient is a 57 year old male with history of MDD and alcohol use disorder, recently released from snf and living a [facility]. Patient presented to the hospital from [facility] after testing positive for opiate. 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 He said he has not drank in the two years he was in long-term. He is on parole currently and was accepted at [facility] and then on to [facility] today. Pt had a kidney stone and was given pain medication for it along with other medications. He was happy about going to [facility], but he tested positive for Oxycodone which is what he was given for the stone. He said they can not take him until his urine comes back clean. He said I cant catch a break. I have no where to go I afraid I will start drinking again. I might as well kill himself. [place] but then I thought about how hard I am trying to straighten out my life, so I came to the hospital for help. I am from a alcoholic family. I want to do better but every time I try I fail." On my assessment, he admits he was having suicidal thoughts yesterday in the ER because he was overwhelmed, but denies denies any suicidal or homicidal ideation intent or plan currently. He denies any auditory or visual hallucinations. He denies any flight of ideas, racing thoughts, and increased in goal directed behavior. Patient admits to history of heavy alcohol use, but has not used in 2 years since he was in snf, but he does admit that his untreated depression and anxiety caused him to drink heavily in the past. He denies any other drug or alcohol use. His UDS in here was negative for illicit substances. 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 Reports appetite is good. He reports he tends to worry nonstop, easily fatigued, muscle tension, on edge. He endorses panic attacks about daily with shortness of breath, chest tightness, sweating, rapid heart rate, dizzy/lightheaded. He reports poor sleep with snoring, gasping for air and has a crowded airway, history of Afib, CVA and HTN. We discussed he will need a referral for a sleep study from his PCP after discharge and he agrees. " Hospital course: Upon admission to the unit patient was initially noted to endorse significant symptoms of depression. Patient was however directable and agreeable to commence treatment. Patient got along well with other patients on the unit and followed unit protocol. Patient was compliant with the medications and denied any side effects throughout hospital course. Patient was started on Lexapro for management of depression/anxiety/panic attacks. Patient spoke of his stressors and engaged in therapy both group and individual. Patient was also seen by medical team for history and physical exam. Throughout the course of the hospitalization patient gradually improved with regards to his depression and became future oriented with improved insight and judgment. On the day of discharge patient denied any suicidal or homicidal ideations intent or plan denied any auditory or visual hallucinations. Patient endorsed wanting to live for his health and family. The patient denied any access to guns or weapons. Patient denied any paranoia and did not endorse any delusions. Patient does have a significant history of substance abuse however was counseled on abstaining from all substances including alcohol and marijuana. Patient was offered however declined inpatient substance-abuse rehab. [facility]. His UDS was negative. Patient was also counseled on the medications and need for regular compliance and was encouraged to follow- up with their outpatient appointment for mental health and also for primary care. Prior to discharge a family meeting will be arranged by professor of social work to answer any questions and ensure safety upon discharge. He reports no medical issues or concerns in the day of discharge. He denies any chest pain, showing respect, heart palpitations, lightheadedness, or headache. Mental status exam: General Appearance: Patient appears to be stated age is alert, pleasant, and cooperative. Patient is in no acute distress and has fair hygiene and grooming Behavior: Patient is calmly seated without any agitated behavior. Speech: Patient's speech is fluent and nonpressured. Mood/Affect: Patient reports their mood is "much better", affect is congruent and euthymic to bright. Suicidality/Homicidality: Patient denies having any suicidal or homicidal ideation intent or plan. Perceptions: Patient denies any auditory or visual hallucinations. Though content/process: There is no evidence of any delusional thought content and thought process is linear and goal-directed. He is future oriented Memory and concentration: AOX3, grossly intact for the purposes of this session. Can spell "WORLD" backwards correctly. Judgment and insight: Improved with guarded prognosis Impression: Major depressive disorder, recurrent, severe without psychotic features Generalized anxiety disorder with panic attacks Alcohol use disorder, severe, in remission Plan: -Continue with discharge today as patient has improved and stabilized psychiatrically and is not currently an imminent threat to himself and/or others. Patient will remain at chronically elevated risk due to his history of substance abuse. -Continue medications: Lexapro 10 mg by mouth at bedtime for depression/anxiety -Patient was counseled on the need for medication compliance and appropriate follow-up at mental health and also primary care for medical issues. Patient verbalized understanding and agreed. -Social work to arrange for and conduct family meeting to ensure safety upon discharge and answer any questions/concerns. Social work also to arrange for patients follow up appointments with [facility] for psychiatric care along with follow up with primary care provider. -Patient counseled on abstaining from recreational drugs and marijuana and alcohol. Was informed/educated on the adverse effects on their physical and mental health. Patient verbally agreed and understood. He will be going to [facility]. -Patient was instructed to return to the hospital or seek immediate medical care if their psychiatric or medical symptoms do worsen or reoccur. -Psychoeducation and supportive therapy provided to patient. Risks and benefits of pharmacological treatment versus the risks and benefits of nontreatment weight and discussed. Informed consent discussion held. Common side effects of psychotropics discussed such as, but not limited to headache, GI disturbance, sexual dysfunction, movement disorders, sedation, and orthostatic hypotension. Life threatening and blackbox warnings of prescribed medications also discussed. Potential risks of operating a vehicle or heavy machinery discussed with patient at length. Advised on importance of compliance and a reliable and responsible manner. Patient advised to review FDA consumer labeling of all medications prior to taking. Patient verbalized understanding of potential risks, and agrees with current treatment plan. Patient advised to medically contact physician/emergency personnel if any acute changes in condition occur. Vital Signs Temp 96.5 F L 07/24/22 06:20 Pulse 60 07/24/22 08:09 Resp 18 07/24/22 06:20 BP 138/66 07/24/22 08:09 Pulse Ox 94 L 07/24/22 06:20 FiO2 Laboratory Results WBC 7.0 k/uL (3.8-10.6) 07/21/22 10:18 RBC 4.66 m/uL (4.30-5.90) 07/21/22 10:18 Hgb 14.9 gm/dL (13.0-17.5) 07/21/22 10:18 Hct 42.4 % (39.0-53.0) 07/21/22 10:18 MCV 91.1 fL (80.0-100.0) 07/21/22 10:18 MCH 32.0 pg (25.0-35.0) 07/21/22 10:18 MCHC 35.1 g/dL (31.0-37.0) 07/21/22 10:18 RDW 12.8 % (11.5-15.5) 07/21/22 10:18 Plt Count 222 k/uL (150-450) 07/21/22 10:18 MPV 8.7 07/21/22 10:18 Neutrophils % 63 % 07/21/22 10:18 Lymphocytes % 22 % 07/21/22 10:18 Monocytes % 8 % 07/21/22 10:18 Eosinophils % 4 % 07/21/22 10:18 Basophils % 1 % 07/21/22 10:18 Neutrophils # 4.4 k/uL (1.3-7.7) 07/21/22 10:18 Lymphocytes # 1.6 k/uL (1.0-4.8) 07/21/22 10:18 Monocytes # 0.6 k/uL (0-1.0) 07/21/22 10:18 Eosinophils # 0.3 k/uL (0-0.7) 07/21/22 10:18 Basophils # 0.0 k/uL (0-0.2) 07/21/22 10:18 Sodium 141 mmol/L (137-145) 07/21/22 10:18 Potassium 4.2 mmol/L (3.5-5.1) 07/21/22 10:18 Chloride 105 mmol/L (98-107) 07/21/22 10:18 Carbon Dioxide 25 mmol/L (22-30) 07/21/22 10:18 Anion Gap 11 mmol/L 07/21/22 10:18 BUN 16 mg/dL (9-20) 07/21/22 10:18 Creatinine 0.99 mg/dL (0.66-1.25) 07/21/22 10:18 Est GFR (CKD-EPI)AfAm >90 (>60 ml/min/1.73 sqM) 07/21/22 10:18 Est GFR (CKD-EPI)NonAf 83 (>60 ml/min/1.73 sqM) 07/21/22 10:18 Glucose 77 mg/dL (74-99) 07/21/22 10:[address] Glu mg/dL 97 07/21/22 10:18 Hemoglobin A1c 5.0 % (0.0-6.0) 07/21/22 10:18 Calcium 8.9 mg/dL (8.4-10.2) 07/21/22 10:18 Total Bilirubin 0.7 mg/dL (0.2-1.3) 07/21/22 10:18 AST 61 U/L (17-59) H 07/21/22 10:18 ALT 74 U/L (4-49) H 07/21/22 10:18 Alkaline Phosphatase 108 U/L (38-126) 07/21/22 10:18 Total Protein 6.7 g/dL (6.3-8.2) 07/21/22 10:18 Albumin 4.3 g/dL (3.5-5.0) 07/21/22 10:18 Triglycerides 53.80 mg/dL (0.00-149.00) 07/21/22 10:18 Cholesterol 105.00 mg/dL (0.00-200.00) 07/21/22 10:18 LDL Cholesterol, Calc 46.6 mg/dL (0.0-131.0) 07/21/22 10:18 VLDL Cholesterol, Calc 10.76 mg/dL (5.00-40.00) 07/21/22 10:18 HDL Cholesterol 47.60 mg/dL (40.00-60.00) 07/21/22 10:18 Cholesterol/HDL Ratio 2.21 Ratio 07/21/22 10:18 TSH 2.640 mIU/L (0.465-4.680) 07/21/22 10:18 Urine Color Yellow 07/21/22 Unknown Urine Appearance Clear (Clear) 07/21/22 Unknown Urine pH 5.5 (5.0-8.0) 07/21/22 Unknown Ur Specific [place] 1.030 (1.001-1.035) 07/21/22 Unknown Urine Protein Trace (Negative) H 07/21/22 Unknown Urine Glucose (UA) Negative (Negative) 07/21/22 Unknown Urine Ketones Negative (Negative) 07/21/22 Unknown Urine Blood Negative (Negative) 07/21/22 Unknown Urine Nitrite Negative (Negative) 07/21/22 Unknown Urine Bilirubin Negative (Negative) 07/21/22 Unknown Urine Urobilinogen 2.0 mg/dL (<2.0) 07/21/22 Unknown Ur Leukocyte Esterase Negative (Negative) 07/21/22 Unknown Urine Opiates Screen Negative (Negative) 07/20/22 13:00 Urine Methadone Screen Negative (Negative) 07/20/22 13:00 Ur Propoxyphene Screen Negative (Negative) 07/20/22 13:00 Urine Barbiturates Negative (Negative) 07/20/22 13:00 Ur Phencyclidine Scrn Negative (Negative) 07/20/22 13:00 Ur Amphetamine Screen Negative (Negative) 07/20/22 13:00 U Benzodiazepines Scrn Negative (Negative) 07/20/22 13:00 Urine Cocaine Screen Negative (Negative) 07/20/22 13:00 U Cannabinoids Screen Negative (Negative) 07/20/22 13:00 Urine Alcohol Negative (Negative) 07/20/22 13:00 Coronavirus (PCR) Not Detected (Not Detectd) 07/20/22 19:58 Allergies Allergy/AdvReac Type Severity Reaction Status Date / Time Penicillins Allergy Rash/Hives Verified 07/21/22 03:21 Patient Condition at Discharge: Stable Plan - Discharge Summary Discharge Rx Participant: Yes New Discharge Prescriptions: New Ciprofloxacin HCl [Cipro] 500 mg PO BID 5 Days tab Escitalopram [Lexapro] 10 mg PO HS 30 Days tab Continue lisinopriL [Zestril] 5 mg PO DAILY #30 tab Levothyroxine Sodium 125 mcg PO DAILY Amiodarone [Cordarone] 200 mg PO BID Tamsulosin HCl [Flomax] 0.4 mg PO HS Ondansetron Odt [Zofran ODT] 4 mg PO Q6H PRN PRN Reason: Pain Ketorolac [Toradol] 10 mg PO Q6H PRN PRN Reason: Pain Metoprolol Tartrate [Lopressor] 50 mg PO BID Atorvastatin [Lipitor] 40 mg PO HS Edoxaban Tosylate [Savaysa] 60 mg PO DAILY Discontinued Ciprofloxacin HCl [Cipro] 500 mg PO BID Discharge Medication List lisinopriL [Zestril] 5 mg PO DAILY #30 tab 06/03/20 [Rx] Amiodarone [Cordarone] 200 mg PO BID 07/20/22 [History] Atorvastatin [Lipitor] 40 mg PO HS 07/20/22 [History] Edoxaban Tosylate [Savaysa] 60 mg PO DAILY 07/20/22 [History] Ketorolac [Toradol] 10 mg PO Q6H PRN 07/20/22 [History] Levothyroxine Sodium 125 mcg PO DAILY 07/20/22 [History] Metoprolol Tartrate [Lopressor] 50 mg PO BID 07/20/22 [History] Ondansetron Odt [Zofran ODT] 4 mg PO Q6H PRN 07/20/22 [History] Tamsulosin HCl [Flomax] 0.4 mg PO HS 07/20/22 [History] Ciprofloxacin HCl [Cipro] 500 mg PO BID 5 Days tab 07/24/22 [Rx] Escitalopram [Lexapro] 10 mg PO HS 30 Days tab 07/24/22 [Rx] Follow up Appointment(s)/Referral(s): [facility] [Outside] - 07/27/22 9:00 am (with intake) None,Stated [REFERRING] - 1-2 days Activity/Diet/Wound Care/Special Instructions: Avoid the use of street drugs and alcohol. Take all prescriptions as presc ribed. When you are in need of refills on your medications, please contact your medical provider and/or outpatient psychiatrist to have this done. Please go to scheduled outpatient appointment for aftercare treatment. If symptoms return or become worse, call the crisis line at and/or go to the nearest emergency room for evaluation. Discharge Disposition: HOME SELF-CARE
== END 2022-07-24 15:13 | disposition home or self-care (01) | DRG 885 ==
LOC: EC 16:08 → 3MHU 20:56
PROVIDERS: ADMIT Psychiatry & Neurology Psychiatry; ATTEND Psychiatry & Neurology Psychiatry
DX: F33.2 Major depressive disorder, recurrent severe without psychotic features (principal); R45.851 Suicidal ideations; N39.0 Urinary tract infection, site not specified; F10.21 Alcohol dependence, in remission; I48.91 Unspecified atrial fibrillation; Z23 Encounter for immunization; Z20.822 Contact with and (suspected) exposure to COVID-19; F41.1 Generalized anxiety disorder; F41.0 Panic disorder [episodic paroxysmal anxiety]; I10 Essential (primary) hypertension; N20.0 Calculus of kidney; N40.0 Benign prostatic hyperplasia without lower urinary tract symptoms; E78.5 Hyperlipidemia, unspecified; E03.9 Hypothyroidism, unspecified; G89.29 Other chronic pain; E66.9 Obesity, unspecified; Z68.36 Body mass index [BMI] 36.0-36.9, adult; M19.90 Unspecified osteoarthritis, unspecified site; Z79.890 Hormone replacement therapy; Z79.899 Other long term (current) drug therapy; Z86.73 Personal history of transient ischemic attack (TIA), and cerebral infarction without residual deficits; Z59.00 Homelessness unspecified; Z65.3 Problems related to other legal circumstances; Z71.41 Alcohol abuse counseling and surveillance of alcoholic; Z71.51 Drug abuse counseling and surveillance of drug abuser; Z88.0 Allergy status to penicillin; Z81.1 Family history of alcohol abuse and dependence; Z63.72 Alcoholism and drug addiction in family
CPT/HCPCS: 80053; 80061; 80306; 81003; 82075; 83036; 84443; 85025; 87635; 90686; 99285

== ENCOUNTER 2022-11-02 17:23 | Observation (INO) | payer OTHER ==
[2022-11-02 18:32] LABS: Basophils # (A) 0.1 k/uL (0-0.2); Basophils % (A) 2 %; Eosinophils # (A) 0.1 k/uL (0-0.7); Eosinophils % (A) 2 %; HCT 48.7 % (39.0-53.0); HGB 16.3 gm/dL (13.0-17.5); Lymphocytes # (A) 1.1 k/uL (1.0-4.8); Lymphocytes % (A) 16 %; MCH 32.3 pg (25.0-35.0); MCHC 33.5 g/dL (31.0-37.0); MCV 96.3 fL (80.0-100.0); Mean Platelet Volume 7.3; Monocytes # (A) 0.5 k/uL (0-1.0); Monocytes % (A) 8 %; Neutrophils # (A) 4.6 k/uL (1.3-7.7); Neutrophils % (A) 70 %; Platelet Count 182 k/uL (150-450); RBC 5.06 m/uL (4.30-5.90); RDW 15.1 % (11.5-15.5); WBC 6.6 k/uL (3.8-10.6)
[2022-11-02 18:41] LABS: ALT 37 U/L (4-49); AST 37 U/L (17-59); African American GFR (CKD) >90 (>60 ml/min/1.73 sqM); Albumin 4.3 g/dL (3.5-5.0); Alcohol <10 mg/dL; Alkaline Phosphatase 92 U/L (38-126); Anion Gap 10 mmol/L; Blood Urea Nitrogen 14 mg/dL (9-20); Calcium 8.8 mg/dL (8.4-10.2); Carbon Dioxide 22 mmol/L (22-30); Chloride 104 mmol/L (98-107); Glucose 92 mg/dL (74-99); Non-African American GFR(CKD) 78 (>60 ml/min/1.73 sqM); Sodium 136 mmol/L (137-145); Total Bilirubin 1.2 mg/dL (0.2-1.3); Total Protein 7.2 g/dL (6.3-8.2)
--- NOTE | 2022-11-02 18:43 | ED ---
General Adult HPI - General Chief complaint: Shortness of Breath Stated complaint: SOB Time Seen by Provider: 11/02/22 17:27 Source: EMS Mode of arrival: EMS - History of Present Illness Initial comments: Dictation was produced using [employer] dictation software. please excuse any grammatical, word or spelling errors. Chief Complaint: 57-year-old male presents emergency per for shortness of breath History of Present Illness: Patient is a 57-year-old male he was just discharged from the hospital approximately 2 hours right arrival. His admitted for sleep apnea, alcohol intoxication, atypical chest pain and alcoholic liver disease. Patient states he was discharged. He tried to walk to the bus stop however again very short of breath and was having some chest pain. He instead brought to the emergency department for further evaluation. Patient states that since being at rest his symptoms resolved. The ROS documented in this emergency department record has been reviewed and confirmed by me. Those systems with pertinent positive or negative responses have been documented in the HPI. All other systems are other negative and/or noncontributory. PHYSICAL EXAM: General Impression: Alert and oriented x3, not in acute distress HEENT: Normocephalic atraumatic, extra-ocular movements intact, pupils equal and reactive to light bilaterally, mucous membranes moist. Cardiovascular: Heart regular rate and rhythm Chest: Able to complete full sentences, no retractions, no tachypnea Abdomen: abdomen soft, non-tender, non-distended, no organomegaly Musculoskeletal: Pulses present and equal in all extremities, no peripheral edema Motor: no focal deficits noted Neurological: CN II-XII grossly intact, no focal motor or sensory deficits noted Skin: Intact with no visualized rashes Psych: Normal affect and mood ED course: 57-year-old female just discharged from the hospital 2 hours prior to arrival presents to the ER for exertional dyspnea and chest pain. Vital signs upon arrival are within acceptable limits. EKG shows no signs of ischemia or infarction. Case is discussed with Dr. Yin who is aware of patient. He does request to repeat testing on patient including d-dimer and proBNP. Nursing notes and chart review was performed EKG interpreted by me: Ventricular rate 50, sinus bradycardia,. 160, QRS 80, QTc 450. No NM prolongation, no QTC prolongation, no ST or T-wave changes noted. Overall, this EKG is unremarkable Was pt. sent in by a medical professional or institution (ALEX Jim, FOREST AIDE, urgent c are, hospital, or custodial...) When possible be specific @ -No Did you speak to anyone other than the patient for history (EMS, parent, family, police, friend...)? What history was obtained from this source @ -No Did you review nursing and triage notes (agree or disagree)? Why? @ -I reviewed and agree with nursing and triage notes Were old charts reviewed (outside hosp., previous admission, EMS record, old EKG, old radiological studies, urgent care reports/EKG's, custodial records)? Report findings @ -Prior discharge summary and progress notes reviewed Differential Diagnosis (chest pain, altered mental status, abdominal pain women, abdominal pain men, vaginal bleeding, musculoskeletal, weakness, fever, dyspnea, syncope, headache, dizziness, GI bleed, back pain, seizure, CVA, palpatations, mental health)? @ -Differential Dyspnea: Coronary syndrome, arrhythmia, tamponade, asthma, COPD, pulmonary embolism, pneumonia, pneumothorax, pulmonary effusion, anaphylaxis, diabetic ketoacidosis, flailed chest, pulmonary contusion, diaphragmatic rupture, anemia, neuromuscular, this is not meant to be an all-inclusive list. EKG interpreted by me (3pts min.). @ -See above X-rays interpreted by me (1pt min.). @ -Nonacute CT interpreted by me (1pt min.). @ -None done U/S interpreted by me (1pt. min.). @ -None done What testing was considered but not performed or refused? (CT, X-rays, U/S, labs)? Why? @ -See above What meds were considered but not given or refused? Why? @ -See above Did you discuss the management of the patient with other professionals (gabriele gresham i.e. ALEX Jim, FOREST AIDE, lab, RT, psych nurse, child welfare social worker, bowling ball engraver, teacher, commanding officer traffic division, casework specialist)? Give summary @ -Is discussed with Dr. Yin for admission Was smoking cessation discussed for >3mins.? @ -No Was critical care preformed (if so, how long)? @ -No Were there social determinants of health that impacted care today? How? (Homelessness, low income, unemployed, alcoholism, drug addiction, transportation, low edu. Level, literacy, decrease access to med. care, [facility], rehab)? @ -No Was there de-escalation of care discussed even if they declined (Discuss DNR or withdrawal of care, Hospice)? DNR status @ -No What co-morbidities impacted this encounter? (DM, HTN, Smoking, COPD, CAD, Cancer, CVA, ARF, Chemo, Hep., AIDS, mental health diagnosis, sleep apnea, morbid obesity)? @ -None Was patient admitted / discharged? Hospital course, mention meds given and route, prescriptions, significant lab abnormalities, going to OR and other pertinent info. @ -57-year-old male presents to the emergency department for exertional dyspnea. While in the emergency department complaint of atypical chest pain with typical features. After evaluation obtained. Labs are unremarkable. Negative troponin, negative d-dimer. Patient not dyspneic at the bedside. Patient be admitted for cardiac monitoring, observation, so troponins and cardiology consultation. Undiagnosed new problem with uncertain prognosis? @ -No Drug Therapy requiring intensive monitoring for toxicity (Heparin, Nitro, Insulin, Cardizem)? @ -No Were any procedures done? @ -No Diagnosis/symptom? Acute, or Chronic, or Acute on Chronic? Uncomplicated (without systemic symptoms) or Complicated (systemic symptoms)? @ -1. Acute chest pain and dyspnea suspicious for ACS Side effects of treatment? @ -No Exacerbation, Progression, or Severe Exacerbation? @ -No Poses a threat to life or bodily function? How? (Chest pain, [place], MA, pneumonia, PE, COPD, DKA, ARF, appy, cholecystitis, CVA, Diverticulitis, Homicidal, Suicidal, threat to staff... and all critical care pts) @ -Yes - Related Data Home Medications Medication Instructions Recorded Confirmed Amiodarone [Cordarone] 200 mg PO BID 07/20/22 11/02/22 Atorvastatin [Lipitor] 40 mg PO HS 07/20/22 11/02/22 Edoxaban Tosylate [Savaysa] 60 mg PO DAILY 07/20/22 11/02/22 Metoprolol Tartrate [Lopressor] 50 mg PO BID 07/20/22 11/02/22 Previous Rx's Medication Instructions Recorded lisinopriL [Zestril] 5 mg PO DAILY #30 tab 06/03/20 Allergies Allergy/AdvReac Type Severity Reaction Status Date / Time Penicillins Allergy Rash/Hives Verified 11/02/22 18:17 Review of Systems ROS Statement: Those systems with pertinent positive or pertinent negative responses have been documented in the HPI. ROS Other: All systems not noted in ROS Statement are negative. Past Medical History Past Medical History: Atrial Fibrillation, CVA/TIA, Hypertension, Osteoarthritis (OA), Pneumonia, Seizure Disorder Additional Past Medical History / Comment(s): Afib recently diagnosed, lower extremity edema, ETOH abuse with past withdrawal/seizure in 12/2018, chronic generalized pain, pt states he had a TIA in 2018 while in [place] and was intubated. Reports had a kidney stone in another a few days ago. History of Any Multi-Drug Resistant Organisms: None Reported Past Surgical History: Orthopedic Surgery Additional Past Surgical History / Comment(s): R thumb fracture with surgery., cardioverison Past Anesthesia/Blood Transfusion Reactions: No Reported Reaction Past Psychological History: Anxiety, Depression Smoking Status: Never smoker Past Alcohol Use History: Abuse, Daily Past Drug Use History: None Reported - Past Family History Father Family Medical History: Myocardial Infarction (MA) Additional Family Medical History / Comment(s): Father of a MA at the age of 57 yrs. Mother Family Medical History: Hyperlipidemia, Hypertension Additional Family Medical History / Comment(s): Mother at the age of 89yrs. Course Vital Signs 11/02/22 11/02/22 11/02/22 17:26 17:30 18:00 Temperature 98.0 F Pulse Rate 55 L 54 L Respiratory 20 20 16 Rate Blood Pressure 124/82 133/84 O2 Sat by Pulse 97 95 Oximetry 11/02/22 18:20 Temperature Pulse Rate 55 L Respiratory 16 Rate Blood Pressure 137/86 O2 Sat by Pulse 96 Oximetry Medical Decision Making - Lab Data Result diagrams: 11/02/22 18:21 11/02/22 18:21 Lab Results 11/02/22 11/02/22 11/02/22 Range/Units 18:21 18:21 18:21 WBC 6.6 (3.8-10.6) k/uL RBC 5.06 (4.30-5.90) m/uL Hgb 16.3 (13.0-17.5) gm/dL Hct 48.7 (39.0-53.0) % MCV 96.3 (80.0-100.0) fL MCH 32.3 (25.0-35.0) pg MCHC 33.5 (31.0-37.0) g/dL RDW 15.1 (11.5-15.5) % Plt Count 182 (150-450) k/uL MPV 7.3 Neutrophils % 70 % Lymphocytes % 16 % Monocytes % 8 % Eosinophils % 2 % Basophils % 2 % Neutrophils # 4.6 (1.3-7.7) k/uL Lymphocytes # 1.1 (1.0-4.8) k/uL Monocytes # 0.5 (0-1.0) k/uL Eosinophils # 0.1 (0-0.7) k/uL Basophils # 0.1 (0-0.2) k/uL PT 13.0 H (9.0-12.0) sec INR 1.3 H (<1.2) APTT 28.1 (22.0-30.0) sec D-Dimer (<0.60) mg/L FEU Sodium 136 L (137-145) mmol/L Potassium 4.0 (3.5-5.1) mmol/L Chloride 104 (98-107) mmol/L Carbon Dioxide 22 (22-30) mmol/L Anion Gap 10 mmol/L BUN 14 (9-20) mg/dL Creatinine 1.05 (0.66-1.25) mg/dL Est GFR (CKD-EPI)AfAm >90 (>60 ml/min/1.73 sqM) Est GFR (CKD-EPI)NonAf 78 (>60 ml/min/1.73 sqM) Glucose 92 (74-99) mg/dL Calcium 8.8 (8.4-10.2) mg/dL Total Bilirubin 1.2 (0.2-1.3) mg/dL AST 37 (17-59) U/L ALT 37 (4-49) U/L Alkaline Phosphatase 92 (38-126) U/L Troponin I (0.000-0.034) ng/mL Total Protein 7.2 (6.3-8.2) g/dL Albumin 4.3 (3.5-5.0) g/dL Serum Alcohol <10 mg/dL 11/02/22 11/02/22 Range/Units 18:21 18:35 WBC (3.8-10.6) k/uL RBC (4.30-5.90) m/uL Hgb (13.0-17.5) gm/dL Hct (39.0-53.0) % MCV (80.0-100.0) fL MCH (25.0-35.0) pg MCHC (31.0-37.0) g/dL RDW (11.5-15.5) % Plt Count (150-450) k/uL MPV Neutrophils % % Lymphocytes % % Monocytes % % Eosinophils % % Basophils % % Neutrophils # (1.3-7.7) k/uL Lymphocytes # (1.0-4.8) k/uL Monocytes # (0-1.0) k/uL Eosinophils # (0-0.7) k/uL Basophils # (0-0.2) k/uL PT (9.0-12.0) sec INR (<1.2) APTT (22.0-30.0) sec D-Dimer <0.17 (<0.60) mg/L FEU Sodium (137-145) mmol/L Potassium (3.5-5.1) mmol/L Chloride (98-107) mmol/L Carbon Dioxide (22-30) mmol/L Anion Gap mmol/L BUN (9-20) mg/dL Creatinine (0.66-1.25) mg/dL Est GFR (CKD-EPI)AfAm (>60 ml/min/1.73 sqM) Est GFR (CKD-EPI)NonAf (>60 ml/min/1.73 sqM) Glucose (74-99) mg/dL Calcium (8.4-10.2) mg/dL Total Bilirubin (0.2-1.3) mg/dL AST (17-59) U/L ALT (4-49) U/L Alkaline Phosphatase (38-126) U/L Troponin I <0.012 (0.000-0.034) ng/mL Total Protein (6.3-8.2) g/dL Albumin (3.5-5.0) g/dL Serum Alcohol mg/dL Disposition Clinical Impression: Chest pain, Dyspnea Disposition: ADMITTED IP TO [facility] Condition: Fair Referrals: None,Stated [Primary Care Provider] - 1-2 days Decision Time: 20:02
[2022-11-02 19:05] LABS: INR 1.3 (<1.2); Partial Thromboplastin Time 28.1 sec (22.0-30.0)
--- NOTE | 2022-11-02 19:28 | XR ---
EXAMINATION TYPE: XR chest 2V DATE OF EXAM: 11/02/2022 7:18 PM COMPARISON: Chest radiographs from 10/25/2022 TECHNIQUE: XR chest 2V Frontal and lateral views of the chest. CLINICAL INDICATION:Male, 57 years old with history of dyspnea; FINDINGS: Lungs/Pleura: There is no evidence of pleural effusion, focal consolidation, or pneumothorax. Pulmonary vascularity: Unremarkable. Heart/mediastinum: Cardiomediastinal silhouette is unremarkable. Musculoskeletal: No acute osseous pathology. IMPRESSION: No acute cardiopulmonary disease/process.
[2022-11-02] MEDS ORDERED: NITROGLYCERIN SL TABS 0.4 MG TAB SUBLINGUAL STA (19:52)
[2022-11-02] MEDS ORDERED: ASPIRIN 81 MG PO STA (19:59)
[2022-11-02] MEDS ORDERED: NITROGLYCERIN SL TABS 0.4 MG TAB SUBLINGUAL PRN (20:02)
--- NOTE | 2022-11-03 10:41 | P.HPPUL ---
History of Present Illness H&P Date: 11/03/22 Chief Complaint: Shortness of breath, tremulousness 57-year-old with extensive history of alcohol consumption was discharged from the hospital 2 days after came back to emergency department as he was leaving the hospital developed increased tremulousness and shakiness and dyspnea on exertion also of feeling lightheaded and dizzy at the bus stop decided to come into the hospital. Patient was admitted into hospital for alcohol intoxication and withdrawal and has been on Ciwa protocol which she tolerated well and was discharged in stable condition. His past medical history significant for chronic atrial fibrillation and history of CVA, hypertension hypertensive cardi ovascular disease and pneumonia seizure disorder chronic lower extremity edema history of alcohol withdrawal seizures history of intubation with TIA in 2019 and stroke from which he recovered, on admitted chest x-ray was unremarkable, EKG revealed sinus bradycardia d-dimer was normal quite so K chemistry and CBC within normal limit Review of Systems All systems: negative Past Medical History Past Medical History: Atrial Fibrillation, CVA/TIA, Hypertension, Osteoarthritis (OA), Pneumonia, Seizure Disorder Additional Past Medical History / Comment(s): Afib recently diagnosed, lower extremity edema, ETOH abuse with past withdrawal/seizure in 12/2018, chronic generalized pain, pt states he had a TIA in 2019 while in [place] and was intubated. Reports had a kidney stone in another a few days ago. History of Any Multi-Drug Resistant Organisms: None Reported Past Surgical History: Orthopedic Surgery Additional Past Surgical History / Comment(s): R thumb fracture with surgery., cardioverison Past Anesthesia/Blood Transfusion Reactions: No Reported Reaction Past Psychological History: Anxiety, Depression Additional Psychological History / Comment(s): Pt is currently homeless and when asked if he has thoughts of suicide he reports "yes" Smoking Status: Never smoker Past Alcohol Use History: Abuse, Daily Additional Past Alcohol Use History / Comment(s): pt. drinks a fith a day sometimes two Past Drug Use History: None Reported - Past Family History Father Family Medical History: Myocardial Infarction (NC) Additional Family Medical History / Comment(s): Father of a [place] at the age of 57 yrs. Mother Family Medical History: Hyperlipidemia, Hypertension Additional Family Medical History / Comment(s): Mother at the age of 89yrs. Medications and Allergies Home Medications Medication Instructions Recorded Confirmed Type lisinopriL [Zestril] 5 mg PO DAILY #30 tab 06/03/20 11/02/22 Rx Amiodarone [Cordarone] 200 mg PO BID 07/20/22 11/02/22 History Atorvastatin [Lipitor] 40 mg PO HS 07/20/22 11/02/22 History Edoxaban Tosylate [Savaysa] 60 mg PO DAILY 07/20/22 11/02/22 History Metoprolol Tartrate [Lopressor] 50 mg PO BID 07/20/22 11/02/22 History Allergies Allergy/AdvReac Type Severity Reaction Status Date / Time Penicillins Allergy Rash/Hives Verified 11/02/22 18:17 Physical Examination Vital signs: Vital Signs Temp Pulse Resp BP Pulse Ox 98.0 F 55 L 20 124/82 97 11/02/22 17:26 11/02/22 17:26 11/02/22 17:26 11/02/22 17:26 11/02/22 17:26 General appearance: no acute distress, alert Eyes: nonicteric ENT: oropharynx moist Neck: supple, no lymphadenopathy, no JVD Effort: normal Auscultation: Bilateral: clear Percussion: Bilateral: not dull Tactile fremitus: Bilateral: normal Cardiovascular: regular rate and rhythm Gastrointestinal: normoactive bowel sounds Integumentary: normal Extremities: no cyanosis Musculoskeletal: no deformities, ROM normal Gait: normal gait, normal posture normal mental status, non-focal exam, pupils equal and round, CN II-XII normal, motor strength normal and symmetric mood appropriate, affect normal Results - Laboratory Findings CBC and BMP: 11/02/22 18:21 11/02/22 18:21 PT/INR, D-dimer PT 13.0 sec (9.0-12.0) H 11/02/22 18:21 INR 1.3 (<1.2) H 11/02/22 18:21 D-Dimer <0.17 mg/L FEU (<0.60) 11/02/22 18:35 Abnormal lab findings: Abnormal Labs 11/02/22 11/02/22 18:21 18:21 PT 13.0 H INR 1.3 H Sodium 136 L - Diagnostic Findings Chest x-ray: report reviewed, image reviewed (Finding as noted above) Assessment and Plan Assessment: Dizziness and lightheadedness due to alcohol withdrawal and some component of sinus bradycardia, Chronic atrial fibrillation Sleep disorder breathing and sleep apnea History of stroke in the past and TIAs Strong history of alcohol use Plan: Gentle rehydration Check urine for drug screen Alcohol level and d-dimer within normal limit Observe clinical course closely further recommendations pending Time with Patient: Greater than 30
[2022-11-03] MEDS: ASPIRIN 325 MG TAB PO SCH (11:10)
[2022-11-03] MEDS: EDOXABAN TOSYLATE 60 MG TABLET PO SCH (11:10)
[2022-11-03] MEDS: METOPROLOL TARTRATE 50 MG TAB PO SCH ×2 (11:10→20:20)
[2022-11-03] MEDS: AMIODARONE 200 MG TAB PO SCH ×2 (11:10→20:20)
[2022-11-03] MEDS: SODIUM CHLORIDE 0.9% 1,000 ML IV SCH (11:11)
[2022-11-03] MEDS ORDERED: LORazepam 1 MG TAB PO PRN ×3 (11:20)
--- NOTE | 2022-11-03 12:25 | P.CRDCN ---
History of Present Illness Consult date: 11/03/22 History of present illness: Patient is a 57-year-old gentleman with an a known history of extensive alcohol abuse atrial fibrillation, CVA/TIA, hypertension, osteoarthritis, pneumonia, seizure disorder. We've been consulted to see the patient for chest pain. Patient was discharged from the hospital yesterday after being admitted for alcohol abuse, chest pain, and liver disease. He began walking to catch the bus and became short of breath. Came back to be evaluated. Patient's troponins have been negative 3. His initial EKG showed sinus bradycardia. His chest x- ray was negative for acute cardiopulmonary process. His d-dimer was negative. Patient is on Lopressor 50 mg twice a day. Review of Systems REVIEW OF SYSTEMS At the time of my exam: CONSTITUTIONAL: Denies fever or chills. EYES: Negative for vision changes ENT: Negative for hearing loss CARDIOVASCULAR: Denies chest pain, shortness of breath, diaphoresis, orthopnea, PND or palpitations. VASCULAR: Denies edema RESPIRATORY: Denies cough. GASTROINTESTINAL: Denies abdominal pain, diarrhea, constipation, nausea or vomiting. MUSCULOSKELETAL: Denies myalgias. NEUROLOGIC: Denies numbness, tingling, headache or weakness. ENDOCRINE: Denies fatigue, weight change, polydipsia or polyurina. GENITOURINARY: Denies burning, hematuria or urgency with micturation. HEMATOLOGIC: Denies history of anemia or bleeding. DERMATOLOGY: Denies rash or skin sores PSYCH: Negative for depression or hallucinations. Past Medical History Past Medical History: Atrial Fibrillation, CVA/TIA, Hypertension, Osteoarthritis (OA), Pneumonia, Seizure Disorder Additional Past Medical History / Comment(s): Afib recently diagnosed, lower extremity edema, ETOH abuse with past withdrawal/seizure in 12/2018, chronic generalized pain, pt states he had a TIA in 2019 while in [place] and was intubated. Reports had a kidney stone in another a few days ago. History of Any Multi-Drug Resistant Organisms: None Reported Past Surgical History: Orthopedic Surgery Additional Past Surgical History / Comment(s): R thumb fracture with surgery., cardioverison Past Anesthesia/Blood Transfusion Reactions: No Reported Reaction Past Psychological History: Anxiety, Depression Additional Psychological History / Comment(s): Pt is currently homeless and when asked if he has thoughts of suicide he reports "yes" Smoking Status: Never smoker Past Alcohol Use History: Abuse, Daily Additional Past Alcohol Use History / Comment(s): pt. drinks a fith a day sometimes two Past Drug Use History: None Reported - Past Family History Father Family Medical History: Myocardial Infarction (DE) Additional Family Medical History / Comment(s): Father of a DE at the age of 57 yrs. Mother Family Medical History: Hyperlipidemia, Hypertension Additional Family Medical History / Comment(s): Mother at the age of 89yrs. Medications and Allergies Home Medications Medication Instructions Recorded Confirmed Type lisinopriL [Zestril] 5 mg PO DAILY #30 tab 06/03/20 11/02/22 Rx Amiodarone [Cordarone] 200 mg PO BID 07/20/22 11/02/22 History Atorvastatin [Lipitor] 40 mg PO HS 07/20/22 11/02/22 History Edoxaban Tosylate [Savaysa] 60 mg PO DAILY 07/20/22 11/02/22 History Metoprolol Tartrate [Lopressor] 50 mg PO BID 07/20/22 11/02/22 History Allergies Allergy/AdvReac Type Severity Reaction Status Date / Time Penicillins Allergy Rash/Hives Verified 11/02/22 18:17 Physical Exam Vitals: Vital Signs Temp Pulse Pulse Resp BP BP Pulse Ox 11/03/22 11:02 97.7 F 61 18 183/84 97 11/03/22 08:19 97 11/03/22 08:00 57 L 11/03/22 02:00 57 L 18 102/64 97 11/02/22 22:51 57 L 11/02/22 21:51 98 F 57 L 20 168/87 97 11/02/22 21:00 51 L 16 147/87 96 11/02/22 20:09 57 L 16 120/90 95 11/02/22 20:00 61 16 132/91 98 11/02/22 19:30 66 16 151/95 98 11/02/22 18:20 55 L 16 137/86 96 11/02/22 18:00 54 L 16 133/84 95 11/02/22 17:30 20 11/02/22 17:26 98.0 F 55 L 20 124/82 97 Intake and Output 11/02/22 11/03/22 11/03/22 22:59 06:59 14:59 Intake Total 540 Balance 540 Intake: Oral 540 Other: Voiding Method Toilet # Voids 1 Weight 117.934 kg General: The patient is awake and alert, in no distress, and does not appear acutely ill. Skin: Skin is warm and dry and no rashes or lesions are noted. Eye: Pupils are equal, round and reactive to light, extra-ocular movements are intact; there is normal conjunctiva bilaterally. Ears, nose, mouth and throat: There are moist mucous membranes and no oral lesions. Neck: The neck is supple, there is no tenderness or JVD. Cardiovascular: There is irregular regular rate and rhythm. No murmur, rub or gallop is appreciated. Respiratory: Lungs are clear to auscultation, respirations are non-labored, breath sounds are equal. Gastrointestinal: Soft, non-distended, non-tender abdomen without masses or organomegaly noted. There is no rebound or guarding present. Bowel sounds are unremarkable. Back: There is no tenderness to palpation in the midline. There is no obvious deformity. Musculoskeletal: Normal ROM, no tenderness, There is no pedal edema. There is no calf tenderness or swelling. Extremities: Mild bilateral pitting edema Vascular: Femoral pulse is normal. Posterior tibial pulses are normal .Dorsalis pedis is palpable. Neurological: CN II-XII intact. There are no obvious motor or sensory deficits. Speech is normal. Psychiatric: Cooperative, appropriate mood & affect, normal judgment Results 11/02/22 18:21 11/02/22 18:21 Cardiac Enzymes 11/02/22 11/02/22 11/02/22 Range/Units 18:21 18:21 21:48 AST 37 (17-59) U/L Troponin I <0.012 <0.012 (0.000-0.034) ng/mL 11/03/22 Range/Units 00:15 AST (17-59) U/L Troponin I <0.012 (0.000-0.034) ng/mL Coagulation 11/02/22 Range/Units 18:21 PT 13.0 H (9.0-12.0) sec APTT 28.1 (22.0-30.0) sec CBC 11/02/22 Range/Units 18:21 WBC 6.6 (3.8-10.6) k/uL RBC 5.06 (4.30-5.90) m/uL Hgb 16.3 (13.0-17.5) gm/dL Hct 48.7 (39.0-53.0) % Plt Count 182 (150-450) k/uL Comprehensive Metabolic Panel 11/02/22 Range/Units 18:21 Sodium 136 L (137-145) mmol/L Potassium 4.0 (3.5-5.1) mmol/L Chloride 104 (98-107) mmol/L Carbon Dioxide 22 (22-30) mmol/L BUN 14 (9-20) mg/dL Creatinine 1.05 (0.66-1.25) mg/dL Glucose 92 (74-99) mg/dL Calcium 8.8 (8.4-10.2) mg/dL AST 37 (17-59) U/L ALT 37 (4-49) U/L Alkaline Phosphatase 92 (38-126) U/L Total Protein 7.2 (6.3-8.2) g/dL Albumin 4.3 (3.5-5.0) g/dL Current Medications Generic Name Dose Route Start Last Admin Trade Name Freq PRN Reason Stop Dose Admin Amiodarone HCl 200 mg 11/03/22 09:30 11/03/22 11:10 Amiodarone 200 Mg Tab PO 200 mg BID TRACY Administration Aspirin 325 mg 11/03/22 09:00 11/03/22 11:10 Aspirin 325 Mg Tab PO 325 mg DAILY TRACY Administration Atorvastatin Calcium 40 mg 11/03/22 21:00 Atorvastatin 40 Mg Tab PO HS [facility] Edoxaban 60 mg 11/03/22 09:45 11/03/22 11:10 Edoxaban Tosylate 60 Mg Tablet PO 60 mg DAILY TRACY Administration Protocol Folic Acid 1 mg 11/04/22 09:00 Folic Acid 1 Mg Tab PO DAILY [facility] Sodium Chloride 1,000 mls @ 75 mls/hr 11/03/22 11:00 11/03/22 11:11 Saline 0.9% IV Not Given .[id number] TRACY Lisinopril 5 mg 11/03/22 21:00 Lisinopril 5 Mg Tab PO HS TRACY Lorazepam 0.5 mg 11/03/22 11:20 Lorazepam 0.5 Mg Tab PO Q4HR PRN Ciwa 4 To 5 Lorazepam 1 mg 11/03/22 11:20 Lorazepam 1 Mg Tab PO Q4HR PRN Ciwa 6 To 7 Lorazepam 2 mg 11/03/22 11:20 Lorazepam 1 Mg Tab PO Q2HR PRN Ciwa 10 or greater Lorazepam 2 mg 11/03/22 11:20 11/03/22 11:28 Lorazepam 1 Mg Tab PO 2 mg Q3HR PRN Administration Ciwa 8 To 9 Metoprolol Tartrate 50 mg 11/03/22 09:30 11/03/22 11:10 Metoprolol Tartrate 50 Mg Tab PO 50 mg BID TRACY Administration Nitroglycerin 0.4 mg 11/02/22 20:02 Nitroglycerin Sl Tabs 0.4 Mg Tab SUBLINGUAL Q5M PRN Chest Pain Thiamine HCl 100 mg 11/04/22 09:00 Thiamine 100 Mg Tab PO DAILY TRACY Intake and Output 11/02/22 11/03/22 11/03/22 22:59 06:59 14:59 Intake Total 540 Balance 540 Intake: Oral 540 Other: Voiding Method Toilet # Voids 1 Weight 117.934 kg 11/02/22 18:21 11/02/22 18:21 Assessment and Plan Assessment: Chest pain EtOH abuse History of atrial fibrillation Plan: Obtain a 2-D echocardiogram to evaluate wall motion and LV function Continue with cardiac medications Continue with telemetry monitoring Further recommendations based on clinical course The above impression and plan of care have been discussed and directed by the signing physician. Agustina Mc, nurse practitioner, acting as scribe for signing physician.
[2022-11-03] MEDS: ATORVASTATIN 40 MG TAB PO SCH (20:20)
[2022-11-03] MEDS: LORazepam 0.5 MG TAB PO PRN (20:20)
[2022-11-03] MEDS: lisinopriL 5 MG TAB PO SCH (20:20)
[2022-11-03 21:51] LABS: Chol/HDL Ratio 2.38 Ratio; LDL Cholesterol,Calculated 63.4 mg/dL (0.0-131.0); VLDL Calculation 13.72 mg/dL (5.00-40.00)
[2022-11-04 00:18] LABS: Amphetamine Screen,Urine Not Detected (NotDetected); Barbiturate Screen,Urine Not Detected (NotDetected); Benzodiazepines Screen,Urine Detected (NotDetected); Cocaine Screen,Urine Not Detected (NotDetected); Methadone Screen, Urine Not Detected (NotDetected); Opiate Screen,Urine Not Detected (NotDetected); Oxycodone Screen, Urine Not Detected (NotDetected); Phencyclidine Screen,Urine Not Detected (NotDetected); Tricyclic Antidepressant,Urine Not Detected (NotDetected); Urn Cannabinoid Scrn Not Detected (NotDetected)
[2022-11-04] MEDS: SODIUM CHLORIDE 0.9% 1,000 ML IV SCH ×2 (01:35→15:19)
[2022-11-04] MEDS: LORazepam 0.5 MG TAB PO PRN ×2 (02:51→20:27)
[2022-11-04] MEDS: THIAMINE 100 MG TAB PO SCH (08:23)
[2022-11-04] MEDS: METOPROLOL TARTRATE 50 MG TAB PO SCH ×2 (08:23→20:28)
[2022-11-04] MEDS: EDOXABAN TOSYLATE 60 MG TABLET PO SCH (08:23)
[2022-11-04] MEDS: AMIODARONE 200 MG TAB PO SCH ×2 (08:23→20:27)
[2022-11-04] MEDS: FOLIC ACID 1 MG TAB PO SCH (08:23)
[2022-11-04] MEDS: ASPIRIN 325 MG TAB PO SCH (08:23)
--- NOTE | 2022-11-04 09:21 | CA ---
Transthoracic Echo Report Name: Evaristo Matthews Age: 57 Gender: M : 1965 Exam Date: 11/03/2022 13:54 Exam Location: [facility] Ht (in): 71 Wt (lb): 260 Ordering Physician: Agustina Mc Attending/Referring Phys: Rn Prior Authorization Procedure CPT: Indications: Chest Pain Cardiac Hx: Technical Quality: Technically difficult study Contrast 1: Lumason Total Dose (mL): 5 Contrast 2: Total Dose (mL): MEASUREMENTS (Male / Female) Normal Values 2D ECHO LV Diastolic Diameter PLAX 5.3 cm 4.2 - 5.9 / 3.9 - 5.3 cm LV Systolic Diameter PLAX 3.4 cm IVS Diastolic Thickness 1.2 cm 0.6 - 1.0 / 0.6 - 0.9 cm LVPW Diastolic Thickness 1.2 cm 0.6 - 1.0 / 0.6 - 0.9 cm LV Relative Wall Thickness 0.5 RV Internal Dim ED PLAX 3.1 cm M-MODE Aortic Root Diameter MM 3.5 cm LA Systolic Diameter MM 4.1 cm LA Ao Ratio MM 1.2 AV Cusp Separation MM 2.3 cm DOPPLER AV Peak Velocity 112.5 cm/s AV Peak Gradient 5.1 mmHg AV Mean Velocity 89.2 cm/s AV Mean Gradient 3.4 mmHg AV Velocity Time Integral 25.5 cm AI Peak Velocity 125.6 cm/s AI Peak Gradient 6.3 mmHg AI Pressure Half Time 744.1 ms MV Area PHT 3.1 cm??? Mitral E Point Velocity 64.0 cm/s Mitral A Point Velocity 48.7 cm/s Mitral E to A Ratio 1.3 MV Deceleration Time 245.8 ms FINDINGS Left Ventricle No obvious regional wall motion abnormalities. Left ventricular cavity size normal. Mildly increased left ventricular wall thickness. Left ventricular ejection fraction is estimated at 50-55 %. Right Ventricle Normal right ventricular size and function. Right Atrium Right atrium not well visualized. Left Atrium Normal left atrial size. Mitral Valve No mitral stenosis, regurgitation or prolapse. Aortic Valve No aortic stenosis. Trace aortic regurgitation. Tricuspid Valve Structurally normal tricuspid valve. Trace to mild tricuspid regurgitation. Pulmonic Valve Pulmonic valve not well visualized. Pericardium No pericardial effusion. Aorta Normal size aortic root and proximal ascending aorta. CONCLUSIONS Normal LV systolic function Previewed by: Dr. Elie Davis MD (Electronically Signed) Final Date: 04 November 2022 09:20
--- NOTE | 2022-11-04 09:36 | P.PN ---
Subjective Progress Note Date: 11/04/22 Principal diagnosis: Dizziness and lightheadedness due to alcohol withdrawal and some component of sinus bradycardia, Chronic atrial fibrillation Sleep disorder breathing and sleep apnea History of stroke in the past and TIAs Strong history of alcohol use 11/04/2022, patient seen eval examined the rounds is still tremulous ongoing shaking is present, patient is on CIWA protocol received 3 mg of Ativan overnight, his urine for drug screen is negative, patient continued to have the bradycardia and borderline low blood pressure saturation 97% on room air 57-year-old with extensive history of alcohol consumption was discharged from the hospital 2 days after came back to emergency department as he was leaving the hospital developed increased tremulousness and shakiness and dyspnea on exertion also of feeling lightheaded and dizzy at the bus stop decided to come into the hospital. Patient was admitted into hospital for alcohol intoxication and withdrawal and has been on Ciwa protocol which she tolerated well and was discharged in stable condition. His past medical history significant for chronic atrial fibrillation and history of CVA, hypertension hypertensive cardiovascular disease and pneumonia seizure disorder chronic lower extremity edema history of alcohol withdrawal seizures history of intubation with TIA in 2019 and stroke from which he recovered, on admitted chest x-ray was unremarkable, EKG revealed sinus bradycardia d-dimer was normal quite so K chemistry and CBC within normal limit Objective - Vital Signs Vital signs: Vital Signs Temp 98.1 F 11/03/22 20:00 Pulse 57 L 11/04/22 08:00 Resp 18 11/04/22 08:00 BP 103/57 11/04/22 08:00 Pulse Ox 97 11/04/22 08:44 FiO2 Intake & Output 11/03/22 11/04/22 11/04/22 18:59 06:59 18:59 Intake Total 540 Balance 540 Intake: Oral 540 Other: Voiding Method Toilet - Exam General appearance: no acute distress, alert Eyes: nonicteric ENT: oropharynx moist Neck: supple, no lymphadenopathy, no JVD Effort: normal Auscultation: Bilateral: clear Percussion: Bilateral: not dull Tactile fremitus: Bilateral: normal Cardiovascular: regular rate and rhythm Gastrointestinal: normoactive bowel sounds Integumentary: normal Extremities: no cyanosis Musculoskeletal: no deformities, ROM normal Gait: normal gait, normal posture normal mental status, non-focal exam, pupils equal and round, CN II-XII normal, motor strength normal and symmetric mood appropriate, affect normal - Labs CBC & Chem 7: 11/02/22 18:21 11/02/22 18:21 Labs: Abnormal Lab Results - Last 24 Hours (Table) 11/03/22 Range/Units 22:56 U Benzodiazepines Scrn Detected H (NotDetected) Assessment and Plan Assessment: Dizziness and lightheadedness due to alcohol withdrawal and some component of sinus bradycardia, Chronic atrial fibrillation Sleep disorder breathing and sleep apnea History of stroke in the past and TIAs Strong history of alcohol use Plan: Continue CIWA protocol and Ativan Gentle rehydration Check and noted urine for drug screen Alcohol level and d-dimer within normal limit Observe clinical course closely further recommendations pending Time with Patient: Greater than 30
--- NOTE | 2022-11-04 12:56 | P.PN ---
Subjective Progress Note Date: 11/04/22 History of present illness: Patient is a 57-year-old gentleman with an a known history of extensive alcohol abuse atrial fibrillation, CVA/TIA, hypertension, osteoarthritis, pneumonia, seizure disorder. We've been consulted to see the patient for chest pain. Patient was discharged from the hospital yesterday after being admitted for alcohol abuse, chest pain, and liver disease. He began walking to catch the bus and became short of breath. Came back to be evaluated. Patient's troponins have been negative 3. His initial EKG showed sinus bradycardia. His chest x- ray was negative for acute cardiopulmonary process. His d-dimer was negative. Patient is on Lopressor 50 mg twice a day. 11/04 Patient states he had a little left-sided chest pain today. He states he is really here for detox from alcohol. Reviewed echocardiogram results with the patient. Heart rate is in the 50s atrial fibrillation, blood pressure 103/57, pulse ox 93% on room air. Echocardiogram reveals normal LV systolic function Physical examination: Gen: This is a 57-year-old male. His resting in bed and appears to be comfortable. VS: reviewed HEENT: Head is atraumatic, normocephalic. Pupils equal, round. Sclerae is anicteric. NECK: Supple. No JVD. LUNGS: Clear to auscultation. No wheezes or rhonchi. No intercostal retractions. HEART: Regular rate and rhythm. No murmur. ABDOMEN: Soft. No tenderness. EXTREMITIES: No pedal edema. No calf tenderness. NEUROLOGICAL: Patient is awake, alert and oriented x3. Assessment: Chest pain, acute coronary syndrome ruled out, noncardiac pain most likely musculoskeletal Alcohol abuse Persistent atrial fibrillation Plan: Continue patient's home cardiac medications Cardiology will sign off and follow on an as-needed basis. Please reconsult for any new concerns. Nurse practitioner note has been reviewed, I agree with documented findings and plan of care. Patient was seen and examined. Objective - Vital Signs Vital signs: Vital Signs Temp 98.1 F 11/03/22 20:00 Pulse 57 L 11/04/22 08:00 Resp 18 11/04/22 08:00 BP 103/57 11/04/22 08:00 Pulse Ox 97 11/04/22 08:44 FiO2 Intake & Output 11/03/22 11/04/22 11/04/22 18:59 06:59 18:59 Intake Total 540 Balance 540 Intake: Oral 540 Other: Voiding Method Toilet - Labs CBC & Chem 7: 11/02/22 18:21 11/02/22 18:21 Labs: Abnormal Lab Results - Last 24 Hours (Table) 11/03/22 Range/Units 22:56 U Benzodiazepines Scrn Detected H (NotDetected)
[2022-11-04] MEDS: lisinopriL 5 MG TAB PO SCH (20:28)
[2022-11-04] MEDS: ATORVASTATIN 40 MG TAB PO SCH (20:28)
[2022-11-05] MEDS: LORazepam 0.5 MG TAB PO PRN ×3 (00:12→21:04)
[2022-11-05] MEDS: SODIUM CHLORIDE 0.9% 1,000 ML IV SCH ×3 (03:17→21:10)
[2022-11-05] MEDS: ASPIRIN 325 MG TAB PO SCH (10:24)
[2022-11-05] MEDS: THIAMINE 100 MG TAB PO SCH (10:24)
[2022-11-05] MEDS: FOLIC ACID 1 MG TAB PO SCH (10:24)
[2022-11-05] MEDS: METOPROLOL TARTRATE 50 MG TAB PO SCH ×2 (10:24→21:04)
[2022-11-05] MEDS: EDOXABAN TOSYLATE 60 MG TABLET PO SCH (11:51)
[2022-11-05] MEDS: AMIODARONE 200 MG TAB PO SCH ×2 (11:51→21:04)
[2022-11-05] MEDS: ATORVASTATIN 40 MG TAB PO SCH (21:04)
[2022-11-05] MEDS: lisinopriL 5 MG TAB PO SCH (21:04)
[2022-11-06] MEDS: LORazepam 0.5 MG TAB PO PRN ×2 (00:54→07:55)
[2022-11-06 05:06] VITALS: RESP 16
[2022-11-06 07:43] VITALS: BP 143/84; PULSE 64; TEMP 98.1
[2022-11-06] MEDS: METOPROLOL TARTRATE 50 MG TAB PO SCH (07:55)
[2022-11-06] MEDS: AMIODARONE 200 MG TAB PO SCH (07:55)
[2022-11-06] MEDS: EDOXABAN TOSYLATE 60 MG TABLET PO SCH (07:55)
[2022-11-06] MEDS: THIAMINE 100 MG TAB PO SCH (07:55)
[2022-11-06] MEDS: ASPIRIN 325 MG TAB PO SCH (07:55)
[2022-11-06] MEDS: FOLIC ACID 1 MG TAB PO SCH (07:55)
--- NOTE | 2022-11-06 17:19 | P.PN ---
Subjective Progress Note Date: 11/05/22 Principal diagnosis: Dizziness and lightheadedness due to alcohol withdrawal and some component of sinus bradycardia, Chronic atrial fibrillation Sleep disorder breathing and sleep apnea History of stroke in the past and TIAs Strong history of alcohol use 11/05/2022, patient seen evalbertina examined tremulousness and anxiety slightly better today, patient is still getting Ativan as per Cipro protocol discussed with patient he feels is still on the edge but however appears that will likely be discharged in next 24 hours as the amount of Ativan requires is coming down 11/04/2022, patient seen eval examined the rounds is still tremulous ongoing shaking is present, patient is on CIWA protocol received 3 mg of Ativan overnight, his urine for drug screen is negative, patient continued to have the bradycardia and borderline low blood pressure saturation 97% on room air 57-year-old with extensive history of alcohol consumption was discharged from the hospital 2 days after came back to emergency department as he was leaving the hospital developed increased tremulousness and shakiness and dyspnea on exertion also of feeling lightheaded and dizzy at the bus stop decided to come into the hospital. Patient was admitted into hospital for alcohol intoxication and withdrawal and has been on Ciwa protocol which she tolerated well and was discharged in stable condition. His past medical history significant for chronic atrial fibrillation and history of CVA, hypertension hypertensive cardiovascular disease and pneumonia seizure disorder chronic lower extremity edema history of alcohol withdrawal seizures history of intubation with TIA in 2019 and stroke from which he recovered, on admitted chest x-ray was unremarkable, EKG revealed sinus bradycardia d-dimer was normal quite so K chemistry and CBC within normal limit Objective - Vital Signs Vital signs: Vital Signs Temp 98 F 11/05/22 07:33 Pulse 54 L 11/05/22 07:33 Resp 17 11/05/22 07:33 BP 153/92 11/05/22 07:33 Pulse Ox 95 11/05/22 07:33 FiO2 Intake & Output 11/04/22 11/05/22 11/05/22 18:59 06:59 18:59 Intake Total 600 1000 Balance 600 1000 Intake: Oral 600 1000 Other: Voiding Method Toilet - Exam General appearance: no acute distress, alert Eyes: nonicteric ENT: oropharynx moist Neck: supple, no lymphadenopathy, no JVD Effort: normal Auscultation: Bilateral: clear Percussion: Bilateral: not dull Tactile fremitus: Bilateral: normal Cardiovascular: regular rate and rhythm Gastrointestinal: normoactive bowel sounds Integumentary: normal Extremities: no cyanosis Musculoskeletal: no deformities, ROM normal Gait: normal gait, normal posture normal mental status, non-focal exam, pupils equal and round, CN II-XII normal, motor strength normal and symmetric mood appropriate, affect normal - Labs CBC & Chem 7: 11/02/22 18:21 11/02/22 18:21 Assessment and Plan Assessment: Dizziness and lightheadedness due to alcohol withdrawal and some component of sinus bradycardia, Chronic atrial fibrillation Sleep disorder breathing and sleep apnea History of stroke in the past and TIAs Strong history of alcohol use Plan: Continue CIWA protocol and Ativan Gentle rehydration Check and noted urine for drug screen Alcohol level and d-dimer within normal limit Observe clinical course closely further recommendations pending Time with Patient: Less than 30
== END 2022-11-06 12:30 | disposition left against medical advice (07) ==
LOC: EC 17:23 → INTOOBSV 20:02 → OBSVTOIN 20:02 → 4SSUR 20:02 → 3SCARD 21:29 → 6NMEDSUR 11-05 06:10 → UNDODISIN 11-06 12:30
PROVIDERS: ADMIT Internal Medicine Sleep Medicine; ATTEND Internal Medicine Sleep Medicine
DX: F10.139 Alcohol abuse with withdrawal, unspecified (principal); R00.1 Bradycardia, unspecified; I48.20 Chronic atrial fibrillation, unspecified; K70.9 Alcoholic liver disease, unspecified; I11.9 Hypertensive heart disease without heart failure; G40.909 Epilepsy, unspecified, not intractable, without status epilepticus; F41.9 Anxiety disorder, unspecified; F32.A Depression, unspecified; I08.2 Rheumatic disorders of both aortic and tricuspid valves; G47.30 Sleep apnea, unspecified; Z86.73 Personal history of transient ischemic attack (TIA), and cerebral infarction without residual deficits; Z88.0 Allergy status to penicillin; Z82.49 Family history of ischemic heart disease and other diseases of the circulatory system; Z59.00 Homelessness unspecified; Z79.899 Other long term (current) drug therapy; Y90.0 Blood alcohol level of less than 20 mg/100 ml
CPT/HCPCS: 99285; 36415; 94760 ×2; 93005; 93306; 85379; 83880; 80061; 80053; 84484 ×2; 85025; 85610; 85730; 80306; 80320; 71046; G0378 ×5; Q9950

== ENCOUNTER 2023-01-09 15:49 | Emergency (ER) | payer OTHER ==
[2023-01-09] MEDS ORDERED: SODIUM CHLORIDE 0.9% 1,000 ML IV STA (16:23)
[2023-01-09] MEDS ORDERED: ONDANSETRON 4 MG/2 ML VIAL IVP STA (16:23)
[2023-01-09] MEDS ORDERED: MORPHINE SULFATE 4 MG/ML SYRINGE IVP STA (16:24)
[2023-01-09 17:38] LABS: Basophils % (A) 0 %; Eosinophils # (A) 0.4 k/uL (0-0.7); Eosinophils % (A) 6 %; HCT 44.1 % (39.0-53.0); HGB 15.7 gm/dL (13.0-17.5); Lymphocytes # (A) 1.6 k/uL (1.0-4.8); Lymphocytes % (A) 26 %; MCH 33.6 pg (25.0-35.0); MCHC 35.7 g/dL (31.0-37.0); MCV 94.1 fL (80.0-100.0); Monocytes # (A) 0.5 k/uL (0-1.0); Monocytes % (A) 8 %; Neutrophils # (A) 3.5 k/uL (1.3-7.7); Neutrophils % (A) 58 %; Platelet Count 169 k/uL (150-450); RBC 4.68 m/uL (4.30-5.90)
[2023-01-09 17:42] LABS: ALT 39 U/L (4-49); AST 45 U/L (17-59); African American GFR (CKD) >90 (>60 ml/min/1.73 sqM); Albumin 4.3 g/dL (3.5-5.0); Alkaline Phosphatase 76 U/L (38-126); Anion Gap 15 mmol/L; Blood Urea Nitrogen 13 mg/dL (9-20); Calcium 8.7 mg/dL (8.4-10.2); Carbon Dioxide 23 mmol/L (22-30); Chloride 102 mmol/L (98-107); Glucose 96 mg/dL (74-99); Lipase 98 U/L (23-300); Non-African American GFR(CKD) 90 (>60 ml/min/1.73 sqM); Potassium 3.5 mmol/L (3.5-5.1); Sodium 140 mmol/L (137-145); Total Bilirubin 0.6 mg/dL (0.2-1.3); Total Protein 7.3 g/dL (6.3-8.2)
[2023-01-09 17:45] LABS: Prothrombin Time 10.5 sec (9.0-12.0)
[2023-01-09 18:01] LABS: Alcohol 197 mg/dL
--- NOTE | 2023-01-09 18:01 | CT ---
EXAMINATION TYPE: CT abdomen pelvis wo con CT DLP: 1905 mGycm, Automated exposure control for dose reduction was used. DATE OF EXAM: 01/09/2023 5:23 PM COMPARISON: None CLINICAL INDICATION:Male, 57 years old with history of abdominal pain; left flank pain TECHNIQUE: Axial CT of the abdomen and pelvis. Sagittal and coronal reformats were created on a [employer] workstation. Contrast used: None Oral contrast used: without Oral Contrast FINDINGS: LOWER CHEST: Unremarkable ABDOMEN LIVER: Unremarkable GALLBLADDER AND BILE DUCTS: Unremarkable. PANCREAS: Unremarkable. SPLEEN: Unremarkable. ADRENAL GLANDS: Unremarkable. KIDNEYS AND URETERS: No evidence of right obstructive uropathy or calculus. The left kidney demonstra elena multiple peripelvic cysts with increased density within the renal pelvis collecting system. Incre ased density within the left renal collecting system is more pronounced in the proximal collecting sy stem. No definitive obstructing calculus visualized there is abrupt caliber change at series 202 imag e 61. There is a nonobstructing left renal calculus measuring 6 mm. PELVIS BLADDER: Unremarkable REPRODUCTIVE: Unremarkable. ABDOMEN & PELVIS STOMACH AND BOWEL: No evidence of bowel obstruction. The appendix is normal. PERITONEUM/RETROPERITONEUM: No evidence of pneumoperitoneum or free fluid. VASCULATURE: No evidence of aortic aneurysm. MUSCULOSKELETAL: No acute osseous abnormalities LYMPH NODES: No gross evidence for lymphadenopathy. SOFT TISSUE/ABDOMINAL WALL: Bilateral fat-containing inguinal hernias. Fat-containing umbilical herni a. IMPRESSION: Increased density within the left renal collecting system with abrupt caliber change. Further evaluat ion of the renal collecting systems with CT urogram is recommended to rule out transitional cell/urot helial neoplasm. Bilateral fat-containing inguinal and umbilical hernias.
[2023-01-09 18:08] LABS: Partial Thromboplastin Time 21.3 sec (22.0-30.0)
--- NOTE | 2023-01-09 18:22 | ED ---
Abdominal Pain HPI - General Chief Complaint: Abdominal Pain Stated Complaint: Flank pain Time Seen by Provider: 01/09/23 16:05 Source: patient, EMS Mode of arrival: EMS Limitations: no limitations - History of Present Illness Initial Comments: 57-year-old male with past medical history of A. fib on savaysa, CVA, daily alcohol abuse who presents to the emergency room with left-sided flank pain. States that he had similar pain back in August and was seen at [facility] and diagnosed with a kidney stone. After couple days his pain improved . This morning the patient began having recurrence of the pain and is concerned that the kidney stone was back. He denies hematuria. Has some dysuria. No testicular swelling or penile discharge. Denies diarrhea, consultation, black or bloody stools. He denies any fevers. Did not take anything for pain before coming in. He did call EMS who administered 15 mg of Toradol. He denies any nausea. No alleviating, precipitating factors - Related Data Previous Rx's Medication Instructions Recorded Amiodarone [Cordarone] 200 mg PO DAILY #0 01/18/23 Aspirin 81 mg PO DAILY #30 tab 01/18/23 Atorvastatin [Lipitor] 40 mg PO HS #30 tab 01/18/23 Metoprolol Tartrate [Lopressor] 100 mg PO BID 30 Days #120 tab 01/18/23 Nitroglycerin Sl Tabs [Nitrostat] 0.4 mg SUBLINGUAL Q5M PRN #20 tab 01/18/23 Thiamine [Vitamin B-1] 100 mg PO DAILY #30 tab 01/18/23 chlordiazePOXIDE HCl [Librium] 25 mg PO TID #6 cap 01/18/23 lisinopriL [Zestril] 5 mg PO DAILY #30 tab 01/18/23 Allergies Allergy/AdvReac Type Severity Reaction Status Date / Time Penicillins Allergy Rash/Hives Verified 01/16/23 16:36 Review of Systems ROS Statement: Those systems with pertinent positive or pertinent negative responses have been documented in the HPI. ROS Other: All systems not noted in ROS Statement are negative. Past Medical History Past Medical History: Atrial Fibrillation, CVA/TIA, Hypertension, Osteoarthritis (OA), Pneumonia, Seizure Disorder Additional Past Medical History / Comment(s): Afib recently diagnosed, lower extremity edema, ETOH abuse with past withdrawal/seizure in 12/2018, chronic generalized pain, pt states he had a TIA in 2019 while in [place] and was intubated. Reports had a kidney stone in another a few days ago. History of Any Multi-Drug Resistant Organisms: None Reported Past Surgical History: Orthopedic Surgery Additional Past Surgical History / Comment(s): R thumb fracture with surgery., cardioverison Past Anesthesia/Blood Transfusion Reactions: No Reported Reaction Past Psychological History: Anxiety, Depression Smoking Status: Never smoker Past Alcohol Use History: Abuse, Daily Past Drug Use History: None Reported - Past Family History Father Family Medical History: Myocardial Infarction (MO) Additional Family Medical History / Comment(s): Father of a MO at the age of 57 yrs. Mother Family Medical History: Hyperlipidemia, Hypertension Additional Family Medical History / Comment(s): Mother at the age of 89yrs. General Exam Limitations: no limitations General appearance: alert, in no apparent distress Head exam: Present: atraumatic, normocephalic, normal inspection Eye exam: Present: normal appearance, PERRL, EOMI. Absent: scleral icterus, conjunctival injection, periorbital swelling ENT exam: Present: normal exam, mucous membranes moist Neck exam: Present: normal inspection. Absent: tenderness, meningismus, lymphadenopathy Respiratory exam: Present: normal lung sounds bilaterally. Absent: respiratory distress, wheezes, rales, rhonchi, stridor Cardiovascular Exam: Present: regular rate, normal rhythm, normal heart sounds. Absent: systolic murmur, diastolic murmur, rubs, gallop, clicks GI/Abdominal exam: Present: soft, normal bowel sounds. Absent: distended, tenderness, guarding, rebound, rigid Extremities exam: Present: normal inspection, full ROM, normal capillary refill. Absent: tenderness, pedal edema, joint swelling, calf tenderness Back exam: Present: CVA tenderness (L) Neurological exam: Present: alert, oriented X3, CN II-XII intact Psychiatric exam: Present: normal affect, normal mood Skin exam: Present: warm, dry, intact, normal color. Absent: rash Course Vital Signs 01/09/23 01/09/23 01/09/23 16:01 18:09 19:00 Pulse Rate 88 82 81 Respiratory 22 22 22 Rate Blood Pressure 118/72 127/73 105/70 O2 Sat by Pulse 95 97 97 Oximetry 01/09/23 01/09/23 21:00 21:55 Pulse Rate 83 78 Respiratory 18 16 Rate Blood Pressure 116/75 132/90 O2 Sat by Pulse 96 99 Oximetry Procedures - Sprag[facility] Protocol (Time Out) Nurse: Perlita Wallis Medical Decision Making - Medical Decision Making Was pt. sent in by a medical professional or institution (ALEX Jim, MIXING ROLL OPERATOR, urgent care, hospital, or longterm...) When possible be specific @ -no Did you speak to anyone other than the patient for history (EMS, parent, family, police, friend...)? What history was obtained from this source @ -no Did you review nursing and triage notes (agree or disagree)? Why? @ -I reviewed and agree with nursing and triage notes Were old charts reviewed (outside hosp., previous admission, EMS record, old EKG, old radiological studies, urgent care reports/EKG's, longterm records)? Report findings @ -no old charts were reviewed Differential Diagnosis (chest pain, altered mental status, abdominal pain women, abdominal pain men, vaginal bleeding, weakness, fever, dyspnea, syncope, headache, dizziness, GI bleed, back pain, seizure, CVA, palpatations, mental health, musculoskeletal)? @ -pyelonephritis, kidney stone, hydronephrosis, renal ca EKG interpreted by me (3pts min.). @ -yes X-rays interpreted by me (1pt min.). @ -no CT interpreted by me (1pt min.). @ -yes U/S interpreted by me (1pt. min.). @ -None done What testing was considered but not performed or refused? (CT, X-rays, U/S, labs)? Why? @ -none What meds were considered but not given or refused? Why? @ -None Did you discuss the management of the patient with other professionals (professionals i.e. ALEX Jim, MIXING ROLL OPERATOR, lab, RT, psych nurse, social director, management sme, teacher, transit authority police officer, immigration case worker)? Give summary @ -dr page Was smoking cessation discussed for >3mins.? @ -No Was critical care preformed (if so, how long)? @ -No Were there social determinants of health that impacted care today? How? (Homelessness, low income, unemployed, alcoholism, drug addiction, transportation, low edu. Level, literacy, decrease access to med. care, custodial, rehab)? @ -alcoholism therefore history is limited Was there de-escalation of care discussed even if they declined (Discuss DNR or withdrawal of care, Hospice)? DNR status @ -no What co-morbidities impacted this encounter? (DM, HTN, Smoking, COPD, CAD, Cancer, CVA, ARF, Chemo, Hep., AIDS, mental health diagnosis, sleep apnea, morbid obesity)? @ -none Was patient admitted / discharged? Hospital course, mention meds given and route, prescriptions, significant lab abnormalities, going to OR and other pertinent info. @ -On arrival the patient is placed in room 19. history and physical exam was performed. IV access is established laboratory studies were conducted. Patient was given morphine for pain control. CT is performed without contrast which demonstrates increased density within the left renal collecting system. Further evaluation with a CT urogram is recommended. This is ordered and performed. CT urogram demonstrates mild urothelial thickening of the left ureteropelvic junction. Suspicious for transitional cell neoplasm. I did discuss this with Dr. page. States that the patient should follow up in office for cystoscopy. This is discussed with the patient. We'll be provided for prescription for [employer] to instructed to call in the morning to make an appointment. Patient understood and agreed to this. He is asked to return for any new or worsening symptoms. Patient given written and verbal discharge instructions and discharged in stable condition Undiagnosed new problem with uncertain prognosis? @ -yes Drug Therapy requiring intensive monitoring for toxicity (Heparin, Nitro, Insulin, Cardizem)? @ -No Were any procedures done? @ none Diagnosis/symptom? @ acute right flank pain, possible new diagnosis of transitional cell cancer Acute, or Chronic, or Acute on Chronic? @ -acute Uncomplicated (without systemic symptoms) or Complicated (systemic symptoms)? @ -complicated Side effects of treatment? @ -No Exacerbation, Progression, or Severe Exacerbation? @ -No Poses a threat to life or bodily function? How? (Chest pain, [place], MO, pneumonia, PE, COPD, DKA, ARF, appy, cholecystitis, CVA, Diverticulitis, Homicidal, Suicidal, threat to staff... and all critical care pts) @ -yes - patient must follow up for cystoscopy as he may have cancer - Lab Data Result diagrams: 01/09/23 17:05 01/09/23 17:05 Lab Results 01/09/23 01/09/23 01/09/23 Range/Units 17:05 17:05 17:05 WBC 6.0 (3.8-10.6) k/uL RBC 4.68 (4.30-5.90) m/uL Hgb 15.7 (13.0-17.5) gm/dL Hct 44.1 (39.0-53.0) % MCV 94.1 (80.0-100.0) fL MCH 33.6 (25.0-35.0) pg MCHC 35.7 (31.0-37.0) g/dL RDW 14.0 (11.5-15.5) % Plt Count 169 (150-450) k/uL MPV 8.0 Neutrophils % 58 % Lymphocytes % 26 % Monocytes % 8 % Eosinophils % 6 % Basophils % 0 % Neutrophils # 3.5 (1.3-7.7) k/uL Lymphocytes # 1.6 (1.0-4.8) k/uL Monocytes # 0.5 (0-1.0) k/uL Eosinophils # 0.4 (0-0.7) k/uL Basophils # 0.0 (0-0.2) k/uL PT 10.5 (9.0-12.0) sec INR 1.0 (<1.2) APTT 21.3 L (22.0-30.0) sec Sodium 140 (137-145) mmol/L Potassium 3.5 (3.5-5.1) mmol/L Chloride 102 (98-107) mmol/L Carbon Dioxide 23 (22-30) mmol/L Anion Gap 15 mmol/L BUN 13 (9-20) mg/dL Creatinine 0.93 (0.66-1.25) mg/dL Est GFR (CKD-EPI)AfAm >90 (>60 ml/min/1.73 sqM) Est GFR (CKD-EPI)NonAf 90 (>60 ml/min/1.73 sqM) Glucose 96 (74-99) mg/dL Calcium 8.7 (8.4-10.2) mg/dL Total Bilirubin 0.6 (0.2-1.3) mg/dL AST 45 (17-59) U/L ALT 39 (4-49) U/L Alkaline Phosphatase 76 (38-126) U/L Total Protein 7.3 (6.3-8.2) g/dL Albumin 4.3 (3.5-5.0) g/dL Lipase 98 (23-300) U/L Urine Color Urine Appearance (Clear) Urine pH (5.0-8.0) Ur Specific Grady (1.001-1.035) Urine Protein (Negative) Urine Glucose (UA) (Negative) Urine Ketones (Negative) Urine Blood (Negative) Urine Nitrite (Negative) Urine Bilirubin (Negative) Urine Urobilinogen (<2.0) mg/dL Ur Leukocyte Esterase (Negative) Urine RBC (0-5) /hpf Urine WBC (0-5) /hpf Amorphous Sediment (None) /hpf Urine Mucus (None) /hpf Serum Alcohol 197 mg/dL 01/09/23 Range/Units 18:08 WBC (3.8-10.6) k/uL RBC (4.30-5.90) m/uL Hgb (13.0-17.5) gm/dL Hct (39.0-53.0) % MCV (80.0-100.0) fL MCH (25.0-35.0) pg MCHC (31.0-37.0) g/dL RDW (11.5-15.5) % Plt Count (150-450) k/uL MPV Neutrophils % % Lymphocytes % % Monocytes % % Eosinophils % % Basophils % % Neutrophils # (1.3-7.7) k/uL Lymphocytes # (1.0-4.8) k/uL Monocytes # (0-1.0) k/uL Eosinophils # (0-0.7) k/uL Basophils # (0-0.2) k/uL PT (9.0-12.0) sec INR (<1.2) APTT (22.0-30.0) sec Sodium (137-145) mmol/L Potassium (3.5-5.1) mmol/L Chloride (98-107) mmol/L Carbon Dioxide (22-30) mmol/L Anion Gap mmol/L BUN (9-20) mg/dL Creatinine (0.66-1.25) mg/dL Est GFR (CKD-EPI)AfAm (>60 ml/min/1.73 sqM) Est GFR (CKD-EPI)NonAf (>60 ml/min/1.73 sqM) Glucose (74-99) mg/dL Calcium (8.4-10.2) mg/dL Total Bilirubin (0.2-1.3) mg/dL AST (17-59) U/L ALT (4-49) U/L Alkaline Phosphatase (38-126) U/L Total Protein (6.3-8.2) g/dL Albumin (3.5-5.0) g/dL Lipase (23-300) U/L Urine Color Yellow Urine Appearance Cloudy (Clear) Urine pH 5.5 (5.0-8.0) Ur Specific Grady 1.024 (1.001-1.035) Urine Protein Trace H (Negative) Urine Glucose (UA) Negative (Negative) Urine Ketones Negative (Negative) Urine Blood Negative (Negative) Urine Nitrite Negative (Negative) Urine Bilirubin Negative (Negative) Urine Urobilinogen <2.0 (<2.0) mg/dL Ur Leukocyte Esterase Negative (Negative) Urine RBC <1 (0-5) /hpf Urine WBC 1 (0-5) /hpf Amorphous Sediment Occasional H (None) /hpf Urine Mucus Few H (None) /hpf Serum Alcohol mg/dL - EKG Data EKG Comments: EKG demonstrates sinus rhythm with a rate of 84. MN interval 161. QRS 92. QTC 414. Mild ST depression V2 through V6. No acute ST segment elevation Disposition Clinical Impression: Flank pain, Urothelial lesion, Alcohol intoxication Disposition: HOME SELF-CARE Condition: Stable Instructions (If sedation given, give patient instructions): Flank Pain (ED) Additional Instructions: You must call the urologist in the morning to make an appointment. You must have a scope of your kidneys and bladder. You may possibly have kidney cancer therefore this is a very important. Take the pain medications as needed but you ultimately have to follow up. Return for any new or worsening symptoms Is patient prescribed a controlled substance at d/c from ED?: Yes When asked, does pt state using other controlled substances?: No If prescribed controlled substance>3 days was MAPS reviewed?: Prescribed <3 Days If opioid is for acute pain is fill amount 7 days or less?: No If Rx opioid, was Start Talking consent form obtained?: No Referrals: Kamryn Alvarez MD [Primary Care Provider] - 1-2 days Rahbar,Anish, MD [STAFF PHYSICIAN] - 1-2 days Time of Disposition: 20:59
[2023-01-09 18:29] LABS: Amorphous Sediment,Urine Occasional /hpf; Appearance,Urine Cloudy (Clear); Bilirubin,Urine Negative (Negative); Blood,Urine Negative (Negative); Color,Urine Yellow; Glucose,Urine (UA) Negative (Negative); Ketones,Urine Negative (Negative); Leukocyte Esterase,Urine Negative (Negative); Mucus,Urine Few /hpf; Nitrite,Urine Negative (Negative); PH, Urine 5.5 (5.0-8.0); Protein,Urine Trace (Negative); RBC,Urine <1 /hpf (0-5); Specific Gravity,Urine 1.024 (1.001-1.035); Urobilinogen,Urine <2.0 mg/dL (<2.0); WBC,Urine 1 /hpf (0-5)
[2023-01-09] MEDS ORDERED: HYDROmorphone 1 MG/ML 1 ML SYRINGE IVP STA (20:10)
--- NOTE | 2023-01-09 20:14 | CT ---
EXAMINATION TYPE: CT urogram wo/w con CT DLP: 4379.5 mGycm, Automated exposure control for dose reduction was used. DATE OF EXAM: 01/09/2023 7:37 PM COMPARISON: CT abdomen pelvis most recent from CLINICAL INDICATION:Male, 57 years old with history of abn ct, questionable kidney mass, prior abn A&P wo study today. TECHNIQUE: Urogram with imaging of the abdomen and pelvis. Coronal and sagittal reformats were performed. 2D and 3D reconstructions are performed to assist visualization of the urinary tract on a separate workstat ion. Contrast used:100ml mL of Isovue 370 with IV Contrast, Oral contrast used: None. FINDINGS: LOWER CHEST: No significant findings. GENITOURINARY: RIGHT KIDNEY AND URETER: No calculi. No hydronephrosis or hydroureter. No renal mass or other lesions . No urothelial lesions: no filling defect, dilation, stricture or wall thickening. Peripelvic cysts are present LEFT KIDNEY AND URETER: No calculi. No hydronephrosis or hydroureter. No renal mass. There is thicken ing of the urothelium in the proximal left kidney best appreciated on series 302 image 61 measuring a t least 2 to 3 mm in thickness. Somewhat circumferential. However given its small size evaluation is slightly limited. Peripelvic cysts are present URINARY BLADDER: REPRODUCTIVE: Unremarkable. ABDOMEN LIVER: Unremarkable. GALLBLADDER AND BILE DUCTS: Unremarkable PANCREAS: Unremarkable. SPLEEN: Unremarkable. ADRENAL GLANDS: Unremarkable. STOMACH AND BOWEL: No evidence of bowel obstruction. The appendix is normal. PERITONEUM/RETROPERITONEUM: No evidence of pneumoperitoneum or free fluid. VASCULATURE: No evidence of aortic aneurysm. MUSCULOSKELETAL: No acute osseous abnormalities LYMPH NODES: No gross evidence for lymphadenopathy. SOFT TISSUE/ABDOMINAL WALL: Bilateral fat-containing inguinal hernias. Fat-containing umbilical herni a. IMPRESSION: Mild urothelial thickening of the left ureteropelvic junction is confirmed. Correlation with urinaly sis is recommended findings suspicious for transitional cell neoplasm. At a minimum short-term follow -up imaging with CT urogram in 3 months.
[2023-01-09] MEDS ORDERED: ONDANSETRON ODT 4 MG TAB PO STA (21:49)
[2023-01-09 21:58] VITALS: BP 132/90; PULSE 78; RESP 16
== END 2023-01-09 21:57 | disposition home or self-care (01) ==
LOC: EC 15:49
DX: N32.89 Other specified disorders of bladder (principal); F10.129 Alcohol abuse with intoxication, unspecified; I10 Essential (primary) hypertension; I48.91 Unspecified atrial fibrillation; F41.9 Anxiety disorder, unspecified; F32.A Depression, unspecified; Z79.82 Long term (current) use of aspirin; Z79.899 Other long term (current) drug therapy; Z88.0 Allergy status to penicillin; Z86.73 Personal history of transient ischemic attack (TIA), and cerebral infarction without residual deficits; Y90.6 Blood alcohol level of 120-199 mg/100 ml
CPT/HCPCS: 36415; 93005; 80053; 83690; 85025; 85610; 85730; 81001; 80320; 74176; 74178; 74400; 99285; 96374; 96375 ×2; 96361; J2270; J2405; J1170; Q9967

== ENCOUNTER 2023-01-16 15:41 | Observation (INO) | payer OTHER ==
[2023-01-16] MEDS ORDERED: FUROSEMIDE 10 MG/ML 4 ML VIAL IV STA (15:56)
--- NOTE | 2023-01-16 16:08 | ED ---
General Adult HPI - General Chief complaint: Chest Pain Stated complaint: Chest Pain Time Seen by Provider: 01/16/23 15:50 Source: patient, EMS, RN notes reviewed, old records reviewed Mode of arrival: EMS Limitations: no limitations - History of Present Illness Initial comments: This a 57-year-old male presents emergency Department stating he has a history of atrial fibrillation. Patient comes in today stating that he was dizzy outside was having chest pain or shortness of breath per patient states the chest pain radiated to his left arm. Patient states he also was suicidal and thinking about taking all his heart medications. Patient denies any recent fever chills or cough. Patient denies any abdominal pain patient denies nausea vomiting diarrhea patient denies headache patient denies numbness weakness. Patient states currently he is not having chest pain but he still short of breath and he feels somewhat lightheaded. Patient does state he is still suicidal - Related Data Home Medications Medication Instructions Recorded Confirmed Amiodarone [Cordarone] 200 mg PO BID 07/20/22 01/16/23 Metoprolol Tartrate [Lopressor] 50 mg PO BID 07/20/22 01/16/23 Allergies Allergy/AdvReac Type Severity Reaction Status Date / Time Penicillins Allergy Rash/Hives Verified 01/16/23 16:36 Review of Systems ROS Statement: Those systems with pertinent positive or pertinent negative responses have been documented in the HPI. ROS Other: All systems not noted in ROS Statement are negative. Past Medical History Past Medical History: Atrial Fibrillation, CVA/TIA, Hypertension, Osteoarthritis (OA), Pneumonia, Seizure Disorder Additional Past Medical History / Comment(s): Afib recently diagnosed, lower extremity edema, ETOH abuse with past withdrawal/seizure in 12/2018, chronic generalized pain, pt states he had a TIA in 2018 while in [place] and was intubated. Reports had a kidney stone in another a few days ago. History of Any Multi-Drug Resistant Organisms: None Reported Past Surgical History: Orthopedic Surgery Additional Past Surgical History / Comment(s): R thumb fracture with surgery., cardioverison Past Anesthesia/Blood Transfusion Reactions: No Reported Reaction Past Psychological History: Anxiety, Depression Smoking Status: Never smoker Past Alcohol Use History: Abuse, Daily Past Drug Use History: None Reported - Past Family History Father Family Medical History: Myocardial Infarction ([place]) Additional Family Medical History / Comment(s): Father of a [place] at the age of 57 yrs. Mother Family Medical History: Hyperlipidemia, Hypertension Additional Family Medical History / Comment(s): Mother at the age of 89yrs. General Exam - General Exam Comments Initial Comments: GENERAL: Patient is well-developed and well-nourished. Patient is nontoxic and well- hydrated and is in mild distress. ENT: Neck is soft and supple. No significant lymphadenopathy is noted. Oropharynx is clear. Moist mucous membranes. Neck has full range of motion without eliciting any pain. EYES: The sclera were anicteric and conjunctiva were pink and moist. Extraocular movements were intact and pupils were equal round and reactive to light. Eyelids were unremarkable. PULMONARY: Unlabored respirations. Good breath sounds bilaterally. No audible rales rhonchi or wheezing was noted. CARDIOVASCULAR: There is a regular rate and rhythm without any murmurs gallops or rubs. ABDOMEN: Soft and nontender with normal bowel sounds. SKIN: Skin is clear with no lesions or rashes and otherwise unremarkable. NEUROLOGIC: Patient is alert and oriented x3. Cranial nerves II through XII are grossly intact. Motor and sensory are also intact. Normal speech, volume and content. Symmetrical smile. MUSCULOSKELETAL: Normal extremities with adequate strength and full range of motion. LYMPHATICS: No significant lymphadenopathy is noted PSYCHIATRIC: Normal psychiatric evaluation. Limitations: no limitations Course Vital Signs 01/16/23 15:42 Temperature 98.5 F Pulse Rate 65 Respiratory 18 Rate Blood Pressure 115/70 O2 Sat by Pulse 95 Oximetry Medical Decision Making - Medical Decision Making EKG is interpreted by myself shows a sinus rhythm at 77 bpm OH interval 260 QRS is 97 Q-T intervals 411 QTC is 443. Patient's EKG shows no ST segment elevation or depression. Was pt. sent in by a medical professional or institution (, PA, HOT STICK MAN, urgent care, hospital, or prison...) When possible be specific @ -No Did you speak to anyone other than the patient for history (EMS, parent, family, police, friend...)? What history was obtained from this source @ -No Did you review nursing and triage notes (agree or disagree)? Why? @ -I reviewed and agree with nursing and triage notes Were old charts reviewed (outside hosp., previous admission, EMS record, old EKG, old radiological studies, urgent care reports/EKG's, prison records)? Report findings @ -I reviewed prior charts in prior lab work and prior radiological studies Differential Diagnosis (chest pain, altered mental status, abdominal pain women, abdominal pain men, vaginal bleeding, weakness, fever, dyspnea, syncope, headache, dizziness, GI bleed, back pain, seizure, CVA, palpatations, mental health, musculoskeletal)? @ -Differential Chest Pain: Stable Angina, Unstable Angina, STEMI, NSTEMI Aortic Dissection, Pneumothorax, Musculoskeletal, Esophageal Spasm GERD, Cholecystitis, Pancreatitis, Zoster, this is not meant to be an all-inclusive list. EKG interpreted by me (3pts min.). @ -As above X-rays interpreted by me (1pt min.). @ Chest x-ray was interpreted by myself shows no acute abnormality CT interpreted by me (1pt min.). @ None done U/S interpreted by me (1pt. min.). @ -None done What testing was considered but not performed or refused? (CT, X-rays, U/S, labs)? Why? @ -None What meds were considered but not given or refused? Why? @ -None Did you discuss the management of the patient with other professionals (professionals i.e. , PA, HOT STICK MAN, lab, RT, psych nurse, school social worker, hand ornament maker, teacher, chief customer officer, special education case manager)? Give summary @ -I spoke with the [facility] hospitalist and they agreed to admit the patient Was smoking cessation discussed for >3mins.? @ -No Was critical care preformed (if so, how long)? @ -No Were there social determinants of health that impacted care today? How? (Homelessness, low income, unemployed, alcoholism, drug addiction, transportation, low edu. Level, literacy, decrease access to med. care, usp, rehab)? @ -No Was there de-escalation of care discussed even if they declined (Discuss DNR or withdrawal of care, Hospice)? DNR status @ -No What co-morbidities impacted this encounter? (DM, HTN, Smoking, COPD, CAD, Cancer, CVA, ARF, Chemo, Hep., AIDS, mental health diagnosis, sleep apnea, morbid obesity)? @ -None Was patient admitted / discharged? Hospital course, mention meds given and route, prescriptions, significant lab abnormalities, going to OR and other pertinent info. @ -Patient's lab work was normal. Patient was intoxicated. Patient was st ating he was suicidal. I will be consult the psych cardiology and repeating the troponin levels Undiagnosed new problem with uncertain prognosis? @ -No Drug Therapy requiring intensive monitoring for toxicity (Heparin, Nitro, Insulin, Cardizem)? @ -No Were any procedures done? @ -No Diagnosis/symptom? @ -Chest pain Acute, or Chronic, or Acute on Chronic? @ -Acute Uncomplicated (without systemic symptoms) or Complicated (systemic symptoms)? @ -Complicated Side effects of treatment? @ -No Exacerbation, Progression, or Severe Exacerbation? @ -No Poses a threat to life or bodily function? How? (Chest pain, [place], PA, pneumonia, PE, COPD, DKA, ARF, appy, cholecystitis, CVA, Diverticulitis, Homicidal, Suicidal, threat to staff... and all critical care pts) @ -Yes this could lead to poor perfusion and end organ dysfunction Diagnosis/symptom? @ -Suicidal ideations Acute, or Chronic, or Acute on Chronic? @ -Acute Uncomplicated (without systemic symptoms) or Complicated (systemic symptoms)? @ -Complicated Side effects of treatment? @ -none Exacerbation, Progression, or Severe Exacerbation @ -no Poses a threat to life or bodily function? @ -no Diagnosis/symptom? @ -Alcohol intoxication Acute, or Chronic, or Acute on Chronic? @ -Acute Uncomplicated (without systemic symptoms) or Complicated (systemic symptoms)? @ -default Side effects of treatment? @ -none Exacerbation, Progression, or Severe Exacerbation] @ -no Poses a threat to life or bodily function? @ -no] - Lab Data Result diagrams: 01/16/23 16:04 01/16/23 16:04 Lab Results 01/16/23 01/16/23 01/16/23 Range/Units 16:04 16:04 16:04 WBC 5.6 (3.8-10.6) k/uL RBC 4.51 (4.30-5.90) m/uL Hgb 14.3 (13.0-17.5) gm/dL Hct 43.9 (39.0-53.0) % MCV 97.5 (80.0-100.0) fL MCH 31.8 (25.0-35.0) pg MCHC 32.6 (31.0-37.0) g/dL RDW 14.0 (11.5-15.5) % Plt Count 197 (150-450) k/uL MPV 7.5 Neutrophils % 52 % Lymphocytes % 30 % Monocytes % 8 % Eosinophils % 7 % Basophils % 1 % Neutrophils # 2.9 (1.3-7.7) k/uL Lymphocytes # 1.7 (1.0-4.8) k/uL Monocytes # 0.4 (0-1.0) k/uL Eosinophils # 0.4 (0-0.7) k/uL Basophils # 0.1 (0-0.2) k/uL PT 10.5 (9.0-12.0) sec INR 1.0 (<1.2) APTT 22.4 (22.0-30.0) sec Sodium 136 L (137-145) mmol/L Potassium 3.8 (3.5-5.1) mmol/L Chloride 102 (98-107) mmol/L Carbon Dioxide 21 L (22-30) mmol/L Anion Gap 13 mmol/L BUN 16 (9-20) mg/dL Creatinine 1.19 (0.66-1.25) mg/dL Est GFR (CKD-EPI)AfAm 77 (>60 ml/min/1.73 sqM) Est GFR (CKD-EPI)NonAf 67 (>60 ml/min/1.73 sqM) Glucose 93 (74-99) mg/dL Calcium 8.3 L (8.4-10.2) mg/dL Magnesium 1.7 (1.6-2.3) mg/dL Total Bilirubin 0.5 (0.2-1.3) mg/dL AST 41 (17-59) U/L ALT 38 (4-49) U/L Alkaline Phosphatase 75 (38-126) U/L Troponin I (0.000-0.034) ng/mL NT-Pro-B Natriuret Pep pg/mL Total Protein 6.7 (6.3-8.2) g/dL Albumin 3.9 (3.5-5.0) g/dL Serum Alcohol 167 mg/dL 01/16/23 01/16/23 Range/Units 16:04 16:04 WBC (3.8-10.6) k/uL RBC (4.30-5.90) m/uL Hgb (13.0-17.5) gm/dL Hct (39.0-53.0) % MCV (80.0-100.0) fL MCH (25.0-35.0) pg MCHC (31.0-37.0) g/dL RDW (11.5-15.5) % Plt Count (150-450) k/uL MPV Neutrophils % % Lymphocytes % % Monocytes % % Eosinophils % % Basophils % % Neutrophils # (1.3-7.7) k/uL Lymphocytes # (1.0-4.8) k/uL Monocytes # (0-1.0) k/uL Eosinophils # (0-0.7) k/uL Basophils # (0-0.2) k/uL PT (9.0-12.0) sec INR (<1.2) APTT (22.0-30.0) sec Sodium (137-145) mmol/L Potassium (3.5-5.1) mmol/L Chloride (98-107) mmol/L Carbon Dioxide (22-30) mmol/L Anion Gap mmol/L BUN (9-20) mg/dL Creatinine (0.66-1.25) mg/dL Est GFR (CKD-EPI)AfAm (>60 ml/min/1.73 sqM) Est GFR (CKD-EPI)NonAf (>60 ml/min/1.73 sqM) Glucose (74-99) mg/dL Calcium (8.4-10.2) mg/dL Magnesium (1.6-2.3) mg/dL Total Bilirubin (0.2-1.3) mg/dL AST (17-59) U/L ALT (4-49) U/L Alkaline Phosphatase (38-126) U/L Troponin I <0.012 (0.000-0.034) ng/mL NT-Pro-B Natriuret Pep 62 pg/mL Total Protein (6.3-8.2) g/dL Albumin (3.5-5.0) g/dL Serum Alcohol mg/dL Disposition Clinical Impression: Alcohol intoxication, Suicidal ideations, Chest pain Disposition: ADMITTED IP TO THIS HOSP Referrals: None,Stated [REFERRING] - 1-2 days Time of Disposition: 16:48
[2023-01-16 16:14] LABS: Basophils # (A) 0.1 k/uL (0-0.2); Basophils % (A) 1 %; Eosinophils # (A) 0.4 k/uL (0-0.7); Eosinophils % (A) 7 %; HCT 43.9 % (39.0-53.0); HGB 14.3 gm/dL (13.0-17.5); Lymphocytes # (A) 1.7 k/uL (1.0-4.8); Lymphocytes % (A) 30 %; MCH 31.8 pg (25.0-35.0); MCHC 32.6 g/dL (31.0-37.0); MCV 97.5 fL (80.0-100.0); Mean Platelet Volume 7.5; Monocytes # (A) 0.4 k/uL (0-1.0); Monocytes % (A) 8 %; Neutrophils # (A) 2.9 k/uL (1.3-7.7); Neutrophils % (A) 52 %; Platelet Count 197 k/uL (150-450); RBC 4.51 m/uL (4.30-5.90); WBC 5.6 k/uL (3.8-10.6)
--- NOTE | 2023-01-16 16:23 | XR ---
EXAMINATION TYPE: XR chest 2V DATE OF EXAM: 01/16/2023 COMPARISON: 11/02/2022 INDICATION: Chest pain TECHNIQUE: Frontal and lateral views of the chest are obtained. FINDINGS: The heart size is normal. The pulmonary vasculature is normal. Some minimal platelike atelectasis may be at the left diaphragm cardiac apex region. Lungs otherwise appear clear. IMPRESSION: 1. Suggestion of mild subsegmental atelectasis left base
[2023-01-16 16:28] LABS: Partial Thromboplastin Time 22.4 sec (22.0-30.0); Prothrombin Time 10.5 sec (9.0-12.0)
[2023-01-16 16:29] LABS: Albumin 3.9 g/dL (3.5-5.0); Calcium 8.3 mg/dL (8.4-10.2); Magnesium 1.7 mg/dL (1.6-2.3); Potassium 3.8 mmol/L (3.5-5.1); Total Bilirubin 0.5 mg/dL (0.2-1.3); Total Protein 6.7 g/dL (6.3-8.2)
[2023-01-16] MEDS ORDERED: NITROGLYCERIN SL TABS 0.4 MG TAB SUBLINGUAL PRN (16:48)
[2023-01-16] MEDS: NITROGLYCERIN OINT 1 INCH/GM PACKET TOPICAL SCH ×3 (17:19→22:59)
[2023-01-16] MEDS ORDERED: THIAMINE 100 MG/ML 2 ML VIAL IM STA (17:27)
[2023-01-16 18:18] LABS: Amphetamine Screen,Urine Not Detected (NotDetected); Barbiturate Screen,Urine Not Detected (NotDetected); Benzodiazepines Screen,Urine Not Detected (NotDetected); Cocaine Screen,Urine Not Detected (NotDetected); Methadone Screen, Urine Not Detected (NotDetected); Opiate Screen,Urine Not Detected (NotDetected); Oxycodone Screen, Urine Not Detected (NotDetected); Phencyclidine Screen,Urine Not Detected (NotDetected); Tricyclic Antidepressant,Urine Not Detected (NotDetected); Urn Cannabinoid Scrn Not Detected (NotDetected)
[2023-01-16] MEDS: LORazepam 2 MG/ML INJ IV PRN ×2 (19:01→21:51)
[2023-01-16] MEDS ORDERED: METOPROLOL TARTRATE 50 MG TAB PO SCH (22:45)
[2023-01-16] MEDS ORDERED: AMIODARONE 200 MG TAB PO SCH (23:00)
[2023-01-17] MEDS: LORazepam 2 MG/ML INJ IV PRN ×3 (04:42→20:45)
[2023-01-17] MEDS: NITROGLYCERIN OINT 1 INCH/GM PACKET TOPICAL SCH (05:38)
[2023-01-17] MEDS ORDERED: AMINOPHYLLINE 500 MG/20 ML VIAL IV PRN (08:06)
[2023-01-17] MEDS ORDERED: CAFFEINE CITRATE 60 MG/3 ML VIAL IV PRN (08:06)
[2023-01-17] MEDS ORDERED: REGADENOSON 0.4 MG/5 ML SYRINGE IV PRN (08:06)
[2023-01-17] MEDS ORDERED: ASPIRIN 325 MG TAB PO SCH (09:00)
--- NOTE | 2023-01-17 09:26 | P.CRDCN ---
History of Present Illness History of present illness: HISTORY OF PRESENT ILLNESS: This is a 57-year-old male with a past medical history significant for cardiomyopathy with recovered EF, paroxysmal atrial fibrillation, alcohol abuse, TIA, and hypertension. Patient follows in the office with Dr. Davis. We have been asked to see the patient in consultation for chest pain. Patient examined at the bedside. Patient reports he has been drinking a lot recently at home. He reports he is having trouble sleeping and having issues with his balance. He states that he fell a few times at home and one time busted his nose. He states for the past 2 weeks when he lays down he begins having palpitations. He states that he recently saw Dr. Phillips in the office in his metoprolol was decreased to 50 mg twice a day. He states he used to take 100 mg twice a day and felt better when he was taking the higher dose. The patient states he has been having chest pain and shortness of breath over the past few months. However the last 4 days it has gotten really bad. He states it'll wake him up in the middle of the night. He states the episodes will last for a few minutes and then go away on its own. He reports the pain is in the middle of his chest. This morning, the patient denies any chest pain or pressure. There is a environmental safety specialist at the bedside as patient also verbalized suicidal ideation upon admission. * EKG reveals sinus mechanism with no signs of acute ischemia * Chest xray suggestive of mild subsegmental atelectasis left base. * Laboratory data: WBC 5.6. Hemoglobin 14.3. Platelet count 198. Sodium 136. Potassium 3.8. BUN 16. Creatinine 1.19. Magnesium 1.7. Troponin negative 3. ProBNP 62. Serum alcohol 167. * Current home cardiac medications include amiodarone 200 mg twice a day and metoprolol tartrate 50 mg twice a day * Most recent echocardiogram obtained in October 2022 revealed ejection fraction 50-55%, trace to mild TR, trace AR * Previous echocardiogram performed in March 2020 revealed ejection fraction 25- 30% REVIEW OF SYSTEMS: At the time of my exam: CONSTITUTIONAL: Denies fever or chills. HEENT: Denies blurred vision, vision changes, or eye pain. Denies hemoptysis CARDIOVASCULAR: Denies chest pain. Denies orthopnea. Denies PND. Denies palpit ations RESPIRATORY: Denies shortness of breath. GASTROINTESTINAL: Denies abdominal pain. Denies nausea or vomiting. HEMATOLOGIC: Denies bleeding disorders. GENITOURINARY: Denies any blood in urine. SKIN: Denies pruitis. Denies rash. PHYSICAL EXAM: VITAL SIGNS: Reviewed. GENERAL: Well-developed in no acute distress. HEENT: Head is normocephalic. Pupils are equal, round. Sclerae anicteric. Mucous membranes of the mouth are moist. Neck supple. No JVD or thyromegaly LUNGS: Respirations even and unlabored. Lungs essentially clear to auscultation bilaterally. HEART: Regular rate and rhythm. S1 and S2 heard. ABDOMEN: Soft. Nondistended. Nontender. EXTREMITIES: Normal range of motion. No clubbing or cyanosis. Peripheral pulses intact. No lower extremity edema NEUROLOGIC: Awake and alert. Oriented x 3. ASSESSMENT: Chest pain, troponins negative 3 Acute alcohol intoxication Gait disturbance with recent falls, patient reports issues with his equilibrium Insomnia Paroxysmal atrial fibrillation, not on anticoagulation an outpatient basis History of TIA Hypertension Hyperlipidemia History of cardiomyopathy, unknown if ischemic or nonischemic, although suspect nonischemic, with recovered EF History of alcohol abuse PLAN: An acute coronary event has been ruled out Decrease amiodarone to 200 mg daily Increase metoprolol to 100 mg twice a day Add lisinopril 5 mg daily for optimal blood pressure control Continue telemetry monitoring Abstinence from alcohol encouraged Patient to undergo Lexiscan stress test today Further recommendations pending patient's course Nurse practitioner note has been reviewed by physician. Signing provider agrees with the documented findings, assessment, and plan of care. Past Medical History Past Medical History: Atrial Fibrillation, CVA/TIA, Hypertension, Osteoarthritis (OA), Pneumonia, Seizure Disorder Additional Past Medical History / Comment(s): Afib recently diagnosed, lower extremity edema, ETOH abuse with past withdrawal/seizure in 12/2018, chronic generalized pain, pt states he had a TIA in 2019 while in [place] and was intubated. Reports had a kidney stone in another a few days ago. History of Any Multi-Drug Resistant Organisms: None Reported Past Surgical History: Orthopedic Surgery Additional Past Surgical History / Comment(s): R thumb fracture with surgery., cardioverison Past Anesthesia/Blood Transfusion Reactions: No Reported Reaction Past Psychological History: Anxiety, Depression Additional Psychological History / Comment(s): Pt is currently homeless and when asked if he has thoughts of suicide he reports "yes" Smoking Status: Never smoker Past Alcohol Use History: Abuse, Daily, Heavy Additional Past Alcohol Use History / Comment(s): pt. drinks a fith a day sometimes two. Past Drug Use History: None Reported - Past Family History Father Family Medical History: Myocardial Infarction ([place]) Additional Family Medical History / Comment(s): Father of a [place] at the age of 57 yrs. Mother Family Medical History: Hyperlipidemia, Hypertension Additional Family Medical History / Comment(s): Mother at the age of 89yrs. Medications and Allergies Home Medications Medication Instructions Recorded Confirmed Type Amiodarone [Cordarone] 200 mg PO BID 07/20/22 01/16/23 History Metoprolol Tartrate [Lopressor] 50 mg PO BID 07/20/22 01/16/23 History Allergies Allergy/AdvReac Type Severity Reaction Status Date / Time Penicillins Allergy Rash/Hives Verified 01/16/23 16:36 Physical Exam Vitals: Vital Signs Temp Pulse Pulse Resp BP BP BP 01/17/23 07:45 01/17/23 07:00 97.5 F L 78 19 153/84 01/17/23 02:35 98.1 F 77 17 154/86 01/16/23 19:30 98.5 F 89 89 17 150/69 139/87 01/16/23 18:05 97.5 F L 101 H 20 124/94 01/16/23 15:42 98.5 F 65 18 115/70 Pulse Ox 01/17/23 07:45 97 01/17/23 07:00 97 01/17/23 02:35 97 01/16/23 19:30 94 L 01/16/23 18:05 95 01/16/23 15:42 95 Intake and Output 01/16/23 01/17/23 01/17/23 22:59 06:59 14:59 Output Total 200 Balance -200 Output: Urine 200 Other: # Voids 2 Weight 117.934 kg Results 01/16/23 16:04 01/16/23 16:04 Cardiac Enzymes 01/16/23 01/16/23 01/16/23 Range/Units 16:04 16:04 17:50 AST 41 (17-59) U/L Troponin I <0.012 0.012 (0.000-0.034) ng/mL 01/16/23 Range/Units 20:46 AST (17-59) U/L Troponin I <0.012 (0.000-0.034) ng/mL Coagulation 01/16/23 Range/Units 16:04 PT 10.5 (9.0-12.0) sec APTT 22.4 (22.0-30.0) sec CBC 01/16/23 Range/Units 16:04 WBC 5.6 (3.8-10.6) k/uL RBC 4.51 (4.30-5.90) m/uL Hgb 14.3 (13.0-17.5) gm/dL Hct 43.9 (39.0-53.0) % Plt Count 197 (150-450) k/uL Comprehensive Metabolic Panel 01/16/23 Range/Units 16:04 Sodium 136 L (137-145) mmol/L Potassium 3.8 (3.5-5.1) mmol/L Chloride 102 (98-107) mmol/L Carbon Dioxide 21 L (22-30) mmol/L BUN 16 (9-20) mg/dL Creatinine 1.19 (0.66-1.25) mg/dL Glucose 93 (74-99) mg/dL Calcium 8.3 L (8.4-10.2) mg/dL AST 41 (17-59) U/L ALT 38 (4-49) U/L Alkaline Phosphatase 75 (38-126) U/L Total Protein 6.7 (6.3-8.2) g/dL Albumin 3.9 (3.5-5.0) g/dL Current Medications Generic Name Dose Route Start Last Admin Trade Name Freq PRN Reason Stop Dose Admin Amiodarone HCl 200 mg 01/16/23 23:00 01/16/23 22:57 Amiodarone 200 Mg Tab PO 200 mg BID TRACY Administration Aspirin 325 mg 01/17/23 09:00 Aspirin 325 Mg Tab PO DAILY TRACY Lorazepam 1 mg 01/16/23 17:27 01/17/23 04:42 Lorazepam 2 Mg/Ml Inj IV 1 mg Q2HR PRN Administration CIWA 8 or 9 Metoprolol Tartrate 50 mg 01/16/23 22:45 01/16/23 22:57 Metoprolol Tartrate 50 Mg Tab PO 50 mg BID TRACY Administration Nitroglycerin 0.4 mg 01/16/23 16:48 Nitroglycerin Sl Tabs 0.4 Mg Tab SUBLINGUAL Q5M PRN Chest Pain Nitroglycerin 1 inch 01/16/23 18:00 01/17/23 05:38 Nitroglycerin Oint 1 Inch/Gm Packet TOPICAL Not Given Q6HR TRACY Thiamine HCl 100 mg 01/17/23 09:00 Thiamine 100 Mg Tab PO DAILY TRACY Intake and Output 01/16/23 01/17/23 01/17/23 22:59 06:59 14:59 Output Total 200 Balance -200 Output: Urine 200 Other: # Voids 2 Weight 117.934 kg 01/16/23 16:04 01/16/23 16:04
[2023-01-17] MEDS: THIAMINE 100 MG TAB PO SCH (10:58)
[2023-01-17] MEDS: METOPROLOL TARTRATE 50 MG TAB PO SCH ×2 (10:58→20:46)
[2023-01-17] MEDS: lisinopriL 5 MG TAB PO SCH (10:58)
[2023-01-17] MEDS: ASPIRIN 81 MG PO SCH (10:59)
[2023-01-17] MEDS: AMIODARONE 200 MG TAB PO SCH (10:59)
[2023-01-17 11:41] LABS: Chol/HDL Ratio 3.84 Ratio; LDL Cholesterol,Calculated 149.7 mg/dL (0.0-131.0)
--- NOTE | 2023-01-17 11:50 | NM ---
EXAMINATION TYPE: NM stress lexiscan cardiolite DATE OF EXAM: 01/17/2023 COMPARISON: NONE CLINICAL INDICATION: Male, 57 years old with history of CP; TECHNIQUE: After the intravenous administration of 10.31 mCi Tc 99m Sestamibi - Cardiolite resting S PECT images acquired 45 minutes post injection. The patient received 0.4mg Lexiscan, 26.1 mCi Tc 99m Sestamibi - Stress images obtained [address] injection FINDINGS: Review of stress and rest SPECT images demonstrates fixed reduced uptake involving the inferior wall myocardium similar which may be artifactual. There is also a fixed area of reduced uptake involving t he apex.. Gated analysis shows normal wall motion with an estimated left ventricular ejection fracti on of 51 %. IMPRESSION: No scintigraphic evidence for reversible ischemia.
--- NOTE | 2023-01-17 12:37 | CA ---
Lexiscan Nuclear Stress Test Report Name: Evaristo Matthews Exam Date: 01/17/2023 09:56 Exam Location: [facility] Ht (in): 71 Wt (lb): 265 BSA: 2.38 Ordering Phys: Benita Hernandez Referring Phys: NIDA,, Technologist: Samuel Nicholas Age: 57 Gender: M : 1965 Procedure CPT: Indications: Reflex order-Stress test ICD-10 Codes: Patient History: CHEST PAIN, DIFFICULTY IN BREATHING, PALPITATIONS, NUMBNESS IN FACE/NECK, HTN, ELEVATED CHOLESTEROL LEVELS, FAMILY HX OF HEART DISEASE Medications: Meds past 24 hrs: Pretest Chest Pain: STRESS TEST Lexiscan Protocol Exercise Duration (min:sec): 01:[address] Depressions (mm): Angina Score: Cano Score: Resting HR (bpm): 80 Peak HR (bpm): 90 Resting BP (mmHg): 158 / 86 Peak BP (mmHg): 158 / 86 MPHR: 161 Target HR: 137 % MPHR: 56 METS: 1.0 Total Dose: Peak Dose: Atropine: Double Product: 83072 BP Response: Stress Termination: INFUSION COMPLETE Stress Symptoms: NO SYMPTOMS Stress Summary: ECG ANALYSIS Resting ECG: Stress ECG: CONCLUSIONS At baseline EKG showed normal sinus rhythm, normal axis, no significant ST or T wave abnormalities. Patient recieved IV infusion of Lexiscan 0.4mg and at peak infusion EKG showed no significant change from baseline. Conclusions: 1. Normal EKG response to Lexiscan infusion 2. Nuclear imaging to be reported separately. Dr. Tyler Stock DO (Electronically Signed) Final Date: 17 Jan 2023 12:37
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
[2023-01-17] MEDS: HEPARIN SODIUM,PORCINE/PF 5,000 UNIT/0.5 ML SYRINGE SQ SCH ×2 (15:47→20:46)
[2023-01-17] MEDS ORDERED: ATORVASTATIN 40 MG TAB PO SCH (21:00)
--- NOTE | 2023-01-17 23:58 | P.HPIM ---
History of Present Illness H&P Date: 01/17/23 Chief Complaint: Chest pain Patient is a 57-year-old male with a known history of hypertension, osteoarthritis, alcohol abuse and history of seizures, recently diagnosed atrial fibrillation currently not on any anticoagulation and history of falls presents to ER with complaints of chest pain. Patient states that he has been drinking heavily at home. He has been having chest pain and shortness of breath over the past few months. During the last 4 to 5 days symptoms got worsened and did wake him up from sleep few times. Chest pain is mainly mid retrosternal ,on and off. Sometimes worsens with deep breathing. Denied any associated nausea or vomiting. No headache or dizziness or lightheadedness. No radiation of the pain. Patient stated that he was having suicidal ideation on admission. Chest x-ray showed mild subsegmental atelectasis at left base. EKG showed normal sinus rhythm Patient did have prior history of cardiomyopathy ejection fraction 25 to 30% but is recovered as per recent echocardiogram in October 2022. Ejection fraction was 50 to 55%. Laboratory data showed WBC 5.6 hemoglobin 14.3 and platelets 197 Sodium 136 potassium 3.8 chloride 102 bicarb is 21 BUN 16 and creatinine 1.19 and blood sugar is 93. Magnesium 1.7 Troponin x3 negative LDL 149 Serum alcohol level was 167 on admission Review of Systems Constitutional: Patient denies any fever or chills . Generalized weakness. Anxiety. Abdomen: Patient denied any nausea or vomiting or abd. pain Cardiovascular: Patient denies any chest pain or short of breath no palpitations. Respiratory: patient denied any cough . no sputum production. No shortness of breath Neurologic: Patient denied any numbness or tingling headache. Musculoskeletal: Patient denies any complaints of joint swelling or deformity. Skin: Negative Psychiatric: Denies suicidal ideation. Endocrine: No heat or cold intolerance. No recent weight gain. Genitourinary: No dysuria or hematuria. All other 14 point ROS negative except the above Past Medical History Past Medical History: Atrial Fibrillation, CVA/TIA, Hypertension, Osteoarthritis (OA), Pneumonia, Seizure Disorder Additional Past Medical History / Comment(s): Afib recently diagnosed, lower extremity edema, ETOH abuse with past withdrawal/seizure in 12/2018, chronic generalized pain, pt states he had a TIA in 2018 while in [place] and was intubated. Reports had a kidney stone in another EC a few days ago. History of Any Multi-Drug Resistant Organisms: None Reported Past Surgical History: Orthopedic Surgery Additional Past Surgical History / Comment(s): R thumb fracture with surgery., cardioverison Past Anesthesia/Blood Transfusion Reactions: No Reported Reaction Past Psychological History: Anxiety, Depression Additional Psychological History / Comment(s): Pt is currently homeless and when asked if he has thoughts of suicide he reports "yes" Smoking Status: Never smoker Past Alcohol Use History: Abuse, Daily, Heavy Additional Past Alcohol Use History / Comment(s): pt. drinks a fith a day sometimes two. Past Drug Use History: None Reported - Past Family History Father Family Medical History: Myocardial Infarction (CO) Additional Family Medical History / Comment(s): Father of a CO at the age of 57 yrs. Mother Family Medical History: Hyperlipidemia, Hypertension Additional Family Medical History / Comment(s): Mother at the age of 89yrs. Medications and Allergies Home Medications Medication Instructions Recorded Confirmed Type Amiodarone [Cordarone] 200 mg PO BID 07/20/22 01/16/23 History Metoprolol Tartrate [Lopressor] 50 mg PO BID 07/20/22 01/16/23 History Allergies Allergy/AdvReac Type Severity Reaction Status Date / Time Penicillins Allergy Rash/Hives Verified 01/16/23 16:36 Physical Exam Vitals: Vital Signs Temp Pulse Pulse Resp BP BP BP 01/17/23 07:45 01/17/23 07:00 97.5 F L 78 19 153/84 01/17/23 02:35 98.1 F 77 17 154/86 01/16/23 19:30 98.5 F 89 89 17 150/69 139/87 01/16/23 18:05 97.5 F L 101 H 20 124/94 01/16/23 15:42 98.5 F 65 18 115/70 Pulse Ox 01/17/23 07:45 97 01/17/23 07:00 97 01/17/23 02:35 97 01/16/23 19:30 94 L 01/16/23 18:05 95 01/16/23 15:42 95 Intake and Output 01/16/23 01/17/23 01/17/23 22:59 06:59 14:59 Output Total 200 Balance -200 Output: Urine 200 Other: # Voids 2 Weight 117.934 kg PHYSICAL EXAMINATION: Patient is lying in the bed comfortably, no acute distress, awake alert and oriented but anxious and restless... HEENT: Normocephalic. Neck is supple. Pupils reactive. Nostrils clear. Oral cav ity is moist. Neck reveals no JVD, carotid bruits, or thyromegaly. CHEST EXAMINATION: Trachea is central. Symmetrical expansion. Lung zamora clear to auscultation and percussion. Bibasilar diminished sounds. No wheezing or rhonchi. CARDIAC: Normal S1, S2 with no gallops. No murmurs ABDOMEN: Soft. Bowel sounds present. Nontender. No organomegaly. No abdominal bruits. Extremities: 2+ edema. No clubbing or cyanosis Neurologically awake, alert, oriented x3 with well-coordinated movements. No gross focal deficits noted Skin: No rash or skin lesions. Psychiatric: Coperative. Currently denies any suicidal ideation. Musculoskeletal: No joint swelling or deformity. Normal range of motion. Results CBC & Chem 7: 01/16/23 16:04 01/16/23 16:04 Labs: Abnormal Lab Results - Last 24 Hours (Table) 01/16/23 Range/Units 16:04 Sodium 136 L (137-145) mmol/L Carbon Dioxide 21 L (22-30) mmol/L Calcium 8.3 L (8.4-10.2) mg/dL Thrombosis Risk Factor Assmnt - DVT/VTE Prophylaxis DVT/VTE Prophylaxis: Pharmacologic Prophylaxis ordered - Choose All That Apply Any of the Below Risk Factors Present?: Yes Each Factor Represents 1 point: Age 41-60 years, Obesity (BMI >25), Swollen legs (current) Other Risk Factors: No Other congenital or acquired thrombophilia - If yes, enter type in comment: No Thrombosis Risk Factor Assessment Total Risk Factor Score: 3 Thrombosis Risk Factor Assessment Level: Moderate Risk Assessment and Plan Assessment: Possible cardiac chest pain. Ruled out ACS. Acute alcohol intoxication on admission Severe alcohol abuse Gait dysfunction and history of multiple falls recently Paroxysmal atrial fibrillation not on anticoagulation due to falls. Hypertension uncontrolled. Hyperlipidemia History of TIA History of cardiomyopathy likely nonischemic with recovered ejection fraction as per recent echocardiogram intergrade 2022. Obesity BMI 36.3. DVT prophylaxis with heparin subcu Plan: Patient will be continued on telemetry monitoring. Serial EKG and troponin x3 negative. Monitor for alcohol withdrawal symptoms and continue with one-to-one sitter and psychiatry was consulted due to suicidal ideation. Patient was seen by cardiology. Patient is scheduled for stress test today. Metoprolol dose increased to 100 mg twice daily and amiodarone dose decreased. Continue to follow closely. Continue with CIWA protocol. Time with Patient: Greater than 30
[2023-01-18] MEDS: LORazepam 2 MG/ML INJ IV PRN (04:26)
[2023-01-18] MEDS: HEPARIN SODIUM,PORCINE/PF 5,000 UNIT/0.5 ML SYRINGE SQ SCH (07:45)
[2023-01-18 07:48] VITALS: BP 130/81; PULSE 71; RESP 20; TEMP 97.6
[2023-01-18] MEDS: THIAMINE 100 MG TAB PO SCH (09:31)
[2023-01-18] MEDS: METOPROLOL TARTRATE 50 MG TAB PO SCH (09:31)
[2023-01-18] MEDS ORDERED: LORazepam 0.5 MG TAB PO PRN (09:31)
[2023-01-18] MEDS: ASPIRIN 81 MG PO SCH (09:31)
[2023-01-18] MEDS: lisinopriL 5 MG TAB PO SCH (09:31)
[2023-01-18] MEDS: AMIODARONE 200 MG TAB PO SCH (09:31)
[2023-01-18] MEDS ORDERED: chlordiazePOXIDE 25 MG CAP PO SCH (09:45)
[2023-01-18 11:13] LABS: Basophils # (A) 0.07 X 10*3/uL (0.00-0.10); Basophils % (A) 1.6 %; Eosinophils # (A) 0.44 X 10*3/uL (0.04-0.35); HCT 45.1 % (39.6-50.0); HGB 14.7 g/dL (13.0-17.0); Immature Grans, Automated 2.7 %; Lymphocytes # (A) 1.11 X 10*3/uL (0.90-5.00); Lymphocytes % (A) 25.3 %; MCH 32.2 pg (27.0-32.0); MCHC 32.6 g/dL (32.0-37.0); MCV 98.9 fL (80.0-97.0); Mean Platelet Volume 9.8 fL (9.5-12.2); Monocytes # (A) 0.59 X 10*3/uL (0.20-1.00); Monocytes % (A) 13.5 %; NRBC Per 100 WBC 0 /100 WBCS (0.0-0.0); Neutrophils # (A) 2.05 X 10*3/uL (1.80-7.70); Neutrophils % (A) 46.9 %; Platelet Count 162 X 10*3/uL (140-440); RBC 4.56 X 10*6/uL (4.40-5.60); RDW 13.9 % (11.5-14.5); WBC 4.38 X 10*3/uL (4.50-10.00)
[2023-01-18 11:17] LABS: African American GFR (CKD) 84.7 (60.0-200.0); Anion Gap 9.7 mmol/L (10.00-18.00); BUN/Creat Ratio 17.45 Ratio (12.00-20.00); Blood Urea Nitrogen 19.2 mg/dL (9.0-27.0); Calcium 8.7 mg/dL (8.7-10.3); Carbon Dioxide 26.3 mmol/L (20.0-27.5); Non-African American GFR(CKD) 73.1 (60.0-200.0); Potassium 4.4 mmol/L (3.5-5.5)
--- NOTE | 2023-01-21 06:42 | P.DS ---
Providers Date of admission: 01/16/23 16:52 Expected date of discharge: 01/18/23 Attending physician: Carlos Mejias Consults: 01/16/23 16:48 Consult Physician Urgent Consulting Provider: Herman Keane Reason/Comments: Suicidal ideations Do you want consulting provider notified?: Yes Primary care physician: Kamryn Alvarez Hospital Course: Final diagnosis chest pain. Ruled out ACS. STress testing was normal Acute alcohol intoxication on admission Severe alcohol abuse Gait dysfunction and history of multiple falls recently Paroxysmal atrial fibrillation not on anticoagulation due to falls. Hypertension uncontrolled. History of depression with suicidal ideation Hyperlipidemia History of TIA History of cardiomyopathy likely nonischemic with recovered ejection fraction as per recent echocardiogram intergrade 2022. Obesity BMI 36.3. DVT prophylaxis Discharge disposition Patient is being discharged in a stable condition with guarded prognosis to home. Patient will follow-up with Dr. Alvarez in the outpatient setting upon discharge. Patient is to follow-up with [facility] as well as cardiology outpatient as scheduled. Total time taken is greater than 35 minutes. Hospital course This is a 57-year-old male who was recently admitted with chest pain along with acute alcohol intoxication. Patient was seen and evaluated by cardiology underwent stress testing which was normal and ACS ruled out. Patient also with alcohol abuse and alcohol intoxication, present on admission maintained on CIWA protocol. Patient also to have suicidal ideation and was evaluated by psychiatry recommending outpatient follow-up with [facility] and does not meet inpatient criteria. Patient started on a Librium taper and will continue in the outpatient setting. Patient denies suicidal ideation and reports is ready for discharge. Please refer to other consultation notes for further HPI. Currently no reports of chest pain, shortness of breath, or palpitations. Patient is afebrile. No reports of nausea or vomiting and patient is tolerating diet. Patient will be discharged home today. High risk for readmission given patient's noncompliance to medications and continued alcohol use Physical exam: Gen: This is a 57-year-old male who is awake, alert and oriented 3, well- developed, well-nourished, obese HEENT: Head is atraumatic, normocephalic. Pupils equal, round. Sclerae is anicteric. NECK: Supple. No JVD. No lymphadenopathy. No thyromegaly. LUNGS: Clear to auscultation. No wheezes or rhonchi. No intercostal retractions. HEART: Regular rate and rhythm. No murmur. ABDOMEN: Soft. Bowel sounds are present. No masses. No tenderness. EXTREMITIES: No pedal edema. No calf tenderness. NEUROLOGICAL: Patient is awake, alert and oriented x3. Cranial nerves 2 through 12 are grossly intact. Please refer to medication reconciliation sheet for a list of medications. The impression and plan of care has been dictated by Kim Myrick, Nurse Practitioner as directed. Dr. Con MD I have performed a history and examination and MDM of this patient, discussed the same with the dictator, and agree with the dictator's assessment and plan as written ,documented as a scribe. Based on total visit time, I have performed more than 50% of the visit. Patient Condition at Discharge: Fair Plan - Discharge Summary New Discharge Prescriptions: New Atorvastatin [Lipitor] 40 mg PO HS #30 tab Nitroglycerin Sl Tabs [Nitrostat] 0.4 mg SUBLINGUAL Q5M PRN #20 tab PRN Reason: Chest Pain Thiamine [Vitamin B-1] 100 mg PO DAILY #30 tab lisinopriL [Zestril] 5 mg PO DAILY #30 tab Aspirin 81 mg PO DAILY #30 tab chlordiazePOXIDE HCl [Librium] 25 mg PO TID #6 cap Metoprolol Tartrate [Lopressor] 100 mg PO BID 30 Days #120 tab Changed Amiodarone [Cordarone] 200 mg PO DAILY #0 Discontinued Metoprolol Tartrate [Lopressor] 50 mg PO BID Discharge Medication List Amiodarone [Cordarone] 200 mg PO DAILY #0 01/18/23 [Rx] Aspirin 81 mg PO DAILY #30 tab 01/18/23 [Rx] Atorvastatin [Lipitor] 40 mg PO HS #30 tab 01/18/23 [Rx] Metoprolol Tartrate [Lopressor] 100 mg PO BID 30 Days #120 tab 01/18/23 [Rx] Nitroglycerin Sl Tabs [Nitrostat] 0.4 mg SUBLINGUAL Q5M PRN #20 tab 01/18/23 [ Rx] Thiamine [Vitamin B-1] 100 mg PO DAILY #30 tab 01/18/23 [Rx] chlordiazePOXIDE HCl [Librium] 25 mg PO TID #6 cap 01/18/23 [Rx] lisinopriL [Zestril] 5 mg PO DAILY #30 tab 01/18/23 [Rx] Follow up Appointment(s)/Referral(s): Kamryn Alvarez MD [Primary Care Provider] - 1 Week Elie Davis MD [STAFF PHYSICIAN] - 01/29/23 2:15 pm Activity/Diet/Wound Care/Special Instructions: Activity Limited until follow-up Follow-up with primary care provider on discharge Follow-up with cardiology outpatient in one week Continue heart healthy diet Continue Librium taper and follow-up with AA meetings and [facility] outpatient Highly recommend avoiding all alcohol intake Discharge/Stand Alone Forms: AA Meetings [address] - [facility], AA Meetings [facility], Who Do I Call?, Community Resources, Outpatient Counseling, In Substance Abuse Facilities Discharge Disposition: HOME SELF-CARE
== END 2023-01-18 12:40 | disposition home or self-care (01) ==
LOC: SUPCPDRO 15:41 → EC 15:41 → 6NMEDSUR 16:52
PROVIDERS: ADMIT Hospitalist; ATTEND Hospitalist
DX: R07.89 Other chest pain (principal); F10.229 Alcohol dependence with intoxication, unspecified; F10.24 Alcohol dependence with alcohol-induced mood disorder; F32.9 Major depressive disorder, single episode, unspecified; F41.1 Generalized anxiety disorder; F41.0 Panic disorder [episodic paroxysmal anxiety]; Z91.148 Patient's other noncompliance with medication regimen for other reason; Y90.6 Blood alcohol level of 120-199 mg/100 ml; I48.0 Paroxysmal atrial fibrillation; I11.9 Hypertensive heart disease without heart failure; I43 Cardiomyopathy in diseases classified elsewhere; R45.851 Suicidal ideations; G40.909 Epilepsy, unspecified, not intractable, without status epilepticus; E78.5 Hyperlipidemia, unspecified; J98.11 Atelectasis; M19.90 Unspecified osteoarthritis, unspecified site; G89.29 Other chronic pain; R26.9 Unspecified abnormalities of gait and mobility; R29.6 Repeated falls; G47.00 Insomnia, unspecified; E66.9 Obesity, unspecified; Z68.36 Body mass index [BMI] 36.0-36.9, adult; Z59.00 Homelessness unspecified; Z56.0 Unemployment, unspecified; Z79.899 Other long term (current) drug therapy; Z88.0 Allergy status to penicillin; Z86.73 Personal history of transient ischemic attack (TIA), and cerebral infarction without residual deficits; Z87.01 Personal history of pneumonia (recurrent); Z91.81 History of falling; Z87.442 Personal history of urinary calculi; Z98.890 Other specified postprocedural states; Z82.49 Family history of ischemic heart disease and other diseases of the circulatory system; Z81.1 Family history of alcohol abuse and dependence; Z83.49 Family history of other endocrine, nutritional and metabolic diseases
CPT/HCPCS: 96376 ×3; 96372 ×2; 82075; 96374; 96375; 99285; 36415; 94760 ×2; 93005; 93017; 83880; 80061; 80053; 80048; 83735; 84484; 85025 ×2; 85610; 85730; 80306; 80320; 71046; 78452; G0378 ×3; A9500; J2060 ×3; J1940; J3411; J2785; J1644

== ENCOUNTER 2023-01-23 21:29 | Inpatient (IN) | payer OTHER ==
--- NOTE | 2023-01-23 22:21 | ED ---
General Adult HPI <Kellie Browning - Last Filed: 01/23/23 22:18> <James Ureña - Last Filed: 01/24/23 00:50> <Tony Bee - Last Filed: 01/24/23 12:24> - General Chief complaint: Psychiatric Symptoms Stated complaint: Mental Health Time Seen by Provider: 01/23/23 22:18 - History of Present Illness Initial comments: Patient is a 57 year old male who presents to the emergency department for suicidal ideation. Apparently patient called the police because he was suicidal. Patient is intoxicated being combative with staff in the waiting room. He is not petitioned. (Kellie Browning) This is a 57-year-old male with a past mental history including atrial fibrillation presents emergency department for suicidal ideation, depression and anxiety. The patient stated "everything is just too much" after time to get the patient to talk for several minutes. The patient did state that he was suicidal over the last 2 days without a plan. The patient denied any homicidal ideation and denied any auditory or visual hallucinations. Per the patient was placed in a room, the patient was aggressive toward staff but was cooperative once in the room. The patient was otherwise resting in bed comfortably. (James Ureña) - Related Data Previous Rx's Medication Instructions Recorded Amiodarone [Cordarone] 200 mg PO DAILY #0 01/18/23 Aspirin 81 mg PO DAILY #30 tab 01/18/23 Atorvastatin [Lipitor] 40 mg PO HS #30 tab 01/18/23 Metoprolol Tartrate [Lopressor] 100 mg PO BID 30 Days #120 tab 01/18/23 Nitroglycerin Sl Tabs [Nitrostat] 0.4 mg SUBLINGUAL Q5M PRN #20 tab 01/18/23 Thiamine [Vitamin B-1] 100 mg PO DAILY #30 tab 01/18/23 lisinopriL [Zestril] 5 mg PO DAILY #30 tab 01/18/23 Allergies Allergy/AdvReac Type Severity Reaction Status Date / Time Penicillins Allergy Rash/Hives Verified 01/24/23 11:24 Review of Systems ROS Other: All systems not noted in ROS Statement are negative. <Kellie Browning - Last Filed: 01/23/23 22:18> ROS Other: All systems not noted in ROS Statement are negative. <James Ureña - Last Filed: 01/24/23 00:50> ROS Other: All systems not noted in ROS Statement are negative. <Tony Bee - Last Filed: 01/24/23 12:24> ROS Statement: Those systems with pertinent positive or pertinent negative responses have been documented in the HPI. Past Medical History Past Medical History: Atrial Fibrillation, CVA/TIA, Hypertension, Osteoarthritis (OA), Pneumonia, Seizure Disorder Additional Past Medical History / Comment(s): Afib recently diagnosed, lower extremity edema, ETOH abuse with past withdrawal/seizure in 12/2018, chronic generalized pain, pt states he had a TIA in 2019 while in [place] and was intubated. Reports had a kidney stone in another a few days ago. History of Any Multi-Drug Resistant Organisms: None Reported Past Surgical History: Orthopedic Surgery Additional Past Surgical History / Comment(s): R thumb fracture with surgery., cardioverison Past Anesthesia/Blood Transfusion Reactions: No Reported Reaction Past Alcohol Use History: Abuse, Daily, Heavy - Past Family History Father Family Medical History: Myocardial Infarction (VT) Additional Family Medical History / Comment(s): Father of a [place] at the age of 57 yrs. Mother Family Medical History: Hyperlipidemia, Hypertension Additional Family Medical History / Comment(s): Mother at the age of 89yrs. <Kellie Browning - Last Filed: 01/23/23 22:18> General Exam <Kellie Browning - Last Filed: 01/23/23 22:18> Limitations: no limitations General appearance: alert, in no apparent distress, obese Head exam: Present: atraumatic, normocephalic, normal inspection Eye exam: Present: normal appearance, PERRL Pupils: Present: normal accommodation ENT exam: Present: normal exam, normal oropharynx, mucous membranes moist Neck exam: Present: normal inspection, full ROM Respiratory exam: Present: normal lung sounds bilaterally Cardiovascular Exam: Present: regular rate, normal rhythm, normal heart sounds GI/Abdominal exam: Present: soft, normal bowel sounds Extremities exam: Present: normal inspection, full ROM Back exam: Present: normal inspection, full ROM Neurological exam: Present: alert, oriented X3, CN II-XII intact Psychiatric exam: Present: depressed, suicidal ideation Skin exam: Present: warm, dry <James Ureña - Last Filed: 01/24/23 00:50> - General Exam Comments Initial Comments: Visual Physical Exam Vital signs reviewed General: Well-appearing, nontoxic, no acute distress. Head: Normocephalic, atraumatic Eyes: PERRLA, EOMI ENT: Airway patent Chest: Nonlabored breathing Skin: No visual rash, normal skin tone Neuro: Alert and oriented 3 Musculoskeletal: No gross abnormalities (Nallely,Kellie) Course Vital Signs 01/23/23 01/24/23 01/24/23 22:35 03:22 07:40 Temperature 98.1 F 97.5 F L Pulse Rate 91 101 H Respiratory 20 20 20 Rate Blood Pressure 151/90 142/88 O2 Sat by Pulse 97 95 Oximetry EKG Findings - EKG Results: EKG: interpreted by AMARJIT (Left axis), normal QRS, normal ST/T EKG shows: atrial fibrillation <Tony Bee - Last Filed: 01/24/23 12:24> Medical Decision Making - Lab Data Result diagrams: 01/23/23 23:05 01/23/23 23:05 <James Ureña - Last Filed: 01/24/23 00:50> - Lab Data Result diagrams: 01/23/23 23:05 01/23/23 23:05 <Tony Bee - Last Filed: 01/24/23 12:24> - Medical Decision Making Was pt. sent in by a medical professional or institution ([facility], [facility], urgent care, hospital, or [place] [facility] [place] facility...) When possible be specific @ -No Did you speak to anyone other than the patient for history (EMS, parent, family, police, friend...)? What history was obtained from this source @ -No Did you review nursing and triage notes (agree or disagree)? Why? @ -I reviewed and agree with nursing and triage notes Were old charts reviewed (outside hosp., previous admission, EMS record, old EKG, old radiological studies, urgent care reports/EKG's, [place] health [facility] facility records)? Report findings @ -No old charts were reviewed Differential Diagnosis (chest pain, altered mental status, abdominal pain women, abdominal pain men, vaginal bleeding, weakness, fever, dyspnea, syncope, headache, dizziness, GI bleed, back pain, seizure, CVA, palpatations, mental health)? @ -Suicidal ideation, depression, anxiety EKG interpreted by me (3pts min.). @ -None X-rays interpreted by me (1pt min.). @ -None done CT interpreted by me (1pt min.). @ -None done U/S interpreted by me (1pt. min.). @ -None done What testing was considered but not performed or refused? (CT, X-rays, U/S, labs)? Why? @ -None What meds were considered but not given or refused? Why? @ -None Did you discuss the management of the patient with other professionals (professionals i.e. , PA, RETRIMMER, lab, RT, psych nurse, group social worker, woodworking shop hand, teacher, benefits officer, casey saw operator)? Give summary @ -No Was smoking cessation discussed for >3mins.? @ -Yes Was critical care preformed (if so, how long)? @ -No Were there social determinants of health that impacted care today? How? (Homelessness, low income, unemployed, alcoholism, drug addiction, transportation, low edu. Level, literacy, decrease access to med. care, senior care, rehab)? @ -No Was there de-escalation of care discussed even if they declined (Discuss DNR or withdrawal of care, Hospice)? DNR status @ -No What co-morbidities impacted this encounter? (DM, HTN, Smoking, COPD, CAD, Cancer, CVA, ARF, Chemo, Hep., AIDS, mental health diagnosis, sleep apnea, morbid obesity)? @ -Anxiety, depression Was patient admitted / discharged? Hospital course, mention meds given and route, prescriptions, significant lab abnormalities, going to OR and other [facility] info. @ -The patient was seen and evaluated emergency department. Physical exam, the patient was resting in bed without any acute distress. The patient was sleeping and did take several minutes in order to have him speak. All vital signs were stable. The patient was intoxicated on arrival. Laboratory workup was obtained and was within normal limits. Due to the patient's suicidality, the patient will continue to be closely monitored observed pending sobriety. Once the patient is sober the patient will be seen by EPS and evaluated. The patient was signed out to the oncoming physician pending sobriety as well as EPS evaluation. Undiagnosed new problem with uncertain prognosis? @ -No Drug Therapy requiring intensive monitoring for toxicity (Heparin, Nitro, Insulin, Cardizem)? @ -No Were any procedures done? @ -No Diagnosis/symptom? @ -Suicidal ideation, alcohol intoxication Acute, or Chronic, or Acute on Chronic? @ -Acute on chronic Uncomplicated (without systemic symptoms) or Complicated (systemic symptoms)? @ -Complicated Side effects of treatment? @ -No Exacerbation, Progression, or Severe Exacerbation? @ -No Poses a threat to life or bodily function? How? (Chest pain, USA, VT, pneumonia, PE, COPD, DKA, ARF, appy, cholecystitis, CVA, Diverticulitis, Homicidal, Suicidal, threat to staff... and all critical care pts) @ -No (James Ureña) Patient reevaluated by myself, Dr. Bee. Patient resting in bed. Patient has nausea. Patient has mild epigastric tenderness. Patient states his symptoms are starting to worsen and does request more medication for withdrawal and nausea. Patient is updated on results. Patient was seen by mental health services and they do request medical admission. Secondary to ciwa score. Case was also discussed with Dr. Andujar, who will admit covering for Dr. Mehnaz Mejias. (RohitTony) - Lab Data Lab Results 01/23/23 01/23/23 01/23/23 Range/Units 23:05 23:05 23:05 WBC 4.9 (3.8-10.6) k/uL RBC 4.63 (4.30-5.90) m/uL Hgb 15.5 (13.0-17.5) gm/dL Hct 44.8 (39.0-53.0) % MCV 96.9 (80.0-100.0) fL MCH 33.6 (25.0-35.0) pg MCHC 34.6 (31.0-37.0) g/dL RDW 14.5 (11.5-15.5) % Plt Count 181 (150-450) k/uL MPV 6.9 Neutrophils % 52 % Lymphocytes % 29 % Monocytes % 10 % Eosinophils % 5 % Basophils % 1 % Neutrophils # 2.6 (1.3-7.7) k/uL Lymphocytes # 1.4 (1.0-4.8) k/uL Monocytes # 0.5 (0-1.0) k/uL Eosinophils # 0.3 (0-0.7) k/uL Basophils # 0.0 (0-0.2) k/uL Sodium 138 (137-145) mmol/L Potassium 4.9 (3.5-5.1) mmol/L Chloride 103 (98-107) mmol/L Carbon Dioxide 21 L (22-30) mmol/L Anion Gap 14 mmol/L BUN 18 (9-20) mg/dL Creatinine 1.18 (0.66-1.25) mg/dL Est GFR (CKD-EPI)AfAm 78 (>60 ml/min/1.73 sqM) Est GFR (CKD-EPI)NonAf 67 (>60 ml/min/1.73 sqM) Glucose 87 (74-99) mg/dL Calcium 8.3 L (8.4-10.2) mg/dL Total Bilirubin 0.8 (0.2-1.3) mg/dL AST 109 H (17-59) U/L ALT 60 H (4-49) U/L Alkaline Phosphatase 88 (38-126) U/L Total Protein 7.8 (6.3-8.2) g/dL Albumin 4.6 (3.5-5.0) g/dL Urine Opiates Screen Not Detected (NotDetected) Ur Oxycodone Screen Not Detected (NotDetected) Urine Methadone Screen Not Detected (NotDetected) Ur Propoxyphene Screen Not Detected (NotDetected) Ur Barbiturates Screen Not Detected (NotDetected) U Tricyclic Antidepress Not Detected (NotDetected) Ur Phencyclidine Scrn Not Detected (NotDetected) Ur Amphetamines Screen Not Detected (NotDetected) U Methamphetamines Scrn Not Detected (NotDetected) U Benzodiazepines Scrn Detected H (NotDetected) Urine Cocaine Screen Not Detected (NotDetected) U Marijuana (THC) Screen Not Detected (NotDetected) Coronavirus (PCR) (Not Detectd) 01/24/23 Range/Units 00:07 WBC (3.8-10.6) k/uL RBC (4.30-5.90) m/uL Hgb (13.0-17.5) gm/dL Hct (39.0-53.0) % MCV (80.0-100.0) fL MCH (25.0-35.0) pg MCHC (31.0-37.0) g/dL RDW (11.5-15.5) % Plt Count (150-450) k/uL MPV Neutrophils % % Lymphocytes % % Monocytes % % Eosinophils % % Basophils % % Neutrophils # (1.3-7.7) k/uL Lymphocytes # (1.0-4.8) k/uL Monocytes # (0-1.0) k/uL Eosinophils # (0-0.7) k/uL Basophils # (0-0.2) k/uL Sodium (137-145) mmol/L Potassium (3.5-5.1) mmol/L Chloride (98-107) mmol/L Carbon Dioxide (22-30) mmol/L Anion Gap mmol/L BUN (9-20) mg/dL Creatinine (0.66-1.25) mg/dL Est GFR (CKD-EPI)AfAm (>60 ml/min/1.73 sqM) Est GFR (CKD-EPI)NonAf (>60 ml/min/1.73 sqM) Glucose (74-99) mg/dL Calcium (8.4-10.2) mg/dL Total Bilirubin (0.2-1.3) mg/dL AST (17-59) U/L ALT (4-49) U/L Alkaline Phosphatase (38-126) U/L Total Protein (6.3-8.2) g/dL Albumin (3.5-5.0) g/dL Urine Opiates Screen (NotDetected) Ur Oxycodone Screen (NotDetected) Urine Methadone Screen (NotDetected) Ur Propoxyphene Screen (NotDetected) Ur Barbiturates Screen (NotDetected) U Tricyclic Antidepress (NotDetected) Ur Phencyclidine Scrn (NotDetected) Ur Amphetamines Screen (NotDetected) U Methamphetamines Scrn (NotDetected) U Benzodiazepines Scrn (NotDetected) Urine Cocaine Screen (NotDetected) U Marijuana (THC) Screen (NotDetected) Coronavirus (PCR) Not Detected (Not Detectd) Disposition <Kellie Browning - Last Filed: 01/23/23 22:18> <James Ureña - Last Filed: 01/24/23 00:50> Is patient prescribed a controlled substance at d/c from ED?: No Time of Disposition: 12:24 <Tony Bee - Last Filed: 01/24/23 12:24> Clinical Impression: Depression, Suicidal ideations, Alcohol withdrawal Disposition: ADMITTED IP TO THIS HOSP Condition: Serious Referrals: Kamryn Alvarez MD [Primary Care Provider] - 1-2 days
[2023-01-23 23:23] LABS: Basophils % (A) 1 %; Eosinophils # (A) 0.3 k/uL (0-0.7); Eosinophils % (A) 5 %; HCT 44.8 % (39.0-53.0); HGB 15.5 gm/dL (13.0-17.5); Lymphocytes # (A) 1.4 k/uL (1.0-4.8); Lymphocytes % (A) 29 %; MCH 33.6 pg (25.0-35.0); MCHC 34.6 g/dL (31.0-37.0); MCV 96.9 fL (80.0-100.0); Mean Platelet Volume 6.9; Monocytes # (A) 0.5 k/uL (0-1.0); Monocytes % (A) 10 %; Neutrophils # (A) 2.6 k/uL (1.3-7.7); Neutrophils % (A) 52 %; Platelet Count 181 k/uL (150-450); RBC 4.63 m/uL (4.30-5.90); RDW 14.5 % (11.5-15.5); WBC 4.9 k/uL (3.8-10.6)
[2023-01-23 23:36] LABS: Amphetamine Screen,Urine Not Detected (NotDetected); Barbiturate Screen,Urine Not Detected (NotDetected); Benzodiazepines Screen,Urine Detected (NotDetected); Cocaine Screen,Urine Not Detected (NotDetected); Methadone Screen, Urine Not Detected (NotDetected); Opiate Screen,Urine Not Detected (NotDetected); Oxycodone Screen, Urine Not Detected (NotDetected); Phencyclidine Screen,Urine Not Detected (NotDetected); Tricyclic Antidepressant,Urine Not Detected (NotDetected); Urn Cannabinoid Scrn Not Detected (NotDetected)
[2023-01-23 23:39] LABS: Albumin 4.6 g/dL (3.5-5.0); Calcium 8.3 mg/dL (8.4-10.2); Potassium 4.9 mmol/L (3.5-5.1); Total Bilirubin 0.8 mg/dL (0.2-1.3); Total Protein 7.8 g/dL (6.3-8.2)
[2023-01-24] MEDS ORDERED: LORazepam 2 MG/ML INJ IV STA (07:42)
[2023-01-24] MEDS ORDERED: NALOXONE 0.4 MG/ML 1 ML VIAL IV PRN (12:24)
[2023-01-24] MEDS ORDERED: THIAMINE 100 MG/ML 2 ML VIAL IM STA (12:26)
[2023-01-24] MEDS: PANTOPRAZOLE 40 MG/10 ML VIAL IV SCH (12:36)
[2023-01-24] MEDS: SODIUM CHLORIDE 0.9% 1,000 ML IV SCH (12:38)
[2023-01-24] MEDS: LORazepam 2 MG/ML INJ IV PRN ×5 (12:42→21:53)
[2023-01-24] MEDS ORDERED: NITROGLYCERIN SL TABS 0.4 MG TAB SUBLINGUAL PRN (12:45)
[2023-01-24] MEDS: MULTIVITAMINS, THERA 1 EACH TAB PO SCH (12:46)
[2023-01-24] MEDS: METOPROLOL TARTRATE 50 MG TAB PO SCH ×2 (12:54→20:16)
--- NOTE | 2023-01-24 13:00 | P.HPIM ---
History of Present Illness 57-year-old male I am came in with a suicidal ideation and is being admitted to medicine service because of her alcohol withdrawls, . Patient does drink alcohol on daily basis about 2/5 of alcohol a day. Patient has been quite a bit depressed with a lot of stuff going on at home as per the patient but is willing to quit alcohol. REVIEW OF SYSTEMS: CONSTITUTIONAL: No fever, no malaise, no fatigue. HEENT: No recent visual problems or hearing problems. Denied any sore throat. CARDIOVASCULAR: No chest pain, orthopnea, PND, no palpitations, no syncope. PULMONARY: No shortness of breath, no cough, no hemoptysis. GASTROINTESTINAL: No diarrhea, no nausea, no vomiting, no abdominal pain. NEUROLOGICAL: No headaches, no weakness, no numbness. HEMATOLOGICAL: Denies any bleeding or petechiae. GENITOURINARY: Denies any burning micturition, frequency, or urgency. MUSCULOSKELETAL/RHEUMATOLOGICAL: Denies any joint pain, swelling, or any muscle pain. ENDOCRINE: Denies any polyuria or polydipsia. The rest of the 14-point review of systems is negative. PHYSICAL EXAMINATION: GENERAL: The patient is alert and oriented x3, not in any acute distress. Well developed, well nourished. Obese HEENT: Pupils are round and equally reacting to light. EOMI. No scleral icterus. No conjunctival pallor. Normocephalic, atraumatic. No pharyngeal erythema. No thyromegaly. CARDIOVASCULAR: S1 and S2 present. No murmurs, rubs, or gallops. PULMONARY: Chest is clear to auscultation, no wheezing or crackles. ABDOMEN: Soft, nontender, nondistended, normoactive bowel sounds. No palpable organomegaly. MUSCULOSKELETAL: No joint swelling or deformity. EXTREMITIES: No cyanosis, clubbing, or pedal edema. NEUROLOGICAL: Gross neurological examination did not reveal any focal deficits. SKIN: No rashes. Assessment and plan -Alcohol withdrawal patient will be on thiamine multivitamin supplementation along with the CIWA protocol with Ativan. -Atrial fibrillation presently sinus rhythm, on amiodarone which will be continued unsure why patient is not on any anticoagulation since patient is not in a daily in A. 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 Reports had a kidney stone in another a few days ago. History of Any Multi-Drug Resistant Organisms: None Reported Past Surgical History: Orthopedic Surgery Additional Past Surgical History / Comment(s): R thumb fracture with surgery., cardioverison Past Anesthesia/Blood Transfusion Reactions: No Reported Reaction Past Psychological History: Anxiety, Depression Smoking Status: Never smoker Past Alcohol Use History: Abuse, Daily, Heavy Past Drug Use History: None Reported - Past Family History Father Family Medical History: Myocardial Infarction (AK) Additional Family Medical History / Comment(s): Father of a [place] at the age of 57 yrs. Mother Family Medical History: Hyperlipidemia, Hypertension Additional Family Medical History / Comment(s): Mother at the age of 89yrs. Medications and Allergies Home Medications Medication Instructions Recorded Confirmed Type Amiodarone [Cordarone] 200 mg PO DAILY #0 01/18/23 01/24/23 Rx Aspirin 81 mg PO DAILY #30 tab 01/18/23 01/24/23 Rx Atorvastatin [Lipitor] 40 mg PO HS #30 tab 01/18/23 01/24/23 Rx Metoprolol Tartrate [Lopressor] 100 mg PO BID 30 Days #120 tab 01/18/23 01/24/23 Rx Nitroglycerin Sl Tabs [Nitrostat] 0.4 mg SUBLINGUAL Q5M PRN #20 tab 01/18/23 01/24/23 Rx Thiamine [Vitamin B-1] 100 mg PO DAILY #30 tab 01/18/23 01/24/23 Rx lisinopriL [Zestril] 5 mg PO DAILY #30 tab 01/18/23 01/24/23 Rx Allergies Allergy/AdvReac Type Severity Reaction Status Date / Time Penicillins Allergy Rash/Hives Verified 01/24/23 11:24 Physical Exam Vitals: Vital Signs Temp Pulse Resp BP Pulse Ox 01/24/23 12:51 97.5 F L 81 18 137/84 95 01/24/23 07:40 97.5 F L 101 H 20 142/88 95 01/24/23 03:22 20 01/23/23 22:35 98.1 F 91 20 151/90 97 Intake and Output 01/23/23 01/24/23 01/24/23 22:59 06:59 14:59 Other: Weight 117.934 kg Results CBC & Chem 7: 01/23/23 23:05 01/23/23 23:05 Labs: Abnormal Lab Results - Last 24 Hours (Table) 01/23/23 01/23/23 Range/Units 23:05 23:05 Carbon Dioxide 21 L (22-30) mmol/L Calcium 8.3 L (8.4-10.2) mg/dL AST 109 H (17-59) U/L ALT 60 H (4-49) U/L U Benzodiazepines Scrn Detected H (NotDetected)
[2023-01-24] MEDS: ONDANSETRON 4 MG/2 ML VIAL IVP PRN (16:46)
[2023-01-24] MEDS: ATORVASTATIN 40 MG TAB PO SCH (20:16)
[2023-01-25] MEDS: SODIUM CHLORIDE 0.9% 1,000 ML IV SCH ×2 (01:04→14:38)
[2023-01-25] MEDS: LORazepam 2 MG/ML INJ IV PRN ×6 (01:26→23:43)
[2023-01-25 08:35] LABS: Basophils % (A) 1 %; Eosinophils # (A) 0.3 k/uL (0-0.7); Eosinophils % (A) 8 %; HCT 46.5 % (39.0-53.0); HGB 15.8 gm/dL (13.0-17.5); Lymphocytes # (A) 0.9 k/uL (1.0-4.8); Lymphocytes % (A) 22 %; MCH 33.2 pg (25.0-35.0); MCHC 33.9 g/dL (31.0-37.0); MCV 97.9 fL (80.0-100.0); Mean Platelet Volume 6.9; Monocytes # (A) 0.4 k/uL (0-1.0); Monocytes % (A) 10 %; Neutrophils # (A) 2.3 k/uL (1.3-7.7); Neutrophils % (A) 57 %; Platelet Count 166 k/uL (150-450); RBC 4.75 m/uL (4.30-5.90); RDW 14.3 % (11.5-15.5); WBC 4.1 k/uL (3.8-10.6)
[2023-01-25 08:43] LABS: ALT 59 U/L (4-49); AST 104 U/L (17-59); African American GFR (CKD) >90 (>60 ml/min/1.73 sqM); Alkaline Phosphatase 75 U/L (38-126); Anion Gap 7 mmol/L; Blood Urea Nitrogen 15 mg/dL (9-20); Calcium 8.3 mg/dL (8.4-10.2); Carbon Dioxide 30 mmol/L (22-30); Chloride 98 mmol/L (98-107); Glucose 83 mg/dL (74-99); Lipase 86 U/L (23-300); Non-African American GFR(CKD) 79 (>60 ml/min/1.73 sqM); Potassium 4.1 mmol/L (3.5-5.1); Sodium 135 mmol/L (137-145); Total Bilirubin 1.4 mg/dL (0.2-1.3); Total Protein 6.8 g/dL (6.3-8.2)
[2023-01-25] MEDS ORDERED: lisinopriL 5 MG TAB PO SCH (09:00)
[2023-01-25] MEDS ORDERED: THIAMINE 100 MG TAB PO SCH (09:00)
[2023-01-25] MEDS: ASPIRIN 81 MG PO SCH (09:03)
[2023-01-25] MEDS: THIAMINE 100 MG TAB PO SCH (09:03)
[2023-01-25] MEDS: MULTIVITAMINS, THERA 1 EACH TAB PO SCH (09:03)
[2023-01-25] MEDS: AMIODARONE 200 MG TAB PO SCH (09:03)
[2023-01-25] MEDS: PANTOPRAZOLE 40 MG/10 ML VIAL IV SCH (09:04)
[2023-01-25] MEDS: METOPROLOL TARTRATE 50 MG TAB PO SCH ×2 (09:04→19:42)
[2023-01-25] MEDS ORDERED: lisinopriL 5 MG TAB PO STA (13:55)
--- NOTE | 2023-01-25 14:03 | P.PN ---
Subjective Progress Note Date: 01/25/23 57-year-old male I am came in with a suicidal ideation and is being admitted to medicine service because of her alcohol withdrawls, . Patient does drink alcohol on daily basis about 2/5 of alcohol a day. Patient has been quite a bit depressed with a lot of stuff going on at home as per the patient but is willing to quit alcohol. 01/25/2023 Patient is evaluated today remains in the [facility] holding for a medical bed. He is requiring IV ativan about every 4 to 6 hours. Having mild tremors at rest, reports nausea and feeling week overall. Patient continues to report suicidal ideations with no plan currently. He has safety council director at bedside. Remains on IV fluids with normal saline. Antiemetics on board with zofran. inductor tester at the bedside. PHYSICAL EXAMINATION: GENERAL: The patient is alert and oriented x3, not in any acute distress. Well developed, well nourished. Obese HEENT: Pupils are round and equally reacting to light. EOMI. No scleral icterus. No conjunctival pallor. Normocephalic, atraumatic. No pharyngeal erythema. No thyromegaly. CARDIOVASCULAR: S1 and S2 present. No murmurs, rubs, or gallops. PULMONARY: Chest is clear to auscultation, no wheezing or crackles. ABDOMEN: Soft, nontender, nondistended, normoactive bowel sounds. No palpable organomegaly. MUSCULOSKELETAL: No joint swelling or deformity. EXTREMITIES: No cyanosis, clubbing, or pedal edema. NEUROLOGICAL: Gross neurological examination did not reveal any focal deficits. SKIN: No rashes. Assessment and plan -Depression and suicidal ideations -Alcohol withdrawal patient will be on thiamine multivitamin supplementation along with the CIWA protocol with Ativan. -Paroxysmal atrial fibrillation currently in sinus rhythm not on anticoagulation due to falls -Hypertension: Continue with the lisinopril and metoprolol, hold off on amlodipine -Hypertension -Recent CT urogram done on ER visit 01/09/23 showing mild urothelial thickening of the left ureteropelvic junction is suspicious for transitional cell neoplasm patient was recommended to f/u with Dr. Landon in the office for cystoscopy and evaluation. -History of TIA -History of cardiomyopathy likely nonischemic with improved EF on most recent ec hocardiogram -Obesity DVT prophylaxis: Lovenox Full Code Plan Continue IV ativan CIWA and patient will be given oral librium Psychiatry consultation and patient has been placed in suicide precautions Increase lisinopril Will recommend per prior recommendations to see urology on discharge for further evaluation of CT urogram findings as above. [facility] medically stable for now continue alcohol withdrawal monitoring AM labs The impression and plan of care has been dictated by Vandana Crockett Nurse Practitioner as directed. Dr. Con MD I have performed a history and physical examination and medical decision making of this patient, discussed the same with the dictator, and agree with the dictators assessment and plan as written, documented as a scribe. Based on total visit time, I have performed more than 50% of this visit. Objective - Vital Signs Vital signs: Vital Signs Temp 98.1 F 01/25/23 11:35 Pulse 72 01/25/23 11:35 Resp 18 01/25/23 11:35 BP 151/98 01/25/23 11:35 Pulse Ox 97 01/25/23 11:35 FiO2 - Labs CBC & Chem 7: 01/25/23 07:43 01/25/23 07:43 Labs: Abnormal Lab Results - Last 24 Hours (Table) 01/25/23 01/25/23 Range/Units 07:43 07:43 Lymphocytes # 0.9 L (1.0-4.8) k/uL Sodium 135 L (137-145) mmol/L Calcium 8.3 L (8.4-10.2) mg/dL Total Bilirubin 1.4 H (0.2-1.3) mg/dL AST 104 H (17-59) U/L ALT 59 H (4-49) U/L Assessment and Plan Time with Patient: Less than 30
--- NOTE | 2023-01-25 14:45 | P.CN ---
Psychiatric Consult - . Consult date: 01/25/23 Consult:: 01/25/23 14:44 IDENTIFYING DATA: This patient is a single, unemployed, 57-year-old male with significant history of major depressive disorder and alcohol use disorder who presents to our hospital on 01/24/2023 for suicidal ideation in the context of alcohol intoxication and withdrawal. HISTORY OF PRESENT ILLNESS: The patient presented to the hospital on 01/24/2023 with a chief complaint of suicidal ideation in the context of alcohol intoxication and alcohol withdrawal. Psychiatry has been consulted for the suicidal ideation. Upon evaluation by this provider, the patient is denying any suicidal or homicidal ideation, intention, and/or plan. He reports that he does not recall endorsing suicidal thoughts however it "sounds like me when I'm drunk." The patient expresses that he really needs to quit alcohol. He does express a strong desire to go to inpatient substance abuse rehabilitation after medical stabilization. He is denying any auditory or visual hallucinations. He reports no paranoia or other delusions. He denies any significant symptoms of jovita or hypomania. He reports no racing thoughts, mood lability, grandiosity, periods of excessive energy, or increased goal-directed activity. The patient does admit to drinking approximately 2/5 of liquor every day. He was last assessed by psychiatry on 01/17/2023 for the same complaint of suicidal ideation in the context of alcohol intoxication. PAST PSYCHIATRIC HISTORY: Patient has a history of alcoholism, depression, and anxiety. History of being previously prescribed zoloft and lexapro. Has stopped taking lexapro since he was last discharged from our psychiatric unit in July of 2022. Hospitalized on a psychiatric July 2022. His open with outpatient substance abuse services. Patient denies any history of suicide attempts in the past. PAST MEDICAL HISTORY: Past Medical History: Atrial Fibrillation, CVA/TIA, Hypertension, Osteoarthritis (OA), Pneumonia, Seizure Disorder Additional Past Medical History / Comment(s): Afib recently diagnosed, lower extremity edema, ETOH abuse with past withdrawal/seizure in 12/2018, chronic generalized pain, pt states he had a TIA in 2018 while in [place] and was intubated. Reports had a kidney stone in another a few days ago. History of Any Multi-Drug Resistant Organisms: None Reported Past Surgical History: Orthopedic Surgery Additional Past Surgical History / Comment(s): R thumb fracture with surgery., cardioverison Past Anesthesia/Blood Transfusion Reactions: No Reported Reaction Past Psychological History: Anxiety, Depression Smoking Status: Never smoker Past Alcohol Use History: Abuse, Daily, Heavy Past Drug Use History: None Reported ALLERGIES: Penicillin CHEMICAL DEPENDENCY HISTORY: Patient presented he has been drinking up to 2/5 of liquor per day. FAMILY PSYCHIATRIC/SUBSTANCE USE HISTORY: He reports that his father was an alcoholic. SOCIAL HISTORY: Was in senior living for 2 years, and released on June 26, 2022. He is from [facility] where his support system is. He is here in [place] because this is where he was pulled over for drunk driving 2 years ago. MENTAL STATUS EXAM: General Appearance: Patient appears to be stated age is somnolent, disheveled, and resting upright in his chair. Behavior: Patient is calmly sitting upright in his chair without any agitated behavior. Eye contact is intermittent. Speech: Patient's speech is fluent and nonpressured. Mood/Affect: Patient reports their mood is "I feel sick", affect is congruent and malaised Suicidality/Homicidality: Patient is currently denying any suicidal or homicidal ideation, intention, and/or plan. Perceptions: Patient denies any visual hallucinations and denies any auditory hallucinations Though content/process: There is no evidence of any delusional thought content and thought process is linear and goal-directed. Memory and concentration: AOX3, grossly intact for the purposes of this session. Can spell "WORLD" backwards Judgment and insight: Poor Vital Signs Temp 98.1 F 01/25/23 11:35 Pulse 72 01/25/23 11:35 Resp 18 01/25/23 11:35 BP 151/98 01/25/23 11:35 Pulse Ox 97 01/25/23 11:35 FiO2 Laboratory Results WBC 4.1 k/uL (3.8-10.6) 01/25/23 07:43 RBC 4.75 m/uL (4.30-5.90) 01/25/23 07:43 Hgb 15.8 gm/dL (13.0-17.5) 01/25/23 07:43 Hct 46.5 % (39.0-53.0) 01/25/23 07:43 MCV 97.9 fL (80.0-100.0) 01/25/23 07:43 MCH 33.2 pg (25.0-35.0) 01/25/23 07:43 MCHC 33.9 g/dL (31.0-37.0) 01/25/23 07:43 RDW 14.3 % (11.5-15.5) 01/25/23 07:43 Plt Count 166 k/uL (150-450) 01/25/23 07:43 MPV 6.9 01/25/23 07:43 Neutrophils % 57 % 01/25/23 07:43 Lymphocytes % 22 % 01/25/23 07:43 Monocytes % 10 % 01/25/23 07:43 Eosinophils % 8 % 01/25/23 07:43 Basophils % 1 % 01/25/23 07:43 Neutrophils # 2.3 k/uL (1.3-7.7) 01/25/23 07:43 Lymphocytes # 0.9 k/uL (1.0-4.8) L 01/25/23 07:43 Monocytes # 0.4 k/uL (0-1.0) 01/25/23 07:43 Eosinophils # 0.3 k/uL (0-0.7) 01/25/23 07:43 Basophils # 0.0 k/uL (0-0.2) 01/25/23 07:43 Sodium 135 mmol/L (137-145) L 01/25/23 07:43 Potassium 4.1 mmol/L (3.5-5.1) 01/25/23 07:43 Chloride 98 mmol/L (98-107) 01/25/23 07:43 Carbon Dioxide 30 mmol/L (22-30) 01/25/23 07:43 Anion Gap 7 mmol/L 01/25/23 07:43 BUN 15 mg/dL (9-20) 01/25/23 07:43 Creatinine 1.04 mg/dL (0.66-1.25) 01/25/23 07:43 Est GFR (CKD-EPI)AfAm >90 (>60 ml/min/1.73 sqM) 01/25/23 07:43 Est GFR (CKD-EPI)NonAf 79 (>60 ml/min/1.73 sqM) 01/25/23 07:43 Glucose 83 mg/dL (74-99) 01/25/23 07:43 Calcium 8.3 mg/dL (8.4-10.2) L 01/25/23 07:43 Total Bilirubin 1.4 mg/dL (0.2-1.3) H 01/25/23 07:43 AST 104 U/L (17-59) H 01/25/23 07:43 ALT 59 U/L (4-49) H 01/25/23 07:43 Alkaline Phosphatase 75 U/L (38-126) 01/25/23 07:43 Total Protein 6.8 g/dL (6.3-8.2) 01/25/23 07:43 Albumin 4.0 g/dL (3.5-5.0) 01/25/23 07:43 Lipase 86 U/L (23-300) 01/25/23 07:43 Urine Opiates Screen Not Detected (NotDetected) 01/23/23 23:05 Ur Oxycodone Screen Not Detected (NotDetected) 01/23/23 23:05 Urine Methadone Screen Not Detected (NotDetected) 01/23/23 23:05 Ur Propoxyphene Screen Not Detected (NotDetected) 01/23/23 23:05 Ur Barbiturates Screen Not Detected (NotDetected) 01/23/23 23:05 U Tricyclic Antidepress Not Detected (NotDetected) 01/23/23 23:05 Ur Phencyclidine Scrn Not Detected (NotDetected) 01/23/23 23:05 Ur Amphetamines Screen Not Detected (NotDetected) 01/23/23 23:05 U Methamphetamines Scrn Not Detected (NotDetected) 01/23/23 23:05 U Benzodiazepines Scrn Detected (NotDetected) H 01/23/23 23:05 Urine Cocaine Screen Not Detected (NotDetected) 01/23/23 23:05 U Marijuana (THC) Screen Not Detected (NotDetected) 01/23/23 23:05 Coronavirus (PCR) Not Detected (Not Detectd) 01/24/23 00:07 IMPRESSIONS: Alcohol withdrawal Alcohol-induced depressive disorder Generalized anxiety disorder with panic attacks Alcohol use disorder, severe Atrial fibrillation PLAN: -Continue medical management for acute withdrawal -At this time patient DOES NOT meet criteria for inpatient psychiatric admission. The patient is currently not medically stable for psychiatric admission and does not meet criteria for inpatient psychiatric admission as his primary diagnosis is substance abuse. He is currently not endorsing any suicidal or homicidal ideation, intention, and/or plan. He is not overtly manic or psychotic. -Would recommend the following medication changes/additions: No medication recommendations made at this time. Medications would have little benefit given the patient's acute intoxication and withdrawal. Patient would benefit most from alcohol cessation with inpatient substance abuse rehabilitation -Discontinue one-to-one sitter -Approximately 15 minutes was spent providing patient with motivational interviewing to quit alcohol. -Patient expresses desire for inpatient substance abuse rehabilitation after medical stabilization. -Psychiatry will sign off at this point, please contact with any questions or reconsult us if necessary. 01/25/23 14:44
[2023-01-25] MEDS: ATORVASTATIN 40 MG TAB PO SCH (19:42)
[2023-01-26] MEDS: SODIUM CHLORIDE 0.9% 1,000 ML IV SCH ×2 (05:02→22:50)
[2023-01-26] MEDS: LORazepam 2 MG/ML INJ IV PRN ×2 (06:46→20:24)
[2023-01-26 07:52] LABS: Albumin 3.7 g/dL (3.5-5.0); Calcium 8.2 mg/dL (8.4-10.2); Potassium 3.7 mmol/L (3.5-5.1); Total Protein 6.4 g/dL (6.3-8.2)
[2023-01-26] MEDS: METOPROLOL TARTRATE 50 MG TAB PO SCH ×2 (09:37→22:02)
[2023-01-26] MEDS: ASPIRIN 81 MG PO SCH (09:37)
[2023-01-26] MEDS: lisinopriL 10 MG TAB PO SCH (09:37)
[2023-01-26] MEDS: MULTIVITAMINS, THERA 1 EACH TAB PO SCH (09:37)
[2023-01-26] MEDS: AMIODARONE 200 MG TAB PO SCH (09:37)
[2023-01-26] MEDS: PANTOPRAZOLE 40 MG/10 ML VIAL IV SCH (09:38)
[2023-01-26] MEDS: THIAMINE 100 MG TAB PO SCH (09:38)
[2023-01-26] MEDS ORDERED: LORazepam 1 MG TAB PO PRN ×4 (10:25)
[2023-01-26] MEDS ORDERED: LORazepam 0.5 MG TAB PO PRN (10:25)
--- NOTE | 2023-01-26 10:54 | P.PN ---
Subjective Progress Note Date: 01/26/23 57-year-old male I am came in with a suicidal ideation and is being admitted to medicine service because of her alcohol withdrawls, . Patient does drink alcohol on daily basis about 2/5 of alcohol a day. Patient has been quite a bit depressed with a lot of stuff going on at home as per the patient but is willing to quit alcohol. 01/25/2023 Patient is evaluated today remains in the [facility] holding for a medical bed. He is requiring IV ativan about every 4 to 6 hours. Having mild tremors at rest, reports nausea and feeling week overall. Patient continues to report suicidal ideations with no plan currently. He has drug safety scientist at bedside. Remains on IV fluids with normal saline. Antiemetics on board with zofran. wrapping checker at the bedside. 01/26/2023 Patient remains on medical floor. Requiring IV ativan about every 5 to 6 hours and nurse reports was shaky and sweaty this AM and still seems altered. Patient is continued on ativan and oral librium. Psychiatry has cleared the patient from suicide precautions and recommending close follow up with [facility] outpatient on discharge. Review of Systems Constitutional: Reports fatigue, denies fever Cardiovascular: denied any chest pain, palpitations Gastrointestinal: denied any nausea, vomiting, diarrhea Pulmonary: Denied any shortness of breath cough Neurologic denied any new focal deficits All inpatient medications were reviewed and appropriate changes in these medications as dictated in the interval history and assessment and plan. PHYSICAL EXAMINATION: GENERAL: The patient is alert and oriented x2-3, not in any acute distress. Well developed, well nourished. Obese HEENT: Pupils are round and equally reacting to light. EOMI. No scleral icterus. No conjunctival pallor. Normocephalic, atraumatic. No pharyngeal erythema. No thyromegaly. CARDIOVASCULAR: S1 and S2 present. No murmurs, rubs, or gallops. PULMONARY: Chest is clear to auscultation, no wheezing or crackles. ABDOMEN: Soft, nontender, nondistended, normoactive bowel sounds. No palpable organomegaly. MUSCULOSKELETAL: No joint swelling or deformity. EXTREMITIES: No cyanosis, clubbing, or pedal edema. NEUROLOGICAL: Gross neurological examination did not reveal any focal deficits. has some mild tremors of the upper extremities. SKIN: No rashes. Assessment and plan -Depression -Alcohol withdrawal -Paroxysmal atrial fibrillation currently in sinus rhythm not on anticoagulation due to falls -Hypertension: Continue with the lisinopril and metoprolol, hold off on amlodipine -Hypertension -Recent CT urogram done on ER visit 01/09/23 showing mild urothelial thickening of the left ureteropelvic junction is suspicious for transitional cell neoplasm patient was recommended to f/u with Dr. Landon in the office for cystoscopy and evaluation. -History of TIA -History of cardiomyopathy likely nonischemic with improved EF on most recent echocardiogram -Obesity DVT prophylaxis: Lovenox Full Code Plan Continue monitoring for acute alcohol withdrawal oral librium and oral ativan on order Will recommend per prior recommendations to see urology on discharge for further evaluation of CT urogram findings as above. Cleared from suicide precautions and patient will follow up with [facility] on discharge Possible D/C in the next 24 hours The impression and plan of care has been dictated by Vandana Crockett, Nurse Practitioner as directed. Dr. Randell MD I have performed a history and physical examination and medical decision making of this patient, discussed the same with the dictator, and agree with the dictators assessment and plan as written, documented as a scribe. Based on total visit time, I have performed more than 50% of this visit. Objective - Vital Signs Vital signs: Vital Signs Temp 98.2 F 01/25/23 23:07 Pulse 65 01/26/23 06:59 Resp 18 01/26/23 06:59 BP 123/85 01/26/23 06:59 Pulse Ox 94 L 01/26/23 06:59 FiO2 Intake & Output 01/25/23 01/26/23 01/26/23 18:59 06:59 18:59 Intake Total 1560 Balance 1560 Intake: Oral 1560 Other: # Voids 2 - Labs CBC & Chem 7: 01/25/23 07:43 01/26/23 06:24 Labs: Abnormal Lab Results - Last 24 Hours (Table) 01/26/23 Range/Units 06:24 Sodium 134 L (137-145) mmol/L Calcium 8.2 L (8.4-10.2) mg/dL AST 73 H (17-59) U/L ALT 50 H (4-49) U/L Assessment and Plan Time with Patient: Less than 30
[2023-01-26] MEDS: ONDANSETRON 4 MG/2 ML VIAL IVP PRN (12:21)
[2023-01-26] MEDS ORDERED: LORazepam 2 MG/ML INJ IV PRN (19:36)
[2023-01-26] MEDS: ATORVASTATIN 40 MG TAB PO SCH (22:02)
[2023-01-27] MEDS: LORazepam 2 MG/ML INJ IV PRN ×4 (03:45→23:36)
[2023-01-27] MEDS: THIAMINE 100 MG TAB PO SCH (09:02)
[2023-01-27] MEDS: PANTOPRAZOLE 40 MG/10 ML VIAL IV SCH (09:02)
[2023-01-27] MEDS: ASPIRIN 81 MG PO SCH (09:02)
[2023-01-27] MEDS: MULTIVITAMINS, THERA 1 EACH TAB PO SCH (09:02)
[2023-01-27] MEDS: METOPROLOL TARTRATE 50 MG TAB PO SCH ×2 (09:02→21:22)
[2023-01-27] MEDS: AMIODARONE 200 MG TAB PO SCH (09:02)
[2023-01-27] MEDS: lisinopriL 10 MG TAB PO SCH (09:02)
--- NOTE | 2023-01-27 10:09 | P.PN ---
Subjective Progress Note Date: 01/27/23 57-year-old male I am came in with a suicidal ideation and is being admitted to medicine service because of her alcohol withdrawls, . Patient does drink alcohol on daily basis about 2/5 of alcohol a day. Patient has been quite a bit depressed with a lot of stuff going on at home as per the patient but is willing to quit alcohol. 01/25/2023 Patient is evaluated today remains in the [facility] holding for a medical bed. He is requiring IV ativan about every 4 to 6 hours. Having mild tremors at rest, reports nausea and feeling week overall. Patient continues to report suicidal ideations with no plan currently. He has vice president safety at bedside. Remains on IV fluids with normal saline. Antiemetics on board with zofran. lead instructor/flight attendant at the bedside. 01/26/2023 Patient remains on medical floor. Requiring IV ativan about every 5 to 6 hours and nurse reports was shaky and sweaty this AM and still seems altered. Patient is continued on ativan and oral librium. Psychiatry has cleared the patient from suicide precautions and recommending close follow up with [facility] outpatient on discharge. 01/27/2023 Patient continues with periods of agitation sweating and tremors. Also report significant headache and photophobia. Patient require 2 mg of IV ativan yesterday evening and again at 4AM today. He continues with scheduled librium as well. Patient has the information to call [place] with plans to hopefully discharge right to rehabilitation. His labs are stable and vitals are stable. Review of Systems Constitutional: Reports fatigue, denies fever Cardiovascular: denied any chest pain, palpitations Gastrointestinal: denied any nausea, vomiting, diarrhea Pulmonary: Denied any shortness of breath cough Neurologic denied any new focal deficits Reports headache, photophobia tremors. All inpatient medications were reviewed and appropriate changes in these medications as dictated in the interval history and assessment and plan. PHYSICAL EXAMINATION: GENERAL: The patient is alert and oriented x3, not in any acute distress. Well developed, well nourished. Obese HEENT: Pupils are round and equally reacting to light. EOMI. No scleral icterus. No conjunctival pallor. Normocephalic, atraumatic. No pharyngeal erythema. No thyromegaly. CARDIOVASCULAR: S1 and S2 present. No murmurs, rubs, or gallops. PULMONARY: Chest is clear to auscultation, no wheezing or crackles. ABDOMEN: Soft, nontender, nondistended, normoactive bowel sounds. No palpable organomegaly. MUSCULOSKELETAL: No joint swelling or deformity. EXTREMITIES: No cyanosis, clubbing, or pedal edema. NEUROLOGICAL: Gross neurological examination did not reveal any focal deficits. SKIN: No rashes. Assessment and plan -Depression -Alcohol alcohol intoxication and withdrawal -Paroxysmal atrial fibrillation currently in sinus rhythm not on anticoagulation due to falls -Hypertension: Continue with the lisinopril and metoprolol, hold off on amlodipine -Hypertension -Recent CT urogram done on ER visit 01/09/23 showing mild urothelial thickening of the left ureteropelvic junction is suspicious for transitional cell neoplasm patient was recommended to f/u with Dr. Landon in the office for cystoscopy and evaluation. -History of TIA -History of cardiomyopathy likely nonischemic with improved EF on most recent echocardiogram -Obesity DVT prophylaxis: Lovenox Full Code Plan Continue monitoring for acute alcohol withdrawal oral librium, ativan changed back to IV. Will recommend per prior recommendations to see urology on discharge for further evaluation of CT urogram findings as above. Cleared from suicide precautions and patient will follow up with [facility] on discharge Possible D/C in the next 24 hours patient hoping to dc from hospital to [place] he has the information to call. The impression and plan of care has been dictated by Vandana Crockett, Nurse Practitioner as directed. Dr. Randell MD I have performed a history and physical examination and medical decision making of this patient, discussed the same with the dictator, and agree with the dictators assessment and plan as written, documented as a scribe. Based on total visit time, I have performed more than 50% of this visit. Objective - Vital Signs Vital signs: Vital Signs Temp 97.3 F L 01/27/23 07:28 Pulse 65 01/27/23 07:28 Resp 18 01/27/23 07:28 BP 109/73 01/27/23 07:28 Pulse Ox 97 01/27/23 07:28 FiO2 Intake & Output 01/26/23 01/27/23 01/27/23 18:59 06:59 18:59 Intake Total 300 Balance 300 Intake: Oral 300 Other: Voiding Method Toilet # Voids 4 1 # Bowel Movements 2 - Labs CBC & Chem 7: 01/25/23 07:43 01/26/23 06:24 Assessment and Plan Time with Patient: Less than 30 (f)
[2023-01-27] MEDS: SODIUM CHLORIDE 0.9% 1,000 ML IV SCH ×2 (18:50→23:28)
[2023-01-27] MEDS: ATORVASTATIN 40 MG TAB PO SCH (21:22)
[2023-01-28] MEDS: LORazepam 2 MG/ML INJ IV PRN (08:41)
[2023-01-28] MEDS: AMIODARONE 200 MG TAB PO SCH (08:42)
[2023-01-28] MEDS: THIAMINE 100 MG TAB PO SCH (08:42)
[2023-01-28] MEDS: lisinopriL 10 MG TAB PO SCH (08:42)
[2023-01-28] MEDS: METOPROLOL TARTRATE 50 MG TAB PO SCH ×2 (08:42→21:51)
[2023-01-28] MEDS: SODIUM CHLORIDE 0.9% 1,000 ML IV SCH ×2 (08:42→23:51)
[2023-01-28] MEDS: ASPIRIN 81 MG PO SCH (08:42)
[2023-01-28] MEDS: MULTIVITAMINS, THERA 1 EACH TAB PO SCH (08:42)
[2023-01-28] MEDS: PANTOPRAZOLE 40 MG/10 ML VIAL IV SCH (08:42)
--- NOTE | 2023-01-28 20:17 | PN ---
PROGRESS NOTE DATE OF SERVICE: 01/28/2023 SUBJECTIVE: This is a 57-year-old gentleman who was admitted with acute alcohol intoxication, depression, is being closely monitored. No chest pain. No palpitation. OBJECTIVE: VITAL SIGNS: Pulse 64, blood pressure 130/70, respirations 17. CHEST: Clear to auscultation. CARDIOVASCULAR: S1, S2. ABDOMEN: Soft. NERVOUS SYSTEM: Nonfocal. LABORATORY DATA: Labs are reviewed. ASSESSMENT: 1. Acute alcohol intoxication, withdrawal. 2. Depression. 3. Paroxysmal atrial fibrillation. 4. Hypertension. 5. Multiple medical issues. RECOMMENDATIONS: Recommend to continue current medications. Continue symptomatic treatment. The patient does complain some tiredness. The patient is still receiving CIWA protocol. I would recommend repeat labs tomorrow. Increase ambulation. Possibly discharge home once the patient is more functional in the next 24 to 48 hours. MMODL / AVRILN: [id number] /
[2023-01-28] MEDS: ATORVASTATIN 40 MG TAB PO SCH (21:51)
[2023-01-29 07:58] VITALS: BP 147/81; PULSE 60; RESP 16; TEMP 98.8
[2023-01-29 09:03] LABS: African American GFR (CKD) 69.2 (60.0-200.0); Anion Gap 7.7 mmol/L (10.00-18.00); BUN/Creat Ratio 13.08 Ratio (12.00-20.00); Calcium 8.6 mg/dL (8.7-10.3); Carbon Dioxide 27.3 mmol/L (20.0-27.5); Non-African American GFR(CKD) 59.7 (60.0-200.0); Potassium 3.8 mmol/L (3.5-5.5)
[2023-01-29] MEDS: lisinopriL 10 MG TAB PO SCH (09:38)
[2023-01-29] MEDS: THIAMINE 100 MG TAB PO SCH (09:38)
[2023-01-29] MEDS: ASPIRIN 81 MG PO SCH (09:38)
[2023-01-29] MEDS: METOPROLOL TARTRATE 50 MG TAB PO SCH (09:38)
[2023-01-29] MEDS: AMIODARONE 200 MG TAB PO SCH (09:38)
[2023-01-29] MEDS: MULTIVITAMINS, THERA 1 EACH TAB PO SCH (09:38)
[2023-01-29] MEDS: PANTOPRAZOLE 40 MG/10 ML VIAL IV SCH (09:38)
[2023-01-29 10:17] LABS: Basophils # (A) 0.07 X 10*3/uL (0.00-0.10); Basophils % (A) 1.4 %; Eosinophils # (A) 0.38 X 10*3/uL (0.04-0.35); Eosinophils % (A) 7.7 %; HCT 42.8 % (39.6-50.0); HGB 14.7 g/dL (13.0-17.0); Immature Grans, Automated 3.3 %; Lymphocytes # (A) 1.53 X 10*3/uL (0.90-5.00); Lymphocytes % (A) 31.1 %; MCH 33.6 pg (27.0-32.0); MCHC 34.3 g/dL (32.0-37.0); MCV 97.7 fL (80.0-97.0); Monocytes # (A) 0.45 X 10*3/uL (0.20-1.00); Monocytes % (A) 9.1 %; NRBC Per 100 WBC 0 /100 WBCS (0.0-0.0); Neutrophils # (A) 2.33 X 10*3/uL (1.80-7.70); Neutrophils % (A) 47.4 %; Platelet Count 154 X 10*3/uL (140-440); RBC 4.38 X 10*6/uL (4.40-5.60); RDW 14.9 % (11.5-14.5); WBC 4.92 X 10*3/uL (4.50-10.00)
--- NOTE | 2023-01-29 16:44 | DS ---
DISCHARGE SUMMARY FINAL DIAGNOSES: 1. Acute alcohol intoxication and withdrawal. 2. Depression. 3. Paroxysmal atrial fibrillation. 4. Hypertension. 5. Multiple medical issues. DISCHARGE DISPOSITION: The patient left the hospital against medical advice. HISTORY OF PRESENT ILLNESS: This is a 57-year-old gentleman with a past medical history admitted with acute alcohol intoxication and withdrawal, but however, the patient left the hospital against medical advice before the treatment can be completed. Prognosis is extremely guarded. Please refer to the previous staff notes for further information. MMODL / IJN: [id number] /
== END 2023-01-29 10:00 | disposition left against medical advice (07) | DRG 770 ==
LOC: EC 21:29 → 3SCARD 01-24 12:24 → 4SSUR 01-25 23:37
PROVIDERS: ADMIT Internal Medicine; ATTEND Internal Medicine
DX: F10.229 Alcohol dependence with intoxication, unspecified (principal); R45.851 Suicidal ideations; I42.9 Cardiomyopathy, unspecified; F10.239 Alcohol dependence with withdrawal, unspecified; G40.909 Epilepsy, unspecified, not intractable, without status epilepticus; I48.0 Paroxysmal atrial fibrillation; E66.9 Obesity, unspecified; I10 Essential (primary) hypertension; F32.9 Major depressive disorder, single episode, unspecified; Z68.36 Body mass index [BMI] 36.0-36.9, adult; M19.90 Unspecified osteoarthritis, unspecified site; Z20.822 Contact with and (suspected) exposure to COVID-19; F41.1 Generalized anxiety disorder; F41.0 Panic disorder [episodic paroxysmal anxiety]; G89.29 Other chronic pain; Z79.899 Other long term (current) drug therapy; Z79.82 Long term (current) use of aspirin; Z88.0 Allergy status to penicillin; Z56.0 Unemployment, unspecified; Z65.3 Problems related to other legal circumstances; Z86.73 Personal history of transient ischemic attack (TIA), and cerebral infarction without residual deficits; Z87.442 Personal history of urinary calculi; Z87.01 Personal history of pneumonia (recurrent); Z71.41 Alcohol abuse counseling and surveillance of alcoholic; Z81.1 Family history of alcohol abuse and dependence; Z53.29 Procedure and treatment not carried out because of patient's decision for other reasons
CPT/HCPCS: 36415; 80048; 80053; 80306; 82075; 83690; 83735; 85025; 87635; 93005; 96372; 96374; 96375; 96376; 99285

== ENCOUNTER 2023-02-04 19:54 | Emergency (ER) | payer OTHER ==
[2023-02-04 20:11] VITALS: BP 138/81; PULSE 79; RESP 18; TEMP 97.9
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
--- NOTE | 2023-02-04 21:08 | CT ---
EXAMINATION TYPE: CT brain cspine wo con CT DLP: 1900.5 mGycm, Automated exposure control for dose reduction was used. DATE OF EXAM: 02/04/2023 9:02 PM COMPARISON: 10/25/2022 CLINICAL INDICATION:Male, 57 years old with history of fall on thinners; ETOH TECHNIQUE: Brain: Multiple axial CT images of the brain were obtained without IV contrast. Cspine: Axial CT images from the skull base to the inferior aspect of T2 we obtained without intraven ous contrast. Coronal and sagittal reformatted images were also reviewed. FINDINGS: Brain: Extra-axial spaces: No abnormal extra-axial fluid collections. Ventricular system: Within normal limits Cerebral parenchyma: No acute intraparenchymal hemorrhage or mass effect. The arriaga-white junction is well differentiated. Cerebellum: Unremarkable. Mass effect: No evidence of midline shift. Intracranial vasculature: unremarkable Soft tissues: Normal. Calvarium/osseous structures: No depressed skull fracture. Paranasal sinuses and mastoid air cells: Clear. Visualized orbits: Orbital contents are intact. Cervical spine: Fracture: None. Osseous structures: Multilevel degenerative disc disease changes with endplate spurring and disc oste ophyte complex's. Vertebral alignment: Within normal limits. Spinal canal/Neural Foramina: No evidence of significant spinal canal narrowing. No evidence for sign ificant neural foraminal stenosis. Neck soft tissues: Prevertebral soft tissues are within normal limits. Other: The airway is patent. The lung apices are clear. IMPRESSION: No acute intracranial process. No evidence of cervical spine fracture. Mild multilevel degenerative disc disease.
== END 2023-02-04 21:55 | disposition home or self-care (01) ==
LOC: EC 19:54
DX: F10.129 Alcohol abuse with intoxication, unspecified (principal); I48.91 Unspecified atrial fibrillation; I10 Essential (primary) hypertension; M19.90 Unspecified osteoarthritis, unspecified site; Z86.73 Personal history of transient ischemic attack (TIA), and cerebral infarction without residual deficits; Z86.59 Personal history of other mental and behavioral disorders; Z88.0 Allergy status to penicillin; Z91.013 Allergy to seafood; Z79.82 Long term (current) use of aspirin; Z79.899 Other long term (current) drug therapy
CPT/HCPCS: 70450; 72125; 93005; 99284

== ENCOUNTER 2023-07-04 12:21 | Observation (INO) | payer OTHER ==
[2023-07-04] MEDS ORDERED: ASPIRIN 81 MG PO STA (12:59)
[2023-07-04] MEDS ORDERED: NITROGLYCERIN OINT 1 INCH/GM PACKET TOPICAL STA (12:59)
--- NOTE | 2023-07-04 13:03 | ED ---
General Adult HPI - General Chief complaint: Shortness of Breath Stated complaint: Chest Pain Time Seen by Provider: 07/04/23 12:31 Source: patient, EMS, RN notes reviewed Mode of arrival: EMS Limitations: no limitations - History of Present Illness Initial comments: Patient is a pleasant 58-year-old male presenting to the emergency department with dyspnea and chest discomfort. Symptoms do worsen with exertion. Chest discomfort is now present at this time. Chest discomfort is sharp left sternal region. Dyspnea has been mostly chronic. Both symptoms do worsen with exertion. Patient states legs did seem a little swollen yesterday. No Pain. N o fever. No cough. - Related Data Previous Rx's Medication Instructions Recorded Amiodarone [Cordarone] 200 mg PO DAILY #0 01/18/23 Aspirin 81 mg PO DAILY #30 tab 01/18/23 Atorvastatin [Lipitor] 40 mg PO HS #30 tab 01/18/23 Metoprolol Tartrate [Lopressor] 100 mg PO BID 30 Days #120 tab 01/18/23 Nitroglycerin Sl Tabs [Nitrostat] 0.4 mg SUBLINGUAL Q5M PRN #20 tab 01/18/23 Thiamine [Vitamin B-1] 100 mg PO DAILY #30 tab 01/18/23 lisinopriL [Zestril] 5 mg PO DAILY #30 tab 01/18/23 Allergies Allergy/AdvReac Type Severity Reaction Status Date / Time Fish Containing Products Allergy Rash/Hives Verified 07/04/23 12:39 [Fish] Penicillins Allergy Rash/Hives Verified 07/04/23 12:39 Review of Systems ROS Statement: Those systems with pertinent positive or pertinent negative responses have been documented in the HPI. ROS Other: All systems not noted in ROS Statement are negative. Constitutional: Denies: fever Eyes: Denies: eye pain ENT: Denies: ear pain Respiratory: Reports: as per HPI, dyspnea Cardiovascular: Reports: as per HPI, chest pain Musculoskeletal: Denies: back pain Past Medical History Past Medical History: Atrial Fibrillation, CVA/TIA, Hypertension, Osteoarthritis (OA), Pneumonia, Seizure Disorder Additional Past Medical History / Comment(s): Afib recently diagnosed, lower extremity edema, ETOH abuse with past withdrawal/seizure in 12/2018, chronic generalized pain, pt states he had a TIA in 2019 while in [place] and was intubated. Reports had a kidney stone in another [facility] a few days ago. History of Any Multi-Drug Resistant Organisms: None Reported Past Surgical History: Orthopedic Surgery Additional Past Surgical History / Comment(s): R thumb fracture with surgery., cardioverison Past Anesthesia/Blood Transfusion Reactions: No Reported Reaction Past Psychological History: Anxiety, Depression Smoking Status: Never smoker Past Alcohol Use History: Abuse, Daily, Heavy Past Drug Use History: None Reported - Past Family History Father Family Medical History: Myocardial Infarction (AR) Additional Family Medical History / Comment(s): Father of a AR at the age of 57 yrs. Mother Family Medical History: Hyperlipidemia, Hypertension Additional Family Medical History / Comment(s): Mother at the age of 89yrs. General Exam Limitations: no limitations General appearance: alert, in no apparent distress Head exam: Present: normocephalic Eye exam: Present: normal appearance Neck exam: Present: normal inspection Respiratory exam: Present: normal lung sounds bilaterally. Absent: chest wall tenderness Cardiovascular Exam: Present: regular rate, normal rhythm Expanded Peripheral pulses: 2+: Radial (R), Radial (L), Dorsalis Pedis (R), Dorsalis Pedis (L) GI/Abdominal exam: Present: soft. Absent: tenderness Extremities exam: Present: normal inspection. Absent: pedal edema, calf tenderness Neurological exam: Present: alert Psychiatric exam: Present: normal affect, normal mood Skin exam: Present: normal color Course Vital Signs 07/04/23 12:39 Temperature 97.3 F L Pulse Rate 61 Respiratory 8 L Rate Blood Pressure 141/72 O2 Sat by Pulse 97 Oximetry EKG Findings - EKG Results: EKG: interpreted by ERMD, sinus rhythm, normal axis, normal QRS, normal ST/T EKG shows: bradycardia Medical Decision Making - Medical Decision Making Was pt. sent in by a medical professional or institution (, PA, DENTAL LABORATORY SUPERVISOR, urgent care, hospital, or [place] health care facility...) When possible be specific @ -No Did you speak to anyone other than the patient for history (EMS, parent, family, police, friend...)? What history was obtained from this source @ -No Did you review nursing and triage notes (agree or disagree)? Why? @ -I reviewed and agree with nursing and triage notes Were old charts reviewed (outside hosp., previous admission, EMS record, old EKG, old radiological studies, urgent care reports/EKG's, [place] health [place] facility records)? Report findings @ -No old charts were reviewed Differential Diagnosis (chest pain, altered mental status, abdominal pain women, abdominal pain men, vaginal bleeding, weakness, fever, dyspnea, syncope, h eadache, dizziness, GI bleed, back pain, seizure, CVA, palpatations, mental health, musculoskeletal)? @ -Differential Chest Pain: Stable Angina, Unstable Angina, STEMI, NSTEMI Aortic Dissection, Pneumothorax, Musculoskeletal, Esophageal Spasm GERD, Cholecystitis, Pancreatitis, Zoster, this is not meant to be an all-inclusive list. EKG interpreted by me (3pts min.). @ -As above X-rays interpreted by me (1pt min.). @ -Chest x-ray shows no acute process CT interpreted by me (1pt min.). @ -None done U/S interpreted by me (1pt. min.). @ -None done What testing was considered but not performed or refused? (CT, X-rays, U/S, labs)? Why? @ -None What meds were considered but not given or refused? Why? @ -None Did you discuss the management of the patient with other professionals (professionals i.e. DrVipul, PA, DENTAL LABORATORY SUPERVISOR, lab, RT, psych nurse, social media assistant, foot worker, teacher, national insurance officer, keycase assembler)? Give summary @ -Case was discussed with Dr. yeung will admit covering Dr. Hoffman. Was smoking cessation discussed for >3mins.? @ -No Was critical care preformed (if so, how long)? @ -No Were there social determinants of health that impacted care today? How? (Homelessness, low income, unemployed, alcoholism, drug addiction, transportation, low edu. Level, literacy, decrease access to med. care, fpc, rehab)? @ -No Was there de-escalation of care discussed even if they declined (Discuss DNR or withdrawal of care, Hospice)? DNR status @ -No What co-morbidities impacted this encounter? (DM, HTN, Smoking, COPD, CAD, Canc er, CVA, ARF, Chemo, Hep., AIDS, mental health diagnosis, sleep apnea, morbid obesity)? @ -None Was patient admitted / discharged? Hospital course, mention meds given and route, prescriptions, significant lab abnormalities, going to OR and other pertinent info. @ -Patient reevaluated and resting comfortably in bed. Patient updated on results and plan. Patient will be admitted. Patient will have cardiac consult. Admission orders written. Undiagnosed new problem with uncertain prognosis? @ -No Drug Therapy requiring intensive monitoring for toxicity (Heparin, Nitro, Insulin, Cardizem)? @ -No Were any procedures done? @ -No Diagnosis/symptom? @ -Chest pain Acute, or Chronic, or Acute on Chronic? @ -Acute Uncomplicated (without systemic symptoms) or Complicated (systemic symptoms)? @ -default Side effects of treatment? @ -No Exacerbation, Progression, or Severe Exacerbation? @ -No Poses a threat to life or bodily function? How? (Chest pain, USA, AR, pneumonia, PE, COPD, DKA, ARF, appy, cholecystitis, CVA, Diverticulitis, Homicidal, Suicidal, threat to staff... and all critical care pts) @ -No - Lab Data Result diagrams: 07/04/23 13:19 07/04/23 13:19 Lab Results 07/04/23 07/04/23 07/04/23 Range/Units 13:19 13:19 13:19 WBC 4.9 (3.8-10.6) k/uL RBC 3.93 L (4.30-5.90) m/uL Hgb 13.1 (13.0-17.5) gm/dL Hct 37.1 L (39.0-53.0) % MCV 94.2 (80.0-100.0) fL MCH 33.2 (25.0-35.0) pg MCHC 35.3 (31.0-37.0) g/dL RDW 12.9 (11.5-15.5) % Plt Count 183 (150-450) k/uL MPV 7.9 Neutrophils % 57 % Lymphocytes % 28 % Monocytes % 8 % Eosinophils % 4 % Basophils % 1 % Neutrophils # 2.8 (1.3-7.7) k/uL Lymphocytes # 1.4 (1.0-4.8) k/uL Monocytes # 0.4 (0-1.0) k/uL Eosinophils # 0.2 (0-0.7) k/uL Basophils # 0.0 (0-0.2) k/uL PT 10.6 (10.0-12.5) sec INR 1.0 (<1.2) APTT 25.6 (22.0-30.0) sec D-Dimer 0.49 (<0.60) mg/L FEU Sodium 137 (137-145) mmol/L Potassium 3.9 (3.5-5.1) mmol/L Chloride 107 (98-107) mmol/L Carbon Dioxide 23 (22-30) mmol/L Anion Gap 7 mmol/L BUN 12 (9-20) mg/dL Creatinine 0.73 (0.66-1.25) mg/dL Est GFR (CKD-EPI)AfAm >90 (>60 ml/min/1.73 sqM) Est GFR (CKD-EPI)NonAf >90 (>60 ml/min/1.73 sqM) Glucose 75 (74-99) mg/dL Calcium 8.1 L (8.4-10.2) mg/dL Magnesium 1.9 (1.6-2.3) mg/dL Total Bilirubin 0.7 (0.2-1.3) mg/dL AST 29 (17-59) U/L ALT 18 (4-49) U/L Alkaline Phosphatase 56 (38-126) U/L Troponin I (0.000-0.034) ng/mL NT-Pro-B Natriuret Pep 165 pg/mL Total Protein 6.3 (6.3-8.2) g/dL Albumin 3.5 (3.5-5.0) g/dL 07/04/23 Range/Units 13:19 WBC (3.8-10.6) k/uL RBC (4.30-5.90) m/uL Hgb (13.0-17.5) gm/dL Hct (39.0-53.0) % MCV (80.0-100.0) fL MCH (25.0-35.0) pg MCHC (31.0-37.0) g/dL RDW (11.5-15.5) % Plt Count (150-450) k/uL MPV Neutrophils % % Lymphocytes % % Monocytes % % Eosinophils % % Basophils % % Neutrophils # (1.3-7.7) k/uL Lymphocytes # (1.0-4.8) k/uL Monocytes # (0-1.0) k/uL Eosinophils # (0-0.7) k/uL Basophils # (0-0.2) k/uL PT (10.0-12.5) sec INR (<1.2) APTT (22.0-30.0) sec D-Dimer (<0.60) mg/L FEU Sodium (137-145) mmol/L Potassium (3.5-5.1) mmol/L Chloride (98-107) mmol/L Carbon Dioxide (22-30) mmol/L Anion Gap mmol/L BUN (9-20) mg/dL Creatinine (0.66-1.25) mg/dL Est GFR (CKD-EPI)AfAm (>60 ml/min/1.73 sqM) Est GFR (CKD-EPI)NonAf (>60 ml/min/1.73 sqM) Glucose (74-99) mg/dL Calcium (8.4-10.2) mg/dL Magnesium (1.6-2.3) mg/dL Total Bilirubin (0.2-1.3) mg/dL AST (17-59) U/L ALT (4-49) U/L Alkaline Phosphatase (38-126) U/L Troponin I <0.012 (0.000-0.034) ng/mL NT-Pro-B Natriuret Pep pg/mL Total Protein (6.3-8.2) g/dL Albumin (3.5-5.0) g/dL Disposition Clinical Impression: Chest pain Disposition: ADMITTED IP TO THIS HOSP Is patient prescribed a controlled substance at d/c from ED?: No Referrals: Kamryn Alvarez MD [Primary Care Provider] - 1-2 days Time of Disposition: 14:06
[2023-07-04 13:26] LABS: Basophils % (A) 1 %; Eosinophils # (A) 0.2 k/uL (0-0.7); Eosinophils % (A) 4 %; HCT 37.1 % (39.0-53.0); HGB 13.1 gm/dL (13.0-17.5); Lymphocytes # (A) 1.4 k/uL (1.0-4.8); Lymphocytes % (A) 28 %; MCH 33.2 pg (25.0-35.0); MCHC 35.3 g/dL (31.0-37.0); MCV 94.2 fL (80.0-100.0); Mean Platelet Volume 7.9; Monocytes # (A) 0.4 k/uL (0-1.0); Monocytes % (A) 8 %; Neutrophils # (A) 2.8 k/uL (1.3-7.7); Neutrophils % (A) 57 %; Platelet Count 183 k/uL (150-450); RBC 3.93 m/uL (4.30-5.90); RDW 12.9 % (11.5-15.5); WBC 4.9 k/uL (3.8-10.6)
[2023-07-04 13:40] LABS: ALT 18 U/L (4-49); African American GFR (CKD) >90 (>60 ml/min/1.73 sqM); Albumin 3.5 g/dL (3.5-5.0); Anion Gap 7 mmol/L; Blood Urea Nitrogen 12 mg/dL (9-20); Calcium 8.1 mg/dL (8.4-10.2); Carbon Dioxide 23 mmol/L (22-30); Chloride 107 mmol/L (98-107); Glucose 75 mg/dL (74-99); Non-African American GFR(CKD) >90 (>60 ml/min/1.73 sqM); Sodium 137 mmol/L (137-145); Total Bilirubin 0.7 mg/dL (0.2-1.3); Total Protein 6.3 g/dL (6.3-8.2)
[2023-07-04 13:41] LABS: AST 29 U/L (17-59); Alkaline Phosphatase 56 U/L (38-126); Magnesium 1.9 mg/dL (1.6-2.3); Potassium 3.9 mmol/L (3.5-5.1)
[2023-07-04 13:42] LABS: Partial Thromboplastin Time 25.6 sec (22.0-30.0); Prothrombin Time 10.6 sec (10.0-12.5)
[2023-07-04 13:48] LABS: NT-Pro-B-Type Natriuretic Pept 165 pg/mL
--- NOTE | 2023-07-04 14:02 | XR ---
EXAMINATION TYPE: XR chest 2V DATE OF EXAM: 07/04/2023 1:53 PM COMPARISON: Chest radiographs from 01/16/2023 TECHNIQUE: XR chest 2V Frontal and lateral views of the chest. CLINICAL INDICATION:Male, 58 years old with history of Chest Pain; FINDINGS: Lungs/Pleura: There is no evidence of pleural effusion, focal consolidation, or pneumothorax. Pulmonary vascularity: Unremarkable. Heart/mediastinum: Cardiomediastinal silhouette is unremarkable. Musculoskeletal: No acute osseous pathology. IMPRESSION: No acute cardiopulmonary disease/process.
[2023-07-04] MEDS ORDERED: NITROGLYCERIN SL TABS 0.4 MG TAB SUBLINGUAL PRN ×2 (14:06→14:25)
[2023-07-04] MEDS ORDERED: ALPRAZolam 1 MG TAB PO PRN (14:36)
[2023-07-04] MEDS ORDERED: ONDANSETRON 4 MG/2 ML VIAL IVP PRN (14:37)
[2023-07-04] MEDS ORDERED: MORPHINE SULFATE 2 MG/ML SYRINGE IVP PRN (14:37)
[2023-07-04] MEDS ORDERED: NALOXONE 0.4 MG/ML 1 ML VIAL IV PRN (14:37)
[2023-07-04] MEDS ORDERED: ACETAMINOPHEN TAB 325 MG TAB PO PRN (14:37)
--- NOTE | 2023-07-04 14:40 | P.HPIM ---
History of Present Illness H&P Date: 07/04/23 Chief Complaint: Chest pain * 58-year-old gentleman with past medical history significant for paroxysmal atrial fibrillation, hypertension, cardiomyopathy with recovered EF, alcohol use, history of TIA, hypertension, hyperlipidemia, presents to the emergency department with complains of chest pain * Patient states symptom onset was since last 24 hours when complains of chest pain and shortness of breath. Patient complained of chest pain that was left- sided. This was associated with dyspnea. Patient denies diaphoresis, fever, cough, chills * Workup in ER included EKG which showed sinus bradycardia and no significant ST segment changes * Patient has been having these symptoms for the last 2 weeks, * Chest x-ray obtained in ER was negative for acute cardiopulmonary process * Blood work obtained in ER included hematology which were WBC of [age]-year-old woman 13.1 platelet count of 183, d-dimer within normal limits * Serum coagulation shows INR of 1, serum chemistry within normal limits, initial troponins obtained negative REVIEW OF SYSTEMS: Chest pain, shortness Of breath CONSTITUTIONAL: No fever, no malaise, no fatigue. HEENT: No recent visual problems or hearing problems. Denied any sore throat. CARDIOVASCULAR: Non, orthopnea, PND, no palpitations, no syncope. PULMONARY: No shortness of breath, no cough, no hemoptysis. GASTROINTESTINAL: No diarrhea, no nausea, no vomiting, no abdominal pain. NEUROLOGICAL: No headaches, no weakness, no numbness. HEMATOLOGICAL: Denies any bleeding or petechiae. GENITOURINARY: Denies any burning micturition, frequency, or urgency. MUSCULOSKELETAL/RHEUMATOLOGICAL: Denies any joint pain, swelling, or any muscle pain. ENDOCRINE: Denies any polyuria or polydipsia. PHYSICAL EXAMINATION: GENERAL: The patient is alert and oriented x3, not in any acute distress. Well developed, well nourished. HEENT: Pupils are round and equally reacting to light. EOMI. CARDIOVASCULAR: S1 and S2 present. No murmurs, rubs, or gallops. Trace lower extremity edema PULMONARY: Chest is clear to auscultation, no wheezing or crackles. ABDOMEN: Soft, nontender, nondistended, normoactive bowel sounds. No palpable organomegaly. MUSCULOSKELETAL: No joint swelling or deformity. EXTREMITIES: No cyanosis, clubbing, or pedal edema. NEUROLOGICAL: Gross neurological examination did not reveal any focal deficits. SKIN: No rashes. Past Medical History Past Medical History: Atrial Fibrillation, CVA/TIA, Hypertension, Osteoarthritis (OA), Pneumonia, Seizure Disorder Additional Past Medical History / Comment(s): Afib recently diagnosed, lower extremity edema, ETOH abuse with past withdrawal/seizure in 12/2018, chronic generalized pain, pt states he had a TIA in 2019 while in [place] and was intubated. Reports had a kidney stone in another a few days ago. History of Any Multi-Drug Resistant Organisms: None Reported Past Surgical History: Orthopedic Surgery Additional Past Surgical History / Comment(s): R thumb fracture with surgery., cardioverison Past Anesthesia/Blood Transfusion Reactions: No Reported Reaction Past Psychological History: Anxiety, Depression Smoking Status: Never smoker Past Alcohol Use History: Abuse, Daily, Heavy Past Drug Use History: None Reported - Past Family History Father Family Medical History: Myocardial Infarction ([place]) Additional Family Medical History / Comment(s): Father of a [place] at the age of 57 yrs. Mother Family Medical History: Hyperlipidemia, Hypertension Additional Family Medical History / Comment(s): Mother at the age of 89yrs. Medications and Allergies Home Medications Medication Instructions Recorded Confirmed Type Amiodarone [Cordarone] 200 mg PO DAILY #0 01/18/23 07/04/23 Rx Aspirin 81 mg PO DAILY #30 tab 01/18/23 07/04/23 Rx Atorvastatin [Lipitor] 40 mg PO HS #30 tab 01/18/23 07/04/23 Rx Metoprolol Tartrate [Lopressor] 100 mg PO BID 30 Days #120 tab 01/18/23 07/04/23 Rx Nitroglycerin Sl Tabs [Nitrostat] 0.4 mg SUBLINGUAL Q5M PRN #20 tab 01/18/23 07/04/23 Rx lisinopriL [Zestril] 5 mg PO DAILY #30 tab 01/18/23 07/04/23 Rx Levothyroxine Sodium [Synthroid] 125 mcg PO DAILY 07/04/23 07/04/23 History Allergies Allergy/AdvReac Type Severity Reaction Status Date / Time Fish Containing Products Allergy Rash/Hives Verified 07/04/23 14:21 [Fish] Penicillins Allergy Rash/Hives Verified 07/04/23 14:21 Physical Exam Vitals: Vital Signs Temp Pulse Resp BP Pulse Ox 07/04/23 12:39 97.3 F L 61 8 L 141/72 97 Intake and Output 07/03/23 07/04/23 07/04/23 22:59 06:59 14:59 Other: Weight 117.934 kg Results CBC & Chem 7: 07/04/23 13:19 07/04/23 13:19 Labs: Abnormal Lab Results - Last 24 Hours (Table) 07/04/23 07/04/23 Range/Units 13:19 13:19 RBC 3.93 L (4.30-5.90) m/uL Hct 37.1 L (39.0-53.0) % Calcium 8.1 L (8.4-10.2) mg/dL Assessment and Plan Assessment: Assessment and plan * Chest pain rule out acute coronary syndrome * History of atrial fibrillation * Hypertension * Hyperlipidemia * Remote history of alcohol use * In regards to chest pain, serial troponins ordered cardiology consulted, sublingual nitroglycerin for chest pain, echocardiogram ordered * In regards to history atrial fibrillation continue patient on metoprolol, aspirin, Lipitor, amiodarone * In regards to hyperlipidemia continue Lipitor * Patient does complain of significant anxiety when necessary Ativan ordered * In regards to alcohol use patient states it's been once he hasn't had a drink, [facility] protocol not initiate * CODE STATUS is full code
[2023-07-04] MEDS: SODIUM CHLORIDE 0.9% 1,000 ML IV SCH (15:59)
[2023-07-04] MEDS: AMIODARONE 200 MG TAB PO SCH (15:59)
[2023-07-04] MEDS: NITROGLYCERIN OINT 1 INCH/GM PACKET TOPICAL SCH ×2 (18:28→23:55)
[2023-07-04] MEDS: ATORVASTATIN 40 MG TAB PO SCH (21:10)
[2023-07-04] MEDS: METOPROLOL TARTRATE 50 MG TAB PO SCH (21:10)
[2023-07-05] MEDS: NITROGLYCERIN OINT 1 INCH/GM PACKET TOPICAL SCH (06:21)
[2023-07-05] MEDS: LEVOTHYROXINE 125 MCG TAB PO SCH (06:22)
[2023-07-05 08:24] VITALS: RESP 16
[2023-07-05] MEDS ORDERED: DOBUTamine DRIP for NUC MED 500 MG in DEXTROSE/WATER 1 250ML.BAG IV PRN (08:34)
[2023-07-05] MEDS: ASPIRIN 81 MG PO SCH (08:57)
[2023-07-05] MEDS: ENOXAPARIN 40 MG/0.4 ML SYRINGE SQ SCH (08:57)
[2023-07-05] MEDS: lisinopriL 5 MG TAB PO SCH (08:57)
[2023-07-05] MEDS ORDERED: ASPIRIN 325 MG TAB PO SCH (09:00)
[2023-07-05 09:08] LABS: BUN/Creat Ratio 15.27 Ratio (12.00-20.00); Blood Urea Nitrogen 16.8 mg/dL (9.0-27.0); Calcium 9.1 mg/dL (8.7-10.3); Carbon Dioxide 29.2 mmol/L (21.6-31.8); Chloride 106 mmol/L (96-109); Chol/HDL Ratio 3.83 Ratio; Glucose 89 mg/dL (70-110); LDL Cholesterol,Calculated 105.5 mg/dL (0.0-131.0); Potassium 4.6 mmol/L (3.5-5.5); Sodium 140 mmol/L (135-145); VLDL Calculation 16.38 mg/dL (5.00-40.00)
[2023-07-05 09:11] LABS: HCT 42.2 % (39.6-50.0); HGB 14.3 d/dL (13.0-17.0); MCH 31.4 pg (27.0-32.0); MCHC 33.9 d/dL (32.0-37.0); MCV 92.7 FL (80.0-97.0); Mean Platelet Volume 10.4 FL (9.5-12.2); NRBC Per 100 WBC 0 X 10*3/uL (0.00-0.01); Platelet Count 224 X 10*3/uL (140-440); RBC 4.55 X 10*6/uL (4.40-5.60); RDW 12.7 % (11.5-14.5)
--- NOTE | 2023-07-05 11:33 | P.CRDCN ---
History of Present Illness History of present illness: HISTORY OF PRESENT ILLNESS: This is a 58-year-old male with a past medical history significant for paroxysmal atrial fibrillation not on anticoagulation secondary to alcohol abuse, nonischemic cardiomyopathy with recovered EF, hypertension, hyperlipidemia, and alcohol abuse. Patient follows in the office with Dr. Rogers. We have been asked to see the patient in consultation for chest pain. Patient examined at the bedside. Patient states over the past couple weeks he has been feeling short of breath with exertion. He also reports having some chest tightness with exertion. He states over the past 3 days it has gotten worse. He also reports feeling weak and off balance. He reports feeling dizzy at times and feels like the room is spinning. At the time of examination he denies chest pain or pressure. He denies shortness of breath. He states he has not used alcohol in over a year. However the patient was admitted to the hospital in January 2023 with acute alcohol intoxication. * EKG reveals sinus mechanism with no signs of acute ischemia * Chest xray negative for acute process * Most recent echocardiogram obtained in October 2022 revealed ejection f raction 50-55%, trace aortic regurgitation, mild to moderate mitral regurgitation * Patient underwent Lexiscan stress test in January 2023 which was negative for ischemia REVIEW OF SYSTEMS: At the time of my exam: CONSTITUTIONAL: Denies fever or chills. HEENT: Denies blurred vision, vision changes, or eye pain. Denies hemoptysis CARDIOVASCULAR: Denies chest pain. Denies orthopnea. Denies PND. Denies palpitations RESPIRATORY: Denies shortness of breath. GASTROINTESTINAL: Denies abdominal pain. Denies nausea or vomiting. HEMATOLOGIC: Denies bleeding disorders. GENITOURINARY: Denies any blood in urine. SKIN: Denies pruitis. Denies rash. PHYSICAL EXAM: VITAL SIGNS: Reviewed. GENERAL: Well-developed in no acute distress. HEENT: Head is normocephalic. Pupils are equal, round. Sclerae anicteric. Mucous membranes of the mouth are moist. Neck supple. No JVD or thyromegaly LUNGS: Respirations even and unlabored. Lungs essentially clear to auscultation bilaterally. HEART: Regular rate and rhythm. S1 and S2 heard. ABDOMEN: Soft. Nondistended. Nontender. EXTREMITIES: Normal range of motion. No clubbing or cyanosis. Peripheral pulses intact. No lower extremity edema NEUROLOGIC: Awake and alert. Oriented x 3. ASSESSMENT: Generalized weakness Dizziness Chest pain and shortness of breath with exertion, troponin negative 3 Paroxysmal atrial fibrillation, not on anticoagulation secondary to history of alcohol abuse and multiple falls History of nonischemic cardiomyopathy with recovered EF Hypertension Hyperlipidemia History of alcohol abuse Questionable continued alcohol use, patients states sober for over 1 year but admitted in January 2023 with acute alcohol intoxication History of cardioversion, maintained sinus rhythm for only 5 days per patient PLAN: An acute coronary event has been ruled out Resume home cardiac medications Obtain orthostatic blood pressures Consult neurology for evaluation Patient to undergo dobutamine stress test today Obtain 2-D echo to assess cardiac structure and function Recommend abstinence from alcohol. Patients states sober for over 1 year but adm itted in January 2023 with acute alcohol intoxication Further recommendations pending patient's course Nurse practitioner note has been reviewed by physician. Signing provider agrees with the documented findings, assessment, and plan of care. Past Medical History Past Medical History: Atrial Fibrillation, CVA/TIA, Hypertension, Osteoarthritis (OA), Pneumonia, Seizure Disorder Additional Past Medical History / Comment(s): Afib recently diagnosed, lower extremity edema, ETOH abuse with past withdrawal/seizure in 12/2018, chronic generalized pain, pt states he had a TIA in 2018 while in [place] and was int ubated. Reports had a kidney stone in another a few days ago. History of Any Multi-Drug Resistant Organisms: None Reported Past Surgical History: Orthopedic Surgery Additional Past Surgical History / Comment(s): R thumb fracture with surgery., cardioverison Past Anesthesia/Blood Transfusion Reactions: No Reported Reaction Past Psychological History: Anxiety, Depression Additional Psychological History / Comment(s): Pt is currently homeless and when asked if he has thoughts of suicide he reports "yes" Smoking Status: Never smoker Past Alcohol Use History: Abuse, Daily, Heavy Additional Past Alcohol Use History / Comment(s): pt. drinks a fith a day sometimes two. Past Drug Use History: None Reported - Past Family History Father Family Medical History: Myocardial Infarction ([place]) Additional Family Medical History / Comment(s): Father of a [place] at the age of 57 yrs. Mother Family Medical History: Hyperlipidemia, Hypertension Additional Family Medical History / Comment(s): Mother at the age of 89yrs. Medications and Allergies Home Medications Medication Instructions Recorded Confirmed Type Amiodarone [Cordarone] 200 mg PO DAILY #0 01/18/23 07/04/23 Rx Aspirin 81 mg PO DAILY #30 tab 01/18/23 07/04/23 Rx Atorvastatin [Lipitor] 40 mg PO HS #30 tab 01/18/23 07/04/23 Rx Metoprolol Tartrate [Lopressor] 100 mg PO BID 30 Days #120 tab 01/18/23 07/04/23 Rx Nitroglycerin Sl Tabs [Nitrostat] 0.4 mg SUBLINGUAL Q5M PRN #20 tab 01/18/23 Rx lisinopriL [Zestril] 5 mg PO DAILY #30 tab 01/18/23 07/04/23 Rx Levothyroxine Sodium [Synthroid] 125 mcg PO DAILY 07/04/23 07/04/23 History Allergies Allergy/AdvReac Type Severity Reaction Status Date / Time Fish Containing Products Allergy Rash/Hives Verified 07/04/23 14:21 [Fish] Penicillins Allergy Rash/Hives Verified 07/04/23 14:21 Physical Exam Vitals: Vital Signs Temp Pulse Pulse Pulse Pulse Pulse Resp 07/05/23 09:53 60 68 60 07/05/23 08:00 65 60 68 60 16 07/05/23 07:45 98.3 F 65 16 07/05/23 02:14 982 F H 68 17 07/04/23 20:00 64 18 07/04/23 19:11 97.7 F 61 15 07/04/23 17:43 97.6 F 64 07/04/23 17:01 60 18 07/04/23 12:39 97.3 F L 61 8 L BP BP BP BP BP Pulse Ox 07/05/23 09:53 153/90 143/90 150/96 99 07/05/23 08:00 07/05/23 07:45 166/89 95 07/05/23 02:14 131/71 96 07/04/23 20:00 07/04/23 19:11 124/73 96 07/04/23 17:43 158/53 97 07/04/23 17:01 139/81 98 07/04/23 12:39 141/72 97 Intake and Output 07/04/23 07/05/23 07/05/23 22:59 06:59 14:59 Intake Total 118 Output Total 600 200 Balance -482 -200 Intake: Oral 118 Output: Urine 600 200 Other: Voiding Method Toilet # Voids 2 Weight 117.934 kg Results 07/05/23 05:29 07/05/23 05:29 Cardiac Enzymes 07/04/23 07/04/23 07/04/23 Range/Units 13:19 13:19 16:17 AST 29 (17-59) U/L Troponin I <0.012 <0.012 (0.000-0.034) ng/mL 07/04/23 Range/Units 18:26 AST (17-59) U/L Troponin I <0.012 (0.000-0.034) ng/mL Coagulation 07/04/23 Range/Units 13:19 PT 10.6 (10.0-12.5) sec APTT 25.6 (22.0-30.0) sec Lipids 07/05/23 Range/Units 05:29 Triglycerides 81.90 (0.00-149.00) mg/dL Cholesterol 165.00 (0.00-200.00) mg/dL HDL Cholesterol 43.10 (40.00-60.00) mg/dL Cholesterol/HDL Ratio 3.83 Ratio CBC 07/04/23 07/05/23 Range/Units 13:19 05:29 WBC 4.9 5.70 (3.8-10.6) k/uL RBC 3.93 L 4.55 (4.30-5.90) m/uL Hgb 13.1 14.3 (13.0-17.5) gm/dL Hct 37.1 L 42.2 (39.0-53.0) % Plt Count 183 224 (150-450) k/uL Comprehensive Metabolic Panel 07/04/23 07/05/23 Range/Units 13:19 05:29 Sodium 137 140 (137-145) mmol/L Potassium 3.9 4.6 (3.5-5.1) mmol/L Chloride 107 106 (98-107) mmol/L Carbon Dioxide 23 29.2 (22-30) mmol/L BUN 12 16.8 (9-20) mg/dL Creatinine 0.73 1.1 (0.66-1.25) mg/dL Glucose 75 89 (74-99) mg/dL Calcium 8.1 L 9.1 (8.4-10.2) mg/dL AST 29 (17-59) U/L ALT 18 (4-49) U/L Alkaline Phosphatase 56 (38-126) U/L Total Protein 6.3 (6.3-8.2) g/dL Albumin 3.5 (3.5-5.0) g/dL Current Medications Generic Name Dose Route Start Last Admin Trade Name Freq PRN Reason Stop Dose Admin Acetaminophen 650 mg 07/04/23 14:37 Acetaminophen Tab 325 Mg Tab PO Q6HR PRN Mild Pain or Fever > 100.5 Alprazolam 1 mg 07/04/23 14:36 Alprazolam 1 Mg Tab PO TID PRN Anxiety Amiodarone HCl 200 mg 07/04/23 14:30 07/04/23 15:59 Amiodarone 200 Mg Tab PO 200 mg DAILY TRACY Administration Aspirin 81 mg 07/05/23 09:00 07/05/23 08:57 Aspirin 81 Mg PO 81 mg DAILY TRACY Administration Atorvastatin Calcium 40 mg 07/04/23 21:00 07/04/23 21:10 Atorvastatin 40 Mg Tab PO 40 mg HS TRACY Administration Enoxaparin Sodium 40 mg 07/05/23 09:00 07/05/23 08:57 Enoxaparin 40 Mg/0.4 Ml Syringe SQ Not Given DAILY TRACY Sodium Chloride 1,000 mls @ 20 mls/hr 07/04/23 14:45 07/04/23 15:59 Saline 0.9% IV 20 mls/hr .Q24H TRACY Administration Dobutamine HCl/Dextrose 500 mg 250 mls @ 35.38 mls/hr 07/05/23 08:34 / IV Solution IV 07/05/23 12:35 .Q7H4M PRN Per Protocol Protocol 10 MCG/KG/MIN Levothyroxine Sodium 125 mcg 07/05/23 06:30 07/05/23 06:22 Levothyroxine 125 Mcg Tab PO 125 mcg DAILY@0630 TRACY Administration Lisinopril 5 mg 07/05/23 09:00 07/05/23 08:57 Lisinopril 5 Mg Tab PO 5 mg DAILY TRACY Administration Metoprolol Tartrate 100 mg 07/04/23 21:00 07/04/23 21:10 Metoprolol Tartrate 50 Mg Tab PO 100 mg BID TRACY Administration Morphine Sulfate 1 mg 07/04/23 14:37 Morphine Sulfate 2 Mg/Ml Syringe IVP Q4HR PRN Severe Pain (Scale 7 to 10) Naloxone HCl 0.2 mg 07/04/23 14:37 Naloxone 0.4 Mg/Ml 1 Ml Vial IV Q2M PRN Opioid Reversal Nitroglycerin 0.4 mg 07/04/23 14:06 Nitroglycerin Sl Tabs 0.4 Mg Tab SUBLINGUAL Q5M PRN Chest Pain Ondansetron HCl 4 mg 07/04/23 14:37 Ondansetron 4 Mg/2 Ml Vial IVP Q8HR PRN Nausea And Vomiting Sodium Chloride 10 ml 07/04/23 21:00 07/04/23 21:10 Sodium Chloride 0.9% Flush 10 Ml Syringe IV 10 ml BID TRACY Administration Intake and Output 07/04/23 07/05/23 07/05/23 22:59 06:59 14:59 Intake Total 118 Output Total 600 200 Balance -482 -200 Intake: Oral 118 Output: Urine 600 200 Other: Voiding Method Toilet # Voids 2 Weight 117.934 kg 07/05/23 05:29 07/05/23 05:29
--- NOTE | 2023-07-05 11:41 | P.CNNES ---
History of Present Illness Consult date: 07/05/23 Requesting physician: Benita Hernandez Reason for Consult: dizziness History of Present Illness: This is a 58-year-old gentleman who presented emergency department because of chest pain, worsening of shortness of breath, Aki weakness and dizziness. Patient stated that he has chronic shortness of breath but the last few weeks she is been having left chest pain any feels stabbing, generalized weakness and he feels dizzy with movement. Denies any focal weakness, he does have ringing in the ears in the last few weeks. Denies any vomiting. Denies any difficulty getting his words out. He stated that he probably had a TIA that is remote and he had some numbness in the past that was his TIA. He does have underlying atrial fibrillation and the he had cardioversion and he is on amiodarone. Denies being on antiplatelets or anticoagulation. Some of the workup during his hospital visit consisted of: Lipid panel is triglyceride of 81, LDLs 105, HDL is 43 cholesterol is 165 EKG is reported as normal sinus rhythm. I reviewed the the patient's labs. Review of Systems Review of system: The 12 point system was reviewed and apparent positive and negative per HPI. Past Medical History Past Medical History: Atrial Fibrillation, CVA/TIA, Hypertension, Osteoarthritis (OA), Pneumonia, Seizure Disorder Additional Past Medical History / Comment(s): Afib recently diagnosed, lower extremity edema, ETOH abuse with past withdrawal/seizure in 12/2018, chronic generalized pain, pt states he had a TIA in 2019 while in [place] and was intubated. Reports had a kidney stone in another a few days ago. History of Any Multi-Drug Resistant Organisms: None Reported Past Surgical History: Orthopedic Surgery Additional Past Surgical History / Comment(s): R thumb fracture with surgery., cardioverison Past Anesthesia/Blood Transfusion Reactions: No Reported Reaction Past Psychological History: Anxiety, Depression Additional Psychological History / Comment(s): Pt is currently homeless and when asked if he has thoughts of suicide he reports "yes" Smoking Status: Never smoker Past Alcohol Use History: Abuse, Daily, Heavy Additional Past Alcohol Use History / Comment(s): pt. drinks a fith a day sometimes two. Past Drug Use History: None Reported - Past Family History Father Family Medical History: Myocardial Infarction ([place]) Additional Family Medical History / Comment(s): Father of a [place] at the age of 57 yrs. Mother Family Medical History: Hyperlipidemia, Hypertension Additional Family Medical History / Comment(s): Mother at the age of 89yrs. Medications and Allergies Home Medications Medication Instructions Recorded Confirmed Type Amiodarone [Cordarone] 200 mg PO DAILY #0 01/18/23 07/04/23 Rx Aspirin 81 mg PO DAILY #30 tab 01/18/23 07/04/23 Rx Atorvastatin [Lipitor] 40 mg PO HS #30 tab 01/18/23 07/04/23 Rx Metoprolol Tartrate [Lopressor] 100 mg PO BID 30 Days #120 tab 01/18/23 07/04/23 Rx Nitroglycerin Sl Tabs [Nitrostat] 0.4 mg SUBLINGUAL Q5M PRN #20 tab 01/18/23 07/04/23 Rx lisinopriL [Zestril] 5 mg PO DAILY #30 tab 01/18/23 07/04/23 Rx Levothyroxine Sodium [Synthroid] 125 mcg PO DAILY 07/04/23 07/04/23 History Allergies Allergy/AdvReac Type Severity Reaction Status Date / Time Fish Containing Products Allergy Rash/Hives Verified 07/04/23 14:21 [Fish] Penicillins Allergy Rash/Hives Verified 07/04/23 14:21 Physical Examination - Vital Signs Vital Signs: Vital Signs Temp Pulse Pulse Pulse Pulse Pulse Resp 07/05/23 09:53 60 68 60 07/05/23 08:00 65 60 68 60 16 07/05/23 07:45 98.3 F 65 16 07/05/23 02:14 982 F H 68 17 07/04/23 20:00 64 18 07/04/23 19:11 97.7 F 61 15 07/04/23 17:43 97.6 F 64 07/04/23 17:01 60 18 07/04/23 12:39 97.3 F L 61 8 L BP BP BP BP BP Pulse Ox 07/05/23 09:53 153/90 143/90 150/96 99 07/05/23 08:00 07/05/23 07:45 166/89 95 07/05/23 02:14 131/71 96 07/04/23 20:00 07/04/23 19:11 124/73 96 07/04/23 17:43 158/53 97 10/26/23 17:01 139/81 98 07/04/23 12:39 141/72 97 Intake and Output 07/04/23 07/05/23 07/05/23 22:59 06:59 14:59 Intake Total 118 Output Total 600 200 Balance -482 -200 Intake: Oral 118 Output: Urine 600 200 Other: Voiding Method Toilet # Voids 2 Weight 117.934 kg GENERAL: The patient is a morbid obese gentleman resting on recliner chair and is not in acute distress. NEUROLOGICAL: Higher mental function: The patient is awake, alert, oriented to self, place and time. Patient is following commands. No aphasia and no neglect. Cranial nerves: The pupils are round, equal and reactive to light and accommodation. Visual zamora are full to confrontation throughout. Extraocular movement is intact no nystagmus is noted. Facial sensation is normal to touch throughout. The facial strength is normal throughout. Hearing is normal bilaterally to hand rub. Tongue is midline and moved [id number] without any difficulty. No dysarthria is noted. Shoulder shrug is normal bilaterally. Motor: Gait is normal. The strength is 5 over 5 throughout. Normal tone and bulk. Cerebellum: Normal finger to nose bilaterally. Sensation: Sensation is normal to touch throughout. Reflexes (right/left): 2+ throughout. Plantars are downgoing bilaterally. Results - Laboratory Findings CBC and BMP: 07/05/23 05:29 07/05/23 05:29 Abnormal Lab Findings: Abnormal Labs 07/04/23 07/04/23 13:19 13:19 RBC 3.93 L Hct 37.1 L Calcium 8.1 L Assessment and Plan Assessment: This is a 58-year-old gentleman with history of atrial fibrillation status post cardioversion and is on amiodarone, congestive heart failure who presented because of left chest pain, worsening of shortness of breath, generalized weakness and dizziness. Acute dizziness likely due to peripheral. No focal symptoms on examination History of atrial fibrillation on amiodarone and had status post cardioversion. Non-any anticoagulation or antiplatelet History of TIA in 2019 History of congestive heart failure H reported history of alcohol withdrawal seizures History of alcohol use and he stated the last drink was a about a year ago Plan: The patient was not on any antiplatelet or anticoagulation. Patient was started on aspirin 81 mg daily by the primary team I ordered CT of the head as well as carotid duplex. If CT of the head is negative and the patient continues to have dizziness and can pursue MRI the brain Orthostatic vitals is negative I ordered all call level and urine drug screen 2-D echo was ordered by the primary team. Cardiology is consulted We'll defer the rest of the medical management to primary team The plan is discussed with patient and his nurse. Thank you for the consultation. Dr. Huizar will start neurology service tomorrow A.M. Time with Patient: Greater than 30
[2023-07-05] MEDS: METOPROLOL TARTRATE 50 MG TAB PO SCH ×2 (12:42→21:13)
[2023-07-05] MEDS: AMIODARONE 200 MG TAB PO SCH (12:42)
--- NOTE | 2023-07-05 13:32 | CA ---
Dobutamine Stress Echocardiogram Report Evaristo Matthews Age: 58 Gender: M : 1965 Exam Date: 07/05/2023 11:42 Exam Location: [place] [facility] Ordering Physician: Benita Hernandez Referring Physician: [id number] [employer] Technical Operator: Jolene Ibarra [facility] Technologist: Ht (in): 71 Wt (lb): 260 Procedure CPT: Indication: CP ICD-9 Codes: Rhythm: Patient History: CHEST PAIN, DIFFICULTY IN BREATHING, NUMBNESS IN FACE/NECK, HTN, PRIOR CVA, ELEVATED CHOLESTEROL LEVELS, FAMILY HX OF HEART DISEASE, Cardiac Medications: Medications in past 24 hours: Contrast: Lumason Total Dose (mL): 5 Stress Results Protocol: Dobutamine Peak Dose (???g/kg/min): 40 Duration (min:sec): Atropine:(mg) 0.5 Target HR: 136 Double Product: [id number] Resting HR: 56 Resting BP: 136 / 80 Peak HR: 136 Peak BP: 163 / 78 Max Predicted HR: 160 85 % Max Predicted HR Stress Summary: BP Response: Reason for Termination: TARGET HR REACHED Cardiac Symptoms: ECG Analysis Resting EKG: Sinus bradycardia, normal axis, no blocks, heart rate 59 bpm Stress EKG: Sinus rhythm, no significant ST-T wave changes that are diagnostic for ischemia Arrhythmia: Occasional PVCs but no sustained arrhythmias Echo Analysis Base Echo Analysis: Normal global systolic function. No resting regional wall motion abnormality Low Echo Anaylsis: No regional wall motion abnormality Peak Echo Analysis: Normal augmentation of global left ventricular systolic function. No obvious regional wall motion abnormality with peak dobutamine infusion Recovery Echo: Regional wall motion abnormality to the recovery phase MEASUREMENTS (Male/Female) Normal Values CONCLUSIONS Overall normal dobutamine stress echocardiogram Nonischemic ECG and echocardiographic response to dobutamine infusion Normal hemodynamic and clinical response to vitamin effusion Dr Logan Granda (Electronically Signed) Final Date: 05 July 2023 13:32
--- NOTE | 2023-07-05 14:28 | P.PN ---
Subjective Progress Note Date: 07/05/23 58-year-old gentleman with past medical history significant for paroxysmal atrial fibrillation, hypertension, cardiomyopathy with recovered EF, alcohol use, history of TIA, hypertension, hyperlipidemia, presents to the emergency department with complains of chest pain * Patient states symptom onset was since last 24 hours when complains of chest pain and shortness of breath. Patient complained of chest pain that was left- sided. This was associated with dyspnea. Patient denies diaphoresis, fever, cough, chills * Workup in ER included EKG which showed sinus bradycardia and no significant ST segment changes * Patient has been having these symptoms for the last 2 weeks, * Chest x-ray obtained in ER was negative for acute cardiopulmonary process * Blood work obtained in ER included hematology which were WBC of 4.9-year-old woman 13.1 platelet count of 183, d-dimer within normal limits * Serum coagulation shows INR of 1, serum chemistry within normal limits, initial troponins obtained negative 07/05. Patient seen and examined. Troponins remained flat. Cardiology evaluated the patient, ordered to be given stress test. Patient is still complaining of dizziness. Complaining of intermittent chest pressure. Complaining of of breath on exertion REVIEW OF SYSTEMS: CONSTITUTIONAL: No fever, no malaise,. CARDIOVASCULAR: As mentioned above PULMONARY: No shortness of breath, no cough, GASTROINTESTINAL: No diarrhea, no nausea, no vomiting, no abdominal pain. NEUROLOGICAL: No headaches, no weakness, PHYSICAL EXAMINATION: GENERAL: The patient is alert and oriented x3, not in any acute distress. Well developed, well nourished. HEENT: Pupils are round and equally reacting to light. EOMI. No scleral icterus. No conjunctival pallor. Normocephalic, atraumatic. No pharyngeal erythema. No thyromegaly. CARDIOVASCULAR: S1 and S2 present. No murmurs, rubs, or gallops. PULMONARY: Chest is clear to auscultation, no wheezing or crackles. ABDOMEN: Soft, nontender, nondistended, normoactive bowel sounds. No palpable organomegaly. MUSCULOSKELETAL: No joint swelling or deformity. EXTREMITIES: No cyanosis, clubbing, or pedal edema. NEUROLOGICAL: Gross neurological examination did not reveal any focal deficits. SKIN: No rashes. Assessment and plan * Chest pain rule out acute coronary syndrome * Dizziness * History of atrial fibrillation * Hypertension * Hyperlipidemia * Remote history of alcohol use Monitor vital signs Monitor CBC Monitor CMP Continue telemetry monitoring Trend troponin. Continue metoprolol, aspirin, Lipitor, amiodarone. continue Lipitor Patient not on anticoagulation secondary to alcohol abuse and frequent falls Cardiology Consulted and ordered dobutamine stress test Neurology consulted for dizziness Labs and medication were reviewed.. Continue same treatment. Continue with symptomatic treatment. Resume home medication. Monitor labs and vitals. DVT and GI prophylaxis. Further recommendations as per clinical course of the patient Dictation was produced using [employer] dictation software. please excuse any grammatical, word or spelling errors. Objective - Vital Signs Vital signs: Vital Signs Temp 98.3 F 07/05/23 07:45 Pulse 60 07/05/23 09:53 Resp 16 07/05/23 07:45 BP 150/96 07/05/23 09:53 Pulse Ox 99 07/05/23 09:53 FiO2 Intake & Output 07/04/23 07/05/23 07/05/23 18:59 06:59 18:59 Intake Total 118 Output Total 800 Balance 118 -800 Weight 117.934 kg Intake: Oral 118 Output: Urine 800 Other: # Voids 2 - Labs CBC & Chem 7: 07/05/23 05:29 07/05/23 05:29 Labs: Abnormal Lab Results - Last 24 Hours (Table) 07/04/23 07/04/23 Range/Units 13:19 13:19 RBC 3.93 L (4.30-5.90) m/uL Hct 37.1 L (39.0-53.0) % Calcium 8.1 L (8.4-10.2) mg/dL
--- NOTE | 2023-07-05 14:37 | CT ---
EXAMINATION TYPE: CT brain wo con DATE OF EXAM: 07/05/2023 COMPARISON: 02/04/2023. HISTORY: Left-sided numbness and dizziness. CT DLP: 1090.4 mGycm Automated exposure control for dose reduction was used. FINDINGS: There is no acute intracranial hemorrhage, mass, mass effect, midline shift, extra-axial fluid collec tion or hydrocephalus. The arriaga-white distinction is intact without evidence of an acute major vessel infarct. The visualized paranasal sinuses and mastoid air cells are clear. IMPRESSION: NO ACUTE INTRACRANIAL PROCESS.
--- NOTE | 2023-07-05 15:00 | US ---
EXAMINATION TYPE: US carotid duplex BILAT DATE OF EXAM: 07/05/2023 COMPARISON: NONE CLINICAL INDICATION: Male, 58 years old with history of syncope; TECHNIQUE: Carotid duplex ultrasound examination. Indirect Doppler criteria was utilized. FINDINGS: EXAM MEASUREMENTS: RIGHT: Peak Systolic Velocity (PSV) cm/sec ----- Right CCA: 75.4 ----- Right ICA: 94.2 ----- Right ECA: 94.8 ICA/CCA ratio: 1.5 RIGHT: End Diastole cm/sec ----- Right CCA: 15.6 ----- Right ICA: 29.9 ----- Right ECA: 13.6 LEFT: Peak Systolic Velocity (PSV) cm/sec ----- Left CCA: 83.2 ----- Left ICA: 72.8 ----- Left ECA: 110.0 ICA/CCA ratio: 0.87 LEFT: End Diastole cm/sec ----- Left CCA: 18.8 ----- Left ICA: 9.7 ----- Left ECA: 0.0 VERTEBRALS (direction of flow): Right Vertebral: not identified Left Vertebral: Antegrade Rhythm: Normal CEMENT FINISHING SUPERVISOR NOTES: Technically difficult due to depth of vessels. No significant stenosis identified IMPRESSION: 1. No visible plaque and no hemodynamically significant stenosis. 2. The right vertebral artery was unable to be identified. Criteria for Assigning % of Stenosis / Diameter reduction (Estimation based on the indirect measurements of the internal carotid artery velocities (ICA PSV). 1. Normal (no stenosis)=ICA PSV < 125 cm/s: ratio < 2.0: ICA EDV<40 cm/s. 2. Less than 50% stenosis=ICA PSV < 125 cm/s: ratio < 2.0: ICA EDV<40 cm/s. 3. 50 to 69% stenosis=ICA PSV of 125 to 230 cm/s: ration 2.0 ? 4.0: ICA EDV 40-100 cm/s. 4. Greater than 70% stenosis to near occlusion= ICA PSV > 230 cm/s: ratio > 4.0: ICA EDV > 100 cm/s. 5. Near occlusion= ICA PSV velocities may be low or undetectable: variable ratio and ICA EDV. 6. Total occlusion=unable to detect flow.
[2023-07-05] MEDS: SODIUM CHLORIDE 0.9% 1,000 ML IV SCH (15:52)
--- NOTE | 2023-07-05 16:55 | CA ---
Transthoracic Echo Report Name: Evaristo Matthews Age: 58 Gender: M : 1965 Exam Date: 07/05/2023 12:18 Exam Location: [place] [facility] Ht (in): 71 Wt (lb): 260 Ordering Physician: Manny Ibarra MD Attending/Referring Phys: Compressor Mechanic Bus Jolene Ibarra [facility] Procedure CPT: Indications: chf Cardiac Hx: Technical Quality: Fair Contrast 1: Lumason Total Dose (mL): 5 Contrast 2: Total Dose (mL): MEASUREMENTS (Male / Female) Normal Values 2D ECHO LV Diastolic Diameter PLAX 5.3 cm 4.2 - 5.9 / 3.9 - 5.3 cm LV Systolic Diameter PLAX 3.7 cm IVS Diastolic Thickness 1.0 cm 0.6 - 1.0 / 0.6 - 0.9 cm LVPW Diastolic Thickness 1.0 cm 0.6 - 1.0 / 0.6 - 0.9 cm LV Relative Wall Thickness 0.4 LVOT Diameter 2.0 cm Ascending Aorta Diameter 3.2 cm M-MODE Aortic Root Diameter MM 2.7 cm LA Systolic Diameter MM 4.5 cm LA Ao Ratio MM 1.6 AV Cusp Separation MM 2.1 cm DOPPLER AV Peak Velocity 148.6 cm/s AV Peak Gradient 8.8 mmHg AV Mean Velocity 113.1 cm/s AV Mean Gradient 5.6 mmHg AV Velocity Time Integral 26.6 cm LVOT Peak Velocity 111.2 cm/s LVOT Peak Gradient 4.9 mmHg LVOT Velocity Time Integral 23.0 cm LVOT Stroke Volume 74.0 cm??? LVOT Stroke Volume Index 31.4 ml/m??? LVOT Cardiac Index 2779.8 cm???/min???m??? AV Area Cont Eq vti 2.8 cm??? AV Area Cont Eq pk 2.4 cm??? Mitral E Point Velocity 68.9 cm/s Mitral A Point Velocity 89.6 cm/s Mitral E to A Ratio 0.8 MV Deceleration Time 188.0 ms LV E' Lateral Velocity 8.6 cm/s Mitral E to LV E' Lateral Ratio 8.0 LV E' Septal Velocity 7.7 cm/s Mitral E to LV E' Septal Ratio 9.0 Right Atrial Pressure 3.0 mmHg FINDINGS Left Ventricle Left ventricular wall thickness at upper limits of normal. Left ventricular cavity size normal. Normal left ventricular systolic function with no obvious regional wall motion abnormalities. Left ventricular ejection fraction is estimated at 55-60%. Right Ventricle Normal right ventricular size. Right Atrium Upper normal right atrial size. Left Atrium Left atrial size at the upper limits of normal. Mitral Valve Structurally normal mitral valve. No mitral regurgitation. Aortic Valve Trileaflet aortic valve. Trace aortic regurgitation. Tricuspid Valve Structurally normal tricuspid valve. No tricuspid regurgitation. Pulmonic Valve Pulmonic valve not well visualized. Pericardium No pericardial effusion. Echo free space anterior to the right ventricle likely represents a fat pad. Aorta Normal size aortic root and proximal ascending aorta. CONCLUSIONS Left ventricular ejection fraction is estimated at 55-60%. No obvious regional wall motion abnormalities. No significant valvular dysfunction Prominent epicardial fat No pericardial effusion Previewed by: Dr Logan Granda (Electronically Signed) Final Date: 05 July 2023 16:54
[2023-07-05] MEDS: ATORVASTATIN 40 MG TAB PO SCH (21:13)
[2023-07-06] MEDS: LEVOTHYROXINE 125 MCG TAB PO SCH (06:10)
[2023-07-06 09:08] LABS: Urine Alcohol Negative (Negative); Urine Barbiturate Negative (Negative); Urine Cocaine Negative (Negative); Urine Methadone Negative (Negative); Urine Opiates Negative (Negative); Urine Phencyclidine Negative (Negative)
[2023-07-06] MEDS: ASPIRIN 81 MG PO SCH (10:07)
[2023-07-06] MEDS: AMIODARONE 200 MG TAB PO SCH (10:07)
[2023-07-06] MEDS: METOPROLOL TARTRATE 50 MG TAB PO SCH (10:07)
[2023-07-06] MEDS: lisinopriL 5 MG TAB PO SCH (10:08)
[2023-07-06] MEDS: ENOXAPARIN 40 MG/0.4 ML SYRINGE SQ SCH ×2 (10:08→10:09)
--- NOTE | 2023-07-06 10:36 | MR ---
EXAMINATION TYPE: MR brain wo con DATE OF EXAM: 07/06/2023 COMPARISON: CT brain from yesterday HISTORY: Dizziness TECHNIQUE: Multiplanar, multisequence imaging of the brain and brainstem is performed without IV cont rast. FINDINGS: Diffusion weighted images demonstrate no evidence of a recent infarct or other diffusion abnormality. The ventricular system and cisternal spaces are normal in size and appearance. The brain volume is a ge appropriate. Rare tiny T2 hyperintense foci throughout the white matter. Less than 5 distinct lesi ons are seen. Midline structures demonstrate normal morphology. The craniocervical junction appears within normal limits. Normal vascular flow voids are present. The visualized sinuses are clear and the globes are i ntact. Increased fluid signal right mastoid air cells is present. Patchy increased fluid left mastoid air cells. IMPRESSION: 1. No MRI evidence for a recent infarct. 2. Increased fluid signal right mastoid air cells raises concern for right-sided mastoiditis, correla te clinically.
--- NOTE | 2023-07-06 14:29 | P.DS ---
Providers Date of admission: 07/04/23 14:06 Expected date of discharge: 07/06/23 Attending physician: Manny Ibarra MD Consults: 07/04/23 14:06 Consult Physician Urgent Consulting Provider: Alonso Leach Consult Reason/Comments: cp Do you want consulting provider notified?: Yes 07/05/23 08:37 Consult Physician Routine Consulting Provider: Thiago Barajas Consult Reason/Comments: dizziness Do you want consulting provider notified?: Yes Primary care physician: [place] Hospital Course: Discharge diagnoses; Chest pain,acute coronary syndrome ruled out * Dizziness * History of atrial fibrillation * Hypertension * Hyperlipidemia * Remote history of alcohol use Hospital course; 58-year-old gentleman with past medical history significant for paroxysmal atrial fibrillation, hypertension, cardiomyopathy with recovered EF, alcohol use, history of TIA, hypertension, hyperlipidemia, presents to the emergency department with complains of chest pain * Patient states symptom onset was since last 24 hours when complains of chest pain and shortness of breath. Patient complained of chest pain that was left- sided. This was associated with dyspnea. Patient denies diaphoresis, fever, cough, chills * Workup in ER included EKG which showed sinus bradycardia and no significant ST segment changes * Patient has been having these symptoms for the last 2 weeks, * Chest x-ray obtained in ER was negative for acute cardiopulmonary process * Blood work obtained in ER included hematology which were WBC of 4.9-year-old woman 13.1 platelet count of 183, d-dimer within normal limits * Serum coagulation shows INR of 1, serum chemistry within normal limits, initial troponins obtained negative 07/05. Patient seen and examined. Troponins remained flat. Cardiology evaluated the patient, ordered to be given stress test. Patient is still complaining of dizziness. Complaining of intermittent chest pressure. Complaining of of breath on exertion 07/06. Patient seen and examined. 2-D echo done showed LVEF of 55-60%, no regional wall motion abnormalities. Dobutamine stress test negative for any ischemia. Ultrasound of carotid arteries was negative for any visible plaque or significant stenosis. Because of persistent dizziness, neurology ordered MRI, negative for any acute stroke. Neurology cleared the patient for discharge PHYSICAL EXAMINATION: GENERAL: The patient is alert and oriented x3, not in any acute distress. Well developed, well nourished. HEENT: Pupils are round and equally reacting to light. EOMI. No scleral icterus. No conjunctival pallor. Normocephalic, atraumatic. No pharyngeal erythema. No thyromegaly. CARDIOVASCULAR: S1 and S2 present. No murmurs, rubs, or gallops. PULMONARY: Chest is clear to auscultation, no wheezing or crackles. ABDOMEN: Soft, nontender, nondistended, normoactive bowel sounds. No palpable organomegaly. MUSCULOSKELETAL: No joint swelling or deformity. EXTREMITIES: No cyanosis, clubbing, or pedal edema. NEUROLOGICAL: Gross neurological examination did not reveal any focal deficits. SKIN: No rashes. Dictation was produced using [employer] dictation software. please excuse any grammatical, word or spelling errors. Patient Condition at Discharge: Good Plan - Discharge Summary New Discharge Prescriptions: Continue Atorvastatin [Lipitor] 40 mg PO HS #30 tab Nitroglycerin Sl Tabs [Nitrostat] 0.4 mg SUBLINGUAL Q5M PRN #20 tab PRN Reason: Chest Pain lisinopriL [Zestril] 5 mg PO DAILY #30 tab Aspirin 81 mg PO DAILY #30 tab Metoprolol Tartrate [Lopressor] 100 mg PO BID 30 Days #120 tab Amiodarone [Cordarone] 200 mg PO DAILY #0 Levothyroxine Sodium [Synthroid] 125 mcg PO DAILY Discharge Medication List Amiodarone [Cordarone] 200 mg PO DAILY #0 01/18/23 [Rx] Aspirin 81 mg PO DAILY #30 tab 01/18/23 [Rx] Atorvastatin [Lipitor] 40 mg PO HS #30 tab 01/18/23 [Rx] Metoprolol Tartrate [Lopressor] 100 mg PO BID 30 Days #120 tab 01/18/23 [Rx] Nitroglycerin Sl Tabs [Nitrostat] 0.4 mg SUBLINGUAL Q5M PRN #20 tab 01/18/23 [Rx] lisinopriL [Zestril] 5 mg PO DAILY #30 tab 01/18/23 [Rx] Levothyroxine Sodium [Synthroid] 125 mcg PO DAILY 07/04/23 [History] Follow up Appointment(s)/Referral(s): Kamryn Alvarez MD [Primary Care Provider] - 1-2 days Tyler Stock DO [STAFF PHYSICIAN] - 1 Week Discharge Disposition: HOME SELF-CARE
[2023-07-06 14:45] VITALS: BP 144/85; PULSE 55; TEMP 98.3
--- NOTE | 2023-07-06 15:28 | P.PN ---
Subjective Progress Note Date: 07/06/23 HISTORY OF PRESENT ILLNESS: This is a 58-year-old male with a past medical history significant for paroxysmal atrial fibrillation not on anticoagulation secondary to alcohol abuse, nonischemic cardiomyopathy with recovered EF, hypertension, hyperlipidemia, and alcohol abuse. Patient follows in the office with Dr. Rogers. We have been asked to see the patient in consultation for chest pain. Patient examined at the bedside. Patient states over the past couple weeks he has been feeling short of breath with exertion. He also reports having some chest tightness with exertion. He states over the past 3 days it has gotten worse. He also reports feeling weak and off balance. He reports feeling dizzy at times and feels like the room is spinning. At the time of examination he denies chest pain or pressure. He denies shortness of breath. He states he has not used alcohol in over a year. However the patient was admitted to the hospital in January 2023 with acute alcohol intoxication. * EKG reveals sinus mechanism with no signs of acute ischemia * Chest xray negative for acute process * Most recent echocardiogram obtained in October 2022 revealed ejection fraction 50-55%, trace aortic regurgitation, mild to moderate mitral regurgitation * Patient underwent Lexiscan stress test in January 2023 which was negative for ischemia 07/06/2023 Dobutamine stress echo 07/05 was unremarkable. ECHO 07/05 with EF 55-60%, no significant valve dysfunction. Head CT no acute process. Carotid US with no significant stenosis. Orthostatic VS negative. UDS negative. MRI brain is pending. He is feeling better today. Denies any chest pain or shortness of breath. He sta elena his dizziness is almost gone. LDL 105. PHYSICAL EXAM: VITAL SIGNS: Reviewed. GENERAL: Well-developed in no acute distress. HEENT: Head is normocephalic. Pupils are equal, round. Sclerae anicteric. Mucous membranes of the mouth are moist. Neck supple. No JVD or thyromegaly LUNGS: Respirations even and unlabored. Lungs essentially clear to auscultation bilaterally. HEART: Regular rate and rhythm. S1 and S2 heard. ABDOMEN: Soft. Nondistended. Nontender. EXTREMITIES: Normal range of motion. No clubbing or cyanosis. Peripheral pulses intact. No lower extremity edema NEUROLOGIC: Awake and alert. Oriented x 3. ASSESSMENT: Generalized weakness Dizziness Chest pain and shortness of breath with exertion, troponin negative 3 Paroxysmal atrial fibrillation, not on anticoagulation secondary to history of alcohol abuse and multiple falls History of nonischemic cardiomyopathy with recovered EF Hypertension Hyperlipidemia History of alcohol abuse Questionable continued alcohol use, patients states sober for over 1 year but admitted in January 2023 with acute alcohol intoxication History of cardioversion, maintained sinus rhythm for only 5 days per patient PLAN: An acute coronary event has been ruled out. Stress test and ECHO unremarkable. Recommend abstinence from alcohol. Patients states sober for over 1 year but ad mitted in January 2023 with acute alcohol intoxication [id number] score is 2, recommend anticoagulation. He believes that he tolerated Eliquis in the past. Start Eliquis 5mg po BID and stop aspirin. OK to DC home from cardiology standpoint. Follow up with Dr. Rogers in office in 1 week. Nurse practitioner note has been reviewed by physician. Signing provider agrees with the documented findings, assessment, and plan of care. Objective - Vital Signs Vital signs: Vital Signs Temp 97.9 F 07/06/23 07:00 Pulse 60 07/06/23 07:00 Resp 16 07/06/23 07:00 BP 146/76 07/06/23 07:00 Pulse Ox 95 07/06/23 08:15 FiO2 Intake & Output 07/05/23 07/06/23 07/06/23 18:59 06:59 18:59 Intake Total 177 118 Balance 177 118 Intake: Oral 177 118 Other: Voiding Method Toilet Toilet # Voids 3 1 - Labs CBC & Chem 7: 07/05/23 05:29 07/05/23 05:29
[2023-07-06] MEDS ORDERED: APIXABAN 5 MG TAB PO SCH (21:00)
== END 2023-07-06 15:16 | disposition home or self-care (01) ==
LOC: EC 12:21 → 6NMEDSUR 14:06
PROVIDERS: ADMIT Internal Medicine; ATTEND Internal Medicine
DX: R07.89 Other chest pain (principal); R53.1 Weakness; R42 Dizziness and giddiness; R06.09 Other forms of dyspnea; R29.6 Repeated falls; E78.5 Hyperlipidemia, unspecified; I48.0 Paroxysmal atrial fibrillation; I11.0 Hypertensive heart disease with heart failure; I50.9 Heart failure, unspecified; F32.A Depression, unspecified; F41.9 Anxiety disorder, unspecified; I42.8 Other cardiomyopathies; Z86.73 Personal history of transient ischemic attack (TIA), and cerebral infarction without residual deficits; Z79.899 Other long term (current) drug therapy; Z79.82 Long term (current) use of aspirin; Z88.0 Allergy status to penicillin; Z82.49 Family history of ischemic heart disease and other diseases of the circulatory system
CPT/HCPCS: 99285; 36415; 94760; 93005; 93306; 93351; 85379; 83880; 80061; 80053; 80048; 83735; 84484; 85025; 85027; 85610; 85730; 80306; 80320; 71046; 93880; 70450; 70551; G0378 ×3; Q9950 ×2